=== PATIENT | male | born 1955 | race Caucasian/White ===

== ENCOUNTER 2017-06-11 09:54 | Emergency (ER) | payer MEDICAID, OTHER ==
[~2017-06-11] VITALS: Ht 172.7 cm; Wt 136.0 kg
[~2017-06-11 09:54] MED LIST: ASCO500 PO; ASPI81 PO; CARV6.25 PO; FLUT50I NASAL; LISI-360 PO; PRAS10 PO; ROSU10 PO; TAB-TAB PO; VITA400D PO
[2017-06-11 09:55] VITALS: BP 97/59; PULSE 66; RESP 18; TEMP 98.2; O2SAT 97
[2017-06-11] MEDS ORDERED: ROSU1TAB6 PO (10:10)
[2017-06-11] MEDS ORDERED: ASPI-516 CHEW ×2 (10:10)
[2017-06-11] MEDS ORDERED: LISI40TA PO ×2 (10:10)
[2017-06-11] MEDS ORDERED: CARV25TA PO ×2 (10:10)
--- NOTE | 2017-06-11 10:10 | PD ---
HPI Chief Complaint: General Weakness Time Seen by Provider: 09:56 Travel History International Travel<30 days: No Contact w/Intl Traveler<30days: No Traveled to known affect area: No History of Present Illness HPI This 61-year-old male is complaining of generalized weakness. Last [place] he fell and hurt his right patella. 3 nights later he injured his left great toe which was apparently broken. He has not been on any breaks. He apparently had x-rays done in [facility]. He was told that the patella was broken. He says that around 5 AM this morning she slid out of bed and upon. He says he been feeling weak for the last week he's been nauseated PFS Past Medical History Asthma: No Blood Disorders: No Anxiety: Yes Depression: No Heart Rhythm Problems: Yes (SKIPS BEATs) Cancer: No Cardiac Catheterization: Yes Cardiovascular Problems: Yes (BYPASS;STENTS) High Cholesterol: Yes Chemotherapy: No Chest Pain: Yes Congestive Heart Failure: No COPD: No Coronary Artery Disease: Yes Diabetes: No Diminished Hearing: No Endocrine: No Gastrointestinal Disorders: No Genitourinary: No Hypertension: Yes Immune Disorder: No Implanted Vascular Access Dvce: No Musculoskeletal: No Neurologic: No Psychiatric: No Reproductive: No Respiratory: Yes (SOB) Immunizations Current: Yes Radiation Therapy: No Sleep Apnea: Yes (no cpap) Thyroid Disease: No Past Surgical History Cardiac Surgery: Yes Cholecystectomy: Yes Coronary Artery Bypass Graft: Yes (QUAD BYPASS) Coronary Stent: Yes Tonsillectomy: Yes Other Surgery: Yes (CABG) Family History Family Hypercholesterolemia: Yes Social History Alcohol Use: Yes (1-2 TIMES WEEKLY ) Tobacco Use: No Substance Use: No Allergies-Medications (Allergen,Severity, Reaction): Coded Allergies: atorvastatin (Unverified Allergy, Mild, calf cramping, 01/27/17) Hospitalized as thought having heart attack. Reported Meds & Prescriptions Reported Meds & Active Scripts Active Reported Rosuvastatin (Rosuvastatin Calcium) 10 Mg Tab 10 Mg PO HS Aspirin 81 Mg Chew 81 Mg CHEW DAILY Lisinopril 40 Mg Tab 40 Mg PO DAILY Carvedilol 25 Mg Tab 25 Mg PO BID Review of Systems General / Constitutional: No: Fever, Chills Eyes: No: Diploplia, Blurred Vision HENT: Positive: Lightheadedness, No: Headaches, Vertigo Cardiovascular: No: Chest Pain or Discomfort, Palpitations Respiratory: No: Cough, Shortness of Breath Gastrointestinal: Positive: Nausea Genitourinary: No: Urgency, Frequency Musculoskeletal: No: Myalgias, Arthralgias Skin: No Rash, No Itching Neurologic: Positive: Weakness, No: Dizziness Endocrine: No: Heat Intolerance Hematologic/Lymphatic: No: Easy Bruising Physical Exam Narrative GENERAL: Well-developed male SKIN: Focused skin assessment warm/dry. HEAD: Atraumatic. Normocephalic. EYES: Pupils equal and round. No scleral icterus. No injection or drainage. ENT: No nasal bleeding or discharge. Mucous membranes pink and moist. NECK: Trachea midline. No JVD. CARDIOVASCULAR: Regular rate and rhythm. No murmur appreciated. RESPIRATORY: No accessory muscle use. Clear to auscultation. Breath sounds equal bilaterally. GASTROINTESTINAL: Abdomen soft, non-tender, nondistended. Hepatic and splenic margins not palpable. MUSCULOSKELETAL: No obvious deformities. No clubbing. No cyanosis. There is an effusion of the right knee. It is diffusely tender. NEUROLOGICAL: Awake and alert. No obvious cranial nerve deficits. Motor grossly within normal limits. Normal speech. PSYCHIATRIC: Appropriate mood and affect; insight and judgment normal. Data Data Last Documented VS Vital Signs Date Time Temp Pulse Resp B/P (MAP) Pulse Ox O2 Delivery O2 Flow Rate FiO2 06/11/17 11:33 71 16 103/62 (76) 97 Room Air 06/11/17 09:55 98.2 Orders Orders Complete Blood Count With Diff (06/11/17 10:05) Comprehensive Metabolic Panel (06/11/17 10:05) Urinalysis - C+S If Indicated (06/11/17 10:05) Ct Brain W/O Iv Contrast(Rout) (06/11/17 10:05) Sodium Chlor 0.9% 1000 Ml Inj (Ns 1000 M (06/11/17 10:15) Knee, Complete (4vws) (06/11/17 10:05) Ns (Bolus) Inj (06/11/17 11:45) Acetamin-Hydrocod 325-5 Mg ([place] 5-325 (06/11/17 11:45) Labs Laboratory Tests Test 06/11/17 10:25 White Blood Count 14.8 TH/MM3 Red Blood Count 4.21 MIL/MM3 Hemoglobin 13.5 GM/DL Hematocrit 40.3 % Mean Corpuscular Volume 95.8 FL Mean Corpuscular Hemoglobin 32.0 PG Mean Corpuscular Hemoglobin Concent 33.4 % Red Cell Distribution Width 13.3 % Platelet Count 101 TH/MM3 Mean Platelet Volume 7.6 FL Neutrophils (%) (Auto) 87.8 % Lymphocytes (%) (Auto) 6.0 % Monocytes (%) (Auto) 4.7 % Eosinophils (%) (Auto) 0.0 % Basophils (%) (Auto) 1.5 % Neutrophils # (Auto) 13.0 TH/MM3 Lymphocytes # (Auto) 0.9 TH/MM3 Monocytes # (Auto) 0.7 TH/MM3 Eosinophils # (Auto) 0.0 TH/MM3 Basophils # (Auto) 0.2 TH/MM3 CBC Comment AUTO DIFF Differential Total Cells Counted 100 Neutrophils % (Manual) 68 % Band Neutrophils % 12 % Lymphocytes % 9 % Monocytes % 7 % Neutrophils # (Manual) 12.4 TH/MM3 Metamyelocytes 4 % Differential Comment FINAL DIFF MANUAL Platelet Estimate LOW Platelet Morphology Comment NORMAL Red Cell Morphology Comment NORMAL Blood Urea Nitrogen 28 MG/DL Creatinine 1.50 MG/DL Random Glucose 147 MG/DL Total Protein 6.4 GM/DL Albumin 2.3 GM/DL Calcium Level 7.7 MG/DL Alkaline Phosphatase 61 U/L Aspartate Amino Transf (AST/SGOT) 50 U/L Alanine Aminotransferase (ALT/SGPT) 37 U/L Total Bilirubin 2.5 MG/DL Sodium Level 130 MEQ/L Potassium Level 4.1 MEQ/L Chloride Level 97 MEQ/L Carbon Dioxide Level 22.1 MEQ/L Anion Gap 11 MEQ/L Estimat Glomerular Filtration Rate 48 ML/MIN [facility] Medical Decision Making Medical Screen Exam Complete: Yes Emergency Medical Condition: Yes Medical Record Reviewed: Yes Differential Diagnosis Differential includes fractured patella, dehydration, Narrative Course We did x-rays of the right knee and lumbar films there is no apparent fracture. He does have effusion of the knee and has trouble bearing weight. He'll be on crutches with knee immobilizer. Lab work suggested he does have some dehydration. He may have fractured patella which is not apparent on our x-rays Diagnosis Primary Impression: Dehydration Scripts Hydrocodone-Acetaminophen (Hydrocodone-Acetaminophen) 7.5-300 Mg Tab 1 TAB PO Q4H Y for PAIN, #15 TAB 0 Refills Prov: Gilson Stallings MD 06/11/17 Disposition: 01 DISCHARGE HOME Condition: Stable Gilson Stallings MD Jun 11, 2017 10:10
[2017-06-11] MEDS ORDERED: SODIUM CHLOR 0.9% 1000 ML INJ 1,000 ML IV ONE ×2 (10:15→11:45)
[2017-06-11 10:30] LABS: BASOPHIL # 0.2 TH/MM3 (0-0.2); BASOPHIL % 1.5 % (0.0-2.0); HEMATOCRIT 40.3 % (39.0-51.0); HEMOGLOBIN 13.5 GM/DL (13.0-17.0); LYMPHOCYTE # 0.9 TH/MM3 (1.0-4.8); MEAN CELL VOLUME 95.8 FL (80.0-100.0); MEAN CORPUSCULAR HGB CONC 33.4 % (32.0-36.0); MEAN PLATELET VOLUME 7.6 FL (7.0-11.0); MONO % 4.7 % (0.0-8.0); MONOCYTE # 0.7 TH/MM3 (0-0.9); NEUT % 87.8 % (16.0-70.0); PLATELET COUNT 101 TH/MM3 (150-450); RED BLOOD COUNT 4.21 MIL/MM3 (4.50-5.90); RED CELL DISTRIBUTION WIDTH 13.3 % (11.6-17.2); WHITE BLOOD COUNT 14.8 TH/MM3 (4.0-11.0)
[2017-06-11 10:42] LABS: CHLORIDE 97 MEQ/L (98-107); SODIUM (NA) 130 MEQ/L (136-145)
[2017-06-11 10:46] LABS: CALCIUM 7.7 MG/DL (8.5-10.1)
[2017-06-11 10:47] LABS: ALBUMIN 2.3 GM/DL (3.4-5.0); BICARBONATE 22.1 MEQ/L (21.0-32.0); BLOOD UREA NITROGEN 28 MG/DL (7-18); GLUCOSE,RANDOM 147 MG/DL (74-106)
--- NOTE | 2017-06-11 10:48 | RADRPT ---
EXAM DATE/TIME: 06/11/2017 10:28 [facility] COMPARISON: No previous studies available for comparison. INDICATIONS : Right anterior knee pain post fall last week & knee was imaged 2 days ago at [facility]. Evette champion states he fell again this morning. MEDICAL HISTORY : Hypercholesterolemia. Hypertension Myocardial infarction. Irregular hear beat. Sleep apnea.CAD. SURGICAL HISTORY : Tonsillectomy. Cholecystectomy. CABG. Cardiac stent. ENCOUNTER: Initial ACUITY: 4 - 6 days PAIN SCORE: 10/10 LOCATION: Right anterior knee FINDINGS: Four view examination of the right knee demonstrates no evidence of fracture or dislocation. Bony mi neralization is normal. There is very mild degenerative changes involving the joint. There is a small joint effusion. The articular surfaces are intact. There are vascular calcifications in the soft ti ssues. CONCLUSION: 1. Unremarkable plain films of the knee for patient's age. 2. PVD Mayco Frank MD on June 11, 2017 at 10:46 Board Certified Radiologist. This report was verified electronically.
[2017-06-11 10:50] LABS: ALT (GPT) 37 U/L (12-78); AST (GOT) 50 U/L (15-37); GLOMERULAR FILTRATION RATE 48 ML/MIN (>89)
[2017-06-11 10:51] LABS: TOTAL BILIRUBIN ADULT 2.5 MG/DL (0.2-1.0); TOTAL PROTEIN 6.4 GM/DL (6.4-8.2)
[2017-06-11 10:53] LABS: ALKALINE PHOSPHATASE 61 U/L (45-117)
[2017-06-11 11:18] LABS: BANDS 12 % (0-6); LYMPHOCYTES 9 % (9-44); METAMYELOCYTES 4 % (0-1); MONOCYTES 7 % (0-8); NEUTROPHIL # MANUAL DIFF 12.4 TH/MM3 (1.8-7.7); POLYS (SEG NEUTROPHILS) 68 % (16-70)
--- NOTE | 2017-06-11 11:25 | RADRPT ---
EXAM DATE/TIME: 06/11/2017 10:58 [facility] COMPARISON: CT BRAIN W/O CONTRAST, June 06, 2015, 17:32. INDICATIONS : Headache, generalized weakness, nausea. RADIATION DOSE: 65.40 CTDIvol (mGy) MEDICAL HISTORY : Cardiovascular disease. Myocardial infarction. Hypertension. SURGICAL HISTORY : Tonsillectomy. CABGCoronary artery stent. ENCOUNTER: Initial ACUITY: 1 week PAIN SCALE: 4/10 LOCATION: Right temporal TECHNIQUE: Multiple contiguous axial images were obtained of the head. Using automated exposure control and adj ustment of the mA and/or kV according to patient size, radiation dose was kept as low as reasonably a chievable to obtain optimal diagnostic quality images. DICOM format image data is available electro nically for review and comparison. FINDINGS: CEREBRUM: The ventricles are normal for age. No evidence of midline shift, mass lesion, hemorrhage or acute in farction. No extra-axial fluid collections are seen. POSTERIOR FOSSA: The cerebellum and brainstem are intact. The 4th ventricle is midline. The cerebellopontine angle i s unremarkable. EXTRACRANIAL: The visualized portion of the orbits is intact. SKULL: The calvaria is intact. No evidence of skull fracture. CONCLUSION: 1. Stable and unremarkable CT scan of the brain compared to the prior examination. Mayco Frank MD on June 11, 2017 at 11:21 Board Certified Radiologist. This report was verified electronically.
[2017-06-11 11:33] VITALS: BP 103/62; PULSE 71; RESP 16; O2SAT 97
[2017-06-11] MEDS ORDERED: HYDR-2376 PO (11:44)
[2017-06-11] MEDS ORDERED: ACETAMINOPHEN/HYDROcodone 325 MG/5 MG TAB PO ONE (12:00)
[2017-06-11] MEDS ORDERED: HYDR-3580 PO (13:24)
[2017-06-11 13:26] VITALS: BP 132/77; PULSE 76; RESP 18; O2SAT 98
== END 2017-06-11 14:27 | disposition home or self-care (01) ==
LOC: PHED 09:54
DX: E86.0 Dehydration (principal); R11.0 Nausea; I10 Essential (primary) hypertension
CPT/HCPCS: 70450; 73564; 80053; 85007; 85027; 99285; E0113; J7030; L1830

== ENCOUNTER 2017-06-12 08:49 | Inpatient (IN) | payer OTHER ==
[~2017-06-12] VITALS: Ht 172.7 cm; Wt 132.5 kg
[2017-06-12] VITALS (11 sets, daily range): BP systolic 104–143; BP diastolic 56–82; PULSE 77–124; RESP 28–34; TEMP 98.4–103.2; O2SAT 90–99
[~2017-06-12 08:49] MED LIST changes: +ASPI-516 CHEW; +CARV25TA PO; +HYDR-2376 PO; +HYDR-3580 PO; +LISI40TA PO; +ROSU1TAB6 PO
[2017-06-12] MEDS ORDERED: VANCOMYCIN INJ 2,500 MG in SODIUM CHLORID 0.9% 500 ML INJ 500 ML IV STA (08:59)
[2017-06-12] MEDS ORDERED: CEFEPIME INJ 2,000 MG in SODIUM CHLORIDE 0.9% INJ 100 ML IV STA (08:59)
[2017-06-12] MEDS ORDERED: SODIUM CHLOR 0.9% 1000 ML INJ 1,000 ML IV ONE ×3 (08:59)
[2017-06-12] MEDS ORDERED: ACETAMINOPHEN 325 MG TAB PO ONE (09:00)
[2017-06-12 09:25] LABS: AUTOMATED NEUTROPHIL # 17.2 TH/MM3 (1.8-7.7); BASOPHIL % 0.1 % (0.0-2.0); HEMATOCRIT 39.3 % (39.0-51.0); HEMOGLOBIN 13.8 GM/DL (13.0-17.0); LYMPH % 5.8 % (9.0-44.0); LYMPHOCYTE # 1.1 TH/MM3 (1.0-4.8); MEAN CELL VOLUME 96.4 FL (80.0-100.0); MEAN CORPUSCULAR HEMOGLOBIN 33.7 PG (27.0-34.0); MEAN PLATELET VOLUME 8.3 FL (7.0-11.0); MONO % 6.5 % (0.0-8.0); MONOCYTE # 1.3 TH/MM3 (0-0.9); NEUT % 87.6 % (16.0-70.0); PLATELET COUNT 122 TH/MM3 (150-450); RED BLOOD COUNT 4.08 MIL/MM3 (4.50-5.90); RED CELL DISTRIBUTION WIDTH 14.3 % (11.6-17.2); WHITE BLOOD COUNT 19.6 TH/MM3 (4.0-11.0)
[2017-06-12 09:26] LABS: AMORPHOUS SEDIMENT, URINE RARE; BACTERIA, URINE RARE /hpf; BLOOD, URINE MOD (NEG); GLUCOSE,URINE NEG (NEG); KETONE, URINE NEG (NEG); NITRITE,URINE NEG (NEG); PH, URINE 5.5 (5.0-8.5); SQUAMOUS EPITHELIAL CELL URINE <1 /hpf (0-5); URINE COLOR YELLOW (YELLW/STRAW); URINE LEUKOCYTE ESTERASE NEG (NEG)
[2017-06-12 09:29] LABS: BILIRUBIN, URINE NEG (NEG)
[2017-06-12 09:33] LABS: INTERNATIONAL NORMALIZED RATIO 1.1 RATIO; PROTHROMBIN TIME - PATIENT 11.5 SEC (9.8-11.6)
[2017-06-12 09:36] LABS: ALBUMIN 2.4 GM/DL (3.4-5.0); AST (GOT) 63 U/L (15-37); BICARBONATE 20.9 MEQ/L (21.0-32.0); BLOOD UREA NITROGEN 40 MG/DL (7-18); CHLORIDE 99 MEQ/L (98-107); CREATININE 2.14 MG/DL (0.60-1.30); GLOMERULAR FILTRATION RATE 32 ML/MIN (>89); GLUCOSE,RANDOM 143 MG/DL (74-106); LIPASE 1269 U/L (73-393); MAGNESIUM 2.5 MG/DL (1.5-2.5); SODIUM (NA) 131 MEQ/L (136-145)
--- NOTE | 2017-06-12 09:38 | RADRPT ---
EXAM DATE/TIME: 06/12/2017 09:06 [facility] COMPARISON: CHEST SINGLE AP, June 06, 2015, 17:02. INDICATIONS : Shortness of breath and fever. MEDICAL HISTORY : Cardiovascular disease. Myocardial infarction. Hypertension. SURGICAL HISTORY : CABG. Tonsillectomy. CABG. Coronary artery stent. ENCOUNTER: Initial ACUITY: 1 day PAIN SCORE: 0/10 LOCATION: Bilateral chest FINDINGS: Stable median sternotomy wires and postsurgical features of prior cardiac surgery. Diffuse air social prominence and mild patchy bibasilar airspace disease. Cardiomediastinal contours are stable. Remain reina of the exam is unchanged. CONCLUSION: 1. Interstitial pulmonary edema pattern with patchy bibasilar airspace disease which may reflect atel ectasis although pneumonia cannot be entirely excluded in the appropriate clinical setting. Alfonso Perea MD on June 12, 2017 at 9:34 Board Certified Radiologist. This report was verified electronically.
[2017-06-12 09:40] LABS: ALKALINE PHOSPHATASE 69 U/L (45-117); ALT (GPT) 41 U/L (12-78); PHOSPHORUS 2.9 MG/DL (2.5-4.9); TOTAL BILIRUBIN ADULT 3.4 MG/DL (0.2-1.0); TOTAL PROTEIN 7.1 GM/DL (6.4-8.2); TROPONIN I 0.19 NG/ML (0.02-0.05)
[2017-06-12 09:43] LABS: LACTIC ACID SEPSIS PROTOCOL 2.5 mmol/L (0.4-2.0)
--- NOTE | 2017-06-12 10:07 | RADRPT ---
EXAM DATE/TIME: 06/12/2017 09:39 [facility] COMPARISON: CT BRAIN W/O CONTRAST, June 11, 2017, 10:58. INDICATIONS : Altered mental status. RADIATION DOSE: 56.35 CTDIvol (mGy) MEDICAL HISTORY : Cardiovascular disease. Hypertension. SURGICAL HISTORY : CABG Cholecystectomy. ENCOUNTER: Initial ACUITY: 1 day PAIN SCALE: 0/10 LOCATION: cranial TECHNIQUE: Multiple contiguous axial images were obtained of the head. Using automated exposure control and adj ustment of the mA and/or kV according to patient size, radiation dose was kept as low as reasonably a chievable to obtain optimal diagnostic quality images. DICOM format image data is available electro nically for review and comparison. FINDINGS: CEREBRUM: The ventricles are normal for age. No evidence of midline shift, mass lesion, hemorrhage or acute in farction. No extra-axial fluid collections are seen. POSTERIOR FOSSA: The brainstem remains intact. There is a well-defined low-attenuation area now noted involving the ri ght cerebellar hemisphere consistent with an acute to subacute infarction. This measures up to approx imately 2 cm in diameter. The 4th ventricle is midline. The cerebellopontine angle is unremarkable. EXTRACRANIAL: The visualized portion of the orbits is intact. SKULL: The calvaria is intact. No evidence of skull fracture. CONCLUSION: 2 cm low-attenuation area now noted involving the right cerebellar hemisphere most co nsistent with an acute to subacute infarction. This could be further evaluated with MRI imaging. Josiah Alegre MD on June 12, 2017 at 10:01 Board Certified Radiologist. This report was verified electronically.
--- NOTE | 2017-06-12 11:27 | HHI.HP ---
HPI Service [facility] Hospitalists Primary Care Physician Griffin Shaw, DO Admission Diagnosis CVA, sepsis Chief Complaint: Generalized weakness, SOB Travel History International Travel<30 Days: No Contact w/Intl Traveler <30 Da: No Traveled to Known Affected Are: No History of Present Illness Mr. Vargas is a pleasant 61 y/o WM with HTN, CAD s/p CABG x in 2000 and stent placement in 2014. Pt presented to the ED at [facility] on 06/12/17 with complaints of progressive generalized weakness and some confusion. The pt also notes some upper abdominal discomfort that started today. He was seen in the ED [place] [facility] [place] with complaints of weakness and some knee pain. He had fallen at home due to weakness about a week ago and injured his right knee and reportedly had outpt Xrays which noted a patellar fracture and has a brace on the RLE currently. Xrays in the ED on 06/11 did not indicate a patellar fracture but pt with noted effusion and he was prescribed some pain medications PRN. IN the ED on 06/11 he was felt to be dehydrated and was given 2L of IVF. He was sent home with his son and then brought back into the ED on 06/12 for apparent confusion. Pt states that he has had problems with generalized weakness for the last few weeks. He denies any abd pain, nausea/vomiting, diarrhea, chest pain, SOB or palpitations. 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 Pt was noted to have a fever of 103 in the ED. Blood cultures were drawn. He has been given 3L of IVF and given Vancomycin and Cefepime in the ED. Head CT in the ED on 06/12 noted 2 cm low- attenuation area now noted involving the right cerebellar hemisphere most consistent with an acute to subacute infarction. He had had a Head CT on 06/11 which did not indicate finding of an acute stroke per radiologist interpretation. Labs work in the ED noted an elevated WBC count of 19,000. His renal function is worse today than the day prior. He also had noted an elevated Lipase of 1296 with TBili 3.4, AST 63, ALT 41. His UA was abnormal and culture is pending. At the time of my evaluation in the ED the pt appeared SOB in the ED but denies feeling like he's SOB. He has audible wheezing and appears to be using accessory muscles. He has not specific complaints at the time of examination other than generalized weakness. Review of Systems Constitutional: COMPLAINS OF: Fever, DENIES: Chills Respiratory: COMPLAINS OF: Shortness of breath, DENIES: Cough Cardiovascular: DENIES: Chest pain, Palpitations, Lower Extremity Edema Gastrointestinal: COMPLAINS OF: Abdominal pain, DENIES: Constipation, Diarrhea , Nausea, Vomiting Genitourinary: DENIES: Urgency, Dysuria Musculoskeletal: COMPLAINS OF: Joint pain, DENIES: Back pain, Neck pain Integumentary: DENIES: Rash Neurologic: DENIES: Headache Psychiatric: COMPLAINS OF: Confusion Past Family Social History Past Medical History CAD with hx of [place] HTN Hyperlipidemia GERD Hepatic steatosis ASIF Obesity Past Surgical History CABG x 4 in 2000 Lap Gina Tonsillectomy Reported Medications Hydrocodone-Acetaminophen 7.5 Mg-325 Mg Tab 1 Tab PO Q4H PRN Rosuvastatin (Rosuvastatin Calcium) 10 Mg Tab 10 Mg PO HS Aspirin 81 Mg Chew 81 Mg CHEW DAILY Lisinopril 40 Mg Tab 40 Mg PO DAILY Carvedilol 25 Mg Tab 25 Mg PO BID Allergies: Coded Allergies: atorvastatin (Unverified Allergy, Mild, calf cramping, 01/27/17) Hospitalized as thought having heart attack. 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 HEENT: Atraumatic. Normocephalic. No temporal or scalp tenderness. No scleral icterus. Airway patent. NECK: Trachea midline, supple, nontender. CARDIO: Regular. RESP: Audible wheezing and wheezing throughout. Accessory muscle use ABD: +BS, soft, mildly distended, tenderness with palpation in the epigastric, no rebound. EXT: RLE with brace in place NEURO: Awake and alert, difficult historian. Motor and sensory grossly within normal limits. Normal speech. Laboratory Laboratory Tests Test 06/12/17 09:05 White Blood Count 19.6 Red Blood Count 4.08 Hemoglobin 13.8 Hematocrit 39.3 Mean Corpuscular Volume 96.4 Mean Corpuscular Hemoglobin 33.7 Mean Corpuscular Hemoglobin Concent 35.0 Red Cell Distribution Width 14.3 Platelet Count 122 Mean Platelet Volume 8.3 Neutrophils (%) (Auto) 87.6 Lymphocytes (%) (Auto) 5.8 Monocytes (%) (Auto) 6.5 Eosinophils (%) (Auto) 0.0 Basophils (%) (Auto) 0.1 Neutrophils # (Auto) 17.2 Lymphocytes # (Auto) 1.1 Monocytes # (Auto) 1.3 Eosinophils # (Auto) 0.0 Basophils # (Auto) 0.0 CBC Comment DIFF FINAL Differential Comment Prothrombin Time 11.5 Prothromb Time International Ratio 1.1 Activated Partial Thromboplast Time 34.1 Urine Color YELLOW Urine Turbidity HAZY Urine pH 5.5 Urine Specific [place] 1.014 Urine Protein 30 Urine Glucose (UA) NEG Urine Ketones NEG Urine Occult Blood MOD Urine Nitrite NEG Urine Bilirubin NEG Urine Urobilinogen 8.0 Urine Leukocyte Esterase NEG Urine RBC 6 Urine WBC 4 Urine Squamous Epithelial Cells <1 Urine Amorphous Sediment RARE Urine Bacteria RARE Microscopic Urinalysis Comment CATH-CULTURE IND Blood Urea Nitrogen 40 Creatinine 2.14 Random Glucose 143 Total Protein 7.1 Albumin 2.4 Calcium Level 8.0 Phosphorus Level 2.9 Magnesium Level 2.5 Alkaline Phosphatase 69 Aspartate Amino Transf (AST/SGOT) 63 Alanine Aminotransferase (ALT/SGPT) 41 Total Bilirubin 3.4 Sodium Level 131 Potassium Level 4.3 Chloride Level 99 Carbon Dioxide Level 20.9 Anion Gap 11 Estimat Glomerular Filtration Rate 32 Lactic Acid Level 2.5 Total Creatine Kinase 328 Creatine Kinase MB 2.1 Creatine Kinase MB % 0.6 Troponin I 0.19 Lipase 1269 Date/Time Source Procedure Growth Status 06/12/17 09:10 Blood Peripheral Aerobic Blood Culture Pending Received 06/12/17 09:10 Blood Peripheral Anaerobic Blood Culture Pending Received 06/12/17 10:48 Nasal Aspirate Influenza Types A,B Antigen (CHELSI) Pending Received 06/12/17 09:05 Urine Catheterized Urine Urine Culture Pending Received Result Diagram: 06/12/1790406/12/[id number] Imaging Last Impressions Head CT 06/12/17858 Signed Impressions: Service Date/Time: Monday, June 12, 2017 09:39 - CONCLUSION: 2 cm low-attenuation area now noted involving the right cerebellar hemisphere most consistent with an acute to subacute infarction. This could be further evaluated with MRI imaging. Josiah Alegre MD Chest X-Ray 06/12/17858 Signed Impressions: Service Date/Time: Monday, June 12, 2017 09:06 - CONCLUSION: 1. Interstitial pulmonary edema pattern with patchy bibasilar airspace disease which may reflect atelectasis although pneumonia cannot be entirely excluded in the appropriate clinical setting. MD Mireya Andino VTE Risk Assessment Caprini VTE Risk Assessment: Mod/High Risk (score >= 2) Caprini Risk Assessment Model Point Value = 1 Point Value = 2 Point Value = 3 Point Value = 5 Age 41-60 Minor surgery BMI > 25 kg/m2 Swollen legs Varicose veins or History of unexplained or recurrent spontaneous Oral contraceptives or hormone replacement Sepsis (< 1 month) Serious lung disease, including pneumonia (< 1 month) Abnormal pulmonary function Acute myocardial infarction Congestive heart failure (< 1 month) History of inflammatory bowel disease Medical patient at bed rest Age 61-74 Arthroscopic surgery Major open surgery (> 45 min) Laparoscopic surgery (> 45 min) Malignancy Confined to bed (> 72 hours) Immobilizing plaster cast Central venous access Age >= 75 History of VTE Family history of VTE Factor V Leiden Prothrombin [id number] Lupus anticoagulant Anticardiolipin antibodies Elevated serum homocysteine Heparin-induced thrombocytopenia Other congenital or acquired thrombophilia Stroke (< 1 month) Elective arthroplasty Hip, pelvis, or leg fracture Acute spinal cord injury (< 1 month) Prophylaxis Regimen Total Risk Factor Score Risk Level Prophylaxis Regimen 0-1 Low Early ambulation 2 Moderate Order ONE of the following: *Sequential Compression Device (SCD) *Heparin 5000 units SQ BID 3-4 Higher Order ONE of the following medications: *Heparin 5000 units SQ TID *Enoxaparin/Lovenox 40 mg SQ daily (WT < 150 kg, CrCl > 30 mL/min) *Enoxaparin/Lovenox 30 mg SQ daily (WT < 150 kg, CrCl > 10-29 mL/min) *Enoxaparin/Lovenox 30 mg SQ BID (WT < 150 kg, CrCl > 30 mL/min) AND/OR *Sequential Compression Device (SCD) 5 or more Highest Order ONE of the following medications: *Heparin 5000 units SQ TID (Preferred with Epidurals) *Enoxaparin/Lovenox 40 mg SQ daily (WT < 150 kg, CrCl > 30 mL/min) *Enoxaparin/Lovenox 30 mg SQ daily (WT < 150 kg, CrCl > 10-29 mL/min) *Enoxaparin/Lovenox 30 mg SQ BID (WT < 150 kg, CrCl > 30 mL/min) AND *Sequential Compression Device (SCD) Assessment and Plan Problem List: (1) CVA (cerebral vascular accident) ICD Codes: I63.9 - Cerebral infarction, unspecified Status: Acute Plan: Pt is a 61 y/o WM with HTN, CAD s/p CABG x in 2000 and stent placement in 2014. Pt presented to the ED at [facility] on 06/12/17 with complaints of progressive generalized weakness and some confusion. The pt also notes some upper abdominal discomfort that started today. He was seen in the ED [place] [facility] [place] with complaints of weakness and some knee pain. He had fallen at home due to weakness about a week ago and injured his right knee and reportedly had outpt Xrays which noted a patellar fracture and has a brace on the RLE currently. Xrays in the ED on 06/11 did not indicate a patellar fracture but pt with noted effusion and he was prescribed some pain medications PRN. IN the ED on 06/11 he was felt to be dehydrated and was given 2L of IVF. He was sent home with his son and then brought back into the ED on 06/12 for apparent confusion. Generalized Weakness Sepsis Volume overload - Pt states that he has had problems with generalized weakness for the last few weeks. Pt was noted to have a fever of 103 in the ED. - Blood cultures were drawn in the ED and are pending. - He has been given 3L of IVF and given Vancomycin and Cefepime in the ED. - Pt tested negative fort Influenza - Labs work in the ED noted an elevated WBC count of 19,000. - His renal function is worse today than the day prior. - His UA was abnormal and culture is pending. - At the time of my evaluation in the ED the pt appeared SOB in the ED but denies feeling like he's SOB. He has audible wheezing and appears to be using accessory muscles. - CXR at admission noted interstitial pulmonary edema pattern with patchy bibasilar airspace disease which may reflect atelectasis although pneumonia cannot be entirely excluded in the appropriate clinical setting. - Pt received 3L of bolus IVF in the ED and we are concerned about volume overload - STAT repeat CXR - Lasix 20mg IV now and Duoneb treatment now, continue Duonebs Q4H scheduled - Hold off on continuing any IVF - Cont. Zosyn Q8H - Await blood and urine cultures - Pt to be admitted to [facility] for close monitoring - Repeat CXR in AM Acute CVA, right cerebellar Elevated troponin - Head CT in the ED on 06/12 noted 2 cm low-attenuation area now noted involving the right cerebellar hemisphere most consistent with an acute to subacute infarction. He had had a Head CT on 06/11 which did not indicate finding of an acute stroke per radiologist interpretation. - Consult Neurology - HOB flat - NPO - Permissive HTN, Vasotec PRN for systolic over 220 - ASA - When he is more stable, evaluate with MRI brain, Carotid US and 2D echo - PT evaluation when more stable - Trend troponin and CPK, troponin elevation may be related to CVA - EKG in the ED with noted sinus rhythm and occasional PACs Elevated Lipase Elevated LFTs - He also had noted an elevated Lipase of 1296 with TBili 3.4, AST 63, ALT 41 - Pt with hx of previous Lap gina according to outpt records - Unclear how much alcohol this pt normally drinks - Monitor labs HTN CAD with hx of [place] - Hold home BP meds for permissive HTN - Vasotec PRN GERD - PPI (2) Sepsis ICD Codes: A41.9 - Sepsis, unspecified organism Status: Acute (3) Volume overload ICD Codes: E87.70 - Fluid overload, unspecified Status: Acute (4) Elevated lipase ICD Codes: R74.8 - Abnormal levels of other serum enzymes Status: Acute (5) Elevated LFTs ICD Codes: R79.89 - Other specified abnormal findings of blood chemistry Status: Acute (6) CAD (coronary artery disease) ICD Codes: I25.10 - Coronary artery disease Status: Chronic (7) HTN (hypertension) ICD Codes: I10 - Hypertension Status: Chronic (8) Acid reflux ICD Codes: K21.9 - Gastroesophageal reflux disease Status: Chronic (9) ASIF (obstructive sleep apnea) ICD Codes: G47.33 - Obstructive sleep apnea syndrome Status: Chronic Permanent Comment: Not sleeping with the machine. After heart attack 4 years ago. Last Edited By: Lang Mueller on Dec 29, 2014 12:12 (10) Dyslipidemia ICD Codes: E78.5 - Dyslipidemia Status: Chronic Physician Certification 2 Midnight Certification Type: Continued Stay Order for Inpatient Services The services are ordered in accordance with Medicare regulations or non- Medicare payer requirements, as applicable. In the case of services not specified as inpatient-only, they are appropriately provided as inpatient services in accordance with the 2-midnight benchmark. Estimated LOS (days): 3 3 days is the estimated time the patient will need to remain in the hospital, assuming treatment plan goals are met and no additional complications. Post-Hospital Plan: Not yet determined Heather Navarro Jun 12, 2017 11:27
[2017-06-12] MEDS ORDERED: FUROSEMIDE 20 MG/2 ML VIAL IV PUSH ONE ×2 (11:30→17:00)
[2017-06-12] MEDS ORDERED: RESP: ALBUTEROL 2.5 MG/IPRATROPIUM 0.5 MG NEB (SCH) NEB ONE (11:30)
[2017-06-12] MEDS: ASPIRIN 325 MG TAB PO SCH (12:00)
[2017-06-12] MEDS: RESP: ALBUTEROL 2.5 MG/IPRATROPIUM 0.5 MG NEB (SCH) NEB ×3 (12:00→20:13)
[2017-06-12] MEDS ORDERED: SODIUM CHLORIDE 0.9% FLUSH 10 ML FLUSH IV FLUSH PRN (12:00)
--- NOTE | 2017-06-12 12:34 | RADRPT ---
EXAM DATE/TIME: 06/12/2017 11:46 [place] COMPARISON: CHEST SINGLE AP, June 12, 2017, 9:06. INDICATIONS : Shortness of breath. MEDICAL HISTORY : Cardiovascular disease. Myocardial infarction. Hypertension. SURGICAL HISTORY : CABG. Tonsillectomy. CABG. Coronary artery stent. ENCOUNTER: Subsequent ACUITY: 1 day PAIN SCORE: 0/10 LOCATION: Bilateral chest FINDINGS: Frontal view of the chest demonstrates engorgement and indistinctness of the central bronchopulmonary markings with associated peribronchial thickening. The appearance and severity is similar to prior c hest x-ray earlier today. Stable cardiomegaly. Both hemidiaphragms remain delineated. CONCLUSION: Stable severity to the engorged pulmonary vessels and peribronchial thickening. No focal alveolar are as of consolidation. David Reyna MD on June 12, 2017 at 12:31 Board Certified Radiologist. This report was verified electronically.
[2017-06-12] MEDS ORDERED: ONDANSETRON HCL 4 MG/2 ML VIAL IV PRN (12:45)
[2017-06-12] MEDS ORDERED: ACETAMINOPHEN 325 MG TAB PO PRN (12:45)
--- NOTE | 2017-06-12 13:01 | PD ---
HPI Chief Complaint: Altered Mental Status Time Seen by Provider: 08:59 Travel History International Travel<30 days: No Contact w/Intl Traveler<30days: No Traveled to known affect area: No History of Present Illness HPI The patient 61 years old and arrives to the ER by EMS. His son called due to altered mental status at home. The patient was seen yesterday at [place] [facility] and discharged with a diagnosis of dehydration. His son reports the patient was abnormal at that point. Upon arrival to the ER the patient is aox1 times one. He is reported to have been febrile to 100.3 by EMS. The patient complains of feeling terrible with history otherwise limited. PFSH Past Medical History Asthma: No Blood Disorders: No Anxiety: Yes Depression: No Heart Rhythm Problems: Yes (SKIPS BEATs) Cancer: No Cardiac Catheterization: Yes Cardiovascular Problems: Yes (BYPASS;STENTS) High Cholesterol: Yes Chemotherapy: No Chest Pain: Yes Congestive Heart Failure: No COPD: No Coronary Artery Disease: Yes Diabetes: No Diminished Hearing: No Endocrine: No Gastrointestinal Disorders: No Genitourinary: No Hypertension: Yes Immune Disorder: No Implanted Vascular Access Dvce: No Musculoskeletal: No Neurologic: No Psychiatric: No Reproductive: No Respiratory: Yes (SOB) Immunizations Current: Yes Radiation Therapy: No Sleep Apnea: Yes (no cpap) Thyroid Disease: No ?: Not Past Surgical History Cardiac Surgery: Yes Cholecystectomy: Yes Coronary Artery Bypass Graft: Yes (QUAD BYPASS) Coronary Stent: Yes Tonsillectomy: Yes Other Surgery: Yes (CABG) Family History Family Hypercholesterolemia: Yes Social History Alcohol Use: Yes (1-2 TIMES WEEKLY ) Tobacco Use: No Substance Use: No Allergies-Medications (Allergen,Severity, Reaction): Coded Allergies: atorvastatin (Unverified Allergy, Mild, calf cramping, 01/27/17) Hospitalized as thought having heart attack. Reported Meds & Prescriptions Reported Meds & Active Scripts Active Hydrocodone-Acetaminophen 7.5 Mg-325 Mg Tab 1 Tab PO Q4H PRN Reported Rosuvastatin (Rosuvastatin Calcium) 10 Mg Tab 10 Mg PO HS Aspirin 81 Mg Chew 81 Mg CHEW DAILY Lisinopril 40 Mg Tab 40 Mg PO DAILY Carvedilol 25 Mg Tab 25 Mg PO BID Review of Systems Except as stated in HPI: all other systems reviewed are Neg General / Constitutional: Positive: Fever HENT: No: Headaches Respiratory: No: Shortness of Breath Physical Exam Narrative GENERAL: The patient 61-year-old male, BMI 45, mild to moderate distress secondary to pain and/or infection SKIN: Focused skin assessment warm/dry. HEAD: Atraumatic. Normocephalic. EYES: Pupils equal and round. No scleral icterus. No injection or drainage. ENT: No nasal bleeding or discharge. Mucous membranes pink and moist. NECK: Trachea midline. No JVD. CARDIOVASCULAR: Rate 90. Rhythm regular. RESPIRATORY: Tachypnea. Coarse breath sounds bilaterally. GASTROINTESTINAL: Abdomen soft, non-tender, nondistended. Hepatic and splenic margins not palpable. MUSCULOSKELETAL: No obvious deformities. No clubbing. No cyanosis. No edema. NEUROLOGICAL: A and O 1. No focal cranial nerve deficit. Patient moving all extremities normally. PSYCHIATRIC: Appropriate mood and affect; insight and judgment normal. Data Data Last Documented VS Vital Signs Date Time Temp Pulse Resp B/P (MAP) Pulse Ox O2 Delivery O2 Flow Rate FiO2 06/12/17 10:47 98.6 06/12/17 10:06 91 30 94 Nasal Cannula 2.00 Vital signs reviewed Vital Signs Date Time Temp Pulse Resp B/P (MAP) Pulse Ox O2 Delivery O2 Flow Rate FiO2 06/12/17 10:47 98.6 06/12/17 10:06 102.2 91 30 122/56 (78) 94 Nasal Cannula 2.00 06/12/17 09:09 98 Nasal Cannula 2.00 06/12/17 08:59 34 Nasal Cannula 2.00 06/12/17 08:52 103.2 92 34 143/82 (102) Orders Orders Sepsis Workup Initiated (06/12/17 ) Electrocardiogram (06/12/17 08:59) Complete Blood Count With Diff (06/12/17 08:59) Comprehensive Metabolic Panel (06/12/17 08:59) Prothrombin Time / Inr (Pt) (06/12/17 08:59) Act Partial Throm Time (Ptt) (06/12/17 08:59) Lactic Acid Sepsis Protocol (06/12/17 08:59) Magnesium (Mg) (06/12/17 08:59) Phosphorus (Po4) (06/12/17 08:59) Lipase (06/12/17 08:59) Ckmb (Isoenzyme) Profile (06/12/17 08:59) Troponin I (06/12/17 08:59) Urinalysis - C+S If Indicated (06/12/17 08:59) Influenzae A/B Antigen (06/12/17 08:59) Blood Culture (06/12/17 08:59) Chest, Single Ap (06/12/17 08:59) Blood Glucose (06/12/17 08:59) Ecg Monitoring (06/12/17 08:59) Iv Access Insert/Monitor (06/12/17 08:59) Oximetry (06/12/17 08:59) Oxygen Administration (06/12/17 08:59) Acetaminophen (Tylenol) (06/12/17 09:00) Ct Brain W/O Iv Contrast(Rout) (06/12/17 08:59) Vancomycin Inj (Vancomycin Inj) (06/12/17 08:59) Cefepime Inj (Maxipime Inj) (06/12/17 08:59) Sodium Chlor 0.9% 1000 Ml Inj (Ns 1000 M (06/12/17 08:59) Sodium Chlor 0.9% 1000 Ml Inj (Ns 1000 M (06/12/17 08:59) Sodium Chlor 0.9% 1000 Ml Inj (Ns 1000 M (06/12/17 08:59) Insert Temp Sensing Hernandez Cath (06/12/17 09:12) Urine Culture (06/12/17 09:05) CKMB (06/12/17 09:05) CKMB% (06/12/17 09:05) Urinary Catheter Management JORDON.Q8H (06/12/17 09:41) Admit Order (Ed Use Only) (06/12/17 ) Scrap Sawyer / Telemetry JORDON.Q8H (06/12/17 11:19) Vital Signs (Adult) Q4H (06/12/17 11:19) Diet Npo (06/12/17 Lunch) Activity Bed Rest (06/12/17 11:19) Labs Laboratory Tests Test 06/12/17 09:05 White Blood Count 19.6 TH/MM3 Red Blood Count 4.08 MIL/MM3 Hemoglobin 13.8 GM/DL Hematocrit 39.3 % Mean Corpuscular Volume 96.4 FL Mean Corpuscular Hemoglobin 33.7 PG Mean Corpuscular Hemoglobin Concent 35.0 % Red Cell Distribution Width 14.3 % Platelet Count 122 TH/MM3 Mean Platelet Volume 8.3 FL Neutrophils (%) (Auto) 87.6 % Lymphocytes (%) (Auto) 5.8 % Monocytes (%) (Auto) 6.5 % Eosinophils (%) (Auto) 0.0 % Basophils (%) (Auto) 0.1 % Neutrophils # (Auto) 17.2 TH/MM3 Lymphocytes # (Auto) 1.1 TH/MM3 Monocytes # (Auto) 1.3 TH/MM3 Eosinophils # (Auto) 0.0 TH/MM3 Basophils # (Auto) 0.0 TH/MM3 CBC Comment DIFF FINAL Differential Comment Prothrombin Time 11.5 SEC Prothromb Time International Ratio 1.1 RATIO Activated Partial Thromboplast Time 34.1 SEC Urine Color YELLOW Urine Turbidity HAZY Urine pH 5.5 Urine Specific [place] 1.014 Urine Protein 30 mg/dL Urine Glucose (UA) NEG mg/dL Urine Ketones NEG mg/dL Urine Occult Blood MOD Urine Nitrite NEG Urine Bilirubin NEG Urine Urobilinogen 8.0 MG/DL Urine Leukocyte Esterase NEG Urine RBC 6 /hpf Urine WBC 4 /hpf Urine Squamous Epithelial Cells <1 /hpf Urine Amorphous Sediment RARE Urine Bacteria RARE /hpf Microscopic Urinalysis Comment CATH-CULTURE IND Blood Urea Nitrogen 40 MG/DL Creatinine 2.14 MG/DL Random Glucose 143 MG/DL Total Protein 7.1 GM/DL Albumin 2.4 GM/DL Calcium Level 8.0 MG/DL Phosphorus Level 2.9 MG/DL Magnesium Level 2.5 MG/DL Alkaline Phosphatase 69 U/L Aspartate Amino Transf (AST/SGOT) 63 U/L Alanine Aminotransferase (ALT/SGPT) 41 U/L Total Bilirubin 3.4 MG/DL Sodium Level 131 MEQ/L Potassium Level 4.3 MEQ/L Chloride Level 99 MEQ/L Carbon Dioxide Level 20.9 MEQ/L Anion Gap 11 MEQ/L Estimat Glomerular Filtration Rate 32 ML/MIN Lactic Acid Level 2.5 mmol/L Total Creatine Kinase 328 U/L Creatine Kinase MB 2.1 NG/ML Creatine Kinase MB % 0.6 % Troponin I 0.19 NG/ML Lipase 1269 U/L MDM Medical Decision Making Medical Screen Exam Complete: Yes Emergency Medical Condition: Yes Medical Record Reviewed: Yes Differential Diagnosis Sepsis, meningitis, pneumonia Narrative Course CBC & BMP Diagram 06/12/17 09:05 Total Protein 7.1 #, Albumin 2.4 L, Calcium Level 8.0 L, Phosphorus Level 2.9, Magnesium Level 2.5, Alkaline Phosphatase 69, Aspartate Amino Transf (AST/SGOT) 63 H, Alanine Aminotransferase (ALT/SGPT) 41, Total Bilirubin 3.4 H Last Impressions Head CT 06/12/1759 Signed Impressions: Service Date/Time: Monday, June 12, 2017 09:39 - CONCLUSION: 2 cm low-attenuation area now noted involving the right cerebellar hemisphere most consistent with an acute to subacute infarction. This could be further evaluated with MRI imaging. Josiah Alegre MD Chest X-Ray 06/12/1759 Signed Impressions: Service Date/Time: Monday, June 12, 2017 09:06 - CONCLUSION: 1. Interstitial pulmonary edema pattern with patchy bibasilar airspace disease which may reflect atelectasis although pneumonia cannot be entirely excluded in the appropriate clinical setting. Alfonso Perea MD Chest X-Ray 06/12/17 0000 Signed Impressions: Service Date/Time: Monday, June 12, 2017 11:46 - CONCLUSION: Stable severity to the engorged pulmonary vessels and peribronchial thickening. No focal alveolar areas of consolidation. David Reyna MD Chest x-ray is noted. The patient will receive IV antibiotics. Case discussed with Dr Mcgovern CT abd/pelvis added 2/2 lipase and LFT abnormalities PT with increased work of breathing after IVF administration lasix ordered by admitting service Diagnosis Primary Impression: Sepsis Additional Impressions: Elevated LFTs Elevated lipase CVA (cerebral vascular accident) Morbid obesity Admitting Information Admitting Physician Requests: Admit Kyle Abbott MD Jun 12, 2017 13:01
--- NOTE | 2017-06-12 13:38 | RADRPT ---
EXAM DATE/TIME: 06/12/2017 13:14 [facility] COMPARISON: No previous studies available for comparison. INDICATIONS : Patient complains of abdominal pain, evaluate for pancreatitis, sepsis. ORAL CONTRAST: No oral contrast ingested. RADIATION DOSE: 20.28 CTDIvol (mGy) MEDICAL HISTORY : Cardiovascular disease. Hypertension. SURGICAL HISTORY : CABG Cholecystectomy. ENCOUNTER: Initial ACUITY: 1 day PAIN SCALE: 4/10 LOCATION: abdomen TECHNIQUE: Volumetric scanning of the abdomen and pelvis was performed. Using automated exposure control and ad justment of the mA and/or kV according to patient size, radiation dose was kept as low as reasonably achievable to obtain optimal diagnostic quality images. DICOM format image data is available electro nically for review and comparison. FINDINGS: LOWER LUNGS: Groundglass opacities at the lung bases. LIVER: Homogeneous density without lesion. There is no dilation of the biliary tree. No calcified gallston es. SPLEEN: Mild splenomegaly with spleen measuring up to extend centimeters. PANCREAS: Pancreas is grossly unremarkable without evidence for significant peripancreatic inflammatory change or fluid collection. KIDNEYS: Kidneys are symmetrical in size. There is slight increased perinephric stranding on the left. No radi opaque renal calculi or hydronephrosis. No significant contour deforming renal abnormalities. ADRENAL GLANDS: Within normal limits. VASCULAR: There is no aortic aneurysm. BOWEL/MESENTERY: The stomach, small bowel, and colon demonstrate no acute abnormality. Appendix is visualized and unr emarkable. There is very subtle trace free fluid in the left lower quadrant. No drainable fluid colle ction. ABDOMINAL WALL: Within normal limits. RETROPERITONEUM: There is no lymphadenopathy. BLADDER: Decompressed secondary to Hernandez catheter. REPRODUCTIVE: Within normal limits. INGUINAL: There is no lymphadenopathy or hernia. MUSCULOSKELETAL: Within normal limits for patient age. CONCLUSION: 1. Minimally increased left-sided perinephric stranding. No significant peripancreatic inflammatory s tranding or fluid collection. There is trace subtle free fluid in the left lower quadrant. Overall, t he findings are nonspecific but suggests a possible inflammatory process in the left abdomen. Please note that CT examination is not very sensitive particularly without benefit of IV contrast for detect ion of acute pancreatitis. Differential considerations include left-sided pyelonephritis. 2. Mild splenomegaly of uncertain etiology. 3. Normal appendix. Alfonso Perea MD on June 12, 2017 at 13:28 Board Certified Radiologist. This report was verified electronically.
--- NOTE | 2017-06-12 14:37 | EKG ---
Date Performed: 06/12/2017 Time Performed: 09:22:11 PTAGE: 61 years EKG: Sinus rhythm WITH OCCASIONAL SUPRAVENTRICULAR PREMATURE COMPLEXES NONSPECIFIC ST & T-WAVE ABNORMALITY BORDERLINE ECG PREVIOUS TRACING : 06/06/2015 23.14 Since prior tracing, PACs are now seen. Nonspecific changes are slightly more prominent. DOCTOR: Chase Meredith Interpretating Date/Time 06/12/2017 14:35:43
[2017-06-12] MEDS: PANTOPRAZOLE SODIUM 40 MG VIAL IV PUSH SCH (14:43)
[2017-06-12] MEDS: PIPERACIL-TAZO 3.375 GM PREMIX 50 ML IV SCH ×2 (14:44→21:34)
[2017-06-12 15:25] LABS: TROPONIN I 0.2 NG/ML (0.02-0.05)
[2017-06-12] MEDS ORDERED: SODIUM CHLOR 0.9% 1000 ML INJ 1,000 ML IV SCH (15:45)
--- NOTE | 2017-06-12 17:27 | MB ---
cc: ROD OLIVEIRA M.D. DATE OF CONSULTATION: 06/12/2017. REASON FOR CONSULTATION: Stroke. HISTORY OF PRESENT ILLNESS: The patient is a 61-year-old man with a history of hypertension, heart disease, bypass surgery in 2000, stent in 2014 who came in yesterday with progressive generalized weakness, confusion, generalized pain. He had a fall. Some abdominal discomfort. CT was done of the brain and it showed a right hypodensity in the cerebellum, acute/subacute stroke; hence, neurology consulted. PAST MEDICAL HISTORY: The patient's past medical history is as stated. MEDICATIONS: Home medicines are: 1. [place]. 2. Crestor. 3. A baby aspirin. 4. . 5. Carvedilol. ALLERGIES: ATORVASTATIN. FAMILY HISTORY: History of liver cancer in the mother. SOCIAL HISTORY: Alcohol use once or two times a week. 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 . PHYSICAL EXAMINATION: VITAL SIGNS: Temperature 98.4, pulse 77, respiratory rate 32, blood pressure 113/72. He is awake and alert. He is fluent. His pupils are reactive. Face symmetrical. Tongue midline. Motor-parish he can move everything but complains of generalized pain. Difficult for him do to cerebellar testing but on the right [id number] there is no dysmetria. I do not see any significant drift but he has pain all over so strength testing is impossible at this time. LABS: White count 19.6 with 87.6% neutrophils. Coag panel: PTT 34.1. Chemistries: Sodium 131, BUN 40, creatinine 2.14, GFR 32, lactic acid 2.5 and then 1.5 after. Troponin 19.20. Lipase 1269. Albumin 2.4. AST 63, ALT 41. CK 328 and 234. Urine is hazy, moderate blood, 6 RBCs, culture is pending. Negative for flu A and B. Cultures as stated are all pending. IMAGING STUDIES: Abdomen and pelvis CT reviewed. CT head shows attenuation right cerebellar hemisphere consistent with acute / subacute infarct. IMPRESSION: Right cerebellar infarct. RECOMMENDATIONS: 1. Recommend stroke workup. 2. Will get an MRI and MRA carotids. 3. 2-D echocardiogram. 4. Continue him on aspirin. 5. Check his lipids. 6. Physical therapy and occupational therapy evaluation. 7. SCDs. 8. Lovenox for DVT prophylaxis. 9. Some permissible hypertension depending on the findings. Further recommendations neurologically will be made however continue current care per other consultants for his other medical concerns at this time. MD ANGUS Candelario/ABHI /4:36 PM /4:47 PM
--- NOTE | 2017-06-12 19:00 | RADRPT ---
EXAM DATE/TIME: 06/12/2017 18:01 [facility] COMPARISON: CT BRAIN W/O CONTRAST, June 12, 2017, 9:39. INDICATIONS : Confusion. 2 cm low-attenuation lesion in the right cerebral hemisphere. MEDICAL HISTORY : Hypertension. SURGICAL HISTORY : CABG Cholecystectomy. Tonsillectomy. ENCOUNTER: Initial ACUITY: 1 day PAIN SCORE: 0/10 LOCATION: cranial Please note a normal MRA of the brain does not entirely exclude the possibility of a small aneurysm, nor the possibility of distal intracranial vessel disease. TECHNIQUE: 3D time of flight MRA was performed. Source images, multiplanar STS MIP, and 3D volume MIP reconstru ctions were reviewed. FINDINGS: There is excellent visualization of the major intracranial arteries out to the second-order branch ve ssels. There is no evidence for aneurysm, vessel truncation or stenosis, and no evidence for vascula r malformation. CONCLUSION: Unremarkable exam. Josiah Alegre MD on June 12, 2017 at 18:55 Board Certified Radiologist. This report was verified electronically.
--- NOTE | 2017-06-12 20:38 | RADRPT ---
EXAM DATE/TIME: 06/12/2017 19:32 [facility] COMPARISON: No previous studies available for comparison. INDICATIONS : Cerebrovascular accident. MEDICAL HISTORY : Hypercholesterolemia. Hypertension. Chest pain. Sleep apnea. Dyspnea. Abdominal pain. Anxiety. SURGICAL HISTORY : Tonsillectomy. CABG. Cholecystectomy. ENCOUNTER: Initial ACUITY: 1 day PAIN SCORE: 0/10 LOCATION: Bilateral neck PEAK SYSTOLIC VELOCITIES (cm/sec): ICA/CCA RATIO: Right: 0.8 Left: 1.4 ICA: Right: 83 Left: 134 CCA: Right: 110 Left: 95 ECA: Right: 103 Left: 75 VERTEBRAL: Right: 37 antegrade Left: 53 antegrade Elevated flow velocities and ICA/CCA ratios have been found to correlate with increased degrees of vessel stenosis, calculated as percentage of diameter relative to a normal segment of distal ICA/CCA FINDINGS: Exam was suboptimal secondary to respiratory distress and labored patient breathing. RIGHT CAROTID: No significant stenosis is visualized. Mild calcific plaque is present. The waveforms are within nor mal limits. LEFT CAROTID: No significant stenosis is visualized. Mild calcific plaque. The waveforms are within normal limits. VERTEBRAL ARTERIES: Antegrade flow is seen in both vertebral arteries. MISCELLANEOUS: None. CONCLUSION: Mild calcific plaquing bilaterally with no evidence of a hemodynamically significant lesion. Josiah Alegre MD on June 12, 2017 at 20:33 Board Certified Radiologist. This report was verified electronically.
[2017-06-12 20:44] LABS: TROPONIN I 0.2 NG/ML (0.02-0.05)
[2017-06-12] MEDS ORDERED: ROSUVASTATIN 10 MG PO (21:00)
[2017-06-12] MEDS: SODIUM CHLORIDE 0.9% FLUSH 10 ML FLUSH IV FLUSH SCH (21:34)
[2017-06-13] VITALS (15 sets, daily range): BP systolic 99–121; BP diastolic 53–71; PULSE 80–133; RESP 26–42; TEMP 98.2–98.8; O2SAT 95–100
[2017-06-13] MEDS ORDERED: AMIODARONE INJ 150 MG in DEXTROSE 5% IN WATER 100ML INJ 97 ML IV ONE ×2 (00:57)
[2017-06-13] MEDS ORDERED: AMIODARONE INJ 450 MG in DEXTROSE 5% IN WATE(EXCEL) INJ 241 ML IV PRN ×2 (01:07)
[2017-06-13 02:54] LABS: AUTOMATED NEUTROPHIL # 18.9 TH/MM3 (1.8-7.7); BASOPHIL % 0.2 % (0.0-2.0); HEMATOCRIT 34.3 % (39.0-51.0); LYMPH % 6.9 % (9.0-44.0); LYMPHOCYTE # 1.5 TH/MM3 (1.0-4.8); MEAN CELL VOLUME 96.1 FL (80.0-100.0); MEAN CORPUSCULAR HEMOGLOBIN 33.5 PG (27.0-34.0); MEAN CORPUSCULAR HGB CONC 34.9 % (32.0-36.0); MEAN PLATELET VOLUME 8.2 FL (7.0-11.0); MONOCYTE # 1.5 TH/MM3 (0-0.9); NEUT % 85.9 % (16.0-70.0); PLATELET COUNT 147 TH/MM3 (150-450); RED BLOOD COUNT 3.57 MIL/MM3 (4.50-5.90); RED CELL DISTRIBUTION WIDTH 14.5 % (11.6-17.2)
[2017-06-13 03:20] LABS: ALBUMIN 1.9 GM/DL (3.4-5.0); ALKALINE PHOSPHATASE 67 U/L (45-117); ALT (GPT) 43 U/L (12-78); AST (GOT) 71 U/L (15-37); BICARBONATE 19.5 MEQ/L (21.0-32.0); BLOOD UREA NITROGEN 46 MG/DL (7-18); CALCIUM 7.3 MG/DL (8.5-10.1); CALCIUM-PROTEIN CORRECTED 7.8 MG/DL (8.5-10.1); CHLORIDE 106 MEQ/L (98-107); CHOLESTEROL 64 MG/DL (120-200); CHOLESTEROL/ HDL RATIO 6.73 RATIO; CREATININE 1.91 MG/DL (0.60-1.30); GLOMERULAR FILTRATION RATE 36 ML/MIN (>89); GLUCOSE,RANDOM 120 MG/DL (74-106); HDL CHOLESTEROL 9.5 MG/DL (40.0-60.0); LDL CHOLESTEROL 30 MG/DL (0-99); LIPASE 1802 U/L (73-393); MAGNESIUM 2.4 MG/DL (1.5-2.5); SODIUM (NA) 137 MEQ/L (136-145); TOTAL BILIRUBIN ADULT 2.7 MG/DL (0.2-1.0); TOTAL PROTEIN 6.2 GM/DL (6.4-8.2); TRIGLYCERIDES 124 MG/DL (42-150); TROPONIN I 0.34 NG/ML (0.02-0.05)
[2017-06-13] MEDS: AMIODARONE INJ 450 MG in SODIUM CHLOR 0.9% (EXCEL) INJ 241 ML IV PRN ×2 (04:10→14:45)
[2017-06-13] MEDS: PIPERACIL-TAZO 3.375 GM PREMIX 50 ML IV SCH ×3 (04:20→20:59)
--- NOTE | 2017-06-13 04:52 | PD.CONS ---
HPI Service Critical Care Medicine Consult Requested By Primary Care Physician Griffin Shaw DO History of Present Illness 61-year-old man very pleasant gentleman with a history of hypertension, heart disease, bypass surgery in 2000, stent in 2015 who presented to emergency department with progressive generalized weakness, confusion, generalized pain, mostly in the abdomen. He also had a fall. CT of the brain showed a right hypodensity in the cerebellum, acute/subacute stroke. Patient was seen by neurologist and was admitted to ICU , where he developed rapid A. fib with RVR. The critical care medicine was consulted for rate control management. Review of Systems Constitutional: DENIES: Diaphoretic episodes, Fatigue, Fever, Weight gain, Weight loss, Chills, Dizziness, Change in appetite, Night Sweats Endocrine: DENIES: Heat/cold intolerance, Polydipsia, Polyuria, Polyphagia Eyes: DENIES: Blurred vision, Diplopia, Eye inflammation, Eye pain, Vision loss , Photosensitivity, Double Vision Ears, nose, mouth, throat: DENIES: Tinnitus, Hearing loss, Vertigo, Nasal discharge, Oral lesions, Throat pain, Hoarseness, Ear Pain, Running Nose, Epistaxis, Sinus Pain, Toothache, Odynophagia Respiratory: DENIES: Apneas, Cough, Snoring, Wheezing, Hemoptysis, Sputum production, Shortness of breath Cardiovascular: DENIES: Chest pain, Palpitations, Syncope, Dyspnea on Exertion , PND, Lower Extremity Edema, Orthopnea, Claudication Gastrointestinal: COMPLAINS OF: Abdominal pain, DENIES: Black stools, Bloody stools, Constipation, Diarrhea, Nausea, Vomiting, Difficulty Swallowing, Anorexia Genitourinary: DENIES: Sexual dysfunction, Urinary frequency, Urinary incontinence, Urgency, Hematuria, Dysuria, Nocturia, Penile Discharge, Testicular Pain, Testicular Swelling Musculoskeletal: DENIES: Joint pain, Muscle aches, Stiffness, Joint Swelling, Back pain, Neck pain Integumentary: DENIES: Abnormal pigmentation, Nail changes, Pruritus, Rash Hematologic/lymphatic: DENIES: Bruising, Lymphadenopathy Immunologic/allergic: DENIES: Eczema, Urticaria Neurologic: COMPLAINS OF: Abnormal gait, Localized weakness, Poor Balance, DENIES: Headache, Paresthesias, Seizures, Speech Problems, Tremor Psychiatric: DENIES: Anxiety, Confusion, Mood changes, Depression, Hallucinations, Agitation, Suicidal Ideation, Homicidal Ideation, Delusions Past Family Social History Allergies: Coded Allergies: atorvastatin (Unverified Allergy, Mild, calf cramping, 01/27/17) Hospitalized as thought having heart attack. Past Medical History CAD with hx of [place] HTN Hyperlipidemia GERD Hepatic steatosis ASIF Obesity Past Surgical History CABG x 4 in 2000 Lap Gina Tonsillectomy Reported Medications Reported Meds & Active Scripts Active Hydrocodone-Acetaminophen 7.5 Mg-325 Mg Tab 1 Tab PO Q4H PRN Reported Rosuvastatin (Rosuvastatin Calcium) 10 Mg Tab 10 Mg PO HS Aspirin 81 Mg Chew 81 Mg CHEW DAILY Lisinopril 40 Mg Tab 40 Mg PO DAILY Carvedilol 25 Mg Tab 25 Mg PO BID Active Ordered Medications Current Medications Medications (Trade) Dose Ordered Sig/Dione Route PRN Reason Start Time Stop Time Status Last Admin Dose Admin Albuterol/ Ipratropium (Duoneb Neb) 1 ampule Q4HR WHILE AWAKE NEB NEB 06/12/17 12:00 06/12/17 20:13 Sodium Chloride (NS Flush) 2 ml BID IV FLUSH 06/12/17 21:00 06/12/17 21:34 Sodium Chloride (NS Flush) 2 ml UNSCH PRN IV FLUSH FLUSH AFTER USING IV ACCESS 06/12/17 12:00 Enalaprilat (Vasotec Inj) 1.25 mg Q4H PRN IV PUSH For SBP > 220 or DBP > 120 06/12/17 12:00 Aspirin (Aspirin) 325 mg DAILY PO 06/12/17 12:00 Piperacillin Sod/ Tazobactam Sod 50 ml @ 100 mls/hr Q8H IV 06/12/17 13:00 06/13/17 04:20 Acetaminophen (Tylenol) 650 mg Q4H PRN PO fever or headache 06/12/17 12:45 06/12/17 13:07 Ondansetron HCl (Zofran Inj) 4 mg Q6H PRN IV nausea 06/12/17 12:45 Acetaminophen/ Hydrocodone Bitart (Goldonna 7.5-325 Mg) 1 tab Q4H PRN PO PAIN 06/12/17 12:45 Patient Own Medication PT OWN MED: SYED... HS PO 06/12/17 21:00 Future Hold Pantoprazole Sodium (Protonix Inj) 40 mg Q24H IV PUSH 06/12/17 14:00 06/12/17 14:43 Amiodarone HCl 450 mg/Sodium Chloride 250 ml @ 33.33 mls/ hr Q7H31M PRN IV Per Protocol 06/13/17 02:30 06/13/17 04:10 Family History Mother with hx of liver cancer Social History Denies any tobacco use (+)Alcohol use, reportedly 1-2 times per week Physical Exam Vital Signs Vital Signs Date Time Temp Pulse Resp B/P (MAP) Pulse Ox O2 Delivery O2 Flow Rate FiO2 06/13/17 04:10 110 106/63 06/13/17 04:08 101 106/63 06/13/17 04:00 98.4 126 28 106/63 (77) 95 06/13/17 03:22 131 128/59 06/13/17 02:00 129 06/13/17 00:03 96 Simple Mask 6.00 06/13/17 00:00 133 06/13/17 00:00 98.2 133 28 110/71 (84) 98 06/12/17 22:53 124 06/12/17 22:00 81 06/12/17 21:00 100.1 83 28 122/65 (84) 99 06/12/17 20:15 90 Nasal Cannula 2.00 06/12/17 20:00 82 06/12/17 18:00 79 06/12/17 16:00 98.4 77 32 113/72 (86) 96 06/12/17 16:00 77 06/12/17 14:00 100.2 82 31 104/61 (75) 96 06/12/17 13:19 06/12/17 10:47 98.6 06/12/17 10:06 102.2 91 30 122/56 (78) 94 Nasal Cannula 2.00 06/12/17 09:09 98 Nasal Cannula 2.00 06/12/17 08:59 34 Nasal Cannula 2.00 06/12/17 08:52 103.2 92 34 143/82 (102) Physical Exam GENERAL: This is a well-nourished, well-developed patient, in no apparent distress. HEENT: Atraumatic. Normocephalic. No temporal or scalp tenderness. No scleral icterus. Airway patent. NECK: Trachea midline, supple, nontender. CARDIO: Regular. RESP: Audible wheezing and wheezing throughout. Accessory muscle use ABD: +BS, soft, mildly distended, tenderness with palpation in the epigastric, no rebound. EXT: RLE with brace in place NEURO: Awake and alert, difficult historian. Motor and sensory grossly within normal limits. Normal speech. Laboratory Laboratory Tests Test 06/12/17 09:05 06/12/17 14:00 06/12/17 14:35 06/12/17 20:13 White Blood Count 19.6 Red Blood Count 4.08 Hemoglobin 13.8 Hematocrit 39.3 Mean Corpuscular Volume 96.4 Mean Corpuscular Hemoglobin 33.7 Mean Corpuscular Hemoglobin Concent 35.0 Red Cell Distribution Width 14.3 Platelet Count 122 Mean Platelet Volume 8.3 Neutrophils (%) (Auto) 87.6 Lymphocytes (%) (Auto) 5.8 Monocytes (%) (Auto) 6.5 Eosinophils (%) (Auto) 0.0 Basophils (%) (Auto) 0.1 Neutrophils # (Auto) 17.2 Lymphocytes # (Auto) 1.1 Monocytes # (Auto) 1.3 Eosinophils # (Auto) 0.0 Basophils # (Auto) 0.0 CBC Comment DIFF FINAL Differential Comment Prothrombin Time 11.5 Prothromb Time International Ratio 1.1 Activated Partial Thromboplast Time 34.1 Urine Color YELLOW Urine Turbidity HAZY Urine pH 5.5 Urine Specific [place] 1.014 Urine Protein 30 Urine Glucose (UA) NEG Urine Ketones NEG Urine Occult Blood MOD Urine Nitrite NEG Urine Bilirubin NEG Urine Urobilinogen 8.0 Urine Leukocyte Esterase NEG Urine RBC 6 Urine WBC 4 Urine Squamous Epithelial Cells <1 Urine Amorphous Sediment RARE Urine Bacteria RARE Microscopic Urinalysis Comment CATH-CULTURE IND Blood Urea Nitrogen 40 Creatinine 2.14 Random Glucose 143 Total Protein 7.1 Albumin 2.4 Calcium Level 8.0 Phosphorus Level 2.9 Magnesium Level 2.5 Alkaline Phosphatase 69 Aspartate Amino Transf (AST/SGOT) 63 Alanine Aminotransferase (ALT/SGPT) 41 Total Bilirubin 3.4 Sodium Level 131 Potassium Level 4.3 Chloride Level 99 Carbon Dioxide Level 20.9 Anion Gap 11 Estimat Glomerular Filtration Rate 32 Lactic Acid Level 2.5 1.5 Total Creatine Kinase 328 234 214 Creatine Kinase MB 2.1 Creatine Kinase MB % 0.6 Troponin I 0.19 0.20 0.20 Lipase 1269 Nasal Screen MRSA (PCR) MRSA NOT DETECTED Test 06/13/17 02:42 White Blood Count 22.0 Red Blood Count 3.57 Hemoglobin 12.0 Hematocrit 34.3 Mean Corpuscular Volume 96.1 Mean Corpuscular Hemoglobin 33.5 Mean Corpuscular Hemoglobin Concent 34.9 Red Cell Distribution Width 14.5 Platelet Count 147 Mean Platelet Volume 8.2 Neutrophils (%) (Auto) 85.9 Lymphocytes (%) (Auto) 6.9 Monocytes (%) (Auto) 7.0 Eosinophils (%) (Auto) 0.0 Basophils (%) (Auto) 0.2 Neutrophils # (Auto) 18.9 Lymphocytes # (Auto) 1.5 Monocytes # (Auto) 1.5 Eosinophils # (Auto) 0.0 Basophils # (Auto) 0.0 CBC Comment DIFF FINAL Differential Comment Blood Urea Nitrogen 46 Creatinine 1.91 Random Glucose 120 Total Protein 6.2 Albumin 1.9 Calcium Level 7.3 Magnesium Level 2.4 Alkaline Phosphatase 67 Aspartate Amino Transf (AST/SGOT) 71 Alanine Aminotransferase (ALT/SGPT) 43 Total Bilirubin 2.7 Sodium Level 137 Potassium Level 3.7 Chloride Level 106 Carbon Dioxide Level 19.5 Anion Gap 12 Estimat Glomerular Filtration Rate 36 Protein Corrected Calcium 7.8 Total Creatine Kinase 173 Troponin I 0.34 Triglycerides Level 124 Cholesterol Level 64 LDL Cholesterol 30 HDL Cholesterol 9.5 Cholesterol/HDL Ratio 6.73 Lipase 1802 Date/Time Source Procedure Growth Status 06/12/17 09:10 Blood Peripheral Aerobic Blood Culture Pending Received 06/12/17 09:10 Blood Peripheral Anaerobic Blood Culture Pending Received 06/12/17 10:48 Nasal Aspirate Influenza Types A,B Antigen (CHELSI) - Final NEGATIVE FOR FLU A AND B ANTIGEN.... Complete 06/12/17 09:05 Urine Catheterized Urine Urine Culture Pending Received Result Diagram: 06/13/17 0242 06/13/17 0242 Imaging Last 24 hours Impressions Abdomen/Pelvis CT 06/12/17 1221 Signed Impressions: Service Date/Time: Monday, June 12, 2017 13:14 - CONCLUSION: 1. Minimally increased left-sided perinephric stranding. No significant peripancreatic inflammatory stranding or fluid collection. There is trace subtle free fluid in the left lower quadrant. Overall, the findings are nonspecific but suggests a possible inflammatory process in the left abdomen. Please note that CT examination is not very sensitive particularly without benefit of IV contrast for detection of acute pancreatitis. Differential considerations include left-sided pyelonephritis. 2. Mild splenomegaly of uncertain etiology. 3. Normal appendix. Alfonso Perea MD Head CT 06/12/17858 Signed Impressions: Service Date/Time: Monday, June 12, 2017 09:39 - CONCLUSION: 2 cm low-attenuation area now noted involving the right cerebellar hemisphere most consistent with an acute to subacute infarction. This could be further evaluated with MRI imaging. Josiah Alegre MD Chest X-Ray 06/12/17858 Signed Impressions: Service Date/Time: Monday, June 12, 2017 09:06 - CONCLUSION: 1. Interstitial pulmonary edema pattern with patchy bibasilar airspace disease which may reflect atelectasis although pneumonia cannot be entirely excluded in the appropriate clinical setting. Alfonso Perea MD Septic Shock Reassessment Septic shock perfusion: reassessment completed Assessment and Plan Assessment and Plan Acute cerebellar CVA - Likely embolic origin - Questionable paroxysmal A. fib - Aspirin statins - Stroke workup per neurology Rapid A. fib with RVR - Borderline blood pressure - Amiodarone bolus with following infusion - 2-D echo - Cardiology consult to further assess for need of anticoagulation. Abdominal pain - 2 diverticulosis - No CT evidence of diverticulitis - Elevated lipase - monitor trend - IV fluids and pain control ASIF - Nocturnal BiPAP Hypertension - Lisinopril DVT GI prophylaxis - Teds SCDs - Lovenox - Pepcid Critical Care: The total critical care time was 35 minutes. Time to perform other separately billable procedures was not included in the critical care time. Rafael Tijerina MD Jun 13, 2017 04:52
--- NOTE | 2017-06-13 05:16 | RADRPT ---
EXAM DATE/TIME: 06/13/2017 03:23 [facility] COMPARISON: CHEST SINGLE AP, June 12, 2017, 11:46. INDICATIONS : Shortness of breath, possible pulmonary disease. MEDICAL HISTORY : Cardiovascular disease. Myocardial infarction. Hypertension. SURGICAL HISTORY : CABG. Tonsillectomy. Coronary artery stent. ENCOUNTER: Subsequent ACUITY: 2 days PAIN SCORE: 0/10 LOCATION: Bilateral chest FINDINGS: Patchy parenchymal opacities again seen of both lungs without significant change. No large effusion d emonstrated. No pneumothorax. Heart size stable, upper limits of normal. Patient has had previous med rika sternotomy. CONCLUSION: Mild patchy bilateral infiltrate not significantly changed. Tello Ramírez MD on June 13, 2017 at 5:14 Board Certified Radiologist. This report was verified electronically.
[2017-06-13] MEDS ORDERED: SODIUM CHLOR 0.9% 1000 ML INJ 1,000 ML IV SCH (06:00)
[2017-06-13] MEDS: RESP: ALBUTEROL 2.5 MG/IPRATROPIUM 0.5 MG NEB (SCH) NEB ×4 (08:09→19:57)
[2017-06-13] MEDS: SODIUM CHLORIDE 0.9% FLUSH 10 ML FLUSH IV FLUSH SCH ×2 (08:37→21:00)
[2017-06-13] MEDS: ASPIRIN 325 MG TAB PO SCH (08:37)
--- NOTE | 2017-06-13 09:17 | HHI.PR ---
Subjective Remarks feels better. still looks sob asking for food. denies specific infectious focus prior to arrival..just fever/chills and weakness. unable to stand. Objective Vitals awake/oriented mild labored breathing heart irreg lung course bs abd s/nt ext no pitting. knight Vital Signs Date Time Temp Pulse Resp B/P (MAP) Pulse Ox O2 Delivery O2 Flow Rate FiO2 06/13/17 08:10 96 21 06/13/17 04:10 110 106/63 06/13/17 04:08 101 106/63 06/13/17 04:00 126 06/13/17 04:00 98.4 126 28 106/63 (77) 95 06/13/17 03:22 131 128/59 06/13/17 02:00 129 06/13/17 00:03 96 Simple Mask 6.00 06/13/17 00:00 133 06/13/17 00:00 98.2 133 28 110/71 (84) 98 06/12/17 22:53 124 06/12/17 22:00 81 06/12/17 21:00 100.1 83 28 122/65 (84) 99 06/12/17 20:15 90 Nasal Cannula 2.00 06/12/17 20:00 82 06/12/17 18:00 79 06/12/17 16:00 98.4 77 32 113/72 (86) 96 06/12/17 16:00 77 06/12/17 14:00 100.2 82 31 104/61 (75) 96 06/12/17 13:19 06/12/17 10:47 98.6 06/12/17 10:06 102.2 91 30 122/56 (78) 94 Nasal Cannula 2.00 Result Diagram: 06/13/172 06/13/17 0242 Imaging Last Impressions Head CT 06/12/1759 Signed Impressions: Service Date/Time: Monday, June 12, 2017 09:39 - CONCLUSION: 2 cm low-attenuation area now noted involving the right cerebellar hemisphere most consistent with an acute to subacute infarction. This could be further evaluated with MRI imaging. Josiah Alegre MD Chest X-Ray 06/12/1759 Signed Impressions: Service Date/Time: Monday, June 12, 2017 09:06 - CONCLUSION: 1. Interstitial pulmonary edema pattern with patchy bibasilar airspace disease which may reflect atelectasis although pneumonia cannot be entirely excluded in the appropriate clinical setting. Alfonso Perea MD A/P Problem List: (1) CVA (cerebral vascular accident) ICD Codes: I63.9 - Cerebral infarction, unspecified Status: Acute Plan: Pt is a 61 y/o WM with HTN, CAD s/p CABG x in 2000 and stent placement in 2014. Pt presented to the ED at [facility] on 06/12/17 with complaints of progressive generalized weakness and some confusion. The pt also notes some upper abdominal discomfort that started . He was seen in the ED at [facility]- on with complaints of weakness and some knee pain. He had fallen at home due to weakness about a week ago and injured his right knee and reportedly had outpt Xrays which noted a patellar fracture and has a brace on the RLE currently. Xrays in the ED on 06/11 did not indicate a patellar fracture but pt with noted effusion and he was prescribed some pain medications PRN. IN the ED on 06/11 he was felt to be dehydrated and was given 2L of IVF. He was sent home with his son and then brought back into the ED on 06/12 for apparent confusion. 1. right cerebellar cva. probably embolic for new afib 2. afib/rvr 3. untreated asif 4. sepsis. gpc. unclear origin. ?left pylo..?pna 5. pulmonary edema....seemed to develop with massive ivf resuscitation in ED. ....?not clearly pna component. 6. yessi. related to sepsis. 7. falls and right knee injury/effusion 8. cad/cabg x 4 9. elevated trops and lipase probably sepsis related. plan pt placed on amiodarone by [employer] Specialist and cardiology consulted. echo pending. neurology following for acute cva. on asa. f/u pending studies. cont broad abx and f/u pending cx's. hard to give vanc with worsening renal function will check with ID for restricted alternative. cont oxygen . nebs. cxr dvt prophylaxis keep in ICU today. (2) YESSI (acute kidney injury) ICD Codes: N17.9 - Acute kidney failure, unspecified Status: Acute (3) Sepsis ICD Codes: A41.9 - Sepsis, unspecified organism Status: Acute (4) Volume overload ICD Codes: E87.70 - Fluid overload, unspecified Status: Acute (5) Elevated lipase ICD Codes: R74.8 - Abnormal levels of other serum enzymes Status: Acute (6) Elevated LFTs ICD Codes: R79.89 - Other specified abnormal findings of blood chemistry Status: Acute (7) CAD (coronary artery disease) ICD Codes: I25.10 - Coronary artery disease Status: Chronic (8) HTN (hypertension) ICD Codes: I10 - Hypertension Status: Chronic (9) Acid reflux ICD Codes: K21.9 - Gastroesophageal reflux disease Status: Chronic (10) ASIF (obstructive sleep apnea) ICD Codes: G47.33 - Obstructive sleep apnea syndrome Status: Chronic Permanent Comment: Not sleeping with the machine. After heart attack 4 years ago. Last Edited By: Lang Mueller on Dec 29, 2014 12:12 (11) Dyslipidemia ICD Codes: E78.5 - Dyslipidemia Status: Chronic Efra Veloz MD Jun 13, 2017 09:17
--- NOTE | 2017-06-13 11:31 | PD.CONS ---
History of Present Illness Service Infectious disease Consult Requested By Dr Priest Reason for Consult Evaluate patient with sepsis Primary Care Physician Griffin Shaw DO Diagnoses: History of Present Illness Patient seen and examined. Records reviewed. Patient is a 61 y/o WM presented to the ED at [facility] on 06/12/17 with complaints of progressive generalized weakness and some confusion. The son has noted tyhat he was getting confused. he has been experiencing generalized malaise for a week or so. He had actually gone to the emergency room on June 11, and that was after a fall. He was complaining of pain in his left hand and left foot and left knee. He was dehydrated in the emergency room, and the patient was discharged on some pain medication. On the day of admission patient also started complaining of some abdominal discomfort. Denies any back pain, nausea or vomiting. He has not had any complaint of cough or congestion. No diarrhea or any urinary complaints. Patient states he's been drinking, but by mouth intake is not really that good, and has no appetite. On evaluation in the ED, patient has been febrile. His WBC was elevated at 19,000. Creatinine was elevated as well as his lipase. His LFTs were also elevated. CT of the head showed findings of possible acute or subacute infarction in the right cerebellar hemisphere. Today he was transferred to the ICU when he went into A. fib with RVR. 2 blood cultures done in the emergency room are now reported as growing gram-positive cocci. Patient currently denies any abdominal pain. He is complaining of pain in the left hand, left knee, and left foot. Infectious disease consultation has been requested to evaluate the patient. Review of Systems Constitutional: COMPLAINS OF: Fatigue, Fever, Chills Eyes: DENIES: Eye pain Ears, nose, mouth, throat: DENIES: Nasal discharge, Oral lesions, Throat pain, Running Nose, Sinus Pain Respiratory: DENIES: Cough, Sputum production, Shortness of breath Cardiovascular: DENIES: Chest pain, Palpitations, Syncope Gastrointestinal: COMPLAINS OF: Abdominal pain, Anorexia, DENIES: Diarrhea, Nausea, Vomiting, Difficulty Swallowing Genitourinary: DENIES: Hematuria, Dysuria Musculoskeletal: COMPLAINS OF: Joint pain, Muscle aches, Joint Swelling, DENIES : Back pain, Neck pain Integumentary: DENIES: Pruritus, Rash Neurologic: DENIES: Headache, Localized weakness Psychiatric: DENIES: Hallucinations Past Family Social History Allergies: Coded Allergies: atorvastatin (Unverified Allergy, Mild, calf cramping, 01/27/17) Hospitalized as thought having heart attack. Past Medical History CAD with hx of [place] HTN Hyperlipidemia GERD Hepatic steatosis ASIF Obesity Past Surgical History CABG x 4 in 2000 Lap Gina Tonsillectomy Reported Medications I attest that I obtained, updated or reviewed the home and current medications. Reported Meds & Active Scripts Active Hydrocodone-Acetaminophen 7.5 Mg-325 Mg Tab 1 Tab PO Q4H PRN Reported Rosuvastatin (Rosuvastatin Calcium) 10 Mg Tab 10 Mg PO HS Aspirin 81 Mg Chew 81 Mg CHEW DAILY Lisinopril 40 Mg Tab 40 Mg PO DAILY Carvedilol 25 Mg Tab 25 Mg PO BID Active Ordered Medications Current Medications Medications (Trade) Dose Ordered Sig/Dione Route Start Time Stop Time Status Last Admin (Dusrinivas Hayden) 1 ampule Q4HR WHILE AWAKE NEB NEB 06/12/17 12:00 06/13/17 08:09 (NS Flush) 2 ml BID IV FLUSH 06/12/17 21:00 06/13/17 08:37 (NS Flush) 2 ml UNSCH PRN IV FLUSH 06/12/17 12:00 (Vasotec Inj) 1.25 mg Q4H PRN IV PUSH 06/12/17 12:00 (Aspirin) 325 mg DAILY PO 06/12/17 12:00 06/13/17 08:37 Piperacillin Sod/ Tazobactam Sod 50 ml @ 100 mls/hr Q8H IV 06/12/17 13:00 06/13/17 04:20 (Tylenol) 650 mg Q4H PRN PO 06/12/17 12:45 06/12/17 13:07 (Zofran Inj) 4 mg Q6H PRN IV 06/12/17 12:45 ([place] 7.5-325 Mg) 1 tab Q4H PRN PO 06/12/17 12:45 Patient Own Medication PT OWN MED: SYED... 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 Pt is Physical Exam Vital Signs Vital Signs Date Time Temp Pulse Resp B/P (MAP) Pulse Ox O2 Delivery O2 Flow Rate FiO2 06/13/17 10:00 109 06/13/17 08:10 96 21 06/13/17 08:00 98.3 121 27 99/53 (68) 97 06/13/17 08:00 109 06/13/17 04:10 110 106/63 06/13/17 04:08 101 106/63 06/13/17 04:00 126 06/13/17 04:00 98.4 126 28 106/63 (77) 95 06/13/17 03:22 131 128/59 06/13/17 02:00 129 06/13/17 00:03 96 Simple Mask 6.00 06/13/17 00:00 133 06/13/17 00:00 98.2 133 28 110/71 (84) 98 06/12/17 22:53 124 06/12/17 22:00 81 06/12/17 21:00 100.1 83 28 122/65 (84) 99 06/12/17 20:15 90 Nasal Cannula 2.00 06/12/17 20:00 82 06/12/17 18:00 79 06/12/17 16:00 98.4 77 32 113/72 (86) 96 06/12/17 16:00 77 06/12/17 14:00 100.2 82 31 104/61 (75) 96 06/12/17 13:19 Physical Exam GENERAL: Patient is an obese, well-developed male, awake and alert, not in respiratory distress. SKIN: Warm and dry. No generalized rash, no ecchymoses and no evidence of embolic lesions. HEAD: Atraumatic. Normocephalic. No temporal wasting, or tenderness. EYES: [place] conjunctiva. Has petechia in both lids, no hemorrhage. Pupils equal, round and reactive to light. Extraocular movements full and intact. No scleral icterus. No injection or drainage. EARS, NOSE AND THROAT: Nose without bleeding or purulent nasal discharge. No sinus tenderness. Mucous membranes pink and moist. No oral lesions noted. No exudate. No oral thrush. NECK: Trachea midline. Supple and not tender, no meningeal signs CARDIOVASCULAR: Tachycardic. Regular rate and rhythm. No murmurs, rubs or gallops heard RESPIRATORY: Clear to auscultation. Breath sounds equal bilaterally. No rales , wheezing or rhonchi ABDOMEN: Soft, obses, non-tender, nondistended. Bowel sounds present and normoactive. No guarding. No rebound. No organomegaly. EXTREMITIES: No clubbing, cyanosis. L foot has redness and swelling on his first MTP. L hand there is swelling and pink color on ulnar aspect of his hand , with warmth, tenderness, and pain on moving his L wrist. Swelling L knee, but no heat or redness, pain with passive ROM. No calf tenderness. Well perfused and warm. NEUROLOGICAL: Awake and alert. Cranial nerves grossly intact. Motor grossly within normal limits. PSYCHIATRIC: Normal affect, calm and cooperative. LINE: No evidence of infection Laboratory Laboratory Tests Test 06/12/17 14:00 06/12/17 14:35 06/12/17 20:13 06/13/17 02:42 Nasal Screen MRSA (PCR) MRSA NOT DETECTED Lactic Acid Level 1.5 Total Creatine Kinase 234 214 173 Troponin I 0.20 0.20 0.34 White Blood Count 22.0 Red Blood Count 3.57 Hemoglobin 12.0 Hematocrit 34.3 Mean Corpuscular Volume 96.1 Mean Corpuscular Hemoglobin 33.5 Mean Corpuscular Hemoglobin Concent 34.9 Red Cell Distribution Width 14.5 Platelet Count 147 Mean Platelet Volume 8.2 Neutrophils (%) (Auto) 85.9 Lymphocytes (%) (Auto) 6.9 Monocytes (%) (Auto) 7.0 Eosinophils (%) (Auto) 0.0 Basophils (%) (Auto) 0.2 Neutrophils # (Auto) 18.9 Lymphocytes # (Auto) 1.5 Monocytes # (Auto) 1.5 Eosinophils # (Auto) 0.0 Basophils # (Auto) 0.0 CBC Comment DIFF FINAL Differential Comment Blood Urea Nitrogen 46 Creatinine 1.91 Random Glucose 120 Total Protein 6.2 Albumin 1.9 Calcium Level 7.3 Magnesium Level 2.4 Alkaline Phosphatase 67 Aspartate Amino Transf (AST/SGOT) 71 Alanine Aminotransferase (ALT/SGPT) 43 Total Bilirubin 2.7 Sodium Level 137 Potassium Level 3.7 Chloride Level 106 Carbon Dioxide Level 19.5 Anion Gap 12 Estimat Glomerular Filtration Rate 36 Protein Corrected Calcium 7.8 Triglycerides Level 124 Cholesterol Level 64 LDL Cholesterol 30 HDL Cholesterol 9.5 Cholesterol/HDL Ratio 6.73 Lipase 1802 Date/Time Source Procedure Growth Status 06/12/17 09:10 Blood Peripheral Aerobic Blood Culture - Preliminary Gram Positive Cocci Resulted 06/12/17 09:10 Anaerobic Blood Culture - Preliminary Gram Positive Cocci Resulted 06/12/17 10:48 Nasal Aspirate Influenza Types A,B Antigen (CHELSI) - Final NEGATIVE FOR FLU A AND B ANTIGEN.... Complete 06/12/17 09:05 Urine Catheterized Urine Urine Culture Pending Received Result Diagram: 06/13/17 0242 06/13/17 0242 Imaging RADIOLOGY STUDIES/FILMS REVIEWED Chest X-Ray 06/13/17 0600 Signed Impressions: Service Date/Time: Tuesday, June 13, 2017 03:23 - CONCLUSION: Mild patchy bilateral infiltrate not significantly changed. Tello Ramírez MD Abdomen/Pelvis CT 06/12/17 1221 Signed Impressions: Service Date/Time: Monday, June 12, 2017 13:14 - CONCLUSION: 1. Minimally increased left-sided perinephric stranding. No significant peripancreatic inflammatory stranding or fluid collection. There is trace subtle free fluid in the left lower quadrant. Overall, the findings are nonspecific but suggests a possible inflammatory process in the left abdomen. Please note that CT examination is not very sensitive particularly without benefit of IV contrast for detection of acute pancreatitis. Differential considerations include left-sided pyelonephritis. 2. Mild splenomegaly of uncertain etiology. 3. Normal appendix. Alfonso Perea MD Head CT 06/12/17 0859 Signed Impressions: Service Date/Time: Monday, June 12, 2017 09:39 - CONCLUSION: 2 cm low-attenuation area now noted involving the right cerebellar hemisphere most consistent with an acute to subacute infarction. This could be further evaluated with MRI imaging. Josiah Alegre MD Head Magnetic Resonance Angiography 06/12/17 0000 Signed Impressions: Service Date/Time: Monday, June 12, 2017 18:01 - CONCLUSION: Unremarkable exam. Josiah Alegre MD Carotid Artery Ultrasound 06/12/17 0000 Signed Impressions: Service Date/Time: Monday, June 12, 2017 19:32 - CONCLUSION: Mild calcific plaquing bilaterally with no evidence of a hemodynamically significant lesion. Josiah Alegre MD Assessment and Plan Assessment and Plan IMPRESSION (+) BC with Strep, source, ?GI - has elevated lipase, and LFT, biliary source - concern with endocarditis; has petechia, has infarct on CT (though he has atrial fib) - has swelling on L foot, L hand/wrist, ?seeding Renal insufficiency Hx CAD, S/P CABG x 4 RECOMMENDATION Echo Repeat BC to document clearing Continue vanco and Zosyn Xrays L foot and L hand - monitor, may need more imaging studies Follow C/S Follow temps Monitor progress I will follow along with you and make further recommendations Thank you for this consultation Karla Johnson MD Jun 13, 2017 11:31
--- NOTE | 2017-06-13 11:44 | MB ---
cc: DAVID BOND MD DATE OF CONSULTATION: 06/13/17 HISTORY OF PRESENT ILLNESS This is a 61-year-old gentleman who presents to the hospital with progressive weakness and confusion. He also noted some upper abdominal discomfort starting yesterday. He notes that he became increasingly confused over the past several days. He apparently had a fall about a week ago with a questionable patellar fracture. This was addressed and sent home but a week later came back to the emergency room with complaints of generalized weakness. It was initially felt that he was dehydrated, but on followup he has noted to have a significant fever of 103. Blood cultures have been drawn and IV antibiotics have been given. A head CT was done which has revealed a new finding of a right cerebellar infarct, and overnight the patient has developed atrial fibrillation with a rapid ventricular response. No prior history of atrial fibrillation has been present. He does have a history of coronary disease with bypass grafting in 2000 and a follow-up stent in 2014. He has had no problems with chest pain in the interim and he denies any shortness of breath. Currently he has a significantly elevated white count and as well as lipase. A CT of the abdomen without contrast was done revealing possible inflammation of the pancreas but was inconclusive due to the lack of contrast. Laboratory examination is otherwise significant for mild renal dysfunction with a creatinine of 1.91 and a BUN of 46. His total bilirubin is also elevated at 2.7. His initial transaminases are essentially normal as is his alkaline phosphatase. Troponin is 0.19 with follow up values of 0.2, 0.2 and 0.34. PHYSICAL EXAMINATION GENERAL: He is awake and alert. He does have some pain in his left hand but denies any abdominal or chest pain. VITAL SIGNS: Blood pressure is 110/70, pulse is approximately 110-120 and irregular. NECK: There is no neck vein distension. LUNGS: His lungs are clear. CARDIOVASCULAR: Reveals irregular rate and rhythm. No significant murmurs present. ABDOMEN: Abdomen is soft and obese. There is no tenderness. Bowel sounds are normal. ASSESSMENT The patient has atrial fib with a rapid response and we will initiate metoprolol to help slow his rate. He has been begun on amiodarone and probably should hold this at this point in time given that he looks like he has had a stroke which is likely embolic in nature and which would only put him at increased risk for further stroke. He should be anticoagulated and we will leave the timing of this to Neurology but would recommend Eliquis or Pradaxa. MD MICAH Stewart/BJLatha /9:27 AM /11:06 AM
[2017-06-13] MEDS: METOPROLOL TARTRATE 100 MG TAB PO SCH ×2 (12:25→20:55)
--- NOTE | 2017-06-13 13:44 | RADRPT ---
EXAM DATE/TIME: 06/13/2017 13:07 [facility] COMPARISON: No previous studies available for comparison. INDICATIONS : Left wrist and hand pain with swelling no trauma MEDICAL HISTORY : Cardiovascular disease. Myocardial infarction. Hypertension. SURGICAL HISTORY : CABG. Tonsillectomy. Coronary artery stent. ENCOUNTER: Initial ACUITY: 2 days PAIN SCORE: 10/10 LOCATION: Left upper extremity FINDINGS: No fracture is seen. There is mild hypertrophic change at the base of the first metacarpal at the fir st carpometacarpal joint region. The first MCP joint and interphalangeal joints are normally aligned. CONCLUSION: Mild hypertrophic change of the base of the first metacarpal. Tello Page MD on June 13, 2017 at 13:41 Board Certified Radiologist. This report was verified electronically.
--- NOTE | 2017-06-13 13:45 | RADRPT ---
EXAM DATE/TIME: 06/13/2017 13:07 [facility] COMPARISON: No previous studies available for comparison. INDICATIONS : Left wrist and hand swelling. no trauma per patient MEDICAL HISTORY : Cardiovascular disease. Myocardial infarction. Hypertension. SURGICAL HISTORY : CABG. Tonsillectomy. Coronary artery stent. ENCOUNTER: Initial ACUITY: 2 days PAIN SCORE: 10/10 LOCATION: Left upper extremity FINDINGS: There is hypertrophic change at the base of the first metacarpal. There some mild hypertrophic change at the trapezium at the first carpometacarpal joint. The remaining carpal bones are normal. The radi ocarpal joint is normally aligned. CONCLUSION: Mild degenerative change at the first carpometacarpal joint. Tello Page MD on June 13, 2017 at 13:42 Board Certified Radiologist. This report was verified electronically.
--- NOTE | 2017-06-13 13:47 | RADRPT ---
EXAM DATE/TIME: 06/13/2017 13:10 [facility] COMPARISON: No previous studies available for comparison. INDICATIONS : Pain and swelling first Metatarsal. MEDICAL HISTORY : Cardiovascular disease. Myocardial infarction. Hypertension SURGICAL HISTORY : CABG. Tonsillectomy. Coronary artery stent ENCOUNTER: Initial ACUITY: 2 days PAIN SCORE: 9/10 LOCATION: Left Foot FINDINGS: Two view examination of the left foot demonstrates no dislocation, or fracture. The calcaneus is int act. Bony mineralization is normal. On the lateral view, there appears to be possible dorsal soft ti ssue swelling of the forefoot. CONCLUSION: No acute bony abnormality is seen. There is possible soft tissue swelling at the dorsal forefoot. Tello Page MD on June 13, 2017 at 13:44 Board Certified Radiologist. This report was verified electronically.
[2017-06-13 14:12] LABS: HEMOGLOBIN A1C 5.5 % (4.3-6.0)
[2017-06-13] MEDS: PANTOPRAZOLE SODIUM 40 MG VIAL IV PUSH SCH (14:44)
--- NOTE | 2017-06-13 15:44 | HHI.PR ---
Subjective Remarks awake alert a bit better no mri only mra Objective Vital Signs Date Time Temp Pulse Resp B/P (MAP) Pulse Ox O2 Delivery O2 Flow Rate FiO2 06/13/17 14:45 104 101/68 06/13/17 14:00 106 06/13/17 12:00 105 06/13/17 12:00 98.6 105 26 114/69 (84) 96 06/13/17 10:00 109 06/13/17 08:10 96 21 06/13/17 08:00 98.3 121 27 99/53 (68) 97 06/13/17 08:00 109 06/13/17 04:10 110 106/63 06/13/17 04:08 101 106/63 06/13/17 04:00 126 06/13/17 04:00 98.4 126 28 106/63 (77) 95 06/13/17 03:22 131 128/59 06/13/17 02:00 129 06/13/17 00:03 96 Simple Mask 6.00 06/13/17 00:00 133 06/13/17 00:00 98.2 133 28 110/71 (84) 98 06/12/17 22:53 124 06/12/17 22:00 81 06/12/17 21:00 100.1 83 28 122/65 (84) 99 06/12/17 20:15 90 Nasal Cannula 2.00 06/12/17 20:00 82 06/12/17 18:00 79 06/12/17 16:00 98.4 77 32 113/72 (86) 96 06/12/17 16:00 77 I/O 06/12/17 06/12/17 06/12/17 06/13/17 06/13/17 06/13/17 07:00 15:00 23:00 07:00 15:00 23:00 Intake Total 3625 ml 290 ml 450 ml Output Total 850 ml 1000 ml 1900 ml Balance 2775 ml -710 ml -1450 ml Intake Oral 240 ml 300 ml IV Total 3625 ml 50 ml 150 ml Output Urine Total 850 ml 1000 ml 1900 ml # Bowel Movements 0 0 Result Diagram: 06/13/17 0242 06/13/17 0242 Imaging mra cow neg. mri pending. Objective Remarks awake alert fluent perrla motor intact cerebellar intact. Assessment and Plan Assessment and Plan right cerebellar stroke a fib after mri brain if size of stroke is not to large ok to start anticoagulation. hopefully mri brain can get completed today. Brenda Newell MD Jun 13, 2017 15:43
[2017-06-13] MEDS: ACETAMINOPHEN/HYDROcodone 325 MG/7.5 MG TAB PO PRN (20:56)
[2017-06-14] VITALS (32 sets, daily range): BP systolic 107–186; BP diastolic 55–103; PULSE 72–126; RESP 24–45; TEMP 98.3–98.5; O2SAT 93–100
[2017-06-14] MEDS: ACETAMINOPHEN/HYDROcodone 325 MG/7.5 MG TAB PO PRN ×6 (00:54→20:36)
[2017-06-14 05:25] LABS: AUTOMATED NEUTROPHIL # 16.3 TH/MM3 (1.8-7.7); BASOPHIL % 0.1 % (0.0-2.0); EOSINOPHIL # 0.1 TH/MM3 (0-0.4); EOSINOPHIL % 0.4 % (0.0-4.0); HEMATOCRIT 33.4 % (39.0-51.0); HEMOGLOBIN 11.7 GM/DL (13.0-17.0); LYMPH % 9.7 % (9.0-44.0); LYMPHOCYTE # 1.9 TH/MM3 (1.0-4.8); MEAN CELL VOLUME 96.4 FL (80.0-100.0); MEAN CORPUSCULAR HEMOGLOBIN 33.7 PG (27.0-34.0); MEAN PLATELET VOLUME 8.8 FL (7.0-11.0); MONO % 7.3 % (0.0-8.0); MONOCYTE # 1.4 TH/MM3 (0-0.9); NEUT % 82.5 % (16.0-70.0); PLATELET COUNT 181 TH/MM3 (150-450); RED BLOOD COUNT 3.47 MIL/MM3 (4.50-5.90); RED CELL DISTRIBUTION WIDTH 14.7 % (11.6-17.2); WHITE BLOOD COUNT 19.7 TH/MM3 (4.0-11.0)
[2017-06-14 05:28] LABS: BICARBONATE 21.1 MEQ/L (21.0-32.0); CALCIUM 7.8 MG/DL (8.5-10.1); CREATININE 1.62 MG/DL (0.60-1.30)
[2017-06-14] MEDS: PIPERACIL-TAZO 3.375 GM PREMIX 50 ML IV SCH ×3 (05:48→20:35)
[2017-06-14] MEDS: AMIODARONE INJ 450 MG in SODIUM CHLOR 0.9% (EXCEL) INJ 241 ML IV PRN (05:50)
[2017-06-14] MEDS: RESP: ALBUTEROL 2.5 MG/IPRATROPIUM 0.5 MG NEB (SCH) NEB ×4 (08:14→20:09)
--- NOTE | 2017-06-14 08:21 | RADRPT ---
EXAM DATE/TIME: 06/14/2017 07:30 [place] COMPARISON: CT BRAIN W/O CONTRAST, June 11, 2017, 10:58. CT BRAIN W/O CONTRAST, June 06, 2015, 17:32. C T BRAIN W/O CONTRAST, June 12, 2017, 9:39. INDICATIONS : Confusion. MEDICAL HISTORY : Hypertension. SURGICAL HISTORY : CABG Tonsillectomy. Cholecystectomy. ENCOUNTER: Initial ACUITY: 1 day PAIN SCORE: 0/10 LOCATION: cranial TECHNIQUE: Multiplanar, multisequence MRI of the brain was performed without contrast. FINDINGS: CEREBRUM: The ventricles are normal for age. There are multiple small focal areas of increased signal scattered throughout the cerebral hemispheres including a small area in the left frontal lobe, small areas in the parietal lobes bilaterally, small areas in the occipital lobes, and left temporal lobe. The large st cerebral lesion is seen at the posterior inferior left parietal lobe measuring 1.1 cm. These areas all demonstrate increased signal on the flair and diffusion weighted images. Some of these do have l ow signal on the SWI sequence which may suggest petechial areas of hemorrhage. Silas areas of hemorrh age are not clearly seen. No extraaxial fluid collections are seen. The pituitary gland and suprase llar cistern are normal in configuration. WHITE MATTER: Again noted are the multiple small areas of signal abnormality seen. Some of these are seen at the co rtex, others are seen in the cerebral white matter. POSTERIOR FOSSA: There is a prominent area of increased signal seen at the posterior right cerebellar hemisphere measu ring 2.5 x 2.4 cm. This is bright on the flair and T2, and diffusion weighted images. DIFFUSION IMAGING: Again noted are the multiple areas of signal abnormality on the diffusion-weighted images the most pr ominent in the right cerebellar hemisphere. EXTRACRANIAL: The visualized portions of the orbits and paranasal sinuses are unremarkable. CONCLUSION: Multiple areas of signal abnormality scattered throughout the cerebral hemispheres and in the right c erebellar hemisphere. These are thought to represent multiple areas of infarction. Given the multipl e vascular distributions, an embolic source should be sought. Tello Page MD on June 14, 2017 at 8:07 Board Certified Radiologist. This report was verified electronically.
[2017-06-14] MEDS: SODIUM CHLORIDE 0.9% FLUSH 10 ML FLUSH IV FLUSH SCH ×2 (09:00→20:54)
[2017-06-14] MEDS: ASPIRIN 325 MG TAB PO SCH (09:34)
[2017-06-14] MEDS: METOPROLOL TARTRATE 100 MG TAB PO SCH ×2 (09:35→20:35)
--- NOTE | 2017-06-14 10:25 | ECHRPT ---
Indication: CVA/TIA CONCLUSIONS Mildly dilated left ventricle. Mild concentric left ventricular hypertrophy. The left ventricular systolic function is normal with an estimated ejection fraction in the range of 55-60%. The left atrial size is wcgg-ti-dubiieqsvb dilated. Dgdhd-lf-gpvp mitral valve regurgitation. Aortic valve sclerosis is present. There is mild tricuspid valve regurgitation. The estimated pulmonary arterial pressure is 44.3 mmHg. BP: 106 / 63 HR: 110 Rhythm: Atrial fibrillation MEASUREMENTS (Male / Female) Normal Values Technical Quality:Fair 2D ECHO LV Diastolic Diameter PLAX 5.6 cm 4.2 - 5.9 / 3.9 - 5.3 cm LV Systolic Diameter PLAX 4.3 cm IVS Diastolic Thickness 1.1 cm 0.6 - 1.0 / 0.6 - 0.9 cm LVPW Diastolic Thickness 1.1 cm 0.6 - 1.0 / 0.6 - 0.9 cm LV Relative Wall Thickness 0.4 RV Internal Dim ED PLAX 3.8 cm LVOT Diameter 2.2 cm Aortic Root Diameter 3.3 cm LA Systolic Diameter LX 4.6 cm 3.0 - 4.0 / 2.7 - 3.8 cm M-MODE AV Cusp Separation MM 1.9 cm DOPPLER AV Peak Velocity 131.0 cm/s AV Peak Gradient 6.9 mmHg AV Mean Gradient 4.5 mmHg AV Velocity Time Integral 22.8 cm LVOT Peak Velocity 91.3 cm/s LVOT Peak Gradient 3.3 mmHg LVOT Velocity Time Integral 13.1 cm LVOT Cardiac Index 2089.2 cm/minm AV Area Cont Eq vti 2.2 cm AV Area Cont Eq pk 2.6 cm Mitral E Point Velocity 105.3 cm/s LV E' Lateral Velocity 12.6 cm/s Mitral E to LV E' Lateral Ratio 8.3 LV E' Septal Velocity 10.6 cm/s Mitral E to LV E' Septal Ratio 9.9 TR Peak Velocity 293.0 cm/s TR Peak Gradient 34.3 mmHg Right Atrial Pressure 10.0 mmHg Pulmonary Artery Systolic Pressu 44.3 mmHg Right Ventricular Systolic Press 44.3 mmHg PV Peak Velocity 45.9 cm/s PV Peak Gradient 0.8 mmHg FINDINGS LEFT VENTRICLE Mildly dilated left ventricle. Mild concentric left ventricular hypertrophy. The left ventricular systolic function is normal with an estimated ejection fraction in the range of 55-60%. RIGHT VENTRICLE Normal right ventricular size and systolic function. LEFT ATRIUM The left atrial size is fltm-mk-umduxymnvd dilated. RIGHT ATRIUM The right atrial size is normal. ATRIAL SEPTUM Normal atrial septal thickness without atrial level shunting by limited color doppler interrogation. AORTA The aortic root and proximal ascending aorta are normal in size on limited imaging. MITRAL VALVE Mvilu-sm-pypb mitral valve regurgitation. AORTIC VALVE Aortic valve sclerosis is present. TRICUSPID VALVE There is mild tricuspid valve regurgitation. The estimated pulmonary arterial pressure is 44.3 mmHg. PULMONARY VALVE No pulmonary valve regurgitation or stenosis. VESSELS The inferior vena cava is normal in size. PERICARDIUM No pericardial effusion. Chase Meredith MD (Electronically Signed) Final Date:14 June 2017 10:23
[2017-06-14] MEDS: PANTOPRAZOLE SODIUM 40 MG VIAL IV PUSH SCH (12:27)
[2017-06-14] MEDS ORDERED: methylPREDNISolone SOD SUCC 125 MG/2 ML VIAL IV PUSH ONE (13:00)
--- NOTE | 2017-06-14 13:18 | HHI.IDPN ---
Subjective Subjective Remarks Patient is a 61 y/o WM presented to the ED at [facility] on 06/12/17 with complaints of progressive generalized weakness and some confusion. The son has noted tyhat he was getting confused. he has been experiencing generalized malaise for a week or so. He had actually gone to the emergency room on June 11, and that was after a fall. He was complaining of pain in his left hand and left foot and left knee. He was dehydrated in the emergency room, and the patient was discharged on some pain medication. On the day of admission patient also started complaining of some abdominal discomfort. Denies any back pain, nausea or vomiting. He has not had any complaint of cough or congestion. No diarrhea or any urinary complaints. Patient states he's been drinking, but by mouth intake is not really that good, and has no appetite. On evaluation in the ED, patient has been febrile. His WBC was elevated at 19,000. Creatinine was elevated as well as his lipase. His LFTs were also elevated. CT of the head showed findings of possible acute or subacute infarction in the right cerebellar hemisphere. Today he was transferred to the ICU when he went into A. fib with RVR. 2 blood cultures done in the emergency room are now reported as growing gram-positive cocci. Patient currently denies any abdominal pain. He is complaining of pain in the left hand, left knee, and left foot. Infectious disease consultation has been requested to evaluate the patient. Notes reviewed Temps ok BP ok BC with B hemolytic Strep Still with pain L hand and L foot Xrays of bone ok Antibiotics Current Medications Zosyn Medications (Trade) Dose Ordered Sig/Dione Route Start Time Stop Time Status Last Admin (Duoneb Neb) 1 ampule Q4HR WHILE AWAKE NEB NEB 06/12/17 12:00 06/14/17 08:14 (NS Flush) 2 ml BID IV FLUSH 06/12/17 21:00 06/14/17 09:00 (NS Flush) 2 ml UNSCH PRN IV FLUSH 06/12/17 12:00 (Vasotec Inj) 1.25 mg Q4H PRN IV PUSH 06/12/17 12:00 (Aspirin) 325 mg DAILY PO 06/12/17 12:00 06/14/17 09:34 Piperacillin Sod/ Tazobactam Sod 50 ml @ 100 mls/hr Q8H IV 06/12/17 13:00 06/14/17 12:27 (Tylenol) 650 mg Q4H PRN PO 06/12/17 12:45 06/12/17 13:07 (Zofran Inj) 4 mg Q6H PRN IV 06/12/17 12:45 (Latty 7.5-325 Mg) 1 tab Q4H PRN PO 06/12/17 12:45 06/14/17 09:34 Patient Own Medication PT OWN MED: SYED... HS PO 06/12/17 21:00 Future Hold (Protonix Inj) 40 mg Q24H IV PUSH 06/12/17 14:00 06/14/17 12:27 (Lopressor) 100 mg Q12HR PO 06/13/17 10:00 06/14/17 09:35 Past Medical History CAD with hx of MA HTN Hyperlipidemia GERD Hepatic steatosis ASIF Obesity Past Surgical History CABG x 4 in 2001 Lap Gina Tonsillectomy Allergies: Coded Allergies: atorvastatin (Unverified Allergy, Mild, calf cramping, 01/27/17) Hospitalized as thought having heart attack. Objective . Vital Signs Date Time Temp Pulse Resp B/P (MAP) Pulse Ox O2 Delivery O2 Flow Rate FiO2 06/14/17 12:52 91 151/65 06/14/17 12:30 89 151/82 (105) 06/14/17 12:15 82 06/14/17 12:00 126 06/14/17 12:00 84 137/92 (107) 06/14/17 12:00 98.4 89 28 150/80 (103) 96 06/14/17 11:45 88 06/14/17 11:30 86 151/83 (105) 06/14/17 11:15 83 06/14/17 11:00 83 143/68 (93) 06/14/17 10:45 82 06/14/17 10:30 93 142/84 (103) 06/14/17 10:15 94 06/14/17 10:00 126 06/14/17 10:00 97 144/84 (104) 94 06/14/17 09:45 98 93 06/14/17 09:30 104 183/98 (126) 93 06/14/17 09:15 103 97 06/14/17 09:00 107 163/85 (111) 99 06/14/17 08:59 96 06/14/17 08:45 103 98 06/14/17 08:30 103 148/77 (100) 100 06/14/17 08:16 101 149/70 (96) 99 06/14/17 08:15 101 99 06/14/17 08:00 126 06/14/17 08:00 98.4 107 28 180/98 (125) 96 06/14/17 07:00 Room Air 06/14/17 06:00 126 06/14/17 05:50 98 114/74 06/14/17 04:38 96 06/14/17 04:00 98.4 107 28 107/55 (72) 96 06/14/17 04:00 107 06/14/17 02:00 97 06/14/17 00:00 93 06/14/17 00:00 98.3 93 45 111/68 (82) 97 06/13/17 23:34 97 06/13/17 22:00 80 06/13/17 20:00 80 06/13/17 20:00 98.8 80 42 121/63 (82) 100 06/13/17 20:00 98 06/13/17 19:00 Room Air 06/13/17 18:00 90 06/13/17 16:00 Room Air 06/13/17 16:00 105 06/13/17 16:00 98.3 105 26 115/60 (78) 95 06/13/17 14:45 104 101/68 06/13/17 14:00 106 06/14/17 06/14/17 06/15/17 15:00 23:00 07:00 Intake Total 93 ml Balance 93 ml IV Total 93 ml . Laboratory Tests Test 06/13/17 02:42 06/14/17 04:20 White Blood Count 22.0 TH/MM3 19.7 TH/MM3 Red Blood Count 3.57 MIL/MM3 3.47 MIL/MM3 Hemoglobin 12.0 GM/DL 11.7 GM/DL Hematocrit 34.3 % 33.4 % Mean Corpuscular Volume 96.1 FL 96.4 FL Mean Corpuscular Hemoglobin 33.5 PG 33.7 PG Mean Corpuscular Hemoglobin Concent 34.9 % 35.0 % Red Cell Distribution Width 14.5 % 14.7 % Platelet Count 147 TH/MM3 181 TH/MM3 Mean Platelet Volume 8.2 FL 8.8 FL Neutrophils (%) (Auto) 85.9 % 82.5 % Lymphocytes (%) (Auto) 6.9 % 9.7 % Monocytes (%) (Auto) 7.0 % 7.3 % Eosinophils (%) (Auto) 0.0 % 0.4 % Basophils (%) (Auto) 0.2 % 0.1 % Neutrophils # (Auto) 18.9 TH/MM3 16.3 TH/MM3 Lymphocytes # (Auto) 1.5 TH/MM3 1.9 TH/MM3 Monocytes # (Auto) 1.5 TH/MM3 1.4 TH/MM3 Eosinophils # (Auto) 0.0 TH/MM3 0.1 TH/MM3 Basophils # (Auto) 0.0 TH/MM3 0.0 TH/MM3 CBC Comment DIFF FINAL DIFF FINAL Differential Comment Laboratory Tests Test 06/12/17 14:35 06/12/17 20:13 06/13/17 02:42 06/14/17 04:20 Lactic Acid Level 1.5 mmol/L Total Creatine Kinase 234 U/L 214 U/L 173 U/L Troponin I 0.20 NG/ML 0.20 NG/ML 0.34 NG/ML Blood Urea Nitrogen 46 MG/DL 46 MG/DL Creatinine 1.91 MG/DL 1.62 MG/DL Random Glucose 120 MG/DL 118 MG/DL Total Protein 6.2 GM/DL Albumin 1.9 GM/DL Calcium Level 7.3 MG/DL 7.8 MG/DL Magnesium Level 2.4 MG/DL Alkaline Phosphatase 67 U/L Aspartate Amino Transf (AST/SGOT) 71 U/L Alanine Aminotransferase (ALT/SGPT) 43 U/L Total Bilirubin 2.7 MG/DL Sodium Level 137 MEQ/L 140 MEQ/L Potassium Level 3.7 MEQ/L 3.9 MEQ/L Chloride Level 106 MEQ/L 109 MEQ/L Carbon Dioxide Level 19.5 MEQ/L 21.1 MEQ/L Anion Gap 12 MEQ/L 10 MEQ/L Estimat Glomerular Filtration Rate 36 ML/MIN 44 ML/MIN Hemoglobin A1c 5.5 % Protein Corrected Calcium 7.8 MG/DL Triglycerides Level 124 MG/DL Cholesterol Level 64 MG/DL LDL Cholesterol 30 MG/DL HDL Cholesterol 9.5 MG/DL Cholesterol/HDL Ratio 6.73 RATIO Lipase 1802 U/L Microbiology Date/Time Source Procedure Growth Status 06/14/17 04:20 Blood Peripheral Aerobic Blood Culture Pending Received 06/14/17 04:20 Blood Peripheral Anaerobic Blood Culture Pending Received 06/13/17 14:40 Blood Peripheral Aerobic Blood Culture - Preliminary NO GROWTH IN 1 DAY Resulted 06/13/17 14:40 Blood Peripheral Anaerobic Blood Culture - Preliminary NO GROWTH IN 1 DAY Resulted 06/13/17 14:30 Blood Peripheral Aerobic Blood Culture - Preliminary NO GROWTH IN 1 DAY Resulted 06/13/17 14:30 Blood Peripheral Anaerobic Blood Culture - Preliminary NO GROWTH IN 1 DAY Resulted 06/12/17 09:10 Blood Peripheral Aerobic Blood Culture - Preliminary Strep Not A,B D Resulted 06/12/17 09:10 Anaerobic Blood Culture - Preliminary Strep Not A,B D Resulted 06/12/17 09:05 Blood Peripheral Aerobic Blood Culture - Preliminary Strep Not A,B D Resulted 06/12/17 09:05 Anaerobic Blood Culture - Preliminary Strep Not A,B D Resulted 06/12/17 10:48 Nasal Aspirate Influenza Types A,B Antigen (CHELSI) - Final NEGATIVE FOR FLU A AND B ANTIGEN.... Complete 06/14/17 01:00 Urine Catheterized Urine Legionella Antigen - Final PRESUMPTIVE NEGATIVE FOR LEGIONELLA P... Complete 06/14/17 01:00 Urine Catheterized Urine Streptococcus pneumoniae Antigen (M - Final PRESUMPTIVE NEGATIVE FOR STREPTOCOCCU... Complete 06/12/17 09:05 Urine Catheterized Urine Urine Culture - Final Strep Not A,B D Complete Imaging Last Impressions Brain MRI 06/14/17 0000 Signed Impressions: Service Date/Time: Wednesday, June 14, 2017 07:30 - CONCLUSION: Multiple areas of signal abnormality scattered throughout the cerebral hemispheres and in the right cerebellar hemisphere. These are thought to represent multiple areas of infarction. Given the multiple vascular distributions, an embolic source should be sought. Tello Page MD Chest X-Ray 06/13/17 0600 Signed Impressions: Service Date/Time: Tuesday, June 13, 2017 03:23 - CONCLUSION: Mild patchy bilateral infiltrate not significantly changed. Tello Ramírez MD Wrist X-Ray 06/13/17 0000 Signed Impressions: Service Date/Time: Tuesday, June 13, 2017 13:07 - CONCLUSION: Mild degenerative change at the first carpometacarpal joint. Tello Page MD Hand X-Ray 06/13/17 0000 Signed Impressions: Service Date/Time: Tuesday, June 13, 2017 13:07 - CONCLUSION: Mild hypertrophic change of the base of the first metacarpal. Tello Page MD Foot X-Ray 06/13/17 0000 Signed Impressions: Service Date/Time: Tuesday, June 13, 2017 13:10 - CONCLUSION: No acute bony abnormality is seen. There is possible soft tissue swelling at the dorsal forefoot. Tello Page MD Abdomen/Pelvis CT 06/12/17 1221 Signed Impressions: Service Date/Time: Monday, June 12, 2017 13:14 - CONCLUSION: 1. Minimally increased left-sided perinephric stranding. No significant peripancreatic inflammatory stranding or fluid collection. There is trace subtle free fluid in the left lower quadrant. Overall, the findings are nonspecific but suggests a possible inflammatory process in the left abdomen. Please note that CT examination is not very sensitive particularly without benefit of IV contrast for detection of acute pancreatitis. Differential considerations include left-sided pyelonephritis. 2. Mild splenomegaly of uncertain etiology. 3. Normal appendix. Alfonso Perea MD Head CT 06/12/17 0859 Signed Impressions: Service Date/Time: Monday, June 12, 2017 09:39 - CONCLUSION: 2 cm low-attenuation area now noted involving the right cerebellar hemisphere most consistent with an acute to subacute infarction. This could be further evaluated with MRI imaging. Josiah Alegre MD Head Magnetic Resonance Angiography 06/12/17 0000 Signed Impressions: Service Date/Time: Monday, June 12, 2017 18:01 - CONCLUSION: Unremarkable exam. Josiah Alegre MD Carotid Artery Ultrasound 06/12/17 0000 Signed Impressions: Service Date/Time: Monday, June 12, 2017 19:32 - CONCLUSION: Mild calcific plaquing bilaterally with no evidence of a hemodynamically significant lesion. Josiah Alegre MD Physical Exam GENERAL: Patient is an obese, well-developed male, awake and alert, not in respiratory distress. SKIN: Warm and dry. No generalized rash, no ecchymoses and no evidence of embolic lesions. HEAD: Atraumatic. Normocephalic. No temporal wasting, or tenderness. EYES: [place] conjunctiva. Has petechia in both lids, no hemorrhage. Pupils equal, round and reactive to light. Extraocular movements full and intact. No scleral icterus. No injection or drainage. EARS, NOSE AND THROAT: Nose without bleeding or purulent nasal discharge. No sinus tenderness. Mucous membranes pink and moist. No oral lesions noted. No exudate. No oral thrush. NECK: Trachea midline. Supple and not tender, no meningeal signs CARDIOVASCULAR: Tachycardic. Regular rate and rhythm. No murmurs, rubs or gallops heard RESPIRATORY: Clear to auscultation. Breath sounds equal bilaterally. No rales , wheezing or rhonchi ABDOMEN: Soft, obses, non-tender, nondistended. Bowel sounds present and normoactive. No guarding. No rebound. No organomegaly. EXTREMITIES: No clubbing, cyanosis. L foot has redness and swelling on his first MTP. L hand there is swelling and pink color on ulnar aspect of his hand , with warmth, tenderness, and pain on moving his L wrist. Swelling L knee, but no heat or redness, pain with passive ROM. No calf tenderness. Well perfused and warm. NEUROLOGICAL: Awake and alert. Cranial nerves grossly intact. Motor grossly within normal limits. PSYCHIATRIC: Normal affect, calm and cooperative. LINE: No evidence of infection Assessment & Plan Remarks IMPRESSION (+) BC with Strep, source, ?GI - has elevated lipase, and LFT, biliary source - concern with endocarditis; has petechia, has infarct on CT (though he has atrial fib) - has swelling on L foot, L hand/wrist, ?seeding Renal insufficiency Hx CAD, S/P CABG x 4 RECOMMENDATION Follow C/S Trial of colchicine for his hand and foot Continue vanco and Zosyn Follow temps Monitor progress I will follow along with you and make further recommendations Karla Johnson MD Jun 14, 2017 13:18
[2017-06-14] MEDS ORDERED: VANCOMYCIN INJ 1,500 MG in SODIUM CHLORID 0.9% 500 ML INJ 500 ML IV ONE (13:30)
--- NOTE | 2017-06-14 14:09 | HHI.PR ---
Subjective Remarks pt went to MRI this AM.. still having alot of wrist/hand pain worse on right. denies sob Objective Vitals oriented mild labored breathing conjunctival injection neida heart irreg lung course bs ext left hand/wrist very tender ?splinter hem. on nails ext no pittting knight..pinkish urine Vital Signs Date Time Temp Pulse Resp B/P (MAP) Pulse Ox O2 Delivery O2 Flow Rate FiO2 06/14/17 12:52 91 151/65 06/14/17 12:30 89 151/82 (105) 06/14/17 12:15 82 06/14/17 12:00 126 06/14/17 12:00 84 137/92 (107) 06/14/17 12:00 98.4 89 28 150/80 (103) 96 06/14/17 11:45 88 06/14/17 11:30 86 151/83 (105) 06/14/17 11:15 83 06/14/17 11:00 83 143/68 (93) 06/14/17 10:45 82 06/14/17 10:30 93 142/84 (103) 06/14/17 10:15 94 06/14/17 10:00 126 06/14/17 10:00 97 144/84 (104) 94 06/14/17 09:45 98 93 06/14/17 09:30 104 183/98 (126) 93 06/14/17 09:15 103 97 06/14/17 09:00 107 163/85 (111) 99 06/14/17 08:59 96 06/14/17 08:45 103 98 06/14/17 08:30 103 148/77 (100) 100 06/14/17 08:16 101 149/70 (96) 99 06/14/17 08:15 101 99 06/14/17 08:00 126 06/14/17 08:00 98.4 107 28 180/98 (125) 96 06/14/17 07:00 Room Air 06/14/17 06:00 126 06/14/17 05:50 98 114/74 06/14/17 04:38 96 06/14/17 04:00 98.4 107 28 107/55 (72) 96 06/14/17 04:00 107 06/14/17 02:00 97 06/14/17 00:00 93 06/14/17 00:00 98.3 93 45 111/68 (82) 97 06/13/17 23:34 97 06/13/17 22:00 80 06/13/17 20:00 80 06/13/17 20:00 98.8 80 42 121/63 (82) 100 06/13/17 20:00 98 06/13/17 19:00 Room Air 06/13/17 18:00 90 06/13/17 16:00 Room Air 06/13/17 16:00 105 06/13/17 16:00 98.3 105 26 115/60 (78) 95 06/13/17 14:45 104 101/68 06/14/17 06/14/17 06/15/17 15:00 23:00 07:00 Intake Total 93 ml Balance 93 ml IV Total 93 ml Result Diagram: 06/14/1741906/14/17419 Imaging Last Impressions Head CT 06/12/17 0859 Signed Impressions: Service Date/Time: Monday, June 12, 2017 09:39 - CONCLUSION: 2 cm low-attenuation area now noted involving the right cerebellar hemisphere most consistent with an acute to subacute infarction. This could be further evaluated with MRI imaging. Josiah Alegre MD Chest X-Ray 06/12/17 0859 Signed Impressions: Service Date/Time: Monday, June 12, 2017 09:06 - CONCLUSION: 1. Interstitial pulmonary edema pattern with patchy bibasilar airspace disease which may reflect atelectasis although pneumonia cannot be entirely excluded in the appropriate clinical setting. Alfonso Perea MD A/P Problem List: (1) CVA (cerebral vascular accident) ICD Codes: I63.9 - Cerebral infarction, unspecified Status: Acute Plan: Pt is a 61 y/o WM with HTN, CAD s/p CABG x in 2000 and stent placement in 2014. Pt presented to the ED at [facility] on 06/12/17 with complaints of progressive generalized weakness and some confusion. The pt also notes some upper abdominal discomfort that started . He was seen in the ED at [facility] [place] with complaints of weakness and some knee pain. He had fallen at home due to weakness about a week ago and injured his right knee and reportedly had outpt Xrays which noted a patellar fracture and has a brace on the RLE currently. Xrays in the ED on 06/11 did not indicate a patellar fracture but pt with noted effusion and he was prescribed some pain medications PRN. IN the ED on 06/11 he was felt to be dehydrated and was given 2L of IVF. He was sent home with his son and then brought back into the ED on 06/12 for apparent confusion. 1. right cerebellar and diffuse bilateral cerebral cva's..embolic appearing probably embolic for new afib 2. afib/rvr..more controlled 3. untreated asif 4. sepsis. / bottle strep species. unclear origin. question endocarditis and septic emboli 5. pulmonary edema....seemed to develop with massive ivf resuscitation in ED. ....?not clearly pna component. 6. yessi. related to sepsis. 7. falls and right knee injury/effusion 8. cad/cabg x 4 9. elevated trops and lipase probably sepsis related. plan pt placed on amiodarone by Business Performance Analyst and cardiology consulted. echo pending. will stop amiodarone. pt on metoprolol 100mg po bid. spoke to dr Martinez. He will discuss possible MARA with Dr Cohen for ? endocarditis Then I spoke with neurology who is ok with anticoagulation neurology following for acute cva. on asa. f/u pending studies. cont broad abx and f/u pending cx's. vanc/zosyn currently cont oxygen . nebs. cxr dvt prophylaxis keep in ICU today. (2) YESSI (acute kidney injury) ICD Codes: N17.9 - Acute kidney failure, unspecified Status: Acute (3) Sepsis ICD Codes: A41.9 - Sepsis, unspecified organism Status: Acute (4) Volume overload ICD Codes: E87.70 - Fluid overload, unspecified Status: Acute (5) Elevated lipase ICD Codes: R74.8 - Abnormal levels of other serum enzymes Status: Acute (6) Elevated LFTs ICD Codes: R79.89 - Other specified abnormal findings of blood chemistry Status: Acute (7) CAD (coronary artery disease) ICD Codes: I25.10 - Coronary artery disease Status: Chronic (8) HTN (hypertension) ICD Codes: I10 - Hypertension Status: Chronic (9) Acid reflux ICD Codes: K21.9 - Gastroesophageal reflux disease Status: Chronic (10) ASIF (obstructive sleep apnea) ICD Codes: G47.33 - Obstructive sleep apnea syndrome Status: Chronic Permanent Comment: Not sleeping with the machine. After heart attack 4 years ago. Last Edited By: Lang Mueller on Dec 29, 2014 12:12 (11) Dyslipidemia ICD Codes: E78.5 - Dyslipidemia Status: Chronic Efra Veloz MD Jun 14, 2017 14:09
[2017-06-14] MEDS: COLCHICINE 0.6 MG TAB PO SCH ×2 (14:45→20:36)
[2017-06-14] MEDS: ENALAPRILAT 1.25 MG/ML VIAL IV PUSH PRN (17:46)
[2017-06-15] VITALS (19 sets, daily range): BP systolic 114–207; BP diastolic 62–122; PULSE 71–97; RESP 17–38; TEMP 97.6–98.2; O2SAT 93–100
[2017-06-15] MEDS: PIPERACIL-TAZO 3.375 GM PREMIX 50 ML IV SCH ×3 (05:39→19:40)
[2017-06-15] MEDS: ACETAMINOPHEN/HYDROcodone 325 MG/7.5 MG TAB PO PRN (05:39)
[2017-06-15] MEDS: SODIUM CHLORIDE 0.9% FLUSH 10 ML FLUSH IV FLUSH SCH ×2 (07:45→19:40)
[2017-06-15] MEDS: ENALAPRILAT 1.25 MG/ML VIAL IV PUSH PRN (07:45)
[2017-06-15] MEDS: ASPIRIN 325 MG TAB PO SCH (07:45)
[2017-06-15] MEDS: COLCHICINE 0.6 MG TAB PO SCH ×2 (07:45→19:40)
[2017-06-15] MEDS: METOPROLOL TARTRATE 100 MG TAB PO SCH ×2 (07:45→19:40)
[2017-06-15] MEDS: RESP: ALBUTEROL 2.5 MG/IPRATROPIUM 0.5 MG NEB (SCH) NEB ×4 (07:51→20:45)
[2017-06-15 08:21] LABS: AUTOMATED NEUTROPHIL # 10.7 TH/MM3 (1.8-7.7); BASOPHIL % 0.2 % (0.0-2.0); EOSINOPHIL % 0.3 % (0.0-4.0); HEMATOCRIT 35.5 % (39.0-51.0); HEMOGLOBIN 11.9 GM/DL (13.0-17.0); LYMPH % 11.5 % (9.0-44.0); LYMPHOCYTE # 1.6 TH/MM3 (1.0-4.8); MEAN CELL VOLUME 98.7 FL (80.0-100.0); MEAN CORPUSCULAR HEMOGLOBIN 33.1 PG (27.0-34.0); MEAN CORPUSCULAR HGB CONC 33.5 % (32.0-36.0); MEAN PLATELET VOLUME 8.1 FL (7.0-11.0); MONO % 9.2 % (0.0-8.0); MONOCYTE # 1.3 TH/MM3 (0-0.9); NEUT % 78.8 % (16.0-70.0); PLATELET COUNT 233 TH/MM3 (150-450); RED BLOOD COUNT 3.59 MIL/MM3 (4.50-5.90); RED CELL DISTRIBUTION WIDTH 14.5 % (11.6-17.2); WHITE BLOOD COUNT 13.7 TH/MM3 (4.0-11.0)
[2017-06-15 08:52] LABS: BICARBONATE 22.6 MEQ/L (21.0-32.0); CALCIUM 7.6 MG/DL (8.5-10.1); CREATININE 1.37 MG/DL (0.60-1.30)
[2017-06-15 08:55] LABS: RANDOM VANCOMYCIN 8.7 COMMENT
--- NOTE | 2017-06-15 09:17 | HHI.PR ---
Subjective Remarks Pt reports that his hand is less painful today He denies any chest pain or SOB His BP is much higher today than it had been Objective Vitals Vital Signs Date Time Temp Pulse Resp B/P (MAP) Pulse Ox O2 Delivery O2 Flow Rate FiO2 06/15/17 08:00 90 06/15/17 08:00 97.8 90 23 207/122 (150) 100 06/15/17 07:51 99 06/15/17 07:00 Room Air 06/15/17 06:00 83 06/15/17 04:00 97.6 84 21 143/96 (112) 98 06/15/17 04:00 97 06/15/17 02:00 80 06/15/17 00:00 98.2 79 17 116/71 (86) 97 06/15/17 00:00 79 06/14/17 22:00 79 06/14/17 20:09 98 21 06/14/17 20:00 98.3 79 186/103 (130) 06/14/17 20:00 79 06/14/17 19:00 Room Air 06/14/17 18:00 126 06/14/17 16:00 126 06/14/17 16:00 98.5 72 24 169/86 (113) 98 06/14/17 14:00 126 06/14/17 12:52 91 151/65 06/14/17 12:30 89 151/82 (105) 06/14/17 12:15 82 06/14/17 12:00 126 06/14/17 12:00 84 137/92 (107) 06/14/17 12:00 98.4 89 28 150/80 (103) 96 06/14/17 11:45 88 06/14/17 11:30 86 151/83 (105) 06/14/17 11:15 83 06/14/17 11:00 83 143/68 (93) 06/14/17 10:45 82 06/14/17 10:30 93 142/84 (103) 06/14/17 10:15 94 06/14/17 10:00 126 06/14/17 10:00 97 144/84 (104) 94 06/14/17 09:45 98 93 06/14/17 09:30 104 183/98 (126) 93 06/14/17 09:15 103 97 06/14/17 09:00 107 163/85 (111) 99 06/14/17 08:59 96 Result Diagram: 06/15/17 0751 06/15/17 0751 Other Results Laboratory Tests Test 06/14/17 04:20 06/15/17 07:51 White Blood Count 19.7 TH/MM3 13.7 TH/MM3 Red Blood Count 3.47 MIL/MM3 3.59 MIL/MM3 Hemoglobin 11.7 GM/DL 11.9 GM/DL Hematocrit 33.4 % 35.5 % Mean Corpuscular Volume 96.4 FL 98.7 FL Mean Corpuscular Hemoglobin 33.7 PG 33.1 PG Mean Corpuscular Hemoglobin Concent 35.0 % 33.5 % Red Cell Distribution Width 14.7 % 14.5 % Platelet Count 181 TH/MM3 233 TH/MM3 Mean Platelet Volume 8.8 FL 8.1 FL Neutrophils (%) (Auto) 82.5 % 78.8 % Lymphocytes (%) (Auto) 9.7 % 11.5 % Monocytes (%) (Auto) 7.3 % 9.2 % Eosinophils (%) (Auto) 0.4 % 0.3 % Basophils (%) (Auto) 0.1 % 0.2 % Neutrophils # (Auto) 16.3 TH/MM3 10.7 TH/MM3 Lymphocytes # (Auto) 1.9 TH/MM3 1.6 TH/MM3 Monocytes # (Auto) 1.4 TH/MM3 1.3 TH/MM3 Eosinophils # (Auto) 0.1 TH/MM3 0.0 TH/MM3 Basophils # (Auto) 0.0 TH/MM3 0.0 TH/MM3 CBC Comment DIFF FINAL DIFF FINAL Differential Comment Blood Urea Nitrogen 46 MG/DL 41 MG/DL Creatinine 1.62 MG/DL 1.37 MG/DL Random Glucose 118 MG/DL 109 MG/DL Calcium Level 7.8 MG/DL 7.6 MG/DL Sodium Level 140 MEQ/L 138 MEQ/L Potassium Level 3.9 MEQ/L 4.1 MEQ/L Chloride Level 109 MEQ/L 109 MEQ/L Carbon Dioxide Level 21.1 MEQ/L 22.6 MEQ/L Anion Gap 10 MEQ/L 6 MEQ/L Estimat Glomerular Filtration Rate 44 ML/MIN 53 ML/MIN Random Vancomycin Level 8.7 COMMENT Imaging Last Impressions Brain MRI 06/14/17 0000 Signed Impressions: Service Date/Time: Wednesday, June 14, 2017 07:30 - CONCLUSION: Multiple areas of signal abnormality scattered throughout the cerebral hemispheres and in the right cerebellar hemisphere. These are thought to represent multiple areas of infarction. Given the multiple vascular distributions, an embolic source should be sought. Tello Page MD Chest X-Ray 06/13/17 0600 Signed Impressions: Service Date/Time: Tuesday, June 13, 2017 03:23 - CONCLUSION: Mild patchy bilateral infiltrate not significantly changed. Tello Ramírez MD Wrist X-Ray 06/13/17 0000 Signed Impressions: Service Date/Time: Tuesday, June 13, 2017 13:07 - CONCLUSION: Mild degenerative change at the first carpometacarpal joint. Tello Page MD Hand X-Ray 06/13/17 0000 Signed Impressions: Service Date/Time: Tuesday, June 13, 2017 13:07 - CONCLUSION: Mild hypertrophic change of the base of the first metacarpal. Tello Page MD Foot X-Ray 06/13/17 0000 Signed Impressions: Service Date/Time: Tuesday, June 13, 2017 13:10 - CONCLUSION: No acute bony abnormality is seen. There is possible soft tissue swelling at the dorsal forefoot. Tello Page MD Abdomen/Pelvis CT 06/12/17 1221 Signed Impressions: Service Date/Time: Monday, June 12, 2017 13:14 - CONCLUSION: 1. Minimally increased left-sided perinephric stranding. No significant peripancreatic inflammatory stranding or fluid collection. There is trace subtle free fluid in the left lower quadrant. Overall, the findings are nonspecific but suggests a possible inflammatory process in the left abdomen. Please note that CT examination is not very sensitive particularly without benefit of IV contrast for detection of acute pancreatitis. Differential considerations include left-sided pyelonephritis. 2. Mild splenomegaly of uncertain etiology. 3. Normal appendix. Alfonso Perea MD Head CT 06/12/17 0859 Signed Impressions: Service Date/Time: Monday, June 12, 2017 09:39 - CONCLUSION: 2 cm low-attenuation area now noted involving the right cerebellar hemisphere most consistent with an acute to subacute infarction. This could be further evaluated with MRI imaging. Josiah Alegre MD Head Magnetic Resonance Angiography 06/12/17 0000 Signed Impressions: Service Date/Time: Monday, June 12, 2017 18:01 - CONCLUSION: Unremarkable exam. Josiah Alegre MD Carotid Artery Ultrasound 06/12/17 0000 Signed Impressions: Service Date/Time: Monday, June 12, 2017 19:32 - CONCLUSION: Mild calcific plaquing bilaterally with no evidence of a hemodynamically significant lesion. Josiah Alegre MD Objective Remarks General: NAD, AAOx3 Chest: CTA Cardiac: Irregular Abd: +BS, soft ND/NT Ext: Left foot with slight swelling and erythema of the first MTP. Left hand swelling is improving and better movement of hands and wrist. Swelling of the left knee, but no warmth or erythema. A/P Problem List: (1) CVA (cerebral vascular accident) ICD Codes: I63.9 - Cerebral infarction, unspecified Status: Acute Plan: - Pt is a 61 y/o WM with HTN, CAD s/p CABG x in 2000 and stent placement in 2014. Pt presented to the ED at [facility] [place] on 06/12/17 with complaints of progressive generalized weakness and some confusion. The pt also notes some upper abdominal discomfort that started . [place] [facility] [place] with complaints of weakness and some knee pain. He had fallen at home due to weakness about a week ago and injured his right knee and reportedly had outpt Xrays which noted a patellar fracture and has a brace on the RLE currently. Xrays in the ED on 06/11 did not indicate a patellar fracture but pt with noted effusion and he was prescribed some pain medications PRN. In the ED on 06/11 he was felt to be dehydrated and was given 2L of IVF. He was sent home with his son and then brought back into the ED on 06/12 for apparent confusion. - Head CT in the ED on 06/12 noted 2 cm low-attenuation area now noted involving the right cerebellar hemisphere most consistent with an acute to subacute infarction. - Neurology is following. - Carotid US (06/12/17) --> Mild calcific plaquing bilaterally with no evidence of a hemodynamically significant lesion. - Brain MRA (06/12) --> Unremarkable - Brain MRI (06/14) --> Multiple areas of signal abnormality scattered throughout the cerebral hemispheres and in the right cerebellar hemisphere. These are thought to represent multiple areas of infarction. Given the multiple vascular distributions, an embolic source should be sought. - Pt was found to have paroxysmal A. fib. These embolic strokes were thought to possibly be related to his new A. fib - Pt is on Metoprolol 100mg po BID - 2D echo is pending. - PT evaluation when pt is more stable - Neurology is recommending anticoagulation for acute CVA. Pt currently on asa. - We will given Heparin for now and will discuss anticoagulation with Cardiology and Neurology after workup for endocarditis/MARA. - Pts BP is elevated this morning, we will start Procardia XL today and monitor closely (2) Atrial fibrillation ICD Codes: I48.91 - Unspecified atrial fibrillation Plan: - Pt was found to have A. fib following admission. - He was initially placed on Amiodarone by [facility] [employer] and cardiology consulted. - Amiodarone was stopped and pt was started on Metoprolol 100mg po BID - Currently rate controlled - 2D echo (06/14/17) - Mildly dilated left ventricle, mild concentric LVH, estimated EF 55-60%. - The left atrial size is [id number] dilated. - [id number] mitral valve regurgitation. - Aortic valve sclerosis is present. - There is mild tricuspid valve regurgitation. - The estimated pulmonary arterial pressure is 44.3 mmHg. (3) Sepsis ICD Codes: A41.9 - Sepsis, unspecified organism Status: Acute Plan: - Pt states that he has had problems with generalized weakness for the last few weeks. Pt was noted to have a fever of 103 in the ED. - Blood cultures were drawn in the ED grew out 4/4 bottles with strep species, unclear origin. ??question endocarditis and septic emboli - UA in the ED was abnormal and final culture also growing strep species - Pt was given Vancomycin and Cefepime in the ED. - CT Abd/pelvis (06/13) --> Minimally increased left-sided perinephric stranding. No significant peripancreatic inflammatory stranding or fluid collection. There is trace subtle free fluid in the left lower quadrant. Overall, the findings are nonspecific but suggests a possible inflammatory process in the left abdomen. Please note that CT examination is not very sensitive particularly without benefit of IV contrast for detection of acute pancreatitis. Differential considerations include left- sided pyelonephritis. Mild splenomegaly of uncertain etiology. Normal appendix. - Pt was continued on Zosyn and Vanc. - Pt tested negative fort Influenza - The elevated trops and lipase probably sepsis related. - Labs work in the ED noted an elevated WBC count of 19,000 which has been improving. - ID following. - Cannot r/o endocarditis so will discuss possible MARA with Dr Cohen (4) YESSI (acute kidney injury) ICD Codes: N17.9 - Acute kidney failure, unspecified Status: Acute Plan: - Likely related to sepsis. - Labs are improving - Cont. to monitor (5) Volume overload ICD Codes: E87.70 - Fluid overload, unspecified Status: Acute Plan: - Pt noted to have pulmonary edema on CXR at admission - [place] to likely be related to volume overload with massive ivf resuscitation in ED, not clearly any PNA component. (6) Elevated lipase ICD Codes: R74.8 - Abnormal levels of other serum enzymes Status: Acute Plan: - Pt also had noted an elevated Lipase of 1296 with TBili 3.4, AST 63, ALT 41 at admission - [place] to likely be related to sepsis - Pt with hx of previous Lap jyoti according to outpt records - Unclear how much alcohol this pt normally drink - Monitor labs (7) Elevated LFTs ICD Codes: R79.89 - Other specified abnormal findings of blood chemistry Status: Acute (8) CAD (coronary artery disease) ICD Codes: I25.10 - Coronary artery disease Status: Chronic Plan: - Hold home BP meds were held at admission for permissive HTN - Pt started on Metoprolol 100mg po BID for the A. fib - Vasotec PRN (9) HTN (hypertension) ICD Codes: I10 - Hypertension Status: Chronic (10) Acid reflux ICD Codes: K21.9 - Gastroesophageal reflux disease Status: Chronic Plan: - PPI (11) ASIF (obstructive sleep apnea) ICD Codes: G47.33 - Obstructive sleep apnea syndrome Status: Chronic Plan: - Pt has been non-compliant with his CPAP Permanent Comment: Not sleeping with the machine. After heart attack 4 years ago. Last Edited By: Lang Mueller on Dec 29, 2014 12:12 (12) Dyslipidemia ICD Codes: E78.5 - Dyslipidemia Status: Chronic Assessment and Plan Patient examined. Assessment and plan formulated with Heather Navarro PA-C. I agree with the above. Blood cultures and urine growing, Strep Species, NOT A, B, or D Pt will need MARA to exclude endocarditis. Continue Vancomycin & Zosyn Afib is rate controlled continue metoprolol 100mg BID BP is elevated trial of procardia XL 60mg daily observe bp readings Problem Qualifiers (1) Atrial fibrillation: Qualified Codes: I48.0 - Paroxysmal atrial fibrillation Heather Navarro Jun 15, 2017 09:17 Lucho Carroll DO Jun 15, 2017 11:00
[2017-06-15] MEDS: NIFEdipine 60 MG SUSTAINED RELEASE TAB PO SCH (11:15)
--- NOTE | 2017-06-15 11:32 | HHI.IDPN ---
Subjective Subjective Remarks Patient is a 61 y/o WM [place] [facility] [place] with complaints of progressive generalized weakness and some confusion. The son has noted tyhat he was getting confused. he has been experiencing generalized malaise for a week or so. He had actually gone to the emergency room on June 11, and that was after a fall. He was complaining of pain in his left hand and left foot and left knee. He was dehydrated in the emergency room, and the patient was discharged on some pain medication. On the day of admission patient also started complaining of some abdominal discomfort. Denies any back pain, nausea or vomiting. He has not had any complaint of cough or congestion. No diarrhea or any urinary complaints. Patient states he's been drinking, but by mouth intake is not really that good, and has no appetite. On evaluation in the ED, patient has been febrile. His WBC was elevated at 19,000. Creatinine was elevated as well as his lipase. His LFTs were also elevated. CT of the head showed findings of possible acute or subacute infarction in the right cerebellar hemisphere. Today he was transferred to the ICU when he went into A. fib with RVR. 2 blood cultures done in the emergency room are now reported as growing gram-positive cocci. Patient currently denies any abdominal pain. He is complaining of pain in the left hand, left knee, and left foot. Infectious disease consultation has been requested to evaluate the patient. Notes reviewed Temps ok BP ok L hand slightly better BC with B hemolytic Strep No new (+) BC Got a big dose of solumedrol yesterday Antibiotics Current Medications Zosyn Vanco Medications (Trade) Dose Ordered Sig/Dione Route Start Time Stop Time Status Last Admin (Duoneb Neb) 1 ampule Q4HR WHILE AWAKE NEB NEB 06/12/17 12:00 06/15/17 10:50 (NS Flush) 2 ml BID IV FLUSH 06/12/17 21:00 06/15/17 07:45 (NS Flush) 2 ml UNSCH PRN IV FLUSH 06/12/17 12:00 (Vasotec Inj) 1.25 mg Q4H PRN IV PUSH 06/12/17 12:00 06/15/17 07:45 (Aspirin) 325 mg DAILY PO 06/12/17 12:00 06/15/17 07:45 Piperacillin Sod/ Tazobactam Sod 50 ml @ 100 mls/hr Q8H IV 06/12/17 13:00 06/15/17 05:39 (Tylenol) 650 mg Q4H PRN PO 06/12/17 12:45 06/12/17 13:07 (Zofran Inj) 4 mg Q6H PRN IV 06/12/17 12:45 ([place] 7.5-325 Mg) 1 tab Q4H PRN PO 06/12/17 12:45 06/15/17 05:39 Patient Own Medication PT OWN MED: SYED... HS PO 06/12/17 21:00 Future Hold (Protonix Inj) 40 mg Q24H IV PUSH 06/12/17 14:00 06/14/17 12:27 (Lopressor) 100 mg Q12HR PO 06/13/17 10:00 06/15/17 07:45 (Colchicine) 0.6 mg BID PO 06/14/17 13:30 06/16/17 21:01 06/15/17 07:45 Heparin Sodium/ Dextrose 250 ml @ 18 mls/hr TITRATE PRN IV 06/15/17 11:00 (Procardia Xl) 60 mg DAILY PO 06/15/17 11:00 06/15/17 11:15 Past Medical History CAD with hx of IA HTN Hyperlipidemia GERD Hepatic steatosis ASIF Obesity Past Surgical History CABG x 4 in 2001 Lap Gina Tonsillectomy Allergies: Coded Allergies: atorvastatin (Unverified Allergy, Mild, calf cramping, 01/27/17) Hospitalized as thought having heart attack. Objective . Vital Signs Date Time Temp Pulse Resp B/P (MAP) Pulse Ox O2 Delivery O2 Flow Rate FiO2 06/15/17 10:00 88 21 186/111 (136) 99 06/15/17 10:00 88 06/15/17 09:00 89 19 141/63 (89) 96 06/15/17 08:00 90 06/15/17 08:00 97.8 90 23 207/122 (150) 100 06/15/17 07:51 99 06/15/17 07:00 Room Air 06/15/17 06:00 83 06/15/17 04:00 97.6 84 21 143/96 (112) 98 06/15/17 04:00 97 06/15/17 02:00 80 06/15/17 00:00 98.2 79 17 116/71 (86) 97 06/15/17 00:00 79 06/14/17 22:00 79 06/14/17 20:09 98 21 06/14/17 20:00 98.3 79 186/103 (130) 06/14/17 20:00 79 06/14/17 19:00 Room Air 06/14/17 18:00 126 06/14/17 16:00 126 06/14/17 16:00 98.5 72 24 169/86 (113) 98 06/14/17 14:00 126 06/14/17 12:52 91 151/65 06/14/17 12:30 89 151/82 (105) 06/14/17 12:15 82 06/14/17 12:00 126 06/14/17 12:00 84 137/92 (107) 06/14/17 12:00 98.4 89 28 150/80 (103) 96 06/14/17 11:45 88 06/14/17 11:30 86 151/83 (105) . Laboratory Tests Test 06/14/17 04:20 06/15/17 07:51 White Blood Count 19.7 TH/MM3 13.7 TH/MM3 Red Blood Count 3.47 MIL/MM3 3.59 MIL/MM3 Hemoglobin 11.7 GM/DL 11.9 GM/DL Hematocrit 33.4 % 35.5 % Mean Corpuscular Volume 96.4 FL 98.7 FL Mean Corpuscular Hemoglobin 33.7 PG 33.1 PG Mean Corpuscular Hemoglobin Concent 35.0 % 33.5 % Red Cell Distribution Width 14.7 % 14.5 % Platelet Count 181 TH/MM3 233 TH/MM3 Mean Platelet Volume 8.8 FL 8.1 FL Neutrophils (%) (Auto) 82.5 % 78.8 % Lymphocytes (%) (Auto) 9.7 % 11.5 % Monocytes (%) (Auto) 7.3 % 9.2 % Eosinophils (%) (Auto) 0.4 % 0.3 % Basophils (%) (Auto) 0.1 % 0.2 % Neutrophils # (Auto) 16.3 TH/MM3 10.7 TH/MM3 Lymphocytes # (Auto) 1.9 TH/MM3 1.6 TH/MM3 Monocytes # (Auto) 1.4 TH/MM3 1.3 TH/MM3 Eosinophils # (Auto) 0.1 TH/MM3 0.0 TH/MM3 Basophils # (Auto) 0.0 TH/MM3 0.0 TH/MM3 CBC Comment DIFF FINAL DIFF FINAL Differential Comment Laboratory Tests Test 06/14/17 04:20 06/15/17 07:51 Blood Urea Nitrogen 46 MG/DL 41 MG/DL Creatinine 1.62 MG/DL 1.37 MG/DL Random Glucose 118 MG/DL 109 MG/DL Calcium Level 7.8 MG/DL 7.6 MG/DL Sodium Level 140 MEQ/L 138 MEQ/L Potassium Level 3.9 MEQ/L 4.1 MEQ/L Chloride Level 109 MEQ/L 109 MEQ/L Carbon Dioxide Level 21.1 MEQ/L 22.6 MEQ/L Anion Gap 10 MEQ/L 6 MEQ/L Estimat Glomerular Filtration Rate 44 ML/MIN 53 ML/MIN Microbiology Date/Time Source Procedure Growth Status 06/14/17 04:20 Blood Peripheral Aerobic Blood Culture - Preliminary NO GROWTH IN 1 DAY Resulted 06/14/17 04:20 Blood Peripheral Anaerobic Blood Culture - Preliminary NO GROWTH IN 1 DAY Resulted 06/13/17 14:40 Blood Peripheral Aerobic Blood Culture - Preliminary NO GROWTH IN 2 DAYS Resulted 06/13/17 14:40 Blood Peripheral Anaerobic Blood Culture - Preliminary NO GROWTH IN 2 DAYS Resulted 06/13/17 14:30 Blood Peripheral Aerobic Blood Culture - Preliminary NO GROWTH IN 2 DAYS Resulted 06/13/17 14:30 Blood Peripheral Anaerobic Blood Culture - Preliminary NO GROWTH IN 2 DAYS Resulted 06/14/17 01:00 Urine Catheterized Urine Legionella Antigen - Final PRESUMPTIVE NEGATIVE FOR LEGIONELLA P... Complete 06/14/17 01:00 Urine Catheterized Urine Streptococcus pneumoniae Antigen (M - Final PRESUMPTIVE NEGATIVE FOR STREPTOCOCCU... Complete Imaging Last Impressions Brain MRI 06/14/17 0000 Signed Impressions: Service Date/Time: Wednesday, June 14, 2017 07:30 - CONCLUSION: Multiple areas of signal abnormality scattered throughout the cerebral hemispheres and in the right cerebellar hemisphere. These are thought to represent multiple areas of infarction. Given the multiple vascular distributions, an embolic source should be sought. Tello Page MD Chest X-Ray 06/13/17 0600 Signed Impressions: Service Date/Time: Tuesday, June 13, 2017 03:23 - CONCLUSION: Mild patchy bilateral infiltrate not significantly changed. Tello Ramírez MD Wrist X-Ray 06/13/17 0000 Signed Impressions: Service Date/Time: Tuesday, June 13, 2017 13:07 - CONCLUSION: Mild degenerative change at the first carpometacarpal joint. Tello Page MD Hand X-Ray 06/13/17 0000 Signed Impressions: Service Date/Time: Tuesday, June 13, 2017 13:07 - CONCLUSION: Mild hypertrophic change of the base of the first metacarpal. Tello Page MD Foot X-Ray 06/13/17 0000 Signed Impressions: Service Date/Time: Tuesday, June 13, 2017 13:10 - CONCLUSION: No acute bony abnormality is seen. There is possible soft tissue swelling at the dorsal forefoot. Tello Page MD Abdomen/Pelvis CT 06/12/17 1221 Signed Impressions: Service Date/Time: Monday, June 12, 2017 13:14 - CONCLUSION: 1. Minimally increased left-sided perinephric stranding. No significant peripancreatic inflammatory stranding or fluid collection. There is trace subtle free fluid in the left lower quadrant. Overall, the findings are nonspecific but suggests a possible inflammatory process in the left abdomen. Please note that CT examination is not very sensitive particularly without benefit of IV contrast for detection of acute pancreatitis. Differential considerations include left-sided pyelonephritis. 2. Mild splenomegaly of uncertain etiology. 3. Normal appendix. Alfonso Perea MD Head CT 06/12/17 0859 Signed Impressions: Service Date/Time: Monday, June 12, 2017 09:39 - CONCLUSION: 2 cm low-attenuation area now noted involving the right cerebellar hemisphere most consistent with an acute to subacute infarction. This could be further evaluated with MRI imaging. Josiah Alegre MD Head Magnetic Resonance Angiography 06/12/17 0000 Signed Impressions: Service Date/Time: Monday, June 12, 2017 18:01 - CONCLUSION: Unremarkable exam. Josiah Alegre MD Carotid Artery Ultrasound 06/12/17 0000 Signed Impressions: Service Date/Time: Monday, June 12, 2017 19:32 - CONCLUSION: Mild calcific plaquing bilaterally with no evidence of a hemodynamically significant lesion. Josiah Alegre MD Physical Exam GENERAL: Patient is an obese, well-developed male, awake and alert, not in respiratory distress. SKIN: Warm and dry. No generalized rash, no ecchymoses and no evidence of embolic lesions. HEAD: Atraumatic. Normocephalic. No temporal wasting, or tenderness. EYES: [place] conjunctiva. Has petechia in both lids, no hemorrhage. Pupils equal, round and reactive to light. Extraocular movements full and intact. No scleral icterus. No injection or drainage. EARS, NOSE AND THROAT: Nose without bleeding or purulent nasal discharge. No sinus tenderness. Mucous membranes pink and moist. No oral lesions noted. No exudate. No oral thrush. NECK: Trachea midline. Supple and not tender, no meningeal signs CARDIOVASCULAR: Tachycardic. Regular rate and rhythm. No murmurs, rubs or gallops heard RESPIRATORY: Clear to auscultation. Breath sounds equal bilaterally. No rales , wheezing or rhonchi ABDOMEN: Soft, obses, non-tender, nondistended. Bowel sounds present and normoactive. No guarding. No rebound. No organomegaly. EXTREMITIES: No clubbing, cyanosis. L foot has redness and swelling on his first MTP, no change. L hand there is improving swelling and pink color on ulnar aspect of his hand, with warmth, tenderness, and better movement of hands and a little on wrist. Swelling L knee, but no heat or redness, pain with passive ROM. No calf tenderness. Well perfused and warm. NEUROLOGICAL: Awake and alert. Cranial nerves grossly intact. Motor grossly within normal limits. PSYCHIATRIC: Normal affect, calm and cooperative. LINE: No evidence of infection Assessment & Plan Remarks IMPRESSION (+) BC with Strep, source, ?GI - has elevated lipase, and LFT, biliary source - concern with endocarditis; has petechia, has infarct on CT (though he has atrial fib) - has swelling on L foot, L hand/wrist, ?seeding Renal insufficiency Hx CAD, S/P CABG x 4 Elevated lipase, not improving, ?pancreatitis RECOMMENDATION Follow C/S Trial of colchicine for his hand and foot May be better if steroids use for his joints Continue Vanco and Zosyn for now Agree that he will need MARA to evaluate valves better Follow temps Monitor progress Karla Johnson MD Jun 15, 2017 11:32
[2017-06-15 12:35] LABS: HEMATOCRIT 33.6 % (39.0-51.0); HEMOGLOBIN 11.9 GM/DL (13.0-17.0); MEAN CELL VOLUME 98.2 FL (80.0-100.0); MEAN CORPUSCULAR HEMOGLOBIN 34.6 PG (27.0-34.0); MEAN CORPUSCULAR HGB CONC 35.3 % (32.0-36.0); MEAN PLATELET VOLUME 9.1 FL (7.0-11.0); PLATELET COUNT 222 TH/MM3 (150-450); RED BLOOD COUNT 3.42 MIL/MM3 (4.50-5.90); RED CELL DISTRIBUTION WIDTH 14.5 % (11.6-17.2)
[2017-06-15 12:50] LABS: INTERNATIONAL NORMALIZED RATIO 1.1 RATIO; PROTHROMBIN TIME - PATIENT 10.8 SEC (9.8-11.6)
[2017-06-15] MEDS ORDERED: VANCOMYCIN INJ 1,500 MG in SODIUM CHLORID 0.9% 500 ML INJ 500 ML IV ONE (13:00)
[2017-06-15] MEDS: PANTOPRAZOLE SODIUM 40 MG VIAL IV PUSH SCH (13:27)
[2017-06-15] MEDS: HEPARIN-D5W 25,000 U/250 ML 250 ML IV PRN (13:29)
[2017-06-16] VITALS (19 sets, daily range): BP systolic 99–151; BP diastolic 52–110; PULSE 79–96; RESP 15–35; TEMP 97.7–99.9; O2SAT 87–100
[2017-06-16] MEDS: HEPARIN-D5W 25,000 U/250 ML 250 ML IV PRN ×2 (02:34→15:03)
[2017-06-16 03:48] LABS: AUTOMATED NEUTROPHIL # 9.8 TH/MM3 (1.8-7.7); BASOPHIL # 0.1 TH/MM3 (0-0.2); BASOPHIL % 0.6 % (0.0-2.0); EOSINOPHIL # 0.1 TH/MM3 (0-0.4); EOSINOPHIL % 0.5 % (0.0-4.0); HEMATOCRIT 34.5 % (39.0-51.0); HEMOGLOBIN 11.9 GM/DL (13.0-17.0); LYMPHOCYTE # 1.7 TH/MM3 (1.0-4.8); MEAN CELL VOLUME 98.1 FL (80.0-100.0); MEAN CORPUSCULAR HEMOGLOBIN 33.7 PG (27.0-34.0); MEAN CORPUSCULAR HGB CONC 34.4 % (32.0-36.0); MONOCYTE # 1.4 TH/MM3 (0-0.9); NEUT % 74.9 % (16.0-70.0); PLATELET COUNT 287 TH/MM3 (150-450); RED BLOOD COUNT 3.52 MIL/MM3 (4.50-5.90); RED CELL DISTRIBUTION WIDTH 14.4 % (11.6-17.2); WHITE BLOOD COUNT 13.1 TH/MM3 (4.0-11.0)
[2017-06-16] MEDS: PIPERACIL-TAZO 3.375 GM PREMIX 50 ML IV SCH ×3 (03:54→20:48)
[2017-06-16 04:08] LABS: ALBUMIN 1.9 GM/DL (3.4-5.0); ALT (GPT) 68 U/L (12-78); AST (GOT) 42 U/L (15-37); BICARBONATE 23.2 MEQ/L (21.0-32.0); BLOOD UREA NITROGEN 38 MG/DL (7-18); CHLORIDE 110 MEQ/L (98-107); GLOMERULAR FILTRATION RATE 52 ML/MIN (>89); GLUCOSE,RANDOM 118 MG/DL (74-106); LIPASE 925 U/L (73-393); SODIUM (NA) 141 MEQ/L (136-145)
[2017-06-16 04:10] LABS: ALKALINE PHOSPHATASE 95 U/L (45-117); RANDOM VANCOMYCIN 12.8 COMMENT; TOTAL BILIRUBIN ADULT 1.6 MG/DL (0.2-1.0); TOTAL PROTEIN 7.6 GM/DL (6.4-8.2)
[2017-06-16 06:41] LABS: BANDS 11 % (0-6); LYMPHOCYTES 8 % (9-44); MONOCYTES 13 % (0-8); NEUTROPHIL # MANUAL DIFF 10.2 TH/MM3 (1.8-7.7); POLYS (SEG NEUTROPHILS) 67 % (16-70)
[2017-06-16 06:43] LABS: DOHLE BODIES PRESENT (NONE SEEN); TOXIC GRANULATION 1+ (NORMAL)
[2017-06-16] MEDS: ACETAMINOPHEN/HYDROcodone 325 MG/7.5 MG TAB PO PRN (07:47)
[2017-06-16] MEDS: METOPROLOL TARTRATE 100 MG TAB PO SCH ×2 (07:48→20:48)
[2017-06-16] MEDS: COLCHICINE 0.6 MG TAB PO SCH ×2 (07:48→20:48)
[2017-06-16] MEDS: NIFEdipine 60 MG SUSTAINED RELEASE TAB PO SCH (07:49)
[2017-06-16] MEDS: ASPIRIN 325 MG TAB PO SCH (07:50)
[2017-06-16] MEDS: SODIUM CHLORIDE 0.9% FLUSH 10 ML FLUSH IV FLUSH SCH ×2 (07:50→20:48)
[2017-06-16] MEDS: RESP: ALBUTEROL 2.5 MG/IPRATROPIUM 0.5 MG NEB (SCH) NEB ×2 (08:00→11:10)
--- NOTE | 2017-06-16 09:58 | HHI.PR ---
Subjective Remarks BP is more stable today. Pt has been afebrile Pt to have MARA today Objective Vitals Vital Signs Date Time Temp Pulse Resp B/P (MAP) Pulse Ox O2 Delivery O2 Flow Rate FiO2 06/16/17 08:55 97 06/16/17 08:00 98.5 96 15 151/110 (124) 98 06/16/17 08:00 96 06/16/17 06:00 93 06/16/17 04:00 95 06/16/17 04:00 99.9 95 35 131/65 (87) 95 06/16/17 02:00 90 06/16/17 00:00 98.5 82 27 125/68 (87) 96 06/16/17 00:00 82 06/15/17 22:00 71 06/15/17 20:45 96 21 06/15/17 20:00 89 06/15/17 20:00 98.0 89 25 114/62 (79) 95 06/15/17 18:00 88 06/15/17 17:30 85 32 130/77 (94) 97 06/15/17 17:30 85 06/15/17 17:00 82 33 138/76 (96) 97 06/15/17 17:00 82 06/15/17 16:30 80 38 152/84 (106) 96 06/15/17 16:30 80 06/15/17 16:00 85 28 148/65 (92) 93 06/15/17 16:00 85 06/15/17 16:00 85 06/15/17 14:00 87 06/15/17 12:00 98.0 84 20 139/89 (106) 99 06/15/17 12:00 84 06/15/17 11:00 83 17 191/108 (135) 100 06/15/17 10:00 88 21 186/111 (136) 99 06/15/17 10:00 88 Result Diagram: 06/16/17 0315 06/16/17 0315 Other Results Laboratory Tests Test 06/15/17 07:51 06/15/17 11:34 06/15/17 19:30 06/16/17 03:15 White Blood Count 13.7 TH/MM3 13.0 TH/MM3 13.1 TH/MM3 Red Blood Count 3.59 MIL/MM3 3.42 MIL/MM3 3.52 MIL/MM3 Hemoglobin 11.9 GM/DL 11.9 GM/DL 11.9 GM/DL Hematocrit 35.5 % 33.6 % 34.5 % Mean Corpuscular Volume 98.7 FL 98.2 FL 98.1 FL Mean Corpuscular Hemoglobin 33.1 PG 34.6 PG 33.7 PG Mean Corpuscular Hemoglobin Concent 33.5 % 35.3 % 34.4 % Red Cell Distribution Width 14.5 % 14.5 % 14.4 % Platelet Count 233 TH/MM3 222 TH/MM3 287 TH/MM3 Mean Platelet Volume 8.1 FL 9.1 FL 8.0 FL Neutrophils (%) (Auto) 78.8 % 74.9 % Lymphocytes (%) (Auto) 11.5 % 13.0 % Monocytes (%) (Auto) 9.2 % 11.0 % Eosinophils (%) (Auto) 0.3 % 0.5 % Basophils (%) (Auto) 0.2 % 0.6 % Neutrophils # (Auto) 10.7 TH/MM3 9.8 TH/MM3 Lymphocytes # (Auto) 1.6 TH/MM3 1.7 TH/MM3 Monocytes # (Auto) 1.3 TH/MM3 1.4 TH/MM3 Eosinophils # (Auto) 0.0 TH/MM3 0.1 TH/MM3 Basophils # (Auto) 0.0 TH/MM3 0.1 TH/MM3 CBC Comment DIFF FINAL AUTO DIFF Differential Comment FINAL DIFF MANUAL Blood Urea Nitrogen 41 MG/DL 38 MG/DL Creatinine 1.37 MG/DL 1.40 MG/DL Random Glucose 109 MG/DL 118 MG/DL Calcium Level 7.6 MG/DL 8.0 MG/DL Sodium Level 138 MEQ/L 141 MEQ/L Potassium Level 4.1 MEQ/L 4.3 MEQ/L Chloride Level 109 MEQ/L 110 MEQ/L Carbon Dioxide Level 22.6 MEQ/L 23.2 MEQ/L Anion Gap 6 MEQ/L 8 MEQ/L Estimat Glomerular Filtration Rate 53 ML/MIN 52 ML/MIN Random Vancomycin Level 8.7 COMMENT 12.8 COMMENT Prothrombin Time 10.8 SEC Prothromb Time International Ratio 1.1 RATIO Activated Partial Thromboplast Time 26.4 SEC 30.8 SEC 33.3 SEC Differential Total Cells Counted 100 Neutrophils % (Manual) 67 % Band Neutrophils % 11 % Lymphocytes % 8 % Monocytes % 13 % Eosinophils % 1 % Neutrophils # (Manual) 10.2 TH/MM3 Toxic Granulation 1+ Dohle Bodies PRESENT Platelet Estimate NORMAL Platelet Morphology Comment NORMAL Red Cell Morphology Comment NORMAL Total Protein 7.6 GM/DL Albumin 1.9 GM/DL Alkaline Phosphatase 95 U/L Aspartate Amino Transf (AST/SGOT) 42 U/L Alanine Aminotransferase (ALT/SGPT) 68 U/L Total Bilirubin 1.6 MG/DL Lipase 925 U/L Test 06/16/17 08:20 Activated Partial Thromboplast Time 34.2 SEC Imaging Last Impressions Brain MRI 06/14/17 0000 Signed Impressions: Service Date/Time: Wednesday, June 14, 2017 07:30 - CONCLUSION: Multiple areas of signal abnormality scattered throughout the cerebral hemispheres and in the right cerebellar hemisphere. These are thought to represent multiple areas of infarction. Given the multiple vascular distributions, an embolic source should be sought. Tello Page MD Chest X-Ray 06/13/17 0600 Signed Impressions: Service Date/Time: Tuesday, June 13, 2017 03:23 - CONCLUSION: Mild patchy bilateral infiltrate not significantly changed. Tello Ramírez MD Wrist X-Ray 06/13/17 0000 Signed Impressions: Service Date/Time: Tuesday, June 13, 2017 13:07 - CONCLUSION: Mild degenerative change at the first carpometacarpal joint. Tello Page MD Hand X-Ray 06/13/17 0000 Signed Impressions: Service Date/Time: Tuesday, June 13, 2017 13:07 - CONCLUSION: Mild hypertrophic change of the base of the first metacarpal. Tello Page MD Foot X-Ray 06/13/17 0000 Signed Impressions: Service Date/Time: Tuesday, June 13, 2017 13:10 - CONCLUSION: No acute bony abnormality is seen. There is possible soft tissue swelling at the dorsal forefoot. Tello Page MD Abdomen/Pelvis CT 06/12/17 1221 Signed Impressions: Service Date/Time: Monday, June 12, 2017 13:14 - CONCLUSION: 1. Minimally increased left-sided perinephric stranding. No significant peripancreatic inflammatory stranding or fluid collection. There is trace subtle free fluid in the left lower quadrant. Overall, the findings are nonspecific but suggests a possible inflammatory process in the left abdomen. Please note that CT examination is not very sensitive particularly without benefit of IV contrast for detection of acute pancreatitis. Differential considerations include left-sided pyelonephritis. 2. Mild splenomegaly of uncertain etiology. 3. Normal appendix. Alfonso Perea MD Head CT 06/12/17 0859 Signed Impressions: Service Date/Time: Monday, June 12, 2017 09:39 - CONCLUSION: 2 cm low-attenuation area now noted involving the right cerebellar hemisphere most consistent with an acute to subacute infarction. This could be further evaluated with MRI imaging. Josiah Alegre MD Head Magnetic Resonance Angiography 06/12/17 0000 Signed Impressions: Service Date/Time: Monday, June 12, 2017 18:01 - CONCLUSION: Unremarkable exam. Josiah Alegre MD Carotid Artery Ultrasound 06/12/17 0000 Signed Impressions: Service Date/Time: Monday, June 12, 2017 19:32 - CONCLUSION: Mild calcific plaquing bilaterally with no evidence of a hemodynamically significant lesion. Josiah Alegre MD Objective Remarks General: NAD, AAOx3 Chest: CTA Cardiac: Irregular Abd: +BS, soft ND/NT Ext: Left foot with slight swelling and erythema of the first MTP. Left hand swelling is improving and better movement of hands and wrist. Swelling of the left knee, but no warmth or erythema. A/P Problem List: (1) CVA (cerebral vascular accident) ICD Codes: I63.9 - Cerebral infarction, unspecified Status: Acute Plan: - Pt is a 61 y/o WM with HTN, CAD s/p CABG x in 2000 and stent placement in 2014. Pt presented to the ED at [facility] on 06/12/17 with complaints of progressive generalized weakness and some confusion. The pt also notes some upper abdominal discomfort that started . He was seen in the ED at [facility] on 06/11 with complaints of weakness and some knee pain. He had fallen at home due to weakness about a week ago and injured his right knee and reportedly had outpt Xrays which noted a patellar fracture and has a brace on the RLE currently. Xrays in the ED on 06/11 did not indicate a patellar fracture but pt with noted effusion and he was prescribed some pain medications PRN. In the ED on 06/11 he was felt to be dehydrated and was given 2L of IVF. He was sent home with his son and then brought back into the ED on 06/12 for apparent confusion. - Head CT in the ED on 06/12 noted 2 cm low-attenuation area now noted involving the right cerebellar hemisphere most consistent with an acute to subacute infarction. - Neurology is following. - Carotid US (06/12/17) --> Mild calcific plaquing bilaterally with no evidence of a hemodynamically significant lesion. - Brain MRA (06/12) --> Unremarkable - Brain MRI (06/14) --> Multiple areas of signal abnormality scattered throughout the cerebral hemispheres and in the right cerebellar hemisphere. These are thought to represent multiple areas of infarction. Given the multiple vascular distributions, an embolic source should be sought. - Pt was found to have paroxysmal A. fib. These embolic strokes were thought to possibly be related to his new A. fib - Pt is on Metoprolol 100mg po BID - PT evaluation when pt is more stable - Neurology is recommending anticoagulation for acute CVA. Pt currently on asa. - We will given Heparin for now and will discuss anticoagulation with Cardiology and Neurology after workup for endocarditis/MARA. - BP was elevating on 06/15/16 so Procardia XL was started with improvement in the BP today and continue to monitor closely (2) Atrial fibrillation ICD Codes: I48.91 - Unspecified atrial fibrillation Plan: - Pt was found to have A. fib following admission. - He was initially placed on Amiodarone by [employer] and cardiology consulted. - Amiodarone was stopped and pt was started on Metoprolol 100mg po BID - Currently rate controlled - 2D echo (06/14/17) - Mildly dilated left ventricle, mild concentric LVH, estimated EF 55-60%. - The left atrial size is [id number] dilated. - Oarll-pu-plty mitral valve regurgitation. - Aortic valve sclerosis is present. - There is mild tricuspid valve regurgitation. - The estimated pulmonary arterial pressure is 44.3 mmHg. (3) Sepsis ICD Codes: A41.9 - Sepsis, unspecified organism Status: Acute Plan: - Pt states that he has had problems with generalized weakness for the last few weeks. Pt was noted to have a fever of 103 in the ED. - Blood cultures were drawn in the ED grew out 4/4 bottles with strep species, unclear origin. ??question endocarditis and septic emboli - UA in the ED was abnormal and final culture also growing strep species - Pt was given Vancomycin and Cefepime in the ED. - CT Abd/pelvis (06/13) --> Minimally increased left-sided perinephric stranding. No significant peripancreatic inflammatory stranding or fluid collection. There is trace subtle free fluid in the left lower quadrant. Overall, the findings are nonspecific but suggests a possible inflammatory process in the left abdomen. Please note that CT examination is not very sensitive particularly without benefit of IV contrast for detection of acute pancreatitis. Differential considerations include left- sided pyelonephritis. Mild splenomegaly of uncertain etiology. Normal appendix. - Pt was continued on Zosyn and Vanc. - Pt tested negative fort Influenza - The elevated trops and lipase probably sepsis related. - Labs work in the ED noted an elevated WBC count of 19,000 which has been improving. - ID following. - Repeat Blood cultures on 06/13 and 06/14 both with NGTD - Cannot r/o endocarditis, Cardiology is consulted for MARA with Dr Cohen ADDENDUM: Pt had MARA (06/16/17) --> Normal EF. Mild MR. Mild AI. +0.7 cm x 0.6 cm mobile echodensity on the anterior leaflet of mitral valve on inflow side consistent with vegetation (4) YESSI (acute kidney injury) ICD Codes: N17.9 - Acute kidney failure, unspecified Status: Acute Plan: - Likely related to sepsis. - Labs are improving - Cont. to monitor (5) Volume overload ICD Codes: E87.70 - Fluid overload, unspecified Status: Acute Plan: - Pt noted to have pulmonary edema on CXR at admission - [place] to likely be related to volume overload with massive ivf resuscitation in ED, not clearly any PNA component. (6) Elevated lipase ICD Codes: R74.8 - Abnormal levels of other serum enzymes Status: Acute Plan: - Pt also had noted an elevated Lipase of 1296 with TBili 3.4, AST 63, ALT 41 at admission - [place] to likely be related to sepsis - Lipase elevated to 1802 on 06/13/17 - Pt with hx of previous Lap jyoti according to outpt records - Unclear how much alcohol this pt normally drink - Repeat lipase on 06/16/17 down to 925. (7) Elevated LFTs ICD Codes: R79.89 - Other specified abnormal findings of blood chemistry Status: Acute (8) CAD (coronary artery disease) ICD Codes: I25.10 - Coronary artery disease Status: Chronic Plan: - Hold home BP meds were held at admission for permissive HTN - Pt started on Metoprolol 100mg po BID for the A. fib - Procardia XL 60mg daily added on 06/15/17 with improvement in the BP - Vasotec PRN (9) HTN (hypertension) ICD Codes: I10 - Hypertension Status: Chronic (10) Acid reflux ICD Codes: K21.9 - Gastroesophageal reflux disease Status: Chronic Plan: - PPI (11) ASIF (obstructive sleep apnea) ICD Codes: G47.33 - Obstructive sleep apnea syndrome Status: Chronic Plan: - Pt has been non-compliant with his CPAP Permanent Comment: Not sleeping with the machine. After heart attack 4 years ago. Last Edited By: Lang Mueller on Dec 29, 2014 12:12 (12) Dyslipidemia ICD Codes: E78.5 - Dyslipidemia Status: Chronic Assessment and Plan Patient examined. Assessment and plan formulated with Heather Navarro PA-C. I agree with the above. Dr. Subramanian wishes to speak with pt's [facility] Specialist, Dr. Bojorquez, . Dr. Subramanian called Dr. Bojorquez's office but was unable to reach Dr. Bojorquez. Dr. Subramanian left a message requesting a return call from Dr. Bojorquez. Dr. Subramanian cancelled EPS study for today & pt is now scheduled for EPS study . I discussed this case with [facility] Case Management and asked that they assist in facilitating the conversation between Dr. Subramanian and Dr. Bojorquez so that pt can have his EPS study. Problem Qualifiers (1) Atrial fibrillation: Qualified Codes: I48.0 - Paroxysmal atrial fibrillation Heather Navarro Jun 16, 2017 09:58 Lucho Carroll DO Jun 16, 2017 12:38
[2017-06-16] MEDS ORDERED: MISCELLANEOUS NURSING INFORMATION XX PRN (10:45)
--- NOTE | 2017-06-16 11:00 | PD.CARD.PN ---
Subjective Subjective Remarks consulted for MARA Dr. Martinez following Objective Medications Current Medications Medications (Trade) Dose Ordered Sig/Dione Route Start Time Stop Time Status Last Admin (Duoneb Neb) 1 ampule Q4HR WHILE AWAKE NEB NEB 06/12/17 12:00 06/15/17 20:45 (NS Flush) 2 ml BID IV FLUSH 06/12/17 21:00 06/16/17 07:50 (NS Flush) 2 ml UNSCH PRN IV FLUSH 06/12/17 12:00 (Vasotec Inj) 1.25 mg Q4H PRN IV PUSH 06/12/17 12:00 06/15/17 07:45 (Aspirin) 325 mg DAILY PO 06/12/17 12:00 06/16/17 07:50 Piperacillin Sod/ Tazobactam Sod 50 ml @ 100 mls/hr Q8H IV 06/12/17 13:00 06/16/17 03:54 (Tylenol) 650 mg Q4H PRN PO 06/12/17 12:45 06/12/17 13:07 (Zofran Inj) 4 mg Q6H PRN IV 06/12/17 12:45 ([place] 7.5-325 Mg) 1 tab Q4H PRN PO 06/12/17 12:45 06/16/17 07:47 Patient Own Medication PT OWN MED: SYED... HS PO 06/12/17 21:00 Future Hold (Protonix Inj) 40 mg Q24H IV PUSH 06/12/17 14:00 06/15/17 13:27 (Lopressor) 100 mg Q12HR PO 06/13/17 10:00 06/16/17 07:48 (Colchicine) 0.6 mg BID PO 06/14/17 13:30 06/16/17 21:01 06/16/17 07:48 Heparin Sodium/ Dextrose 250 ml @ 18 mls/hr TITRATE PRN IV 06/15/17 11:00 06/16/17 02:34 (Procardia Xl) 60 mg DAILY PO 06/15/17 11:00 06/16/17 07:49 Miscellaneous Information 1 UNSCH PRN XX 06/16/17 10:45 06/19/17 10:44 UNV Vital Signs / I&O Vital Signs Date Time Temp Pulse Resp B/P (MAP) Pulse Ox O2 Delivery O2 Flow Rate FiO2 06/16/17 10:00 81 06/16/17 08:55 97 06/16/17 08:00 98.5 96 15 151/110 (124) 98 06/16/17 08:00 96 06/16/17 06:00 93 06/16/17 04:00 95 06/16/17 04:00 99.9 95 35 131/65 (87) 95 06/16/17 02:00 90 06/16/17 00:00 98.5 82 27 125/68 (87) 96 06/16/17 00:00 82 06/15/17 22:00 71 06/15/17 20:45 96 21 06/15/17 20:00 89 06/15/17 20:00 98.0 89 25 114/62 (79) 95 06/15/17 18:00 88 06/15/17 17:30 85 32 130/77 (94) 97 06/15/17 17:30 85 06/15/17 17:00 82 33 138/76 (96) 97 06/15/17 17:00 82 06/15/17 16:30 80 38 152/84 (106) 96 06/15/17 16:30 80 06/15/17 16:00 85 28 148/65 (92) 93 06/15/17 16:00 85 06/15/17 16:00 85 06/15/17 14:00 87 06/15/17 12:00 98.0 84 20 139/89 (106) 99 06/15/17 12:00 84 06/15/17 11:00 83 17 191/108 (135) 100 I/O 06/15/17 06/15/17 06/15/17 06/16/17 06/16/17 06/16/17 07:00 15:00 23:00 07:00 15:00 23:00 Intake Total 290 ml 50 ml 1020 ml 1800 ml Output Total 1900 ml 2500 ml 4000 ml Balance -1610 ml 50 ml -1480 ml -2200 ml Intake Oral 240 ml 720 ml 1500 ml IV Total 50 ml 50 ml 300 ml 300 ml Output Urine Total 1900 ml 2500 ml 4000 ml # Bowel Movements 0 1 0 Physical Exam EYES: No scleral icterus. No injection or drainage. NECK: Supple, trachea midline. No JVD or lymphadenopathy. CARDIOVASCULAR: IR IR RESPIRATORY: Breath sounds equal bilaterally. No accessory muscle use. GASTROINTESTINAL: Abdomen soft, non-tender, nondistended. Laboratory Laboratory Tests Test 06/15/17 11:34 06/15/17 19:30 06/16/17 03:15 06/16/17 08:20 White Blood Count 13.0 TH/MM3 13.1 TH/MM3 Red Blood Count 3.42 MIL/MM3 3.52 MIL/MM3 Hemoglobin 11.9 GM/DL 11.9 GM/DL Hematocrit 33.6 % 34.5 % Mean Corpuscular Volume 98.2 FL 98.1 FL Mean Corpuscular Hemoglobin 34.6 PG 33.7 PG Mean Corpuscular Hemoglobin Concent 35.3 % 34.4 % Red Cell Distribution Width 14.5 % 14.4 % Platelet Count 222 TH/MM3 287 TH/MM3 Mean Platelet Volume 9.1 FL 8.0 FL Prothrombin Time 10.8 SEC Prothromb Time International Ratio 1.1 RATIO Activated Partial Thromboplast Time 26.4 SEC 30.8 SEC 33.3 SEC 34.2 SEC Neutrophils (%) (Auto) 74.9 % Lymphocytes (%) (Auto) 13.0 % Monocytes (%) (Auto) 11.0 % Eosinophils (%) (Auto) 0.5 % Basophils (%) (Auto) 0.6 % Neutrophils # (Auto) 9.8 TH/MM3 Lymphocytes # (Auto) 1.7 TH/MM3 Monocytes # (Auto) 1.4 TH/MM3 Eosinophils # (Auto) 0.1 TH/MM3 Basophils # (Auto) 0.1 TH/MM3 CBC Comment AUTO DIFF Differential Total Cells Counted 100 Neutrophils % (Manual) 67 % Band Neutrophils % 11 % Lymphocytes % 8 % Monocytes % 13 % Eosinophils % 1 % Neutrophils # (Manual) 10.2 TH/MM3 Differential Comment FINAL DIFF MANUAL Toxic Granulation 1+ Dohle Bodies PRESENT Platelet Estimate NORMAL Platelet Morphology Comment NORMAL Red Cell Morphology Comment NORMAL Blood Urea Nitrogen 38 MG/DL Creatinine 1.40 MG/DL Random Glucose 118 MG/DL Total Protein 7.6 GM/DL Albumin 1.9 GM/DL Calcium Level 8.0 MG/DL Alkaline Phosphatase 95 U/L Aspartate Amino Transf (AST/SGOT) 42 U/L Alanine Aminotransferase (ALT/SGPT) 68 U/L Total Bilirubin 1.6 MG/DL Sodium Level 141 MEQ/L Potassium Level 4.3 MEQ/L Chloride Level 110 MEQ/L Carbon Dioxide Level 23.2 MEQ/L Anion Gap 8 MEQ/L Estimat Glomerular Filtration Rate 52 ML/MIN Lipase 925 U/L Random Vancomycin Level 12.8 COMMENT Imaging Last Impressions Brain MRI 06/14/17 0000 Signed Impressions: Service Date/Time: Wednesday, June 14, 2017 07:30 - CONCLUSION: Multiple areas of signal abnormality scattered throughout the cerebral hemispheres and in the right cerebellar hemisphere. These are thought to represent multiple areas of infarction. Given the multiple vascular distributions, an embolic source should be sought. Tello Page MD Chest X-Ray 06/13/17 0600 Signed Impressions: Service Date/Time: Tuesday, June 13, 2017 03:23 - CONCLUSION: Mild patchy bilateral infiltrate not significantly changed. Tello Ramírez MD Wrist X-Ray 06/13/17 0000 Signed Impressions: Service Date/Time: Tuesday, June 13, 2017 13:07 - CONCLUSION: Mild degenerative change at the first carpometacarpal joint. Tello Page MD Hand X-Ray 06/13/17 0000 Signed Impressions: Service Date/Time: Tuesday, June 13, 2017 13:07 - CONCLUSION: Mild hypertrophic change of the base of the first metacarpal. Tello Page MD Foot X-Ray 06/13/17 0000 Signed Impressions: Service Date/Time: Tuesday, June 13, 2017 13:10 - CONCLUSION: No acute bony abnormality is seen. There is possible soft tissue swelling at the dorsal forefoot. Tello Page MD Abdomen/Pelvis CT 06/12/17 1221 Signed Impressions: Service Date/Time: Monday, June 12, 2017 13:14 - CONCLUSION: 1. Minimally increased left-sided perinephric stranding. No significant peripancreatic inflammatory stranding or fluid collection. There is trace subtle free fluid in the left lower quadrant. Overall, the findings are nonspecific but suggests a possible inflammatory process in the left abdomen. Please note that CT examination is not very sensitive particularly without benefit of IV contrast for detection of acute pancreatitis. Differential considerations include left-sided pyelonephritis. 2. Mild splenomegaly of uncertain etiology. 3. Normal appendix. Alfonso Perea MD Head CT 06/12/17 0859 Signed Impressions: Service Date/Time: Monday, June 12, 2017 09:39 - CONCLUSION: 2 cm low-attenuation area now noted involving the right cerebellar hemisphere most consistent with an acute to subacute infarction. This could be further evaluated with MRI imaging. Josiah Alegre MD Head Magnetic Resonance Angiography 06/12/17 0000 Signed Impressions: Service Date/Time: Monday, June 12, 2017 18:01 - CONCLUSION: Unremarkable exam. Josiah Alegre MD Carotid Artery Ultrasound 06/12/17 0000 Signed Impressions: Service Date/Time: Monday, June 12, 2017 19:32 - CONCLUSION: Mild calcific plaquing bilaterally with no evidence of a hemodynamically significant lesion. Josiah Alegre MD Assessment and Plan Assessment and Plan CVA afib bacteremia MARA- Normal EF. mild MR. mild AI. + 0.7 cm x 0.6 cm mobile echodensity on the anterior leaflet of mitral valve on inflow side consistent with vegetation + endocarditis ID following. Gabriel Cohen MD Jun 16, 2017 11:00
[2017-06-16] MEDS ORDERED: PROPOFOL 200 MG/20 ML AMP IV ONE (12:00)
[2017-06-16] MEDS: PANTOPRAZOLE SODIUM 40 MG VIAL IV PUSH SCH (13:32)
--- NOTE | 2017-06-16 13:51 | HHI.IDPN ---
Subjective Subjective Remarks Patient is a 61 y/o WM presented to the ED at [facility] on 06/12/17 with complaints of progressive generalized weakness and some confusion. The son has noted tyhat he was getting confused. he has been experiencing generalized malaise for a week or so. He had actually gone to the emergency room on June 11, and that was after a fall. He was complaining of pain in his left hand and left foot and left knee. He was dehydrated in the emergency room, and the patient was discharged on some pain medication. On the day of admission patient also started complaining of some abdominal discomfort. Denies any back pain, nausea or vomiting. He has not had any complaint of cough or congestion. No diarrhea or any urinary complaints. Patient states he's been drinking, but by mouth intake is not really that good, and has no appetite. On evaluation in the ED, patient has been febrile. His WBC was elevated at 19,000. Creatinine was elevated as well as his lipase. His LFTs were also elevated. CT of the head showed findings of possible acute or subacute infarction in the right cerebellar hemisphere. Today he was transferred to the ICU when he went into A. fib with RVR. 2 blood cultures done in the emergency room are now reported as growing gram-positive cocci. Patient currently denies any abdominal pain. He is complaining of pain in the left hand, left knee, and left foot. Infectious disease consultation has been requested to evaluate the patient. Notes reviewed Temps ok BP ok L hand and L foot slightly better MARA with small MV vegetation BC with B hemolytic Strep No new (+) BC Antibiotics Current Medications Zosyn Vanco Medications (Trade) Dose Ordered Sig/Dione Route Start Time Stop Time Status Last Admin (Duoneb Neb) 1 ampule Q4HR WHILE AWAKE NEB NEB 06/12/17 12:00 06/15/17 10:50 (NS Flush) 2 ml BID IV FLUSH 06/12/17 21:00 06/15/17 07:45 (NS Flush) 2 ml UNSCH PRN IV FLUSH 06/12/17 12:00 (Vasotec Inj) 1.25 mg Q4H PRN IV PUSH 06/12/17 12:00 06/15/17 07:45 (Aspirin) 325 mg DAILY PO 06/12/17 12:00 06/15/17 07:45 Piperacillin Sod/ Tazobactam Sod 50 ml @ 100 mls/hr Q8H IV 06/12/17 13:00 06/15/17 05:39 (Tylenol) 650 mg Q4H PRN PO 06/12/17 12:45 06/12/17 13:07 (Zofran Inj) 4 mg Q6H PRN IV 06/12/17 12:45 ([place] 7.5-325 Mg) 1 tab Q4H PRN PO 06/12/17 12:45 06/15/17 05:39 Patient Own Medication PT OWN MED: SYED... HS PO 06/12/17 21:00 Future Hold (Protonix Inj) 40 mg Q24H IV PUSH 06/12/17 14:00 06/14/17 12:27 (Lopressor) 100 mg Q12HR PO 06/13/17 10:00 06/15/17 07:45 (Colchicine) 0.6 mg BID PO 06/14/17 13:30 06/16/17 21:01 06/15/17 07:45 Heparin Sodium/ Dextrose 250 ml @ 18 mls/hr TITRATE PRN IV 06/15/17 11:00 (Procardia Xl) 60 mg DAILY PO 06/15/17 11:00 06/15/17 11:15 Past Medical History CAD with hx of [place] HTN Hyperlipidemia GERD Hepatic steatosis ASIF Obesity Past Surgical History CABG x 4 in 2000 Lap Gina Tonsillectomy Allergies: Coded Allergies: atorvastatin (Unverified Allergy, Mild, calf cramping, 01/27/17) Hospitalized as thought having heart attack. Objective . Vital Signs Date Time Temp Pulse Resp B/P (MAP) Pulse Ox O2 Delivery O2 Flow Rate FiO2 06/16/17 13:00 88 22 124/64 (84) 06/16/17 12:00 81 06/16/17 12:00 98.5 81 20 133/61 (85) 96 06/16/17 11:00 79 22 99/52 (68) 96 06/16/17 10:00 81 06/16/17 10:00 81 25 127/79 (95) 92 06/16/17 09:00 80 21 135/74 (94) 87 06/16/17 08:55 97 06/16/17 08:00 98.5 96 15 151/110 (124) 98 06/16/17 08:00 96 06/16/17 06:00 93 06/16/17 04:00 95 06/16/17 04:00 99.9 95 35 131/65 (87) 95 06/16/17 02:00 90 06/16/17 00:00 98.5 82 27 125/68 (87) 96 06/16/17 00:00 82 06/15/17 22:00 71 06/15/17 20:45 96 21 06/15/17 20:00 89 06/15/17 20:00 98.0 89 25 114/62 (79) 95 06/15/17 18:00 88 06/15/17 17:30 85 32 130/77 (94) 97 06/15/17 17:30 85 06/15/17 17:00 82 33 138/76 (96) 97 06/15/17 17:00 82 06/15/17 16:30 80 38 152/84 (106) 96 06/15/17 16:30 80 06/15/17 16:00 85 28 148/65 (92) 93 06/15/17 16:00 85 06/15/17 16:00 85 06/15/17 14:00 87 . Laboratory Tests Test 06/15/17 07:51 06/15/17 11:34 06/16/17 03:15 White Blood Count 13.7 TH/MM3 13.0 TH/MM3 13.1 TH/MM3 Red Blood Count 3.59 MIL/MM3 3.42 MIL/MM3 3.52 MIL/MM3 Hemoglobin 11.9 GM/DL 11.9 GM/DL 11.9 GM/DL Hematocrit 35.5 % 33.6 % 34.5 % Mean Corpuscular Volume 98.7 FL 98.2 FL 98.1 FL Mean Corpuscular Hemoglobin 33.1 PG 34.6 PG 33.7 PG Mean Corpuscular Hemoglobin Concent 33.5 % 35.3 % 34.4 % Red Cell Distribution Width 14.5 % 14.5 % 14.4 % Platelet Count 233 TH/MM3 222 TH/MM3 287 TH/MM3 Mean Platelet Volume 8.1 FL 9.1 FL 8.0 FL Neutrophils (%) (Auto) 78.8 % 74.9 % Lymphocytes (%) (Auto) 11.5 % 13.0 % Monocytes (%) (Auto) 9.2 % 11.0 % Eosinophils (%) (Auto) 0.3 % 0.5 % Basophils (%) (Auto) 0.2 % 0.6 % Neutrophils # (Auto) 10.7 TH/MM3 9.8 TH/MM3 Lymphocytes # (Auto) 1.6 TH/MM3 1.7 TH/MM3 Monocytes # (Auto) 1.3 TH/MM3 1.4 TH/MM3 Eosinophils # (Auto) 0.0 TH/MM3 0.1 TH/MM3 Basophils # (Auto) 0.0 TH/MM3 0.1 TH/MM3 CBC Comment DIFF FINAL AUTO DIFF Differential Comment FINAL DIFF MANUAL Differential Total Cells Counted 100 Neutrophils % (Manual) 67 % Band Neutrophils % 11 % Lymphocytes % 8 % Monocytes % 13 % Eosinophils % 1 % Neutrophils # (Manual) 10.2 TH/MM3 Toxic Granulation 1+ Dohle Bodies PRESENT Platelet Estimate NORMAL Platelet Morphology Comment NORMAL Red Cell Morphology Comment NORMAL Laboratory Tests Test 06/15/17 07:51 06/16/17 03:15 Blood Urea Nitrogen 41 MG/DL 38 MG/DL Creatinine 1.37 MG/DL 1.40 MG/DL Random Glucose 109 MG/DL 118 MG/DL Calcium Level 7.6 MG/DL 8.0 MG/DL Sodium Level 138 MEQ/L 141 MEQ/L Potassium Level 4.1 MEQ/L 4.3 MEQ/L Chloride Level 109 MEQ/L 110 MEQ/L Carbon Dioxide Level 22.6 MEQ/L 23.2 MEQ/L Anion Gap 6 MEQ/L 8 MEQ/L Estimat Glomerular Filtration Rate 53 ML/MIN 52 ML/MIN Total Protein 7.6 GM/DL Albumin 1.9 GM/DL Alkaline Phosphatase 95 U/L Aspartate Amino Transf (AST/SGOT) 42 U/L Alanine Aminotransferase (ALT/SGPT) 68 U/L Total Bilirubin 1.6 MG/DL Lipase 925 U/L Microbiology Date/Time Source Procedure Growth Status 06/14/17 04:20 Blood Peripheral Aerobic Blood Culture - Preliminary NO GROWTH IN 2 DAYS Resulted 06/14/17 04:20 Blood Peripheral Anaerobic Blood Culture - Preliminary NO GROWTH IN 2 DAYS Resulted 06/13/17 14:40 Blood Peripheral Aerobic Blood Culture - Preliminary NO GROWTH IN 3 DAYS Resulted 06/13/17 14:40 Blood Peripheral Anaerobic Blood Culture - Preliminary NO GROWTH IN 3 DAYS Resulted 06/13/17 14:30 Blood Peripheral Aerobic Blood Culture - Preliminary NO GROWTH IN 3 DAYS Resulted 06/13/17 14:30 Blood Peripheral Anaerobic Blood Culture - Preliminary NO GROWTH IN 3 DAYS Resulted 06/14/17 01:00 Urine Catheterized Urine Legionella Antigen - Final PRESUMPTIVE NEGATIVE FOR LEGIONELLA P... Complete 06/14/17 01:00 Urine Catheterized Urine Streptococcus pneumoniae Antigen (M - Final PRESUMPTIVE NEGATIVE FOR STREPTOCOCCU... Complete Imaging Last Impressions Brain MRI 06/14/17 0000 Signed Impressions: Service Date/Time: Wednesday, June 14, 2017 07:30 - CONCLUSION: Multiple areas of signal abnormality scattered throughout the cerebral hemispheres and in the right cerebellar hemisphere. These are thought to represent multiple areas of infarction. Given the multiple vascular distributions, an embolic source should be sought. Tello Page MD Chest X-Ray 06/13/17 0600 Signed Impressions: Service Date/Time: Tuesday, June 13, 2017 03:23 - CONCLUSION: Mild patchy bilateral infiltrate not significantly changed. Tello Ramírez MD Wrist X-Ray 06/13/17 0000 Signed Impressions: Service Date/Time: Tuesday, June 13, 2017 13:07 - CONCLUSION: Mild degenerative change at the first carpometacarpal joint. Tello Page MD Hand X-Ray 06/13/17 0000 Signed Impressions: Service Date/Time: Tuesday, June 13, 2017 13:07 - CONCLUSION: Mild hypertrophic change of the base of the first metacarpal. Tello Page MD Foot X-Ray 06/13/17 0000 Signed Impressions: Service Date/Time: Tuesday, June 13, 2017 13:10 - CONCLUSION: No acute bony abnormality is seen. There is possible soft tissue swelling at the dorsal forefoot. Tello Page MD Abdomen/Pelvis CT 06/12/17 1221 Signed Impressions: Service Date/Time: Monday, June 12, 2017 13:14 - CONCLUSION: 1. Minimally increased left-sided perinephric stranding. No significant peripancreatic inflammatory stranding or fluid collection. There is trace subtle free fluid in the left lower quadrant. Overall, the findings are nonspecific but suggests a possible inflammatory process in the left abdomen. Please note that CT examination is not very sensitive particularly without benefit of IV contrast for detection of acute pancreatitis. Differential considerations include left-sided pyelonephritis. 2. Mild splenomegaly of uncertain etiology. 3. Normal appendix. Alfonso Perea MD Head CT 06/12/17 0859 Signed Impressions: Service Date/Time: Monday, June 12, 2017 09:39 - CONCLUSION: 2 cm low-attenuation area now noted involving the right cerebellar hemisphere most consistent with an acute to subacute infarction. This could be further evaluated with MRI imaging. Josiah Alegre MD Head Magnetic Resonance Angiography 06/12/17 0000 Signed Impressions: Service Date/Time: Monday, June 12, 2017 18:01 - CONCLUSION: Unremarkable exam. Josiah Alegre MD Carotid Artery Ultrasound 06/12/17 0000 Signed Impressions: Service Date/Time: Monday, June 12, 2017 19:32 - CONCLUSION: Mild calcific plaquing bilaterally with no evidence of a hemodynamically significant lesion. Josiah Alegre MD Physical Exam GENERAL: awake and alert, not in respiratory distress. SKIN: Warm and dry. No generalized rash, no ecchymoses and no evidence of embolic lesions. HEAD: Atraumatic. Normocephalic. No temporal wasting, or tenderness. EYES: [place] conjunctiva. Has petechia in both lids, no hemorrhage. Pupils equal, round and reactive to light. Extraocular movements full and intact. No scleral icterus. EARS, NOSE AND THROAT: Nose without bleeding or purulent nasal discharge. No sinus tenderness. Mucous membranes pink and moist. No oral lesions noted. No exudate. No oral thrush. NECK: Trachea midline. Supple and not tender, no meningeal signs CARDIOVASCULAR: Tachycardic. Regular rate and rhythm. No murmurs, rubs or gallops heard RESPIRATORY: Clear to auscultation. Breath sounds equal bilaterally. No rales , wheezing or rhonchi ABDOMEN: Soft, obses, non-tender, nondistended. Bowel sounds present and normoactive. No guarding. No rebound. No organomegaly. EXTREMITIES: No clubbing, cyanosis. L foot has redness and swelling on his first MTP, better. L hand there is improving swelling and pink color on ulnar aspect of his hand, with warmth, tenderness, and better movement of hands and a little on wrist. Swelling L knee, but no heat or redness, pain with passive ROM, better ROM. No calf tenderness. Well perfused and warm. NEUROLOGICAL: Awake and alert. Cranial nerves grossly intact. Motor grossly within normal limits. PSYCHIATRIC: Normal affect, calm and cooperative. LINE: No evidence of infection Assessment & Plan Remarks IMPRESSION (+) BC with Strep, source, ?GI - has MV vegetation - elevated LFT, improving - concern with endocarditis; has petechia, has infarct on CT (though he has atrial fib) - has swelling on L foot, L hand/wrist, ?seeding Renal insufficiency Hx CAD, S/P CABG x 4 Elevated lipase, not improving, ?pancreatitis Polyarthritis, likely inflammatory RECOMMENDATION Follow C/S Give short course of steroids IV Rocephin Stop other Abx If hand and foot continues to improve, will consider PICC Follow temps Monitor progress Karla Johnson MD Jun 16, 2017 13:51
[2017-06-16] MEDS: methylPREDNISolone SOD SUCC 40 MG/1 ML VIAL IV PUSH SCH ×2 (15:02→20:48)
--- NOTE | 2017-06-16 16:35 | ECHRPT ---
Indication: ENDOCARDITIS CONCLUSIONS Normal left ventricular size and wall thickness. The left ventricular systolic function is normal wi th an estimated ejection fraction in the range of 60-65%. Left ventricular diastolic function parameters a re normal. Normal left atrial appendage size with no evidence of thrombus formation. Normal atrial septal thickness without atrial level shunting by limited color doppler interrogation. No atrial level shunt is demonstrated by color flow Doppler or agitated saline imaging. Structurally normal mitral valve. Mild mitral valve regurgitation. Mobile echodensity on the inflow side of the aortic valve (.7 cm x 0.6 cm) consistent with vegetatio n. Trileaflet aortic valve. Mild aortic valve regurgitation. BP: / HR: Rhythm: Technical Quality: Medications Complications Proc. Components FINDINGS LEFT VENTRICLE Normal left ventricular size and wall thickness. The left ventricular systolic function is normal wi th an estimated ejection fraction in the range of 60-65%. Left ventricular diastolic function parameters a re normal. RIGHT VENTRICLE Normal right ventricular size and systolic function. LEFT ATRIUM The left atrial size is normal. RIGHT ATRIUM The right atrial size is normal. ATRIAL APPENDAGES Normal left atrial appendage size with no evidence of thrombus formation. ATRIAL SEPTUM Normal atrial septal thickness without atrial level shunting by limited color doppler interrogation. No atrial level shunt is demonstrated by color flow Doppler or agitated saline imaging. AORTA The aortic root and proximal ascending aorta are normal in size on limited imaging. MITRAL VALVE Structurally normal mitral valve. Mild mitral valve regurgitation. Mobile echodensity on the inflow side of the aortic valve (.7 cm x 0.6 cm) consistent with vegetatio n. AORTIC VALVE Trileaflet aortic valve. Mild aortic valve regurgitation. TRICUSPID VALVE Structurally normal tricuspid valve. There is mild tricuspid valve regurgitation. The estimated pulm onary arterial pressure is 29 mmHg. VESSELS The inferior vena cava is normal in size. PULMONARY VALVE The pulmonary valve is not well visualized. PERICADIUM No pericardial effusion. Gabriel Cohen MD, FACC (Electronically Signed) Final Date:16 June 2017 16:34
[2017-06-17] VITALS (9 sets, daily range): BP systolic 105–151; BP diastolic 55–85; PULSE 58–75; RESP 16–22; TEMP 97.5–98.1; O2SAT 92–99
[2017-06-17] MEDS: HEPARIN-D5W 25,000 U/250 ML 250 ML IV PRN (03:59)
[2017-06-17] MEDS: PIPERACIL-TAZO 3.375 GM PREMIX 50 ML IV SCH (06:35)
[2017-06-17] MEDS: ASPIRIN 325 MG TAB PO SCH (08:24)
[2017-06-17] MEDS: SODIUM CHLORIDE 0.9% FLUSH 10 ML FLUSH IV FLUSH SCH ×2 (08:24→21:24)
[2017-06-17] MEDS: methylPREDNISolone SOD SUCC 40 MG/1 ML VIAL IV PUSH SCH ×2 (08:24→21:20)
[2017-06-17] MEDS: NIFEdipine 60 MG SUSTAINED RELEASE TAB PO SCH (08:24)
[2017-06-17] MEDS: METOPROLOL TARTRATE 100 MG TAB PO SCH ×2 (08:24→21:20)
--- NOTE | 2017-06-17 09:11 | HHI.IDPN ---
Subjective Subjective Remarks Patient is a 61 y/o WM presented to the ED at [facility] on 06/12/17 with complaints of progressive generalized weakness and some confusion. The son has noted tyhat he was getting confused. he has been experiencing generalized malaise for a week or so. He had actually gone to the emergency room on June 11, and that was after a fall. He was complaining of pain in his left hand and left foot and left knee. He was dehydrated in the emergency room, and the patient was discharged on some pain medication. On the day of admission patient also started complaining of some abdominal discomfort. Denies any back pain, nausea or vomiting. He has not had any complaint of cough or congestion. No diarrhea or any urinary complaints. Patient states he's been drinking, but by mouth intake is not really that good, and has no appetite. On evaluation in the ED, patient has been febrile. His WBC was elevated at 19,000. Creatinine was elevated as well as his lipase. His LFTs were also elevated. CT of the head showed findings of possible acute or subacute infarction in the right cerebellar hemisphere. Today he was transferred to the ICU when he went into A. fib with RVR. 2 blood cultures done in the emergency room are now reported as growing gram-positive cocci. Patient currently denies any abdominal pain. He is complaining of pain in the left hand, left knee, and left foot. Infectious disease consultation has been requested to evaluate the patient. Notes reviewed Temps ok BP ok L hand and L foot improving MARA with small MV vegetation BC with B hemolytic Strep No new (+) BC Antibiotics Current Medications Zosyn Medications (Trade) Dose Ordered Sig/Dione Route Start Time Stop Time Status Last Admin (NS Flush) 2 ml BID IV FLUSH 06/12/17 21:00 06/17/17 08:24 (NS Flush) 2 ml UNSCH PRN IV FLUSH 06/12/17 12:00 (Vasotec Inj) 1.25 mg Q4H PRN IV PUSH 06/12/17 12:00 06/15/17 07:45 (Aspirin) 325 mg DAILY PO 06/12/17 12:00 06/17/17 08:24 Piperacillin Sod/ Tazobactam Sod 50 ml @ 100 mls/hr Q8H IV 06/12/17 13:00 06/17/17 06:35 (Tylenol) 650 mg Q4H PRN PO 06/12/17 12:45 06/12/17 13:07 (Zofran Inj) 4 mg Q6H PRN IV 06/12/17 12:45 ([place] 7.5-325 Mg) 1 tab Q4H PRN PO 06/12/17 12:45 06/16/17 07:47 Patient Own Medication PT OWN MED: SYED... HS PO 06/12/17 21:00 Future Hold (Protonix Inj) 40 mg Q24H IV PUSH 06/12/17 14:00 06/16/17 13:32 (Lopressor) 100 mg Q12HR PO 06/13/17 10:00 06/17/17 08:24 Heparin Sodium/ Dextrose 250 ml @ 18 mls/hr TITRATE PRN IV 06/15/17 11:00 06/17/17 03:59 (Procardia Xl) 60 mg DAILY PO 06/15/17 11:00 06/17/17 08:24 Miscellaneous Information 1 UNSCH PRN XX 06/16/17 10:45 06/19/17 10:44 (SoluMEDROL INJ) 40 mg Q12HR IV PUSH 06/16/17 14:00 06/17/17 21:01 06/17/17 08:24 Past Medical History CAD with hx of [place] HTN Hyperlipidemia GERD Hepatic steatosis ASIF Obesity Past Surgical History CABG x 4 in 2001 Lap Gina Tonsillectomy Allergies: Coded Allergies: atorvastatin (Unverified Allergy, Mild, calf cramping, 01/27/17) Hospitalized as thought having heart attack. Objective . Vital Signs Date Time Temp Pulse Resp B/P (MAP) Pulse Ox O2 Delivery O2 Flow Rate FiO2 06/17/17 08:24 96 21 06/17/17 06:00 66 06/17/17 04:00 62 06/17/17 04:00 98.1 63 21 118/59 (78) 96 06/17/17 02:00 58 06/17/17 00:00 58 06/17/17 00:00 97.9 75 22 130/83 (99) 93 06/16/17 22:00 91 06/16/17 20:20 98 21 06/16/17 20:00 98.8 85 18 104/83 (90) 94 06/16/17 20:00 91 06/16/17 18:00 91 06/16/17 17:00 84 23 112/58 (76) 98 06/16/17 16:00 97.7 86 21 146/74 (98) 99 06/16/17 16:00 86 06/16/17 15:00 91 25 103/64 (77) 100 06/16/17 14:00 79 06/16/17 14:00 83 22 102/61 (75) 94 06/16/17 13:00 88 22 124/64 (84) 06/16/17 12:00 81 06/16/17 12:00 98.5 81 20 133/61 (85) 96 06/16/17 11:00 79 22 99/52 (68) 96 06/16/17 10:00 81 06/16/17 10:00 81 25 127/79 (95) 92 06/17/17 06/17/17 06/18/17 15:00 23:00 07:00 Intake Total 50 ml Balance 50 ml IV Total 50 ml . Laboratory Tests Test 06/15/17 11:34 06/16/17 03:15 White Blood Count 13.0 TH/MM3 13.1 TH/MM3 Red Blood Count 3.42 MIL/MM3 3.52 MIL/MM3 Hemoglobin 11.9 GM/DL 11.9 GM/DL Hematocrit 33.6 % 34.5 % Mean Corpuscular Volume 98.2 FL 98.1 FL Mean Corpuscular Hemoglobin 34.6 PG 33.7 PG Mean Corpuscular Hemoglobin Concent 35.3 % 34.4 % Red Cell Distribution Width 14.5 % 14.4 % Platelet Count 222 TH/MM3 287 TH/MM3 Mean Platelet Volume 9.1 FL 8.0 FL Neutrophils (%) (Auto) 74.9 % Lymphocytes (%) (Auto) 13.0 % Monocytes (%) (Auto) 11.0 % Eosinophils (%) (Auto) 0.5 % Basophils (%) (Auto) 0.6 % Neutrophils # (Auto) 9.8 TH/MM3 Lymphocytes # (Auto) 1.7 TH/MM3 Monocytes # (Auto) 1.4 TH/MM3 Eosinophils # (Auto) 0.1 TH/MM3 Basophils # (Auto) 0.1 TH/MM3 CBC Comment AUTO DIFF Differential Total Cells Counted 100 Neutrophils % (Manual) 67 % Band Neutrophils % 11 % Lymphocytes % 8 % Monocytes % 13 % Eosinophils % 1 % Neutrophils # (Manual) 10.2 TH/MM3 Differential Comment FINAL DIFF MANUAL Toxic Granulation 1+ Dohle Bodies PRESENT Platelet Estimate NORMAL Platelet Morphology Comment NORMAL Red Cell Morphology Comment NORMAL Laboratory Tests Test 06/16/17 03:15 Blood Urea Nitrogen 38 MG/DL Creatinine 1.40 MG/DL Random Glucose 118 MG/DL Total Protein 7.6 GM/DL Albumin 1.9 GM/DL Calcium Level 8.0 MG/DL Alkaline Phosphatase 95 U/L Aspartate Amino Transf (AST/SGOT) 42 U/L Alanine Aminotransferase (ALT/SGPT) 68 U/L Total Bilirubin 1.6 MG/DL Sodium Level 141 MEQ/L Potassium Level 4.3 MEQ/L Chloride Level 110 MEQ/L Carbon Dioxide Level 23.2 MEQ/L Anion Gap 8 MEQ/L Estimat Glomerular Filtration Rate 52 ML/MIN Lipase 925 U/L Imaging Last Impressions Brain MRI 06/14/17 0000 Signed Impressions: Service Date/Time: Wednesday, June 14, 2017 07:30 - CONCLUSION: Multiple areas of signal abnormality scattered throughout the cerebral hemispheres and in the right cerebellar hemisphere. These are thought to represent multiple areas of infarction. Given the multiple vascular distributions, an embolic source should be sought. Tello Page MD Chest X-Ray 06/13/17 0600 Signed Impressions: Service Date/Time: Tuesday, June 13, 2017 03:23 - CONCLUSION: Mild patchy bilateral infiltrate not significantly changed. Tello Ramírez MD Wrist X-Ray 06/13/17 0000 Signed Impressions: Service Date/Time: Tuesday, June 13, 2017 13:07 - CONCLUSION: Mild degenerative change at the first carpometacarpal joint. Tello Page MD Hand X-Ray 06/13/17 0000 Signed Impressions: Service Date/Time: Tuesday, June 13, 2017 13:07 - CONCLUSION: Mild hypertrophic change of the base of the first metacarpal. Tello Page MD Foot X-Ray 06/13/17 0000 Signed Impressions: Service Date/Time: Tuesday, June 13, 2017 13:10 - CONCLUSION: No acute bony abnormality is seen. There is possible soft tissue swelling at the dorsal forefoot. Tello Page MD Abdomen/Pelvis CT 06/12/17 1221 Signed Impressions: Service Date/Time: Monday, June 12, 2017 13:14 - CONCLUSION: 1. Minimally increased left-sided perinephric stranding. No significant peripancreatic inflammatory stranding or fluid collection. There is trace subtle free fluid in the left lower quadrant. Overall, the findings are nonspecific but suggests a possible inflammatory process in the left abdomen. Please note that CT examination is not very sensitive particularly without benefit of IV contrast for detection of acute pancreatitis. Differential considerations include left-sided pyelonephritis. 2. Mild splenomegaly of uncertain etiology. 3. Normal appendix. Alfonso Perea MD Head CT 06/12/17 0859 Signed Impressions: Service Date/Time: Monday, June 12, 2017 09:39 - CONCLUSION: 2 cm low-attenuation area now noted involving the right cerebellar hemisphere most consistent with an acute to subacute infarction. This could be further evaluated with MRI imaging. Josiah Alegre MD Head Magnetic Resonance Angiography 06/12/17 0000 Signed Impressions: Service Date/Time: Monday, June 12, 2017 18:01 - CONCLUSION: Unremarkable exam. Josiah Alegre MD Carotid Artery Ultrasound 06/12/17 0000 Signed Impressions: Service Date/Time: Monday, June 12, 2017 19:32 - CONCLUSION: Mild calcific plaquing bilaterally with no evidence of a hemodynamically significant lesion. Josiah Alegre MD Physical Exam GENERAL: awake and alert, NAD SKIN: Warm and dry. No generalized rash, no ecchymoses and no evidence of embolic lesions. HEAD: Atraumatic. Normocephalic. No temporal wasting, or tenderness. EYES: [place] conjunctiva. Pupils equal, round and reactive to light. Extraocular movements full and intact. No scleral icterus. EARS, NOSE AND THROAT: Nose without bleeding or purulent nasal discharge. No sinus tenderness. Mucous membranes pink and moist. No oral lesions noted. NECK: Trachea midline. Supple and not tender, no meningeal signs CARDIOVASCULAR: Tachycardic. Regular rate and rhythm. No murmurs, rubs or gallops heard RESPIRATORY: Clear to auscultation. Breath sounds equal bilaterally. No rales , wheezing or rhonchi ABDOMEN: Soft, obses, non-tender, nondistended. Bowel sounds present and normoactive. No guarding. No rebound. No organomegaly. EXTREMITIES: No clubbing, cyanosis. L foot has redness and swelling on his first MTP, better. L hand there is improving swelling and pink color, better ROM at wrist. Swelling L knee better. No calf tenderness. Well perfused and warm. NEUROLOGICAL: Grossly noon-focal PSYCHIATRIC: Normal affect, calm and cooperative. LINE: No evidence of infection Assessment & Plan Remarks IMPRESSION (+) BC with Strep - has MV vegetation - elevated LFT, improving Renal insufficiency Hx CAD, S/P CABG x 4 Elevated lipase, not improving, ?pancreatitis Polyarthritis, likely inflammatory RECOMMENDATION Give short course of steroids IV Rocephin PICC To finish steroids today Continue colchicine Follow temps Monitor progress Karla Johnson MD Jun 17, 2017 09:11
[2017-06-17] MEDS: cefTRIAXone INJ 2,000 MG in SODIUM CHLORIDE 0.9% INJ 100 ML IV SCH (09:40)
[2017-06-17 10:18] LABS: AUTOMATED NEUTROPHIL # 9.7 TH/MM3 (1.8-7.7); BASOPHIL % 0.1 % (0.0-2.0); HEMATOCRIT 33.1 % (39.0-51.0); HEMOGLOBIN 11.7 GM/DL (13.0-17.0); LYMPH % 9.9 % (9.0-44.0); LYMPHOCYTE # 1.2 TH/MM3 (1.0-4.8); MEAN CELL VOLUME 97.1 FL (80.0-100.0); MEAN CORPUSCULAR HEMOGLOBIN 34.3 PG (27.0-34.0); MEAN CORPUSCULAR HGB CONC 35.3 % (32.0-36.0); MEAN PLATELET VOLUME 7.7 FL (7.0-11.0); MONOCYTE # 0.8 TH/MM3 (0-0.9); PLATELET COUNT 317 TH/MM3 (150-450); RED BLOOD COUNT 3.41 MIL/MM3 (4.50-5.90); RED CELL DISTRIBUTION WIDTH 14.3 % (11.6-17.2); WHITE BLOOD COUNT 11.7 TH/MM3 (4.0-11.0)
--- NOTE | 2017-06-17 11:09 | HHI.PR ---
Subjective Remarks No new complaints. Objective Vitals Vital Signs Date Time Temp Pulse Resp B/P (MAP) Pulse Ox O2 Delivery O2 Flow Rate FiO2 06/17/17 10:00 59 06/17/17 08:24 96 21 06/17/17 08:00 62 06/17/17 08:00 98.0 62 21 146/77 (100) 99 06/17/17 06:00 66 06/17/17 04:00 62 06/17/17 04:00 98.1 63 21 118/59 (78) 96 06/17/17 02:00 58 06/17/17 00:00 58 06/17/17 00:00 97.9 75 22 130/83 (99) 93 06/16/17 22:00 91 06/16/17 20:20 98 21 06/16/17 20:00 98.8 85 18 104/83 (90) 94 06/16/17 20:00 91 06/16/17 18:00 91 06/16/17 17:00 84 23 112/58 (76) 98 06/16/17 16:00 97.7 86 21 146/74 (98) 99 06/16/17 16:00 86 06/16/17 15:00 91 25 103/64 (77) 100 06/16/17 14:00 79 06/16/17 14:00 83 22 102/61 (75) 94 06/16/17 13:00 88 22 124/64 (84) 06/16/17 12:00 81 06/16/17 12:00 98.5 81 20 133/61 (85) 96 06/17/17 06/17/17 06/18/17 15:00 23:00 07:00 Intake Total 50 ml Balance 50 ml IV Total 50 ml Result Diagram: 06/17/17 0955 06/16/17 0315 Imaging Last Impressions Brain MRI 06/14/17 0000 Signed Impressions: Service Date/Time: Wednesday, June 14, 2017 07:30 - CONCLUSION: Multiple areas of signal abnormality scattered throughout the cerebral hemispheres and in the right cerebellar hemisphere. These are thought to represent multiple areas of infarction. Given the multiple vascular distributions, an embolic source should be sought. Tello Page MD Chest X-Ray 06/13/17 0600 Signed Impressions: Service Date/Time: Tuesday, June 13, 2017 03:23 - CONCLUSION: Mild patchy bilateral infiltrate not significantly changed. Tello Ramírez MD Wrist X-Ray 06/13/17 0000 Signed Impressions: Service Date/Time: Tuesday, June 13, 2017 13:07 - CONCLUSION: Mild degenerative change at the first carpometacarpal joint. Tello Page MD Hand X-Ray 06/13/17 0000 Signed Impressions: Service Date/Time: Tuesday, June 13, 2017 13:07 - CONCLUSION: Mild hypertrophic change of the base of the first metacarpal. Tello Page MD Foot X-Ray 06/13/17 0000 Signed Impressions: Service Date/Time: Tuesday, June 13, 2017 13:10 - CONCLUSION: No acute bony abnormality is seen. There is possible soft tissue swelling at the dorsal forefoot. Tello Page MD Abdomen/Pelvis CT 06/12/17 1221 Signed Impressions: Service Date/Time: Monday, June 12, 2017 13:14 - CONCLUSION: 1. Minimally increased left-sided perinephric stranding. No significant peripancreatic inflammatory stranding or fluid collection. There is trace subtle free fluid in the left lower quadrant. Overall, the findings are nonspecific but suggests a possible inflammatory process in the left abdomen. Please note that CT examination is not very sensitive particularly without benefit of IV contrast for detection of acute pancreatitis. Differential considerations include left-sided pyelonephritis. 2. Mild splenomegaly of uncertain etiology. 3. Normal appendix. Alfonso Perea MD Head CT 06/12/17 0859 Signed Impressions: Service Date/Time: Monday, June 12, 2017 09:39 - CONCLUSION: 2 cm low-attenuation area now noted involving the right cerebellar hemisphere most consistent with an acute to subacute infarction. This could be further evaluated with MRI imaging. Josiah Alegre MD Head Magnetic Resonance Angiography 06/12/17 0000 Signed Impressions: Service Date/Time: Monday, June 12, 2017 18:01 - CONCLUSION: Unremarkable exam. Josiah Alegre MD Carotid Artery Ultrasound 06/12/17 0000 Signed Impressions: Service Date/Time: Monday, June 12, 2017 19:32 - CONCLUSION: Mild calcific plaquing bilaterally with no evidence of a hemodynamically significant lesion. Josiah Alegre MD Objective Remarks General: NAD, AAOx3 Chest: CTA Cardiac: Irregular Abd: +BS, soft ND/NT Ext: Left foot with slight swelling and erythema of the first MTP. Left hand swelling is improving and better movement of hands and wrist. Swelling of the left knee, but no warmth or erythema. A/P Problem List: (1) CVA (cerebral vascular accident) ICD Codes: I63.9 - Cerebral infarction, unspecified Status: Acute Plan: - comgmt with Neurology - Pt is a 61 y/o WM with HTN, CAD s/p CABG x in 2000 and stent placement in 2014. [place] [facility] [place] with complaints of progressive generalized weakness and some confusion. The pt also notes some upper abdominal discomfort that started . He was seen in the ED [place] [facility] [place]11 with complaints of weakness and some knee pain. He had fallen at home due to weakness about a week ago and injured his right knee and reportedly had outpt Xrays which noted a patellar fracture and has a brace on the RLE currently. Xrays in the ED on 06/11 did not indicate a patellar fracture but pt with noted effusion and he was prescribed some pain medications PRN. In the ED on 06/11 he was felt to be dehydrated and was given 2L of IVF. He was sent home with his son and then brought back into the ED on 06/12 for apparent confusion. - Head CT in the ED on 06/12 noted 2 cm low-attenuation area now noted involving the right cerebellar hemisphere most consistent with an acute to subacute infarction. - Carotid US (06/12/17) --> Mild calcific plaquing bilaterally with no evidence of a hemodynamically significant lesion. - Brain MRA (06/12) --> Unremarkable - Brain MRI (06/14) --> Multiple areas of signal abnormality scattered throughout the cerebral hemispheres and in the right cerebellar hemisphere. These are thought to represent multiple areas of infarction. Given the multiple vascular distributions, an embolic source should be sought. - Pt was found to have paroxysmal A. fib. These embolic strokes likely d/t new A. fib - Metoprolol 100mg po BID - Physical Therapy to assess - change IV heparin - start pradaxa 150mg BID - BP was elevating on 06/15/16 so Procardia XL was started with improvement in the BP today and continue to monitor closely (2) Atrial fibrillation ICD Codes: I48.91 - Unspecified atrial fibrillation Plan: - Pt was found to have A. fib following admission. - He was initially placed on Amiodarone by [employer] and cardiology consulted. - Amiodarone was stopped and pt was started on Metoprolol 100mg po BID - Currently rate controlled - 2D echo (06/14/17) - Mildly dilated left ventricle, mild concentric LVH, estimated EF 55-60%. - The left atrial size is lxec-nd-msfkcezvah dilated. - Etcxc-fk-ectw mitral valve regurgitation. - Aortic valve sclerosis is present. - There is mild tricuspid valve regurgitation. - The estimated pulmonary arterial pressure is 44.3 mmHg. (3) Sepsis ICD Codes: A41.9 - Sepsis, unspecified organism Status: Acute Plan: - comgmt with ID - Pt states that he has had problems with generalized weakness for the last few weeks. Pt was noted to have a fever of 103 in the ED. - Blood cultures were drawn in the ED grew out 4/4 bottles with strep species, unclear origin. 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 - CT Abd/pelvis (06/13) --> Minimally increased left-sided perinephric stranding. No significant peripancreatic inflammatory stranding or fluid collection. There is trace subtle free fluid in the left lower quadrant. Overall, the findings are nonspecific but suggests a possible inflammatory process in the left abdomen. Please note that CT examination is not very sensitive particularly without benefit of IV contrast for detection of acute pancreatitis. Differential considerations include left- sided pyelonephritis. Mild splenomegaly of uncertain etiology. Normal appendix. - Pt tested negative fort Influenza - The elevated trops and lipase probably sepsis related. - WBC 22k (06/13), 11.7 (06/17) - Repeat Blood cultures on 06/13 and 06/14 both with NGTD - MARA (06/16/17) --> Normal EF. Mild MR. Mild AI. +0.7 cm x 0.6 cm mobile echodensity on the anterior leaflet of mitral valve on inflow side consistent with vegetation - zosyn (06/12 - 06/17/) - Vancomycin (06/12 - 06/15) - Rocephin (06/17 - present) - Case d/w Dr. Johnson (06/17/17) (4) YESSI (acute kidney injury) ICD Codes: N17.9 - Acute kidney failure, unspecified Status: Acute Plan: - Likely related to sepsis. - Labs are improving - Cont. to monitor (5) Volume overload ICD Codes: E87.70 - Fluid overload, unspecified Status: Acute Plan: - Pt noted to have pulmonary edema on CXR at admission - [facility] to likely be related to volume overload with massive ivf resuscitation in ED, not clearly any PNA component. - repeat portable CXR (6) Elevated lipase ICD Codes: R74.8 - Abnormal levels of other serum enzymes Status: Acute Plan: - Pt also had noted an elevated Lipase of 1296 with TBili 3.4, AST 63, ALT 41 at admission - [facility] to likely be related to sepsis - Lipase elevated to 1802 on 06/13/17 - Pt with hx of previous Lap jyoti according to outpt records - Unclear how much alcohol this pt normally drink - Repeat lipase 925 (06/16), 788 (06/17) (7) Elevated LFTs ICD Codes: R79.89 - Other specified abnormal findings of blood chemistry Status: Acute Plan: - improving - see above (8) CAD (coronary artery disease) ICD Codes: I25.10 - Coronary artery disease Status: Chronic Plan: - Hold home BP meds were held at admission for permissive HTN - Pt started on Metoprolol 100mg po BID for the A. fib - Procardia XL 60mg daily added on 06/15/17 with improvement in the BP - Vasotec PRN (9) HTN (hypertension) ICD Codes: I10 - Hypertension Status: Chronic Plan: - stable - metoprolol, procardia (10) Acid reflux ICD Codes: K21.9 - Gastroesophageal reflux disease Status: Chronic Plan: - PPI (11) ASIF (obstructive sleep apnea) ICD Codes: G47.33 - Obstructive sleep apnea syndrome Status: Chronic Plan: - Pt has been non-compliant with his CPAP Permanent Comment: Not sleeping with the machine. After heart attack 4 years ago. Last Edited By: Lang Mueller on Dec 29, 2014 12:12 (12) Dyslipidemia ICD Codes: E78.5 - Dyslipidemia Status: Chronic Problem Qualifiers (1) Atrial fibrillation: Qualified Codes: I48.0 - Paroxysmal atrial fibrillation (2) HTN (hypertension): Qualified Codes: I10 - Essential (primary) hypertension (3) Acid reflux: Qualified Codes: K21.9 - Gastro-esophageal reflux disease without esophagitis Lucho Carroll DO Jun 17, 2017 11:09
[2017-06-17 11:19] LABS: BANDS 7 % (0-6); LYMPHOCYTES 12 % (9-44); METAMYELOCYTES 2 % (0-1); MONOCYTES 5 % (0-8); NEUTROPHIL # MANUAL DIFF 9.7 TH/MM3 (1.8-7.7); POLYS (SEG NEUTROPHILS) 74 % (16-70); TOXIC GRANULATION 1+ (NORMAL)
--- NOTE | 2017-06-17 13:10 | RADRPT ---
EXAM DATE/TIME: 06/17/2017 12:04 [facility] COMPARISON: CHEST SINGLE AP, June 13, 2017, 3:23. INDICATIONS : Short of breath. MEDICAL HISTORY : Hypertension. SURGICAL HISTORY : CABG Tonsillectomy. Cholecystectomy. ENCOUNTER: Subsequent ACUITY: 1 week PAIN SCORE: 0/10 LOCATION: Bilateral chest FINDINGS: Median sternotomy wires are noted status post cardiac surgery. The heart is enlarged. The pulmonary v ascular pattern is normal. The lungs are clear. CONCLUSION: 1. Cardiomegaly. 2. No acute focal pulmonary infiltrate or pulmonary vascular congestion. Spike Goncalves MD on June 17, 2017 at 12:55 Board Certified Radiologist. This report was verified electronically.
[2017-06-17] MEDS ORDERED: ENOXAPARIN SODIUM 150 MG/ML SYRINGE SQ SCH (13:30)
[2017-06-17] MEDS: PANTOPRAZOLE SODIUM 40 MG VIAL IV PUSH SCH (14:00)
[2017-06-17] MEDS ORDERED: WARFARIN SOD 7.5 MG TAB PO SCH (16:00)
--- NOTE | 2017-06-17 17:19 | RADRPT ---
EXAM DATE/TIME: 06/17/2017 16:55 [facility] COMPARISON: CHEST SINGLE AP, June 17, 2017, 12:04. INDICATIONS : PICC line placement. No chest complaints. MEDICAL HISTORY : Hypertension. SURGICAL HISTORY : CABG. Cholecystectomy. Tonsillectomy. ENCOUNTER: Subsequent ACUITY: 1 day PAIN SCORE: 0/10 LOCATION: Bilateral chest FINDINGS: The cardiac silhouette is enlarged in transverse diameter. The lungs are free of acute parenchymal op acity. No effusions are identified. Median sternotomy wires are present. A PICC line is in place via right-sided approach with its tip in the region of the superior vena cava. CONCLUSION: 1. Uncomplicated PICC line placement. Sandeep Gipson MD on June 17, 2017 at 17:15 Board Certified Radiologist. This report was verified electronically.
[2017-06-17] MEDS: DABIGATRAN ETEXILATE 150 MG CAP PO SCH (18:45)
[2017-06-17] MEDS: ACETAMINOPHEN/HYDROcodone 325 MG/7.5 MG TAB PO PRN (21:20)
[2017-06-17] MEDS: COLCHICINE 0.6 MG TAB PO SCH (21:20)
[2017-06-18 00:11] VITALS: BP 149/78; PULSE 53; RESP 16; TEMP 97.8; O2SAT 97
[2017-06-18] MEDS: ACETAMINOPHEN/HYDROcodone 325 MG/7.5 MG TAB PO PRN ×5 (01:57→21:32)
[2017-06-18 04:00] VITALS: BP 140/72; PULSE 55; RESP 20; TEMP 97.5; O2SAT 98
[2017-06-18] MEDS: DABIGATRAN ETEXILATE 150 MG CAP PO SCH ×2 (05:47→17:30)
[2017-06-18 06:30] LABS: AUTOMATED NEUTROPHIL # 9.7 TH/MM3 (1.8-7.7); BASOPHIL % 0.1 % (0.0-2.0); HEMATOCRIT 32.7 % (39.0-51.0); HEMOGLOBIN 11.6 GM/DL (13.0-17.0); LYMPH % 9.1 % (9.0-44.0); LYMPHOCYTE # 1.1 TH/MM3 (1.0-4.8); MEAN CELL VOLUME 97.5 FL (80.0-100.0); MEAN CORPUSCULAR HEMOGLOBIN 34.5 PG (27.0-34.0); MEAN CORPUSCULAR HGB CONC 35.4 % (32.0-36.0); MEAN PLATELET VOLUME 7.8 FL (7.0-11.0); MONO % 7.9 % (0.0-8.0); MONOCYTE # 0.9 TH/MM3 (0-0.9); NEUT % 82.9 % (16.0-70.0); PLATELET COUNT 341 TH/MM3 (150-450); RED BLOOD COUNT 3.36 MIL/MM3 (4.50-5.90); RED CELL DISTRIBUTION WIDTH 13.9 % (11.6-17.2); WHITE BLOOD COUNT 11.7 TH/MM3 (4.0-11.0)
[2017-06-18 06:55] LABS: BICARBONATE 22.7 MEQ/L (21.0-32.0); CALCIUM 8.2 MG/DL (8.5-10.1); CREATININE 1.05 MG/DL (0.60-1.30); MAGNESIUM 2.1 MG/DL (1.5-2.5)
[2017-06-18 07:33] VITALS: BP 137/79; PULSE 57; RESP 20; TEMP 97.7; O2SAT 96
[2017-06-18 09:34] LABS: BANDS 18 % (0-6); LYMPHOCYTES 15 % (9-44); METAMYELOCYTES 1 % (0-1); MONOCYTES 10 % (0-8); MYELOCYTES 1 % (0-0); NEUTROPHIL # MANUAL DIFF 8.8 TH/MM3 (1.8-7.7); POLYS (SEG NEUTROPHILS) 55 % (16-70)
[2017-06-18 09:35] LABS: TOXIC GRANULATION 1+ (NORMAL)
[2017-06-18] MEDS: cefTRIAXone INJ 2,000 MG in SODIUM CHLORIDE 0.9% INJ 100 ML IV SCH (10:00)
[2017-06-18] MEDS: ASPIRIN 325 MG TAB PO SCH (10:36)
[2017-06-18] MEDS: COLCHICINE 0.6 MG TAB PO SCH ×2 (10:37→21:32)
[2017-06-18] MEDS: NIFEdipine 60 MG SUSTAINED RELEASE TAB PO SCH (10:37)
[2017-06-18] MEDS: METOPROLOL TARTRATE 100 MG TAB PO SCH ×2 (10:38→21:32)
[2017-06-18 11:48] VITALS: BP 137/65; PULSE 50; RESP 20; TEMP 97.4; O2SAT 96
--- NOTE | 2017-06-18 15:37 | HHI.PR ---
Subjective Remarks Patient resting in bed reports feeling weak Offers no other complaints at this time Objective Vitals Vital Signs Date Time Temp Pulse Resp B/P (MAP) Pulse Ox O2 Delivery O2 Flow Rate FiO2 06/18/17 11:48 97.4 50 20 137/65 (89) 96 06/18/17 07:33 97.7 57 20 137/79 (98) 96 06/18/17 04:00 97.5 55 20 140/72 (94) 98 06/18/17 00:11 97.8 53 16 149/78 (101) 97 06/17/17 20:00 97.5 67 20 147/70 (95) 96 06/18/17 06/18/17 06/19/17 15:00 23:00 07:00 Output Total 925 ml Balance -925 ml Output Urine Total 925 ml Result Diagram: 06/18/17 0550 06/18/17 0550 Other Results Laboratory Tests Test 06/15/17 19:30 06/16/17 03:15 06/16/17 08:20 06/16/17 16:53 Activated Partial Thromboplast Time 30.8 SEC 33.3 SEC 34.2 SEC 36.8 SEC White Blood Count 13.1 TH/MM3 Red Blood Count 3.52 MIL/MM3 Hemoglobin 11.9 GM/DL Hematocrit 34.5 % Mean Corpuscular Volume 98.1 FL Mean Corpuscular Hemoglobin 33.7 PG Mean Corpuscular Hemoglobin Concent 34.4 % Red Cell Distribution Width 14.4 % Platelet Count 287 TH/MM3 Mean Platelet Volume 8.0 FL Neutrophils (%) (Auto) 74.9 % Lymphocytes (%) (Auto) 13.0 % Monocytes (%) (Auto) 11.0 % Eosinophils (%) (Auto) 0.5 % Basophils (%) (Auto) 0.6 % Neutrophils # (Auto) 9.8 TH/MM3 Lymphocytes # (Auto) 1.7 TH/MM3 Monocytes # (Auto) 1.4 TH/MM3 Eosinophils # (Auto) 0.1 TH/MM3 Basophils # (Auto) 0.1 TH/MM3 CBC Comment AUTO DIFF Differential Total Cells Counted 100 Neutrophils % (Manual) 67 % Band Neutrophils % 11 % Lymphocytes % 8 % Monocytes % 13 % Eosinophils % 1 % Neutrophils # (Manual) 10.2 TH/MM3 Differential Comment FINAL DIFF MANUAL Toxic Granulation 1+ Dohle Bodies PRESENT Platelet Estimate NORMAL Platelet Morphology Comment NORMAL Red Cell Morphology Comment NORMAL Blood Urea Nitrogen 38 MG/DL Creatinine 1.40 MG/DL Random Glucose 118 MG/DL Total Protein 7.6 GM/DL Albumin 1.9 GM/DL Calcium Level 8.0 MG/DL Alkaline Phosphatase 95 U/L Aspartate Amino Transf (AST/SGOT) 42 U/L Alanine Aminotransferase (ALT/SGPT) 68 U/L Total Bilirubin 1.6 MG/DL Sodium Level 141 MEQ/L Potassium Level 4.3 MEQ/L Chloride Level 110 MEQ/L Carbon Dioxide Level 23.2 MEQ/L Anion Gap 8 MEQ/L Estimat Glomerular Filtration Rate 52 ML/MIN Lipase 925 U/L Random Vancomycin Level 12.8 COMMENT Test 06/16/17 22:49 06/17/17 09:55 06/17/17 13:51 06/18/17 05:50 Activated Partial Thromboplast Time 37.7 SEC 40.1 SEC 30.0 SEC White Blood Count 11.7 TH/MM3 11.7 TH/MM3 Red Blood Count 3.41 MIL/MM3 3.36 MIL/MM3 Hemoglobin 11.7 GM/DL 11.6 GM/DL Hematocrit 33.1 % 32.7 % Mean Corpuscular Volume 97.1 FL 97.5 FL Mean Corpuscular Hemoglobin 34.3 PG 34.5 PG Mean Corpuscular Hemoglobin Concent 35.3 % 35.4 % Red Cell Distribution Width 14.3 % 13.9 % Platelet Count 317 TH/MM3 341 TH/MM3 Mean Platelet Volume 7.7 FL 7.8 FL Neutrophils (%) (Auto) 83.0 % 82.9 % Lymphocytes (%) (Auto) 9.9 % 9.1 % Monocytes (%) (Auto) 7.0 % 7.9 % Eosinophils (%) (Auto) 0.0 % 0.0 % Basophils (%) (Auto) 0.1 % 0.1 % Neutrophils # (Auto) 9.7 TH/MM3 9.7 TH/MM3 Lymphocytes # (Auto) 1.2 TH/MM3 1.1 TH/MM3 Monocytes # (Auto) 0.8 TH/MM3 0.9 TH/MM3 Eosinophils # (Auto) 0.0 TH/MM3 0.0 TH/MM3 Basophils # (Auto) 0.0 TH/MM3 0.0 TH/MM3 CBC Comment AUTO DIFF AUTO DIFF Differential Total Cells Counted 100 100 Neutrophils % (Manual) 74 % 55 % Band Neutrophils % 7 % 18 % Lymphocytes % 12 % 15 % Monocytes % 5 % 10 % Neutrophils # (Manual) 9.7 TH/MM3 8.8 TH/MM3 Metamyelocytes 2 % 1 % Differential Comment FINAL DIFF MANUAL FINAL DIFF MANUAL Toxic Granulation 1+ 1+ Platelet Estimate NORMAL NORMAL Platelet Morphology Comment NORMAL NORMAL Red Cell Morphology Comment NORMAL Lipase 788 U/L Myelocytes 1 % Blood Urea Nitrogen 33 MG/DL Creatinine 1.05 MG/DL Random Glucose 173 MG/DL Calcium Level 8.2 MG/DL Magnesium Level 2.1 MG/DL Sodium Level 139 MEQ/L Potassium Level 4.5 MEQ/L Chloride Level 106 MEQ/L Carbon Dioxide Level 22.7 MEQ/L Anion Gap 10 MEQ/L Estimat Glomerular Filtration Rate 72 ML/MIN Test 06/18/17 10:48 Lipase 508 U/L Imaging Last Impressions Brain MRI 06/14/17 0000 Signed Impressions: Service Date/Time: Wednesday, June 14, 2017 07:30 - CONCLUSION: Multiple areas of signal abnormality scattered throughout the cerebral hemispheres and in the right cerebellar hemisphere. These are thought to represent multiple areas of infarction. Given the multiple vascular distributions, an embolic source should be sought. Tello Page MD Chest X-Ray 06/13/17 0600 Signed Impressions: Service Date/Time: Tuesday, June 13, 2017 03:23 - CONCLUSION: Mild patchy bilateral infiltrate not significantly changed. Tello Ramírez MD Wrist X-Ray 06/13/17 0000 Signed Impressions: Service Date/Time: Tuesday, June 13, 2017 13:07 - CONCLUSION: Mild degenerative change at the first carpometacarpal joint. Tello Page MD Hand X-Ray 06/13/17 0000 Signed Impressions: Service Date/Time: Tuesday, June 13, 2017 13:07 - CONCLUSION: Mild hypertrophic change of the base of the first metacarpal. Tello Page MD Foot X-Ray 06/13/17 0000 Signed Impressions: Service Date/Time: Tuesday, June 13, 2017 13:10 - CONCLUSION: No acute bony abnormality is seen. There is possible soft tissue swelling at the dorsal forefoot. Tello Page MD Abdomen/Pelvis CT 06/12/17 1221 Signed Impressions: Service Date/Time: Monday, June 12, 2017 13:14 - CONCLUSION: 1. Minimally increased left-sided perinephric stranding. No significant peripancreatic inflammatory stranding or fluid collection. There is trace subtle free fluid in the left lower quadrant. Overall, the findings are nonspecific but suggests a possible inflammatory process in the left abdomen. Please note that CT examination is not very sensitive particularly without benefit of IV contrast for detection of acute pancreatitis. Differential considerations include left-sided pyelonephritis. 2. Mild splenomegaly of uncertain etiology. 3. Normal appendix. Alfonso Perea MD Head CT 06/12/17 0859 Signed Impressions: Service Date/Time: Monday, June 12, 2017 09:39 - CONCLUSION: 2 cm low-attenuation area now noted involving the right cerebellar hemisphere most consistent with an acute to subacute infarction. This could be further evaluated with MRI imaging. Josiah Alegre MD Head Magnetic Resonance Angiography 06/12/17 0000 Signed Impressions: Service Date/Time: Monday, June 12, 2017 18:01 - CONCLUSION: Unremarkable exam. Josiah Alegre MD Carotid Artery Ultrasound 06/12/17 0000 Signed Impressions: Service Date/Time: Monday, June 12, 2017 19:32 - CONCLUSION: Mild calcific plaquing bilaterally with no evidence of a hemodynamically significant lesion. Josiah Alegre MD Objective Remarks General: NAD, AAOx3 Chest: CTA Cardiac: Irregular Abd: +BS, soft ND/NT Ext: Left foot with slight swelling and erythema of the first MTP. Left hand swelling is improving and better movement of hands and wrist. Swelling of the left knee, but no warmth or erythema. A/P Problem List: (1) CVA (cerebral vascular accident) ICD Codes: I63.9 - Cerebral infarction, unspecified Status: Acute Plan: - comgmt with Neurology - Pt is a 61 y/o WM with HTN, CAD s/p CABG x in 2000 and stent placement in 2014. Pt presented to the ED at [facility] on 06/12/17 with complaints of progressive generalized weakness and some confusion. The pt also notes some upper abdominal discomfort that started . He was seen in the ED at [facility] on 06/11 with complaints of weakness and some knee pain. He had fallen at home due to weakness about a week ago and injured his right knee and reportedly had outpt Xrays which noted a patellar fracture and has a brace on the RLE currently. Xrays in the ED on 06/11 did not indicate a patellar fracture but pt with noted effusion and he was prescribed some pain medications PRN. In the ED on 06/11 he was felt to be dehydrated and was given 2L of IVF. He was sent home with his son and then brought back into the ED on 06/12 for apparent confusion. - Head CT in the ED on 06/12 noted 2 cm low-attenuation area now noted involving the right cerebellar hemisphere most consistent with an acute to subacute infarction. - Carotid US (06/12/17) --> Mild calcific plaquing bilaterally with no evidence of a hemodynamically significant lesion. - Brain MRA (06/12) --> Unremarkable - Brain MRI (06/14) --> Multiple areas of signal abnormality scattered throughout the cerebral hemispheres and in the right cerebellar hemisphere. These are thought to represent multiple areas of infarction. Given the multiple vascular distributions, an embolic source should be sought. - Pt was found to have paroxysmal A. fib. These embolic strokes likely d/t new A. fib - Metoprolol 100mg po BID - Physical Therapy recommending rehabilitation at time of discharge -DC IV heparin - start pradaxa 150mg BID (06/17) - BP was elevating on 06/15/16 so Procardia XL was started with improvement in the BP continue to monitor closely - PT recommending rehab at time of DC (2) Atrial fibrillation ICD Codes: I48.91 - Unspecified atrial fibrillation Plan: - Pt was found to have A. fib following admission. - He was initially placed on Amiodarone by [employer] and cardiology consulted. - Amiodarone was stopped and pt was started on Metoprolol 100mg po BID - Currently rate controlled - 2D echo (06/14/17) - Mildly dilated left ventricle, mild concentric LVH, estimated EF 55-60%. - The left atrial size is joqg-bp-rdnymncccu dilated. - Elsjn-rv-axgp mitral valve regurgitation. - Aortic valve sclerosis is present. - There is mild tricuspid valve regurgitation. - The estimated pulmonary arterial pressure is 44.3 mmHg. (3) Sepsis ICD Codes: A41.9 - Sepsis, unspecified organism Status: Acute Plan: - comgmt with ID - Pt states that he has had problems with generalized weakness for the last few weeks. Pt was noted to have a fever of 103 in the ED. - Blood cultures were drawn in the ED grew out 4/4 bottles with strep species, unclear origin. 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 - CT Abd/pelvis (06/13) --> Minimally increased left-sided perinephric stranding. No significant peripancreatic inflammatory stranding or fluid collection. There is trace subtle free fluid in the left lower quadrant. Overall, the findings are nonspecific but suggests a possible inflammatory process in the left abdomen. Please note that CT examination is not very sensitive particularly without benefit of IV contrast for detection of acute pancreatitis. Differential considerations include left- sided pyelonephritis. Mild splenomegaly of uncertain etiology. Normal appendix. - Pt tested negative fort Influenza - The elevated trops and lipase probably sepsis related. - WBC 22k (06/13), 11.7 (06/17) - Repeat Blood cultures on 06/13 and 06/14 both with NGTD - MARA (06/16/17) --> Normal EF. Mild MR. Mild AI. +0.7 cm x 0.6 cm mobile echodensity on the anterior leaflet of mitral valve on inflow side consistent with vegetation - zosyn (06/12 - 06/17) - Vancomycin (06/12 - 06/15) - Rocephin (06/17 - present) - Case d/w Dr. Johnson 06/18/17 -> patient reports patient will need Rocephin for 6 weeks with CBC, creatine and LFTs every Thursday - plan to DC to SNF tomorrow (4) YESSI (acute kidney injury) ICD Codes: N17.9 - Acute kidney failure, unspecified Status: Acute Plan: - Likely related to sepsis. - Labs are improving - Cont. to monitor (5) Volume overload ICD Codes: E87.70 - Fluid overload, unspecified Status: Acute Plan: - Pt noted to have pulmonary edema on CXR at admission - [place] to likely be related to volume overload with massive ivf resuscitation in ED, not clearly any PNA component. - repeat portable CXR (06/17) cardiomegaly. No acute focal pulmonary infiltrate or pulmonary vascular congestion (6) Elevated lipase ICD Codes: R74.8 - Abnormal levels of other serum enzymes Status: Acute Plan: - Pt also had noted an elevated Lipase of 1296 with TBili 3.4, AST 63, ALT 41 at admission - [place] to likely be related to sepsis - Lipase elevated to 1802 on 06/13/17 - Pt with hx of previous Lap jyoti according to outpt records - Unclear how much alcohol this pt normally drink - Repeat lipase 925 (1/2), 788 (1/3), 508 (1) (7) Elevated LFTs ICD Codes: R79.89 - Other specified abnormal findings of blood chemistry Status: Acute Plan: - improving - see above (8) CAD (coronary artery disease) ICD Codes: I25.10 - Coronary artery disease Status: Chronic Plan: - Hold home BP meds were held at admission for permissive HTN - Pt started on Metoprolol 100mg po BID for the A. fib - Procardia XL 60mg daily added on 06/15/17 with improvement in the BP - Vasotec PRN (9) HTN (hypertension) ICD Codes: I10 - Hypertension Status: Chronic Plan: - stable - metoprolol, procardia (10) Acid reflux ICD Codes: K21.9 - Gastroesophageal reflux disease Status: Chronic Plan: - PPI (11) ASIF (obstructive sleep apnea) ICD Codes: G47.33 - Obstructive sleep apnea syndrome Status: Chronic Plan: - Pt has been non-compliant with his CPAP Permanent Comment: Not sleeping with the machine. After heart attack 4 years ago. Last Edited By: Lang Mueller on Dec 29, 2014 12:12 (12) Dyslipidemia ICD Codes: E78.5 - Dyslipidemia Status: Chronic Assessment and Plan Patient examined. Assessment and plan formulated with Renee Worrell PA-C. I agree with the above. Problem Qualifiers (1) Atrial fibrillation: Qualified Codes: I48.0 - Paroxysmal atrial fibrillation (2) HTN (hypertension): Qualified Codes: I10 - Essential (primary) hypertension (3) Acid reflux: Qualified Codes: K21.9 - Gastro-esophageal reflux disease without esophagitis Renee Worrell Jun 18, 2017 15:36 Lucho Carroll DO Jun 24, 2017 23:34
[2017-06-18 16:29] VITALS: BP 143/73; PULSE 56; RESP 20; TEMP 97.5; O2SAT 96
[2017-06-18] MEDS: PANTOPRAZOLE SODIUM 40 MG VIAL IV PUSH SCH (17:30)
[2017-06-18 20:00] VITALS: BP 151/82; PULSE 65; RESP 21; TEMP 97.4; O2SAT 97
[2017-06-18] MEDS: SODIUM CHLORIDE 0.9% FLUSH 10 ML FLUSH IV FLUSH SCH (21:00)
[2017-06-19] VITALS: BP 143/78; PULSE 53; RESP 22; TEMP 97.6; O2SAT 95
[2017-06-19] MEDS: ACETAMINOPHEN/HYDROcodone 325 MG/7.5 MG TAB PO PRN ×5 (01:18→21:09)
[2017-06-19 04:00] VITALS: BP 187/86; PULSE 64; RESP 22; TEMP 97.9; O2SAT 97
[2017-06-19] MEDS: DABIGATRAN ETEXILATE 150 MG CAP PO SCH ×2 (06:01→18:31)
[2017-06-19 08:03] VITALS: BP 164/83; PULSE 64; RESP 18; TEMP 98.2; O2SAT 96
[2017-06-19] MEDS ORDERED: METO-338 PO (08:43)
[2017-06-19] MEDS ORDERED: NIFE60TA8 PO (08:43)
[2017-06-19] MEDS: NIFEdipine 60 MG SUSTAINED RELEASE TAB PO SCH (08:45)
[2017-06-19] MEDS: SODIUM CHLORIDE 0.9% FLUSH 10 ML FLUSH IV FLUSH SCH ×2 (08:45→21:09)
[2017-06-19] MEDS: COLCHICINE 0.6 MG TAB PO SCH ×2 (08:45→21:09)
[2017-06-19] MEDS: METOPROLOL TARTRATE 100 MG TAB PO SCH ×2 (08:45→21:09)
[2017-06-19] MEDS: ASPIRIN 325 MG TAB PO SCH (08:45)
--- NOTE | 2017-06-19 08:57 | HHI.FF ---
Infusion Therapy Location of Infusion Therapy: [facility] IV Infusion Order Patient Information Patient Weight 136.2 kg Diagnosis: Diagnosis Strep endocarditis Coded Allergies: atorvastatin (Unverified Allergy, Mild, calf cramping, 01/27/17) Hospitalized as thought having heart attack. Administer Medication Ceftriaxone 2 grams IV q 24 hours Stop Treatment: Jul 23, 2017 Additional Information Venous access: PICC Line Additional Instructions [x] Peripheral flush and dressing changes per protocol [x] Implanted port and central liner installer: * Implanted port: 10 ml Normal Saline followed by 5 ml Heparin 100 units/ml Heparin flush after each use and monthly to maintain. [] May leave port accessed during therapy. [] May leave peripheral site accessed for duration of therapy. [x] If patient has SOB or respiratory distress, check oxygen saturation. If less than 90% or clinical signs of respiratory distress, administer oxygen at 2 L/min. via nasal cannula and notify physician. [x] Anaphylaxis/Reaction orders: * Stop infusion. * Keep IV line open with saline flush. * Notify physician. * Monitor vital signs every 15 minutes until symptoms resolve. * Check Oxygen saturation; Oxygen at 2 L/min. via nasal cannula if less than 90% or clinical signs of respiratory distress. * Administer diphenhydramine (Benadryl) 25 mg IV STAT, (unless patient has received as pre-med). May repeat once, if necessary. * Solu-Cortef 250 mg IVP over 30-60 seconds, use 100 mg vials for each dissolution. * Epinephrine (1mg/1 ml) 0.3 mg subcutaneously or IVP now with any signs of respiratory distress. * Check with physician for new additional pre-med orders if patient is re- challenged or re-treated. [x] May remove PICC line when treatment complete, after confirming with Physician. [x] If the patient is admitted to the hospital, the ED, or transferred via [facility] , complete transfer form including medication reconciliation order sheet. Laboratory Tests Weekly Labs: CBC w/diff, Creatinine, LFT's (Hepatic function test) (Labs every Thursday) Karla Johnson MD Jun 19, 2017 08:57
[2017-06-19] MEDS: cefTRIAXone INJ 2,000 MG in SODIUM CHLORIDE 0.9% INJ 100 ML IV SCH (10:45)
[2017-06-19 12:26] VITALS: BP 165/77; PULSE 56; RESP 18; TEMP 98.3; O2SAT 95
--- NOTE | 2017-06-19 13:56 | HHI.IDPN ---
Subjective Subjective Remarks Patient is a 61 y/o WM presented to the ED at [facility] on 06/12/17 with complaints of progressive generalized weakness and some confusion. The son has noted tyhat he was getting confused. he has been experiencing generalized malaise for a week or so. He had actually gone to the emergency room on June 11, and that was after a fall. He was complaining of pain in his left hand and left foot and left knee. He was dehydrated in the emergency room, and the patient was discharged on some pain medication. On the day of admission patient also started complaining of some abdominal discomfort. Denies any back pain, nausea or vomiting. He has not had any complaint of cough or congestion. No diarrhea or any urinary complaints. Patient states he's been drinking, but by mouth intake is not really that good, and has no appetite. On evaluation in the ED, patient has been febrile. His WBC was elevated at 19,000. Creatinine was elevated as well as his lipase. His LFTs were also elevated. CT of the head showed findings of possible acute or subacute infarction in the right cerebellar hemisphere. Today he was transferred to the ICU when he went into [facility] with RVR. 2 blood cultures done in the emergency room are now reported as growing gram-positive cocci. Patient currently denies any abdominal pain. He is complaining of pain in the left hand, left knee, and left foot. Infectious disease consultation has been requested to evaluate the patient. Notes reviewed Temps ok BP ok L hand and L foot improving Getting ready for D/C Has PICC in place Patient wants to go to SNF working on his D/C - pwer patient his insurance now is [facility], and not [facility] with small MV vegetation BC with B hemolytic Strep No new (+) BC Antibiotics Current Medications Zosyn Medications (Trade) Dose Ordered Sig/Dione Route Start Time Stop Time Status Last Admin (NS Flush) 2 ml BID IV FLUSH 06/12/17 21:00 06/17/17 08:24 (NS Flush) 2 ml UNSCH PRN IV FLUSH 06/12/17 12:00 (Vasotec Inj) 1.25 mg Q4H PRN IV PUSH 06/12/17 12:00 06/15/17 07:45 (Aspirin) 325 mg DAILY PO 06/12/17 12:00 06/17/17 08:24 Piperacillin Sod/ Tazobactam Sod 50 ml @ 100 mls/hr Q8H IV 06/12/17 13:00 06/17/17 06:35 (Tylenol) 650 mg Q4H PRN PO 06/12/17 12:45 06/12/17 13:07 (Zofran Inj) 4 mg Q6H PRN IV 06/12/17 12:45 ([place] 7.5-325 Mg) 1 tab Q4H PRN PO 06/12/17 12:45 06/16/17 07:47 Patient Own Medication PT OWN MED: SYED... HS PO 06/12/17 21:00 Future Hold (Protonix Inj) 40 mg Q24H IV PUSH 06/12/17 14:00 06/16/17 13:32 (Lopressor) 100 mg Q12HR PO 06/13/17 10:00 06/17/17 08:24 Heparin Sodium/ Dextrose 250 ml @ 18 mls/hr TITRATE PRN IV 06/15/17 11:00 06/17/17 03:59 (Procardia Xl) 60 mg DAILY PO 06/15/17 11:00 06/17/17 08:24 Miscellaneous Information 1 UNSCH PRN XX 06/16/17 10:45 06/19/17 10:44 (SoluMEDROL INJ) 40 mg Q12HR IV PUSH 06/16/17 14:00 06/17/17 21:01 06/17/17 08:24 Past Medical History CAD with hx of [place] HTN Hyperlipidemia GERD Hepatic steatosis ASIF Obesity Past Surgical History CABG x 4 in 2000 Lap Gina Tonsillectomy Allergies: Coded Allergies: atorvastatin (Unverified Allergy, Mild, calf cramping, 01/27/17) Hospitalized as thought having heart attack. Objective . Vital Signs Date Time Temp Pulse Resp B/P (MAP) Pulse Ox O2 Delivery O2 Flow Rate FiO2 06/19/17 12:26 98.3 56 18 165/77 (106) 95 06/19/17 08:03 98.2 64 18 164/83 (110) 96 06/19/17 04:00 97.9 64 22 187/86 (119) 97 06/19/17 00:00 97.6 53 22 143/78 (99) 95 06/18/17 20:00 97.4 65 21 151/82 (105) 97 06/18/17 16:29 97.5 56 20 143/73 (96) 96 . Laboratory Tests Test 06/18/17 05:50 White Blood Count 11.7 TH/MM3 Red Blood Count 3.36 MIL/MM3 Hemoglobin 11.6 GM/DL Hematocrit 32.7 % Mean Corpuscular Volume 97.5 FL Mean Corpuscular Hemoglobin 34.5 PG Mean Corpuscular Hemoglobin Concent 35.4 % Red Cell Distribution Width 13.9 % Platelet Count 341 TH/MM3 Mean Platelet Volume 7.8 FL Neutrophils (%) (Auto) 82.9 % Lymphocytes (%) (Auto) 9.1 % Monocytes (%) (Auto) 7.9 % Eosinophils (%) (Auto) 0.0 % Basophils (%) (Auto) 0.1 % Neutrophils # (Auto) 9.7 TH/MM3 Lymphocytes # (Auto) 1.1 TH/MM3 Monocytes # (Auto) 0.9 TH/MM3 Eosinophils # (Auto) 0.0 TH/MM3 Basophils # (Auto) 0.0 TH/MM3 CBC Comment AUTO DIFF Differential Total Cells Counted 100 Neutrophils % (Manual) 55 % Band Neutrophils % 18 % Lymphocytes % 15 % Monocytes % 10 % Neutrophils # (Manual) 8.8 TH/MM3 Metamyelocytes 1 % Myelocytes 1 % Differential Comment FINAL DIFF MANUAL Toxic Granulation 1+ Platelet Estimate NORMAL Platelet Morphology Comment NORMAL Laboratory Tests Test 06/18/17 05:50 06/18/17 10:48 Blood Urea Nitrogen 33 MG/DL Creatinine 1.05 MG/DL Random Glucose 173 MG/DL Calcium Level 8.2 MG/DL Magnesium Level 2.1 MG/DL Sodium Level 139 MEQ/L Potassium Level 4.5 MEQ/L Chloride Level 106 MEQ/L Carbon Dioxide Level 22.7 MEQ/L Anion Gap 10 MEQ/L Estimat Glomerular Filtration Rate 72 ML/MIN Lipase 508 U/L Imaging Last Impressions Brain MRI 06/14/17 0000 Signed Impressions: Service Date/Time: Wednesday, June 14, 2017 07:30 - CONCLUSION: Multiple areas of signal abnormality scattered throughout the cerebral hemispheres and in the right cerebellar hemisphere. These are thought to represent multiple areas of infarction. Given the multiple vascular distributions, an embolic source should be sought. Tello Page MD Chest X-Ray 06/13/17 0600 Signed Impressions: Service Date/Time: Tuesday, June 13, 2017 03:23 - CONCLUSION: Mild patchy bilateral infiltrate not significantly changed. Tello Ramírez MD Wrist X-Ray 06/13/17 0000 Signed Impressions: Service Date/Time: Tuesday, June 13, 2017 13:07 - CONCLUSION: Mild degenerative change at the first carpometacarpal joint. Tello Page MD Hand X-Ray 06/13/17 0000 Signed Impressions: Service Date/Time: Tuesday, June 13, 2017 13:07 - CONCLUSION: Mild hypertrophic change of the base of the first metacarpal. Tello Page MD Foot X-Ray 06/13/17 0000 Signed Impressions: Service Date/Time: Tuesday, June 13, 2017 13:10 - CONCLUSION: No acute bony abnormality is seen. There is possible soft tissue swelling at the dorsal forefoot. Tello Page MD Abdomen/Pelvis CT 06/12/17 1221 Signed Impressions: Service Date/Time: Monday, June 12, 2017 13:14 - CONCLUSION: 1. Minimally increased left-sided perinephric stranding. No significant peripancreatic inflammatory stranding or fluid collection. There is trace subtle free fluid in the left lower quadrant. Overall, the findings are nonspecific but suggests a possible inflammatory process in the left abdomen. Please note that CT examination is not very sensitive particularly without benefit of IV contrast for detection of acute pancreatitis. Differential considerations include left-sided pyelonephritis. 2. Mild splenomegaly of uncertain etiology. 3. Normal appendix. Alfonso Perea MD Head CT 06/12/17 0859 Signed Impressions: Service Date/Time: Monday, June 12, 2017 09:39 - CONCLUSION: 2 cm low-attenuation area now noted involving the right cerebellar hemisphere most consistent with an acute to subacute infarction. This could be further evaluated with MRI imaging. Josiah Alegre MD Head Magnetic Resonance Angiography 06/12/17 0000 Signed Impressions: Service Date/Time: Monday, June 12, 2017 18:01 - CONCLUSION: Unremarkable exam. Josiah Alegre MD Carotid Artery Ultrasound 06/12/17 0000 Signed Impressions: Service Date/Time: Monday, June 12, 2017 19:32 - CONCLUSION: Mild calcific plaquing bilaterally with no evidence of a hemodynamically significant lesion. Josiah Alegre MD Physical Exam GENERAL: awake and alert, NAD SKIN: Warm and dry. No generalized rash, no ecchymoses and no evidence of embolic lesions. HEAD: Atraumatic. Normocephalic. No temporal wasting, or tenderness. EYES: [place] conjunctiva. Pupils equal, round and reactive to light. Extraocular movements full and intact. No scleral icterus. EARS, NOSE AND THROAT: Nose without bleeding or purulent nasal discharge. No sinus tenderness. Mucous membranes pink and moist. No oral lesions noted. NECK: Trachea midline. Supple and not tender, no meningeal signs CARDIOVASCULAR: Tachycardic. Regular rate and rhythm. No murmurs, rubs or gallops heard RESPIRATORY: Clear to auscultation. Breath sounds equal bilaterally. No rales , wheezing or rhonchi ABDOMEN: Soft, obses, non-tender, nondistended. Bowel sounds present and normoactive. No guarding. No rebound. No organomegaly. EXTREMITIES: No clubbing, cyanosis. L foot has redness and swelling on his first MTP, better. L hand there is improving swelling and pink color, better ROM at wrist. Swelling L knee better. No calf tenderness. Well perfused and warm. NEUROLOGICAL: Grossly noon-focal PSYCHIATRIC: Normal affect, calm and cooperative. LINE: No evidence of infection Assessment & Plan Remarks IMPRESSION (+) BC with Strep - has MV vegetation - elevated LFT, improving Renal insufficiency Hx CAD, S/P CABG x 4 Elevated lipase, not improving, ?pancreatitis Polyarthritis, likely inflammatory RECOMMENDATION IV Rocephin to complete Rx Rx I have filled out Abx infusion form Stable for D/C once arrangement made Explained plan to patient D/W Karla Jordan MD Jun 19, 2017 13:56
[2017-06-19] MEDS: PANTOPRAZOLE SODIUM 40 MG VIAL IV PUSH SCH (14:42)
[2017-06-19 16:35] LABS: INTERNATIONAL NORMALIZED RATIO 1.3 RATIO; PROTHROMBIN TIME - PATIENT 13.2 SEC (9.8-11.6)
[2017-06-19 16:53] VITALS: BP 161/77; PULSE 65; RESP 18; TEMP 97.9; O2SAT 97
--- NOTE | 2017-06-19 17:09 | HHI.DS ---
Discharge Summary Admission Date Jun 12, 2017 at 11:22 Discharge Date: Jun 19, 2017 Admitting Diagnosis CVA, sepsis (1) CVA (cerebral vascular accident) Diagnosis: Principal ICD Codes: I63.9 - Cerebral infarction, unspecified Status: Acute (2) Atrial fibrillation Diagnosis: Principal ICD Codes: I48.91 - Unspecified atrial fibrillation (3) Sepsis Diagnosis: Principal ICD Codes: A41.9 - Sepsis, unspecified organism Status: Acute (4) YESSI (acute kidney injury) Diagnosis: Principal ICD Codes: N17.9 - Acute kidney failure, unspecified Status: Acute (5) Volume overload Diagnosis: Principal ICD Codes: E87.70 - Fluid overload, unspecified Status: Acute (6) Elevated lipase Diagnosis: Principal ICD Codes: R74.8 - Abnormal levels of other serum enzymes Status: Acute (7) Elevated LFTs Diagnosis: Principal ICD Codes: R79.89 - Other specified abnormal findings of blood chemistry Status: Acute (8) CAD (coronary artery disease) Diagnosis: Secondary ICD Codes: I25.10 - Coronary artery disease Status: Chronic (9) HTN (hypertension) Diagnosis: Secondary ICD Codes: I10 - Hypertension Status: Chronic (10) Acid reflux Diagnosis: Secondary ICD Codes: K21.9 - Gastroesophageal reflux disease Status: Chronic (11) ASIF (obstructive sleep apnea) Diagnosis: Secondary ICD Codes: G47.33 - Obstructive sleep apnea syndrome Status: Chronic (12) Dyslipidemia Diagnosis: Secondary ICD Codes: E78.5 - Dyslipidemia Status: Chronic Consultants Dr. Newell, neurology Dr. Martinez, cardiology Dr. Johnson, ID Dr. Tijerina, teacher hearing impaired Brief History Mr. Vargas is a pleasant 61 y/o WM with HTN, CAD s/p CABG x in 2000 and stent placement in 2014. Pt presented to the ED at [facility] [place] on 06/12/17 with complaints of progressive generalized weakness and some confusion. The pt also notes some upper abdominal discomfort that started today. He was seen in the ED at [facility] [place] on [place]11 with complaints of weakness and some knee pain. He had fallen at home due to weakness about a week ago and injured his right knee and reportedly had outpt Xrays which noted a patellar fracture and has a brace on the RLE currently. Xrays in the ED on 06/11 did not indicate a patellar fracture but pt with noted effusion and he was prescribed some pain medications PRN. IN the ED on 06/11 he was felt to be dehydrated and was given 2L of IVF. He was sent home with his son and then brought back into the ED on 06/12 for apparent confusion. Pt states that he has had problems with generalized weakness for the last few weeks. He denies any abd pain, nausea/vomiting, diarrhea, chest pain, SOB or palpitations. 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 Pt was noted to have a fever of 103 in the ED. Blood cultures were drawn. He has been given 3L of IVF and given Vancomycin and Cefepime in the ED. Head CT in the ED on 06/12 noted 2 cm low- attenuation area now noted involving the right cerebellar hemisphere most consistent with an acute to subacute infarction. He had had a Head CT on 06/11 which did not indicate finding of an acute stroke per radiologist interpretation. Labs work in the ED noted an elevated WBC count of 19,000. His renal function is worse today than the day prior. He also had noted an elevated Lipase of 1296 with TBili 3.4, AST 63, ALT 41. His UA was abnormal and culture is pending. At the time of my evaluation in the ED the pt appeared SOB in the ED but denies feeling like he's SOB. He has audible wheezing and appears to be using accessory muscles. He has not specific complaints at the time of examination other than generalized weakness. CBC/BMP: 06/18/17 0550 06/18/17 0550 Significant Findings Laboratory Tests Test 06/16/17 22:49 06/17/17 09:55 06/17/17 13:51 06/18/17 05:50 Activated Partial Thromboplast Time 37.7 SEC (24.3-30.1) 40.1 SEC (24.3-30.1) White Blood Count 11.7 TH/MM3 (4.0-11.0) 11.7 TH/MM3 (4.0-11.0) Red Blood Count 3.41 MIL/MM3 (4.50-5.90) 3.36 MIL/MM3 (4.50-5.90) Hemoglobin 11.7 GM/DL (13.0-17.0) 11.6 GM/DL (13.0-17.0) Hematocrit 33.1 % (39.0-51.0) 32.7 % (39.0-51.0) Mean Corpuscular Hemoglobin 34.3 PG (27.0-34.0) 34.5 PG (27.0-34.0) Neutrophils (%) (Auto) 83.0 % (16.0-70.0) 82.9 % (16.0-70.0) Neutrophils # (Auto) 9.7 TH/MM3 (1.8-7.7) 9.7 TH/MM3 (1.8-7.7) Neutrophils % (Manual) 74 % (16-70) Band Neutrophils % 7 % (0-6) 18 % (0-6) Neutrophils # (Manual) 9.7 TH/MM3 (1.8-7.7) 8.8 TH/MM3 (1.8-7.7) Metamyelocytes 2 % (0-1) Toxic Granulation 1+ (NORMAL) 1+ (NORMAL) Lipase 788 U/L (73-393) Monocytes % 10 % (0-8) Myelocytes 1 % (0-0) Blood Urea Nitrogen 33 MG/DL (7-18) Random Glucose 173 MG/DL (74-106) Calcium Level 8.2 MG/DL (8.5-10.1) Estimat Glomerular Filtration Rate 72 ML/MIN (>89) Test 06/18/17 10:48 06/18/17 23:55 06/19/17 16:00 Lipase 508 U/L (73-393) Activated Partial Thromboplast Time 31.7 SEC (24.3-30.1) Prothrombin Time 13.2 SEC (9.8-11.6) Imaging Last Impressions Chest X-Ray 06/17/17 0000 Signed Impressions: Service Date/Time: Saturday, June 17, 2017 16:55 - CONCLUSION: 1. Uncomplicated PICC line placement. Sandeep Gipson MD Brain MRI 06/14/17 0000 Signed Impressions: Service Date/Time: Wednesday, June 14, 2017 07:30 - CONCLUSION: Multiple areas of signal abnormality scattered throughout the cerebral hemispheres and in the right cerebellar hemisphere. These are thought to represent multiple areas of infarction. Given the multiple vascular distributions, an embolic source should be sought. Tello Page MD Wrist X-Ray 06/13/17 0000 Signed Impressions: Service Date/Time: Tuesday, June 13, 2017 13:07 - CONCLUSION: Mild degenerative change at the first carpometacarpal joint. Tello Page MD Hand X-Ray 06/13/17 0000 Signed Impressions: Service Date/Time: Tuesday, June 13, 2017 13:07 - CONCLUSION: Mild hypertrophic change of the base of the first metacarpal. Tello Page MD Foot X-Ray 06/13/17 0000 Signed Impressions: Service Date/Time: Tuesday, June 13, 2017 13:10 - CONCLUSION: No acute bony abnormality is seen. There is possible soft tissue swelling at the dorsal forefoot. Tello Page MD Abdomen/Pelvis CT 06/12/17 1221 Signed Impressions: Service Date/Time: Monday, June 12, 2017 13:14 - CONCLUSION: 1. Minimally increased left-sided perinephric stranding. No significant peripancreatic inflammatory stranding or fluid collection. There is trace subtle free fluid in the left lower quadrant. Overall, the findings are nonspecific but suggests a possible inflammatory process in the left abdomen. Please note that CT examination is not very sensitive particularly without benefit of IV contrast for detection of acute pancreatitis. Differential considerations include left-sided pyelonephritis. 2. Mild splenomegaly of uncertain etiology. 3. Normal appendix. Alfonso Perea MD Head CT 06/12/17 0859 Signed Impressions: Service Date/Time: Monday, June 12, 2017 09:39 - CONCLUSION: 2 cm low-attenuation area now noted involving the right cerebellar hemisphere most consistent with an acute to subacute infarction. This could be further evaluated with MRI imaging. Josiah Alegre MD Head Magnetic Resonance Angiography 06/12/17 0000 Signed Impressions: Service Date/Time: Monday, June 12, 2017 18:01 - CONCLUSION: Unremarkable exam. Josiah Alegre MD Carotid Artery Ultrasound 06/12/17 0000 Signed Impressions: Service Date/Time: Monday, June 12, 2017 19:32 - CONCLUSION: Mild calcific plaquing bilaterally with no evidence of a hemodynamically significant lesion. Josiah Alegre MD PE at Discharge General: NAD, AAOx3 Chest: CTA Cardiac: Irregular Abd: +BS, soft ND/NT Ext: Left foot with slight swelling and erythema of the first MTP. Left hand swelling is improving and better movement of hands and wrist. Swelling of the left knee, but no warmth or erythema. Hospital Course CVA (cerebral vascular accident) - comgmt with Neurology - Pt is a 61 y/o WM with HTN, CAD s/p CABG x in 2000 and stent placement in 2014. Pt presented to the ED at [facility] [place] on 06/12/17 with complaints of progressive generalized weakness and some confusion. The pt also notes some upper abdominal discomfort that started . He was seen in the ED at [facility] [place] on 06/11 with complaints of weakness and some knee pain. He had fallen at home due to weakness about a week ago and injured his right knee and reportedly had outpt Xrays which noted a patellar fracture and has a brace on the RLE currently. Xrays in the ED on 06/11 did not indicate a patellar fracture but pt with noted effusion and he was prescribed some pain medications PRN. In the ED on 06/11 he was felt to be dehydrated and was given 2L of IVF. He was sent home with his son and then brought back into the ED on 06/12 for apparent confusion. - Head CT in the ED on 06/12 noted 2 cm low-attenuation area now noted involving the right cerebellar hemisphere most consistent with an acute to subacute infarction. - Carotid US (06/12/17) --> Mild calcific plaquing bilaterally with no evidence of a hemodynamically significant lesion. - Brain MRA (06/12) --> Unremarkable - Brain MRI (06/14) --> Multiple areas of signal abnormality scattered throughout the cerebral hemispheres and in the right cerebellar hemisphere. These are thought to represent multiple areas of infarction. Given the multiple vascular distributions, an embolic source should be sought. - Pt was found to have paroxysmal A. fib. These embolic strokes likely d/t new A. fib - Metoprolol 100mg po BID - Physical Therapy recommending rehabilitation at time of discharge -DC IV heparin - start pradaxa 150mg BID (06/17) - BP was elevating on 06/15/16 so Procardia XL was started with improvement in the BP continue to monitor closely - PT recommending rehab at time of DC - discharge held for several days d/t placement issues Atrial fibrillation - Pt was found to have A. fib following admission. - He was initially placed on Amiodarone by Child Development Professor and cardiology consulted. - Amiodarone was stopped and pt was started on Metoprolol 100mg po BID - Currently rate controlled - 2D echo (06/14/17) - Mildly dilated left ventricle, mild concentric LVH, estimated EF 55-60%. - The left atrial size is vecl-ci-tudvfctwxx dilated. - Gxrxj-qs-vgzk mitral valve regurgitation. - Aortic valve sclerosis is present. - There is mild tricuspid valve regurgitation. - The estimated pulmonary arterial pressure is 44.3 mmHg. Sepsis - comgmt with ID - Pt states that he has had problems with generalized weakness for the last few weeks. Pt was noted to have a fever of 103 in the ED. - Blood cultures were drawn in the ED grew out 4/4 bottles with strep species, unclear origin. 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 - CT Abd/pelvis (06/13) --> Minimally increased left-sided perinephric stranding. No significant peripancreatic inflammatory stranding or fluid collection. There is trace subtle free fluid in the left lower quadrant. Overall, the findings are nonspecific but suggests a possible inflammatory process in the left abdomen. Please note that CT examination is not very sensitive particularly without benefit of IV contrast for detection of acute pancreatitis. Differential considerations include left- sided pyelonephritis. Mild splenomegaly of uncertain etiology. Normal appendix. - Pt tested negative fort Influenza - The elevated trops and lipase probably sepsis related. - WBC 22k (06/13), 11.7 (06/17) - Repeat Blood cultures on 06/13 and 06/14 both with NGTD - MARA (06/16/17) --> Normal EF. Mild MR. Mild AI. +0.7 cm x 0.6 cm mobile echodensity on the anterior leaflet of mitral valve on inflow side consistent with vegetation - zosyn (06/12 - 06/17) - Vancomycin (06/12 - 06/15) - Rocephin (06/17 - present) - Case d/w Dr. oJhnson 06/18/17 -> patient reports patient will need Rocephin for 6 weeks with CBC, creatine and LFTs every Thursday - plan to DC to SNF YESSI (acute kidney injury) - Likely related to sepsis. - Labs are improving - Cont. to monitor Volume overload - Pt noted to have pulmonary edema on CXR at admission - [place] to likely be related to volume overload with massive ivf resuscitation in ED, not clearly any PNA component. - repeat portable CXR (06/17) cardiomegaly. No acute focal pulmonary infiltrate or pulmonary vascular congestion Elevated lipase - Pt also had noted an elevated Lipase of 1296 with TBili 3.4, AST 63, ALT 41 at admission - Mineral to likely be related to sepsis - Lipase elevated to 1802 on 06/13/17 - Pt with hx of previous Lap jyoti according to outpt records - Unclear how much alcohol this pt normally drink - Repeat lipase 925 (06/16), 788 (06/17), 508 (06/18) Elevated LFTs - improving - see above CAD (coronary artery disease) - Hold home BP meds were held at admission for permissive HTN - Pt started on Metoprolol 100mg po BID for the A. fib - Procardia XL 60mg daily added on 06/15/17 with improvement in the BP - Vasotec PRN HTN (hypertension) - stable - metoprolol, procardia Acid reflux - PPI ASIF (obstructive sleep apnea) - Pt has been non-compliant with his CPAP Permanent Comment: Not sleeping with the machine. After heart attack 4 years ago. Dyslipidemia Chronic Pt Condition on Discharge: Stable Discharge Disposition: Discharge to SNF Discharge Instructions DIET: Follow Instructions for: Heart Healthy Diet Activities you can perform: Weight Bearing as Amelie, See Additionl Instruction Activities to Avoid: Strenuous Activity Other Activity Instructions: OOB with assiatance Follow up Referrals: Cardiology - [address] Sandeep Martinez Neurology - 2 Weeks with Brenda Newell MD PCP Follow-up - [address] Shaw New Medications: Colchicine (Colcrys) 0.6 Mg Tab 0.6 MG PO BID for septic emobli, #20 TAB 0 Refills Dabigatran (Pradaxa) 150 Mg Cap 150 MG PO Q12H for Blood Clot Prevention, #60 CAP 0 Refills Metoprolol Tartrate (Lopressor) 100 Mg Tab 100 MG PO Q12HR for heart rate/blood pressure, #60 TAB 0 Refills Nifedipine ER 24 HR (Nifedipine ER 24 HR) 60 Mg Tab 60 MG PO DAILY for blood pressure, #30 TAB 0 Refills Continued Medications: Aspirin (Aspirin) 81 Mg Chew 81 MG CHEW DAILY, TAB 0 Refills Hydrocodone-Acetaminophen (Hydrocodone-Acetaminophen) 7.5 Mg-325 Mg Tab 1 TAB PO Q4H PRN for PAIN, #20 TAB 0 Refills (This prescription has been renewed ) Rosuvastatin (Rosuvastatin) 10 Mg Tab 10 MG PO HS for Cholesterol Management, #30 TAB 0 Refills (This prescription has been renewed) Discontinued Medications: Carvedilol (Carvedilol) 25 Mg Tab 25 MG PO BID, #60 TAB 0 Refills Lisinopril (Lisinopril) 40 Mg Tab 40 MG PO DAILY for Blood Pressure Management, #30 TAB 0 Refills Additional Information Patient examined. Assessment and plan formulated with Renee Worrell PA-C. I agree with the above. Renee Worrell Jun 19, 2017 17:09 Lucho Carroll DO Jun 24, 2017 23:37
[2017-06-19] MEDS ORDERED: HYDR-3580 PO (17:12)
--- NOTE | 2017-06-19 17:12 | HHI.PR ---
Subjective Remarks Patient offers no new complaints Objective Vitals Vital Signs Date Time Temp Pulse Resp B/P (MAP) Pulse Ox O2 Delivery O2 Flow Rate FiO2 06/19/17 16:53 97.9 65 18 161/77 (105) 97 06/19/17 12:26 98.3 56 18 165/77 (106) 95 06/19/17 08:03 98.2 64 18 164/83 (110) 96 06/19/17 04:00 97.9 64 22 187/86 (119) 97 06/19/17 00:00 97.6 53 22 143/78 (99) 95 06/18/17 20:00 97.4 65 21 151/82 (105) 97 06/19/17 06/19/17 06/20/17 15:00 23:00 07:00 Output Total 1100 ml Balance -1100 ml Output Urine Total 1100 ml Result Diagram: 06/18/17 0550 06/18/17 0550 Other Results Laboratory Tests Test 06/16/17 22:49 06/17/17 09:55 06/17/17 13:51 06/18/17 05:50 Activated Partial Thromboplast Time 37.7 SEC 40.1 SEC 30.0 SEC White Blood Count 11.7 TH/MM3 11.7 TH/MM3 Red Blood Count 3.41 MIL/MM3 3.36 MIL/MM3 Hemoglobin 11.7 GM/DL 11.6 GM/DL Hematocrit 33.1 % 32.7 % Mean Corpuscular Volume 97.1 FL 97.5 FL Mean Corpuscular Hemoglobin 34.3 PG 34.5 PG Mean Corpuscular Hemoglobin Concent 35.3 % 35.4 % Red Cell Distribution Width 14.3 % 13.9 % Platelet Count 317 TH/MM3 341 TH/MM3 Mean Platelet Volume 7.7 FL 7.8 FL Neutrophils (%) (Auto) 83.0 % 82.9 % Lymphocytes (%) (Auto) 9.9 % 9.1 % Monocytes (%) (Auto) 7.0 % 7.9 % Eosinophils (%) (Auto) 0.0 % 0.0 % Basophils (%) (Auto) 0.1 % 0.1 % Neutrophils # (Auto) 9.7 TH/MM3 9.7 TH/MM3 Lymphocytes # (Auto) 1.2 TH/MM3 1.1 TH/MM3 Monocytes # (Auto) 0.8 TH/MM3 0.9 TH/MM3 Eosinophils # (Auto) 0.0 TH/MM3 0.0 TH/MM3 Basophils # (Auto) 0.0 TH/MM3 0.0 TH/MM3 CBC Comment AUTO DIFF AUTO DIFF Differential Total Cells Counted 100 100 Neutrophils % (Manual) 74 % 55 % Band Neutrophils % 7 % 18 % Lymphocytes % 12 % 15 % Monocytes % 5 % 10 % Neutrophils # (Manual) 9.7 TH/MM3 8.8 TH/MM3 Metamyelocytes 2 % 1 % Differential Comment FINAL DIFF MANUAL FINAL DIFF MANUAL Toxic Granulation 1+ 1+ Platelet Estimate NORMAL NORMAL Platelet Morphology Comment NORMAL NORMAL Red Cell Morphology Comment NORMAL Lipase 788 U/L Myelocytes 1 % Blood Urea Nitrogen 33 MG/DL Creatinine 1.05 MG/DL Random Glucose 173 MG/DL Calcium Level 8.2 MG/DL Magnesium Level 2.1 MG/DL Sodium Level 139 MEQ/L Potassium Level 4.5 MEQ/L Chloride Level 106 MEQ/L Carbon Dioxide Level 22.7 MEQ/L Anion Gap 10 MEQ/L Estimat Glomerular Filtration Rate 72 ML/MIN Test 06/18/17 10:48 06/18/17 23:55 06/19/17 16:00 Lipase 508 U/L Activated Partial Thromboplast Time 31.7 SEC Prothrombin Time 13.2 SEC Prothromb Time International Ratio 1.3 RATIO Imaging Last Impressions Brain MRI 06/14/17 0000 Signed Impressions: Service Date/Time: Wednesday, June 14, 2017 07:30 - CONCLUSION: Multiple areas of signal abnormality scattered throughout the cerebral hemispheres and in the right cerebellar hemisphere. These are thought to represent multiple areas of infarction. Given the multiple vascular distributions, an embolic source should be sought. Tello Page MD Chest X-Ray 06/13/17 0600 Signed Impressions: Service Date/Time: Tuesday, June 13, 2017 03:23 - CONCLUSION: Mild patchy bilateral infiltrate not significantly changed. Tello Ramírez MD Wrist X-Ray 06/13/17 0000 Signed Impressions: Service Date/Time: Tuesday, June 13, 2017 13:07 - CONCLUSION: Mild degenerative change at the first carpometacarpal joint. Tello Page MD Hand X-Ray 06/13/17 0000 Signed Impressions: Service Date/Time: Tuesday, June 13, 2017 13:07 - CONCLUSION: Mild hypertrophic change of the base of the first metacarpal. Tello Page MD Foot X-Ray 06/13/17 0000 Signed Impressions: Service Date/Time: Tuesday, June 13, 2017 13:10 - CONCLUSION: No acute bony abnormality is seen. There is possible soft tissue swelling at the dorsal forefoot. Tello Page MD Abdomen/Pelvis CT 06/12/17 1221 Signed Impressions: Service Date/Time: Monday, June 12, 2017 13:14 - CONCLUSION: 1. Minimally increased left-sided perinephric stranding. No significant peripancreatic inflammatory stranding or fluid collection. There is trace subtle free fluid in the left lower quadrant. Overall, the findings are nonspecific but suggests a possible inflammatory process in the left abdomen. Please note that CT examination is not very sensitive particularly without benefit of IV contrast for detection of acute pancreatitis. Differential considerations include left-sided pyelonephritis. 2. Mild splenomegaly of uncertain etiology. 3. Normal appendix. Alfonso Perea MD Head CT 06/12/17 0859 Signed Impressions: Service Date/Time: Monday, June 12, 2017 09:39 - CONCLUSION: 2 cm low-attenuation area now noted involving the right cerebellar hemisphere most consistent with an acute to subacute infarction. This could be further evaluated with MRI imaging. Josiah Alegre MD Head Magnetic Resonance Angiography 06/12/17 0000 Signed Impressions: Service Date/Time: Monday, June 12, 2017 18:01 - CONCLUSION: Unremarkable exam. Josiah Alegre MD Carotid Artery Ultrasound 06/12/17 0000 Signed Impressions: Service Date/Time: Monday, June 12, 2017 19:32 - CONCLUSION: Mild calcific plaquing bilaterally with no evidence of a hemodynamically significant lesion. Josiah Aleger MD Objective Remarks General: NAD, AAOx3 Chest: CTA Cardiac: Irregular Abd: +BS, soft ND/NT Ext: Left foot with slight swelling and erythema of the first MTP. Left hand swelling is improving and better movement of hands and wrist. Swelling of the left knee, but no warmth or erythema. A/P Problem List: (1) CVA (cerebral vascular accident) ICD Codes: I63.9 - Cerebral infarction, unspecified Status: Acute Plan: - comgmt with Neurology - Pt is a 61 y/o WM with HTN, CAD s/p CABG x in 2000 and stent placement in 2014. [place] [facility] [place] with complaints of progressive generalized weakness and some confusion. The pt also notes some upper abdominal discomfort that started . He was seen in the ED at [facility]11 with complaints of weakness and some knee pain. He had fallen at home due to weakness about a week ago and injured his right knee and reportedly had outpt Xrays which noted a patellar fracture and has a brace on the RLE currently. Xrays in the ED on 06/11 did not indicate a patellar fracture but pt with noted effusion and he was prescribed some pain medications PRN. In the ED on 06/11 he was felt to be dehydrated and was given 2L of IVF. He was sent home with his son and then brought back into the ED on 06/12 for apparent confusion. - Head CT in the ED on 06/12 noted 2 cm low-attenuation area now noted involving the right cerebellar hemisphere most consistent with an acute to subacute infarction. - Carotid US (06/12/17) --> Mild calcific plaquing bilaterally with no evidence of a hemodynamically significant lesion. - Brain MRA (06/12) --> Unremarkable - Brain MRI (06/14) --> Multiple areas of signal abnormality scattered throughout the cerebral hemispheres and in the right cerebellar hemisphere. These are thought to represent multiple areas of infarction. Given the multiple vascular distributions, an embolic source should be sought. - Pt was found to have paroxysmal A. fib. These embolic strokes likely d/t new A. fib - Metoprolol 100mg po BID - Physical Therapy recommending rehabilitation at time of discharge -DC IV heparin - start pradaxa 150mg BID (06/17) - BP was elevating on 06/15/16 so Procardia XL was started with improvement in the BP continue to monitor closely - PT recommending rehab at time of DC - plan to DC to SNF once arrangements are made (2) Atrial fibrillation ICD Codes: I48.91 - Unspecified atrial fibrillation Plan: - Pt was found to have A. fib following admission. - He was initially placed on Amiodarone by [employer] and cardiology consulted. - Amiodarone was stopped and pt was started on Metoprolol 100mg po BID - Currently rate controlled - 2D echo (06/14/17) - Mildly dilated left ventricle, mild concentric LVH, estimated EF 55-60%. - The left atrial size is eoxo-ea-yrpvbbehef dilated. - Aojel-bt-kevf mitral valve regurgitation. - Aortic valve sclerosis is present. - There is mild tricuspid valve regurgitation. - The estimated pulmonary arterial pressure is 44.3 mmHg. (3) Sepsis ICD Codes: A41.9 - Sepsis, unspecified organism Status: Acute Plan: - comgmt with ID - Pt states that he has had problems with generalized weakness for the last few weeks. Pt was noted to have a fever of 103 in the ED. - Blood cultures were drawn in the ED grew out 4/4 bottles with strep species, unclear origin. 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 - CT Abd/pelvis (06/13) --> Minimally increased left-sided perinephric stranding. No significant peripancreatic inflammatory stranding or fluid collection. There is trace subtle free fluid in the left lower quadrant. Overall, the findings are nonspecific but suggests a possible inflammatory process in the left abdomen. Please note that CT examination is not very sensitive particularly without benefit of IV contrast for detection of acute pancreatitis. Differential considerations include left- sided pyelonephritis. Mild splenomegaly of uncertain etiology. Normal appendix. - Pt tested negative fort Influenza - The elevated trops and lipase probably sepsis related. - WBC 22k (06/13), 11.7 (06/17) - Repeat Blood cultures on 06/13 and 06/14 both with NGTD - MAAR (06/16/17) --> Normal EF. Mild MR. Mild AI. +0.7 cm x 0.6 cm mobile echodensity on the anterior leaflet of mitral valve on inflow side consistent with vegetation - zosyn (06/12 - 06/17) - Vancomycin (06/12 - 06/15) - Rocephin (06/17 - present) - Case d/w Dr. Johnson 06/18/17 -> patient reports patient will need Rocephin for 6 weeks with CBC, creatine and LFTs every Thursday - plan to DC to SNF with continued IV abx (4) YESSI (acute kidney injury) ICD Codes: N17.9 - Acute kidney failure, unspecified Status: Acute Plan: - Likely related to sepsis. - Labs are improving - Cont. to monitor (5) Volume overload ICD Codes: E87.70 - Fluid overload, unspecified Status: Acute Plan: - Pt noted to have pulmonary edema on CXR at admission - [place] to likely be related to volume overload with massive ivf resuscitation in ED, not clearly any PNA component. - repeat portable CXR (06/17) cardiomegaly. No acute focal pulmonary infiltrate or pulmonary vascular congestion (6) Elevated lipase ICD Codes: R74.8 - Abnormal levels of other serum enzymes Status: Acute Plan: - Pt also had noted an elevated Lipase of 1296 with TBili 3.4, AST 63, ALT 41 at admission - [place] to likely be related to sepsis - Lipase elevated to 1802 on 06/13/17 - Pt with hx of previous Lap jyoti according to outpt records - Unclear how much alcohol this pt normally drink - Repeat lipase 925 (06/16), 788 (06/17), 508 (06/18) (7) Elevated LFTs ICD Codes: R79.89 - Other specified abnormal findings of blood chemistry Status: Acute Plan: - improving - see above (8) CAD (coronary artery disease) ICD Codes: I25.10 - Coronary artery disease Status: Chronic Plan: - Hold home BP meds were held at admission for permissive HTN - Pt started on Metoprolol 100mg po BID for the A. fib - Procardia XL 60mg daily added on 06/15/17 with improvement in the BP - Vasotec PRN (9) HTN (hypertension) ICD Codes: I10 - Hypertension Status: Chronic Plan: - stable - metoprolol, procardia (10) Acid reflux ICD Codes: K21.9 - Gastroesophageal reflux disease Status: Chronic Plan: - PPI (11) ASIF (obstructive sleep apnea) ICD Codes: G47.33 - Obstructive sleep apnea syndrome Status: Chronic Plan: - Pt has been non-compliant with his CPAP Permanent Comment: Not sleeping with the machine. After heart attack 4 years ago. Last Edited By: Lang Mueller on Dec 29, 2014 12:12 (12) Dyslipidemia ICD Codes: E78.5 - Dyslipidemia Status: Chronic Assessment and Plan Patient examined. Assessment and plan formulated with Renee Worrell PA-C. I agree with the above. Problem Qualifiers (1) Atrial fibrillation: Qualified Codes: I48.0 - Paroxysmal atrial fibrillation (2) HTN (hypertension): Qualified Codes: I10 - Essential (primary) hypertension (3) Acid reflux: Qualified Codes: K21.9 - Gastro-esophageal reflux disease without esophagitis Renee Worrell Jun 19, 2017 17:12 Lucho Carroll DO Jun 24, 2017 23:34
[2017-06-19] MEDS ORDERED: ROSU1TAB6 PO (17:15)
[2017-06-19 20:00] VITALS: BP 151/75; PULSE 67; RESP 18; TEMP 98.4; O2SAT 94
[2017-06-20] VITALS: BP 148/74; PULSE 66; RESP 18; TEMP 98.2; O2SAT 94
[2017-06-20] MEDS: ACETAMINOPHEN/HYDROcodone 325 MG/7.5 MG TAB PO PRN ×5 (01:12→21:17)
[2017-06-20 04:00] VITALS: BP 147/84; PULSE 87; RESP 18; TEMP 97.8; O2SAT 96
[2017-06-20] MEDS: DABIGATRAN ETEXILATE 150 MG CAP PO SCH ×2 (04:50→16:57)
[2017-06-20 07:47] VITALS: BP 137/83; PULSE 67; RESP 20; TEMP 97.5; O2SAT 97
[2017-06-20] MEDS: SODIUM CHLORIDE 0.9% FLUSH 10 ML FLUSH IV FLUSH SCH ×2 (08:28→21:20)
[2017-06-20] MEDS: ASPIRIN 325 MG TAB PO SCH (08:28)
[2017-06-20] MEDS: NIFEdipine 60 MG SUSTAINED RELEASE TAB PO SCH (08:28)
[2017-06-20] MEDS: COLCHICINE 0.6 MG TAB PO SCH ×2 (08:28→21:17)
[2017-06-20] MEDS: METOPROLOL TARTRATE 100 MG TAB PO SCH ×2 (08:28→21:17)
[2017-06-20] MEDS: cefTRIAXone INJ 2,000 MG in SODIUM CHLORIDE 0.9% INJ 100 ML IV SCH (08:29)
[2017-06-20 13:00] VITALS: BP 135/75; PULSE 75; RESP 18; TEMP 97.1; O2SAT 97
[2017-06-20] MEDS: PANTOPRAZOLE SODIUM 40 MG VIAL IV PUSH SCH (14:18)
[2017-06-20 17:00] VITALS: BP 145/78; PULSE 78; RESP 18; TEMP 98.6; O2SAT 98
--- NOTE | 2017-06-20 17:58 | HHI.PR ---
Subjective Remarks Patient offers no new complaints awaiting SNF placement Objective Vitals Vital Signs Date Time Temp Pulse Resp B/P (MAP) Pulse Ox O2 Delivery O2 Flow Rate FiO2 06/20/17 17:00 98.6 78 18 145/78 (100) 98 06/20/17 13:00 97.1 75 18 135/75 (95) 97 06/20/17 07:47 97.5 67 20 137/83 (101) 97 06/20/17 04:00 97.8 87 18 147/84 (105) 96 06/20/17 00:00 98.2 66 18 148/74 (98) 94 06/19/17 20:00 98.4 67 18 151/75 (100) 94 06/20/17 06/20/17 06/21/17 15:00 23:00 07:00 Intake Total 100 ml Output Total 1475 ml Balance -1375 ml IV Total 100 ml Output Urine Total 1475 ml Result Diagram: 06/18/17 0550 06/18/17 0550 Other Results Laboratory Tests Test 06/18/17 05:50 06/18/17 10:48 06/18/17 23:55 06/19/17 16:00 White Blood Count 11.7 TH/MM3 Red Blood Count 3.36 MIL/MM3 Hemoglobin 11.6 GM/DL Hematocrit 32.7 % Mean Corpuscular Volume 97.5 FL Mean Corpuscular Hemoglobin 34.5 PG Mean Corpuscular Hemoglobin Concent 35.4 % Red Cell Distribution Width 13.9 % Platelet Count 341 TH/MM3 Mean Platelet Volume 7.8 FL Neutrophils (%) (Auto) 82.9 % Lymphocytes (%) (Auto) 9.1 % Monocytes (%) (Auto) 7.9 % Eosinophils (%) (Auto) 0.0 % Basophils (%) (Auto) 0.1 % Neutrophils # (Auto) 9.7 TH/MM3 Lymphocytes # (Auto) 1.1 TH/MM3 Monocytes # (Auto) 0.9 TH/MM3 Eosinophils # (Auto) 0.0 TH/MM3 Basophils # (Auto) 0.0 TH/MM3 CBC Comment AUTO DIFF Differential Total Cells Counted 100 Neutrophils % (Manual) 55 % Band Neutrophils % 18 % Lymphocytes % 15 % Monocytes % 10 % Neutrophils # (Manual) 8.8 TH/MM3 Metamyelocytes 1 % Myelocytes 1 % Differential Comment FINAL DIFF MANUAL Toxic Granulation 1+ Platelet Estimate NORMAL Platelet Morphology Comment NORMAL Blood Urea Nitrogen 33 MG/DL Creatinine 1.05 MG/DL Random Glucose 173 MG/DL Calcium Level 8.2 MG/DL Magnesium Level 2.1 MG/DL Sodium Level 139 MEQ/L Potassium Level 4.5 MEQ/L Chloride Level 106 MEQ/L Carbon Dioxide Level 22.7 MEQ/L Anion Gap 10 MEQ/L Estimat Glomerular Filtration Rate 72 ML/MIN Lipase 508 U/L Activated Partial Thromboplast Time 31.7 SEC Prothrombin Time 13.2 SEC Prothromb Time International Ratio 1.3 RATIO Imaging Last Impressions Brain MRI 06/14/17 0000 Signed Impressions: Service Date/Time: Wednesday, June 14, 2017 07:30 - CONCLUSION: Multiple areas of signal abnormality scattered throughout the cerebral hemispheres and in the right cerebellar hemisphere. These are thought to represent multiple areas of infarction. Given the multiple vascular distributions, an embolic source should be sought. Tello Page MD Chest X-Ray 06/13/17 0600 Signed Impressions: Service Date/Time: Tuesday, June 13, 2017 03:23 - CONCLUSION: Mild patchy bilateral infiltrate not significantly changed. Tello Ramírez MD Wrist X-Ray 06/13/17 0000 Signed Impressions: Service Date/Time: Tuesday, June 13, 2017 13:07 - CONCLUSION: Mild degenerative change at the first carpometacarpal joint. Tello Page MD Hand X-Ray 06/13/17 0000 Signed Impressions: Service Date/Time: Tuesday, June 13, 2017 13:07 - CONCLUSION: Mild hypertrophic change of the base of the first metacarpal. Tello Page MD Foot X-Ray 06/13/17 0000 Signed Impressions: Service Date/Time: Tuesday, June 13, 2017 13:10 - CONCLUSION: No acute bony abnormality is seen. There is possible soft tissue swelling at the dorsal forefoot. Tello Page MD Abdomen/Pelvis CT 06/12/17 1221 Signed Impressions: Service Date/Time: Monday, June 12, 2017 13:14 - CONCLUSION: 1. Minimally increased left-sided perinephric stranding. No significant peripancreatic inflammatory stranding or fluid collection. There is trace subtle free fluid in the left lower quadrant. Overall, the findings are nonspecific but suggests a possible inflammatory process in the left abdomen. Please note that CT examination is not very sensitive particularly without benefit of IV contrast for detection of acute pancreatitis. Differential considerations include left-sided pyelonephritis. 2. Mild splenomegaly of uncertain etiology. 3. Normal appendix. Alfonso Perea MD Head CT 06/12/17 0859 Signed Impressions: Service Date/Time: Monday, June 12, 2017 09:39 - CONCLUSION: 2 cm low-attenuation area now noted involving the right cerebellar hemisphere most consistent with an acute to subacute infarction. This could be further evaluated with MRI imaging. Josiah Alegre MD Head Magnetic Resonance Angiography 06/12/17 0000 Signed Impressions: Service Date/Time: Monday, June 12, 2017 18:01 - CONCLUSION: Unremarkable exam. Josiah Alegre MD Carotid Artery Ultrasound 06/12/17 0000 Signed Impressions: Service Date/Time: Monday, June 12, 2017 19:32 - CONCLUSION: Mild calcific plaquing bilaterally with no evidence of a hemodynamically significant lesion. Josiah Alegre MD Objective Remarks General: NAD, AAOx3 Chest: CTA Cardiac: Irregular Abd: +BS, soft ND/NT Ext: Left foot with slight swelling and erythema of the first MTP. Left hand swelling is improving and better movement of hands and wrist. Swelling of the left knee, but no warmth or erythema. A/P Problem List: (1) CVA (cerebral vascular accident) ICD Codes: I63.9 - Cerebral infarction, unspecified Status: Acute Plan: - comgmt with Neurology - Pt is a 61 y/o WM with HTN, CAD s/p CABG x in 2000 and stent placement in 2014. Pt presented to the ED at [facility] [place] on [place]/12/17 with complaints of progressive generalized weakness and some confusion. The pt also notes some upper abdominal discomfort that started . He was seen in the ED at [facility] [place] on 06/11 with complaints of weakness and some knee pain. He had fallen at home due to weakness about a week ago and injured his right knee and reportedly had outpt Xrays which noted a patellar fracture and has a brace on the RLE currently. Xrays in the ED on 06/11 did not indicate a patellar fracture but pt with noted effusion and he was prescribed some pain medications PRN. In the ED on 06/11 he was felt to be dehydrated and was given 2L of IVF. He was sent home with his son and then brought back into the ED on 06/12 for apparent confusion. - Head CT in the ED on 06/12 noted 2 cm low-attenuation area now noted involving the right cerebellar hemisphere most consistent with an acute to subacute infarction. - Carotid US (06/12/17) --> Mild calcific plaquing bilaterally with no evidence of a hemodynamically significant lesion. - Brain MRA (06/12) --> Unremarkable - Brain MRI (06/14) --> Multiple areas of signal abnormality scattered throughout the cerebral hemispheres and in the right cerebellar hemisphere. These are thought to represent multiple areas of infarction. Given the multiple vascular distributions, an embolic source should be sought. - Pt was found to have paroxysmal A. fib. These embolic strokes likely d/t new A. fib - Metoprolol 100mg po BID - Physical Therapy recommending rehabilitation at time of discharge -DC IV heparin - start pradaxa 150mg BID (06/17) - BP was elevating on 06/15/16 so Procardia XL was started with improvement in the BP continue to monitor closely - PT recommending rehab at time of DC - DC to SNF once arrangements are made (2) Atrial fibrillation ICD Codes: I48.91 - Unspecified atrial fibrillation Plan: - Pt was found to have A. fib following admission. - He was initially placed on Amiodarone by [facility] and cardiology consulted. - Amiodarone was stopped and pt was started on Metoprolol 100mg po BID - Currently rate controlled - 2D echo (06/14/17) - Mildly dilated left ventricle, mild concentric LVH, estimated EF 55-60%. - The left atrial size is [id number] dilated. - Neoqg-hn-kjgf mitral valve regurgitation. - Aortic valve sclerosis is present. - There is mild tricuspid valve regurgitation. - The estimated pulmonary arterial pressure is 44.3 mmHg. (3) Sepsis ICD Codes: A41.9 - Sepsis, unspecified organism Status: Acute Plan: - comgmt with ID - Pt states that he has had problems with generalized weakness for the last few weeks. Pt was noted to have a fever of 103 in the ED. - Blood cultures were drawn in the ED grew out 4/4 bottles with strep species, unclear origin. 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 - CT Abd/pelvis (06/13) --> Minimally increased left-sided perinephric stranding. No significant peripancreatic inflammatory stranding or fluid collection. There is trace subtle free fluid in the left lower quadrant. Overall, the findings are nonspecific but suggests a possible inflammatory process in the left abdomen. Please note that CT examination is not very sensitive particularly without benefit of IV contrast for detection of acute pancreatitis. Differential considerations include left- sided pyelonephritis. Mild splenomegaly of uncertain etiology. Normal appendix. - Pt tested negative fort Influ[place] - The elevated trops and lipase probably sepsis related. - WBC 22k (06/13), 11.7 (06/17) - Repeat Blood cultures on 06/13 and 06/14 both with NGTD - MARA (06/16/17) --> Normal EF. Mild MR. Mild AI. +0.7 cm x 0.6 cm mobile echodensity on the anterior leaflet of mitral valve on inflow side consistent with vegetation - zosyn (06/12 - 06/17) - Vancomycin (06/12 - 06/15) - Rocephin (06/17 - present) - Case d/w Dr. Johnson 06/18/17 -> patient reports patient will need Rocephin for 6 weeks with CBC, creatine and LFTs every Thursday - plan to DC to SNF with continued IV abx (4) YESSI (acute kidney injury) ICD Codes: N17.9 - Acute kidney failure, unspecified Status: Acute Plan: - Likely related to sepsis. - Labs are improving - Cont. to monitor (5) Volume overload ICD Codes: E87.70 - Fluid overload, unspecified Status: Acute Plan: - Pt noted to have pulmonary edema on CXR at admission - [place] to likely be related to volume overload with massive ivf resuscitation in ED, not clearly any PNA component. - repeat portable CXR (06/17) cardiomegaly. No acute focal pulmonary infiltrate or pulmonary vascular congestion (6) Elevated lipase ICD Codes: R74.8 - Abnormal levels of other serum enzymes Status: Acute Plan: - Pt also had noted an elevated Lipase of 1296 with TBili 3.4, AST 63, ALT 41 at admission - [place] to likely be related to sepsis - Lipase elevated to 1802 on 06/13/17 - Pt with hx of previous Lap jyoti according to outpt records - Unclear how much alcohol this pt normally drink - Repeat lipase 925 (1/2), 788 (1/3), 508 (1/) (7) Elevated LFTs ICD Codes: R79.89 - Other specified abnormal findings of blood chemistry Status: Acute Plan: - improving - see above (8) CAD (coronary artery disease) ICD Codes: I25.10 - Coronary artery disease Status: Chronic Plan: - Hold home BP meds were held at admission for permissive HTN - Pt started on Metoprolol 100mg po BID for the A. fib - Procardia XL 60mg daily added on 06/15/17 with improvement in the BP - Vasotec PRN (9) HTN (hypertension) ICD Codes: I10 - Hypertension Status: Chronic Plan: - stable - metoprolol, procardia (10) Acid reflux ICD Codes: K21.9 - Gastroesophageal reflux disease Status: Chronic Plan: - PPI (11) ASIF (obstructive sleep apnea) ICD Codes: G47.33 - Obstructive sleep apnea syndrome Status: Chronic Plan: - Pt has been non-compliant with his CPAP Permanent Comment: Not sleeping with the machine. After heart attack 4 years ago. Last Edited By: Lang Mueller on Dec 29, 2014 12:12 (12) Dyslipidemia ICD Codes: E78.5 - Dyslipidemia Status: Chronic Assessment and Plan Patient examined. Assessment and plan formulated with Renee Worrell PA-C. I agree with the above. Problem Qualifiers (1) Atrial fibrillation: Qualified Codes: I48.0 - Paroxysmal atrial fibrillation (2) HTN (hypertension): Qualified Codes: I10 - Essential (primary) hypertension (3) Acid reflux: Qualified Codes: K21.9 - Gastro-esophageal reflux disease without esophagitis Renee Worrell Jun 20, 2017 17:58 Lucho Carroll DO Jun 24, 2017 23:35
[2017-06-20] MEDS ORDERED: COLC0.6T PO (18:52)
[2017-06-20] MEDS ORDERED: PRAD150C PO (18:52)
[2017-06-20 20:00] VITALS: BP 142/67; PULSE 72; RESP 20; TEMP 97.8; O2SAT 95
[2017-06-21 00:30] VITALS: BP 144/76; PULSE 61; RESP 17; TEMP 97.6; O2SAT 95
[2017-06-21] MEDS: ACETAMINOPHEN/HYDROcodone 325 MG/7.5 MG TAB PO PRN ×5 (01:31→20:58)
[2017-06-21 05:17] VITALS: BP 150/85; PULSE 66; RESP 17; TEMP 98.1; O2SAT 96
[2017-06-21] MEDS: DABIGATRAN ETEXILATE 150 MG CAP PO SCH ×2 (05:33→17:02)
[2017-06-21 06:03] LABS: HEMATOCRIT 37.3 % (39.0-51.0); HEMOGLOBIN 12.9 GM/DL (13.0-17.0); MEAN CELL VOLUME 96.9 FL (80.0-100.0); MEAN CORPUSCULAR HEMOGLOBIN 33.4 PG (27.0-34.0); MEAN CORPUSCULAR HGB CONC 34.5 % (32.0-36.0); MEAN PLATELET VOLUME 7.1 FL (7.0-11.0); PLATELET COUNT 347 TH/MM3 (150-450); RED BLOOD COUNT 3.85 MIL/MM3 (4.50-5.90); RED CELL DISTRIBUTION WIDTH 14.4 % (11.6-17.2); WHITE BLOOD COUNT 16.8 TH/MM3 (4.0-11.0)
[2017-06-21 08:00] VITALS: BP 119/75; PULSE 67; RESP 18; TEMP 97.9; O2SAT 96
[2017-06-21] MEDS: ASPIRIN 325 MG TAB PO SCH (08:18)
[2017-06-21] MEDS: NIFEdipine 60 MG SUSTAINED RELEASE TAB PO SCH (08:18)
[2017-06-21] MEDS: METOPROLOL TARTRATE 100 MG TAB PO SCH ×2 (08:18→20:58)
[2017-06-21] MEDS: COLCHICINE 0.6 MG TAB PO SCH ×2 (08:18→20:58)
[2017-06-21] MEDS: SODIUM CHLORIDE 0.9% FLUSH 10 ML FLUSH IV FLUSH SCH ×2 (08:18→21:00)
[2017-06-21] MEDS: cefTRIAXone INJ 2,000 MG in SODIUM CHLORIDE 0.9% INJ 100 ML IV SCH (08:19)
[2017-06-21 12:28] VITALS: BP 131/73; PULSE 61; RESP 18; TEMP 97.9; O2SAT 96
[2017-06-21] MEDS: PANTOPRAZOLE SODIUM 40 MG VIAL IV PUSH SCH (12:34)
--- NOTE | 2017-06-21 14:44 | HHI.PR ---
Subjective Remarks Follow up CVA, sepsis. Patient reports pain "all over", worse in left wrist. Denies chest pain, dyspnea. Objective Vitals Vital Signs Date Time Temp Pulse Resp B/P (MAP) Pulse Ox O2 Delivery O2 Flow Rate FiO2 06/21/17 12:28 97.9 61 18 131/73 (92) 96 06/21/17 08:00 97.9 67 18 119/75 (90) 96 06/21/17 05:17 98.1 66 17 150/85 (106) 96 06/21/17 00:30 97.6 61 17 144/76 (98) 95 06/20/17 20:00 97.8 72 20 142/67 (92) 95 06/20/17 17:00 98.6 78 18 145/78 (100) 98 I/O 06/20/17 06/20/17 06/20/17 06/21/17 06/21/17 06/21/17 06:59 14:59 22:59 06:59 14:59 22:59 Intake Total 100 ml 240 ml 100 ml Output Total 1475 ml 1650 ml Balance -1375 ml -1410 ml 100 ml Intake Oral 240 ml IV Total 100 ml 100 ml Output Urine Total 1475 ml 1650 ml Result Diagram: 06/21/17 0545 06/18/17 0550 Imaging Last Impressions Chest X-Ray 06/17/17 0000 Signed Impressions: Service Date/Time: Saturday, June 17, 2017 16:55 - CONCLUSION: 1. Uncomplicated PICC line placement. Sandeep Gipson MD Brain MRI 06/14/17 0000 Signed Impressions: Service Date/Time: Wednesday, June 14, 2017 07:30 - CONCLUSION: Multiple areas of signal abnormality scattered throughout the cerebral hemispheres and in the right cerebellar hemisphere. These are thought to represent multiple areas of infarction. Given the multiple vascular distributions, an embolic source should be sought. Tello Page MD Wrist X-Ray 06/13/17 0000 Signed Impressions: Service Date/Time: Tuesday, June 13, 2017 13:07 - CONCLUSION: Mild degenerative change at the first carpometacarpal joint. Tello Page MD Hand X-Ray 06/13/17 0000 Signed Impressions: Service Date/Time: Tuesday, June 13, 2017 13:07 - CONCLUSION: Mild hypertrophic change of the base of the first metacarpal. Tello Page MD Foot X-Ray 06/13/17 0000 Signed Impressions: Service Date/Time: Tuesday, June 13, 2017 13:10 - CONCLUSION: No acute bony abnormality is seen. There is possible soft tissue swelling at the dorsal forefoot. Tello Page MD Abdomen/Pelvis CT 06/12/17 1221 Signed Impressions: Service Date/Time: Monday, June 12, 2017 13:14 - CONCLUSION: 1. Minimally increased left-sided perinephric stranding. No significant peripancreatic inflammatory stranding or fluid collection. There is trace subtle free fluid in the left lower quadrant. Overall, the findings are nonspecific but suggests a possible inflammatory process in the left abdomen. Please note that CT examination is not very sensitive particularly without benefit of IV contrast for detection of acute pancreatitis. Differential considerations include left-sided pyelonephritis. 2. Mild splenomegaly of uncertain etiology. 3. Normal appendix. Alfonso Perea MD Head CT 06/12/17 0859 Signed Impressions: Service Date/Time: Monday, June 12, 2017 09:39 - CONCLUSION: 2 cm low-attenuation area now noted involving the right cerebellar hemisphere most consistent with an acute to subacute infarction. This could be further evaluated with MRI imaging. Josiah Aleger MD Head Magnetic Resonance Angiography 06/12/17 0000 Signed Impressions: Service Date/Time: Monday, June 12, 2017 18:01 - CONCLUSION: Unremarkable exam. Josiah Alegre MD Carotid Artery Ultrasound 06/12/17 0000 Signed Impressions: Service Date/Time: Monday, June 12, 2017 19:32 - CONCLUSION: Mild calcific plaquing bilaterally with no evidence of a hemodynamically significant lesion. Josiah Alegre MD Objective Remarks General: Obese male in no acute distress. Heart: Irregular rhythm. No murmur. Lungs: Clear to auscultation bilaterally. No wheezes, rales, or rhonchi. Breathing is nonlabored. Abdomen: Soft, nontender, nondistended. Extremities: Trace edema of the left lower leg. Left hand/wrist with trace edema. Psych: Alert and oriented. Procedures None Urinary Catheter: No Vascular Central Line Catheter: No A/P Problem List: (1) CVA (cerebral vascular accident) ICD Code: I63.9 - Cerebral infarction, unspecified Status: Acute (2) Atrial fibrillation ICD Code: I48.91 - Unspecified atrial fibrillation (3) Sepsis ICD Code: A41.9 - Sepsis, unspecified organism Status: Acute (4) YESSI (acute kidney injury) ICD Code: N17.9 - Acute kidney failure, unspecified Status: Acute (5) Volume overload ICD Code: E87.70 - Fluid overload, unspecified Status: Acute (6) Elevated lipase ICD Code: R74.8 - Abnormal levels of other serum enzymes Status: Acute (7) Elevated LFTs ICD Code: R79.89 - Other specified abnormal findings of blood chemistry Status: Acute (8) CAD (coronary artery disease) ICD Code: I25.10 - Coronary artery disease Status: Chronic (9) HTN (hypertension) ICD Code: I10 - Hypertension Status: Chronic (10) Acid reflux ICD Code: K21.9 - Gastroesophageal reflux disease Status: Chronic (11) ASIF (obstructive sleep apnea) ICD Code: G47.33 - Obstructive sleep apnea syndrome Status: Chronic Permanent Comment: Not sleeping with the machine. After heart attack 4 years ago. Last Edited By: Lang Mueller on Dec 29, 2014 12:12 (12) Dyslipidemia ICD Code: E78.5 - Dyslipidemia Status: Chronic Assessment and Plan 1. CVA: Patient was found to have paroxysmal a-fib. Continue metoprolol, Pradaxa. Carotid artery ultrasound showed mild calcific plaquing bilaterally with no evidence of hemodynamically significant lesion. MRA of the brain is unremarkable. MRI of the brain on 06/14/17 shows multiple areas of signal abnormality scattered throughout the cerebral hemispheres and in the right cerebellar hemisphere. These are felt to represent multiple areas of infarction. Appreciate neurology recommendations. 2. Atrial fibrillation: Appreciate cardiology recommendations. Continue metoprolol. Continue Pradaxa. Rate is well controlled. 3. Sepsis, endocarditis: Appreciate infectious disease recommendations. Continue Rocephin 6 weeks. Zosyn, vancomycin discontinued. Blood cultures grew strep. Patient noted to have endocarditis on MARA. 4. Leukocytosis: Possibly secondary to infection. WBCs increased today. Recheck labs in the morning. Patient is afebrile. 5. Acute kidney injury: Likely secondary to sepsis. Improved. 6. Fluid overload: Patient noted to have pulmonary edema on admission. [place] to be secondary to massive IV fluid resuscitation in the ER. 7. Elevated LFTs: Trending down. 8. Coronary artery disease: Continue beta fawn, calcium channel fawn, aspirin. 9. Hypertension: Continue metoprolol, Procardia XL. 10. GERD: Continue PPI. 11. Obstructive sleep apnea: Patient has been noncompliant with CPAP. 12. DVT prophylaxis: Pradaxa. Discharge Planning Awaiting SNF arrangements. Problem Qualifiers (1) Atrial fibrillation: Qualified Codes: I48.0 - Paroxysmal atrial fibrillation (2) HTN (hypertension): Qualified Codes: I10 - Essential (primary) hypertension (3) Acid reflux: Qualified Codes: K21.9 - Gastro-esophageal reflux disease without esophagitis Aaron Sanchez MD Jun 21, 2017 14:44
[2017-06-21 16:00] VITALS: BP 141/63; PULSE 73; RESP 18; TEMP 97.8; O2SAT 95
[2017-06-21 20:00] VITALS: BP 121/60; PULSE 69; RESP 20; TEMP 99.2; O2SAT 95
[2017-06-22 01:32] VITALS: BP 152/81; PULSE 69; RESP 18; TEMP 97.8; O2SAT 97
[2017-06-22] MEDS: ACETAMINOPHEN/HYDROcodone 325 MG/7.5 MG TAB PO PRN ×5 (01:59→22:29)
[2017-06-22 05:34] VITALS: BP 146/85; PULSE 65; RESP 18; TEMP 98; O2SAT 96
[2017-06-22] MEDS: DABIGATRAN ETEXILATE 150 MG CAP PO SCH ×2 (06:19→17:02)
[2017-06-22 08:00] VITALS: BP 134/81; PULSE 69; RESP 18; TEMP 98.5; O2SAT 93
[2017-06-22 08:00] LABS: AUTOMATED NEUTROPHIL # 12.4 TH/MM3 (1.8-7.7); BASOPHIL # 0.1 TH/MM3 (0-0.2); BASOPHIL % 0.6 % (0.0-2.0); EOSINOPHIL # 0.1 TH/MM3 (0-0.4); EOSINOPHIL % 0.5 % (0.0-4.0); HEMATOCRIT 36.6 % (39.0-51.0); HEMOGLOBIN 12.9 GM/DL (13.0-17.0); LYMPH % 12.2 % (9.0-44.0); MEAN CELL VOLUME 96.9 FL (80.0-100.0); MEAN CORPUSCULAR HEMOGLOBIN 34.1 PG (27.0-34.0); MEAN CORPUSCULAR HGB CONC 35.2 % (32.0-36.0); MEAN PLATELET VOLUME 7.3 FL (7.0-11.0); MONO % 9.5 % (0.0-8.0); MONOCYTE # 1.5 TH/MM3 (0-0.9); NEUT % 77.2 % (16.0-70.0); PLATELET COUNT 355 TH/MM3 (150-450); RED BLOOD COUNT 3.78 MIL/MM3 (4.50-5.90); RED CELL DISTRIBUTION WIDTH 14.4 % (11.6-17.2); WHITE BLOOD COUNT 16.1 TH/MM3 (4.0-11.0)
[2017-06-22 08:19] LABS: BICARBONATE 25.4 MEQ/L (21.0-32.0); CALCIUM 8.4 MG/DL (8.5-10.1); CREATININE 1.06 MG/DL (0.60-1.30)
[2017-06-22] MEDS: PANTOPRAZOLE SOD 40 MG DELAYED RELEASE TAB PO SCH (08:24)
[2017-06-22] MEDS: METOPROLOL TARTRATE 100 MG TAB PO SCH ×2 (08:24→22:29)
[2017-06-22] MEDS: ASPIRIN 325 MG TAB PO SCH (08:24)
[2017-06-22] MEDS: SODIUM CHLORIDE 0.9% FLUSH 10 ML FLUSH IV FLUSH SCH ×2 (08:24→21:00)
[2017-06-22] MEDS: NIFEdipine 60 MG SUSTAINED RELEASE TAB PO SCH (08:24)
[2017-06-22] MEDS: COLCHICINE 0.6 MG TAB PO SCH ×2 (08:24→22:29)
[2017-06-22] MEDS: cefTRIAXone INJ 2,000 MG in SODIUM CHLORIDE 0.9% INJ 100 ML IV SCH (10:07)
[2017-06-22] MEDS: DOCUSATE SODIUM 50 MG/SENNA 8.6 MG TAB PO SCH ×2 (11:40→21:00)
[2017-06-22] MEDS ORDERED: LACTULOSE SYRUP 20 GM/30 ML CUP PO PRN (11:45)
[2017-06-22] MEDS ORDERED: MAGNESIUM HYDROXIDE SUSP 30 ML CUP PO PRN (11:45)
[2017-06-22] MEDS ORDERED: BISACODYL 10 MG SUPP RECTAL PRN (11:45)
[2017-06-22] MEDS ORDERED: SENNOSIDES 8.6 MG TAB PO PRN (11:45)
[2017-06-22 12:00] VITALS: BP 117/67; PULSE 56; RESP 19; TEMP 97.7; O2SAT 94
[2017-06-22 16:00] VITALS: BP 136/74; PULSE 62; RESP 18; TEMP 98.4; O2SAT 97
--- NOTE | 2017-06-22 16:19 | HHI.PR ---
Subjective Remarks Follow up CVA, sepsis. Patient states that he feels better today. Still having joint pain, but less this afternoon. Objective Vitals Vital Signs Date Time Temp Pulse Resp B/P (MAP) Pulse Ox O2 Delivery O2 Flow Rate FiO2 06/22/17 12:00 97.7 56 19 117/67 (84) 94 06/22/17 08:00 98.5 69 18 134/81 (98) 93 06/22/17 05:34 98.0 65 18 146/85 (105) 96 06/22/17 01:32 97.8 69 18 152/81 (104) 97 06/21/17 20:00 99.2 69 20 121/60 (80) 95 I/O 06/21/17 06/21/17 06/21/17 06/22/17 06/22/17 06/22/17 07:00 15:00 23:00 07:00 15:00 23:00 Intake Total 240 ml 100 ml 240 ml 960 ml Output Total 1650 ml 2325 ml 900 ml 1275 ml Balance -1410 ml 100 ml -2325 ml -660 ml -315 ml Intake Oral 240 ml 240 ml 960 ml IV Total 100 ml Output Urine Total 1650 ml 2325 ml 900 ml 1275 ml # Bowel Movements 0 0 Result Diagram: 06/22/1725 06/22/17 0625 Imaging Last Impressions Chest X-Ray 06/17/17 0000 Signed Impressions: Service Date/Time: Saturday, June 17, 2017 16:55 - CONCLUSION: 1. Uncomplicated PICC line placement. Sandeep Gipson MD Brain MRI 06/14/17 0000 Signed Impressions: Service Date/Time: Wednesday, June 14, 2017 07:30 - CONCLUSION: Multiple areas of signal abnormality scattered throughout the cerebral hemispheres and in the right cerebellar hemisphere. These are thought to represent multiple areas of infarction. Given the multiple vascular distributions, an embolic source should be sought. Tello Page MD Wrist X-Ray 06/13/17 0000 Signed Impressions: Service Date/Time: Tuesday, June 13, 2017 13:07 - CONCLUSION: Mild degenerative change at the first carpometacarpal joint. Tello Page MD Hand X-Ray 06/13/17 0000 Signed Impressions: Service Date/Time: Tuesday, June 13, 2017 13:07 - CONCLUSION: Mild hypertrophic change of the base of the first metacarpal. Tello Page MD Foot X-Ray 06/13/17 0000 Signed Impressions: Service Date/Time: Tuesday, June 13, 2017 13:10 - CONCLUSION: No acute bony abnormality is seen. There is possible soft tissue swelling at the dorsal forefoot. Tello Page MD Abdomen/Pelvis CT 06/12/17 1221 Signed Impressions: Service Date/Time: Monday, June 12, 2017 13:14 - CONCLUSION: 1. Minimally increased left-sided perinephric stranding. No significant peripancreatic inflammatory stranding or fluid collection. There is trace subtle free fluid in the left lower quadrant. Overall, the findings are nonspecific but suggests a possible inflammatory process in the left abdomen. Please note that CT examination is not very sensitive particularly without benefit of IV contrast for detection of acute pancreatitis. Differential considerations include left-sided pyelonephritis. 2. Mild splenomegaly of uncertain etiology. 3. Normal appendix. Alfonso Perea MD Head CT 06/12/17 0859 Signed Impressions: Service Date/Time: Monday, June 12, 2017 09:39 - CONCLUSION: 2 cm low-attenuation area now noted involving the right cerebellar hemisphere most consistent with an acute to subacute infarction. This could be further evaluated with MRI imaging. Josiah Alegre MD Head Magnetic Resonance Angiography 06/12/17 0000 Signed Impressions: Service Date/Time: Monday, June 12, 2017 18:01 - CONCLUSION: Unremarkable exam. Josiah Alegre MD Carotid Artery Ultrasound 06/12/17 0000 Signed Impressions: Service Date/Time: Monday, June 12, 2017 19:32 - CONCLUSION: Mild calcific plaquing bilaterally with no evidence of a hemodynamically significant lesion. Josiah Alegre MD Objective Remarks General: Obese male in no acute distress. Heart: Irregular rhythm. No murmur. Lungs: Clear to auscultation bilaterally. No wheezes, rales, or rhonchi. Breathing is nonlabored. Abdomen: Soft, nontender, nondistended. Extremities: Trace edema of the left lower leg. Left hand/wrist with trace edema. Psych: Alert and oriented. Procedures None A/P Problem List: (1) CVA (cerebral vascular accident) ICD Code: I63.9 - Cerebral infarction, unspecified Status: Acute (2) Atrial fibrillation ICD Code: I48.91 - Unspecified atrial fibrillation (3) Sepsis ICD Code: A41.9 - Sepsis, unspecified organism Status: Acute (4) YESSI (acute kidney injury) ICD Code: N17.9 - Acute kidney failure, unspecified Status: Acute (5) Volume overload ICD Code: E87.70 - Fluid overload, unspecified Status: Acute (6) Elevated lipase ICD Code: R74.8 - Abnormal levels of other serum enzymes Status: Acute (7) Elevated LFTs ICD Code: R79.89 - Other specified abnormal findings of blood chemistry Status: Acute (8) CAD (coronary artery disease) ICD Code: I25.10 - Coronary artery disease Status: Chronic (9) HTN (hypertension) ICD Code: I10 - Hypertension Status: Chronic (10) Acid reflux ICD Code: K21.9 - Gastroesophageal reflux disease Status: Chronic (11) ASIF (obstructive sleep apnea) ICD Code: G47.33 - Obstructive sleep apnea syndrome Status: Chronic Permanent Comment: Not sleeping with the machine. After heart attack 4 years ago. Last Edited By: Lang Mueller on Dec 29, 2014 12:12 (12) Dyslipidemia ICD Code: E78.5 - Dyslipidemia Status: Chronic Assessment and Plan 06/22/17 No change. Awaiting SNF arrangements. 1. CVA: Patient was found to have paroxysmal a-fib. Continue metoprolol, Pradaxa. Carotid artery ultrasound showed mild calcific plaquing bilaterally with no evidence of hemodynamically significant lesion. MRA of the brain is unremarkable. MRI of the brain on 06/14/17 shows multiple areas of signal abnormality scattered throughout the cerebral hemispheres and in the right cerebellar hemisphere. These are felt to represent multiple areas of infarction. Appreciate neurology recommendations. 2. Atrial fibrillation: Appreciate cardiology recommendations. Continue metoprolol. Continue Pradaxa. Rate is well controlled. 3. Sepsis, endocarditis: Appreciate infectious disease recommendations. Continue Rocephin 6 weeks. Zosyn, vancomycin discontinued. Blood cultures grew strep. Patient noted to have endocarditis on MARA. 4. Leukocytosis: Possibly secondary to infection. WBCs increased today. Recheck labs in the morning. Patient is afebrile. 5. Acute kidney injury: Likely secondary to sepsis. Improved. 6. Fluid overload: Patient noted to have pulmonary edema on admission. [place] to be secondary to massive IV fluid resuscitation in the ER. 7. Elevated LFTs: Trending down. 8. Coronary artery disease: Continue beta fawn, calcium channel fawn, aspirin. 9. Hypertension: Continue metoprolol, Procardia XL. 10. GERD: Continue PPI. 11. Obstructive sleep apnea: Patient has been noncompliant with CPAP. 12. DVT prophylaxis: Pradaxa. Discharge Planning Discharge to SNF when arrangements are made. Problem Qualifiers (1) Atrial fibrillation: Qualified Codes: I48.0 - Paroxysmal atrial fibrillation (2) HTN (hypertension): Qualified Codes: I10 - Essential (primary) hypertension (3) Acid reflux: Qualified Codes: K21.9 - Gastro-esophageal reflux disease without esophagitis Aaron Sanchez MD Jun 22, 2017 16:19
[2017-06-22 20:30] VITALS: BP 130/70; PULSE 69; RESP 18; TEMP 98.7; O2SAT 95
[2017-06-23 00:26] VITALS: BP 131/72; PULSE 60; RESP 18; TEMP 98.9; O2SAT 95
[2017-06-23] MEDS: ACETAMINOPHEN/HYDROcodone 325 MG/7.5 MG TAB PO PRN ×4 (02:44→15:05)
[2017-06-23 05:00] VITALS: BP 147/81; PULSE 64; RESP 18; TEMP 98.2; O2SAT 96
[2017-06-23] MEDS: DABIGATRAN ETEXILATE 150 MG CAP PO SCH (05:36)
[2017-06-23 08:00] VITALS: BP 138/78; PULSE 67; RESP 16; TEMP 97.5; O2SAT 95
[2017-06-23] MEDS: DOCUSATE SODIUM 50 MG/SENNA 8.6 MG TAB PO SCH (08:24)
[2017-06-23] MEDS: PANTOPRAZOLE SOD 40 MG DELAYED RELEASE TAB PO SCH (08:24)
[2017-06-23] MEDS: COLCHICINE 0.6 MG TAB PO SCH (08:24)
[2017-06-23] MEDS: SODIUM CHLORIDE 0.9% FLUSH 10 ML FLUSH IV FLUSH SCH (08:24)
[2017-06-23] MEDS: ASPIRIN 325 MG TAB PO SCH (08:24)
[2017-06-23] MEDS: NIFEdipine 60 MG SUSTAINED RELEASE TAB PO SCH (08:24)
[2017-06-23] MEDS: METOPROLOL TARTRATE 100 MG TAB PO SCH (08:24)
[2017-06-23] MEDS: cefTRIAXone INJ 2,000 MG in SODIUM CHLORIDE 0.9% INJ 100 ML IV SCH (11:00)
[2017-06-23 12:00] VITALS: BP 115/64; PULSE 62; RESP 16; TEMP 97.4; O2SAT 98
== END 2017-06-23 15:55 | DRG 871 ==
LOC: NEPC 08:49 → NEDA 11:22 → HIME 14:00 → N05B 06-17 14:30
PROVIDERS: ADMIT Family Medicine; ATTEND Family Medicine
PROC: 0T9B70Z Drainage of Bladder with Drainage Device, Via Natural or Artificial Opening (ICD-10-PCS; principal; 2017-06-12)
PROC: B246ZZ4 Ultrasonography of Right and Left Heart, Transesophageal (ICD-10-PCS; 2017-06-16)
DX: A41.9 Sepsis, unspecified organism (principal); I63.40 Cerebral infarction due to embolism of unspecified cerebral artery; I76 Septic arterial embolism; N17.9 Acute kidney failure, unspecified; J18.9 Pneumonia, unspecified organism; I01.1 Acute rheumatic endocarditis; K76.0 Fatty (change of) liver, not elsewhere classified; E66.01 Morbid (severe) obesity due to excess calories; I48.0 Paroxysmal atrial fibrillation; E87.70 Fluid overload, unspecified; R16.1 Splenomegaly, not elsewhere classified; I08.3 Combined rheumatic disorders of mitral, aortic and tricuspid valves; I10 Essential (primary) hypertension; I25.10 Atherosclerotic heart disease of native coronary artery without angina pectoris; Z95.1 Presence of aortocoronary bypass graft; Z95.5 Presence of coronary angioplasty implant and graft; E78.5 Hyperlipidemia, unspecified; M25.461 Effusion, right knee; I25.2 Old myocardial infarction; K21.9 Gastro-esophageal reflux disease without esophagitis; G47.33 Obstructive sleep apnea (adult) (pediatric); E66.9 Obesity, unspecified; Z80.0 Family history of malignant neoplasm of digestive organs; W19.XXXA Unspecified fall, initial encounter; Y92.009 Unspecified place in unspecified non-institutional (private) residence as the place of occurrence of the external cause; R74.8 Abnormal levels of other serum enzymes; K57.90 Diverticulosis of intestine, part unspecified, without perforation or abscess without bleeding; R65.20 Severe sepsis without septic shock; Z91.19 Patient's noncompliance with other medical treatment and regimen; M06.4 Inflammatory polyarthropathy; Z75.1 Person awaiting admission to adequate facility elsewhere; E86.0 Dehydration; R11.0 Nausea
CPT/HCPCS: 36569; 51702; 70450; 70544; 70551; 71010; 71045; 73110; 73130; 73620; 74176; 76937; 80048; 80053; 80061; 80202; 81001; 82550; 82552; 82948; 83036; 83605; 83690; 83735; 84100; 84484; 85007; 85025; 85027; 85610; 85730; 86403; 87040; 87077; 87086; 87184; 87186; 87205; 87449; 87641; 87804; 93005; 93306; 93312; 93320; 93325; 93880; 94640; 94664; 96361; 96365; C9113; J0282; J0692; J0696; J1644; J1940; J2543; J2920; J2930; J3370; J7030; J7040; J7050

== ENCOUNTER 2017-08-25 13:31 | Inpatient (IN) | payer OTHER ==
[2017-08-25] VITALS (9 sets, daily range): BP systolic 96–176; BP diastolic 57–88; PULSE 49–70; RESP 16–20; TEMP 97.6–98.2; O2SAT 94–98
[~2017-08-25] VITALS: Ht 172.7 cm; Wt 133.4 kg
[~2017-08-25 13:31] MED LIST changes: -ASCO500 PO; -ASPI81 PO; -CARV25TA PO; -CARV6.25 PO; +COLC0.6T PO; -FLUT50I NASAL; -HYDR-2376 PO; -LISI-360 PO; -LISI40TA PO; +METO-338 PO; +NIFE60TA8 PO; +PRAD150C PO; -PRAS10 PO; -ROSU10 PO; -TAB-TAB PO; -VITA400D PO
[2017-08-25 14:33] LABS: AUTOMATED NEUTROPHIL # 7.3 TH/MM3 (1.8-7.7); BASOPHIL # 0.1 TH/MM3 (0-0.2); BASOPHIL % 0.8 % (0.0-2.0); EOSINOPHIL # 0.2 TH/MM3 (0-0.4); EOSINOPHIL % 1.4 % (0.0-4.0); HEMATOCRIT 32.3 % (39.0-51.0); HEMOGLOBIN 10.7 GM/DL (13.0-17.0); LYMPH % 24.7 % (9.0-44.0); LYMPHOCYTE # 2.9 TH/MM3 (1.0-4.8); MEAN CELL VOLUME 95.5 FL (80.0-100.0); MEAN CORPUSCULAR HEMOGLOBIN 31.7 PG (27.0-34.0); MEAN CORPUSCULAR HGB CONC 33.2 % (32.0-36.0); MEAN PLATELET VOLUME 7.1 FL (7.0-11.0); MONO % 9.7 % (0.0-8.0); MONOCYTE # 1.1 TH/MM3 (0-0.9); NEUT % 63.4 % (16.0-70.0); PLATELET COUNT 232 TH/MM3 (150-450); RED BLOOD COUNT 3.38 MIL/MM3 (4.50-5.90); RED CELL DISTRIBUTION WIDTH 18.6 % (11.6-17.2); WHITE BLOOD COUNT 11.6 TH/MM3 (4.0-11.0)
--- NOTE | 2017-08-25 14:39 | PD ---
HPI Chief Complaint: Respiratory Symptoms Time Seen by Provider: 13:39 Travel History International Travel<30 days: No Contact w/Intl Traveler<30days: No History of Present Illness HPI This is a 61-year-old man presented there complaining of shortness of breath for the last week. Patient has history of extensive cardiac history status post cardiac bypass 2010 and multiple cardiac catheterization. Patient was recently discharged from our facility for endocarditis in June. Patient currently has shortness of breath and bilateral leg swelling. Patient is unable to even walk 1 block without shortness of breath, uses 2 pillows to sleep. patient noticed the leg swelling only less than a week ago and states that his leg never swollen before. He also never had any shortness of breath like that before, he denies any fever or chills or night sweats. Denies any cough, denies any chest pain. PFSH Past Medical History Arthritis: Yes Asthma: No Blood Disorders: No Anxiety: Yes Depression: No Heart Rhythm Problems: Yes (SKIPS BEATs) Cancer: No Cardiac Catheterization: Yes Cardiovascular Problems: Yes (BYPASS;STENTS) High Cholesterol: Yes Chemotherapy: No Chest Pain: Yes Congestive Heart Failure: No COPD: No Coronary Artery Disease: Yes Diabetes: No Diminished Hearing: No Endocrine: No Gastrointestinal Disorders: No GERD: No Genitourinary: No Hiatal Hernia: No Hypertension: Yes Immune Disorder: No Implanted Vascular Access Dvce: No Kidney Stones: No Musculoskeletal: No Neurologic: No Psychiatric: No Reproductive: No Respiratory: Yes (SOB) Immunizations Current: Yes Migraines: No Radiation Therapy: No Renal Failure: No Seizures: No Sleep Apnea: Yes (no cpap) Thyroid Disease: No Ulcer: No Past Surgical History Abdominal Surgery: Yes (Gallbladder) Cardiac Surgery: Yes Cholecystectomy: Yes Coronary Artery Bypass Graft: Yes (QUAD BYPASS) Coronary Stent: Yes Ear Surgery: No Endocrine Surgery: No Eye Surgery: No Genitourinary Surgery: No Gynecologic Surgery: No Oral Surgery: Yes Thoracic Surgery: Yes Tonsillectomy: Yes Other Surgery: Yes (CABG) Family History Family Hypercholesterolemia: Yes Social History Alcohol Use: Yes (1-2 TIMES WEEKLY ) Tobacco Use: No Substance Use: No Allergies-Medications (Allergen,Severity, Reaction): Coded Allergies: atorvastatin (Unverified Allergy, Mild, calf cramping, 01/27/17) Hospitalized as thought having heart attack. Reported Meds & Prescriptions Reported Meds & Active Scripts Active Nifedipine ER 24 HR (Nifedipine) 60 Mg Tab 60 Mg PO DAILY Reported Lyrica (Pregabalin) 75 Mg Cap 75 Mg PO BID Metoprolol Tartrate 100 Mg Tab 100 Mg PO BID Pradaxa (Dabigatran) 150 Mg Cap 150 Mg PO DAILY Indomethacin 50 Mg Cap 50 Mg PO BID Take with food, milk, or antacids to decrease stomach adverse effects. Review of Systems Except as stated in HPI: all other systems reviewed are Neg Physical Exam Narrative GENERAL: Alert oriented 3 no acute distress SKIN: Focused skin assessment warm/dry. HEAD: Atraumatic. Normocephalic. EYES: Pupils equal and round. No scleral icterus. No injection or drainage. ENT: No nasal bleeding or discharge. Mucous membranes pink and moist. NECK: Trachea midline. No JVD. CARDIOVASCULAR: Muffled heart sounds, bradycardia, No murmur appreciated. RESPIRATORY: Mild to moderate crackles bilateral lung bases, no accessory muscle use. GASTROINTESTINAL: Abdomen soft, non-tender, nondistended. Hepatic and splenic margins not palpable. MUSCULOSKELETAL +2 pitting edema bilaterally below the knee, pulses intact. NEUROLOGICAL: Awake and alert. No obvious cranial nerve deficits. Motor grossly within normal limits. Normal speech. PSYCHIATRIC: Appropriate mood and affect; insight and judgment normal. Data Data Last Documented VS Vital Signs Date Time Temp Pulse Resp B/P (MAP) Pulse Ox O2 Delivery O2 Flow Rate FiO2 08/25/17 17:22 67 16 137/79 (98) 98 Nasal Cannula 2.00 08/25/17 14:10 97.6 Orders Orders Troponin I (08/25/17 13:47) Urinalysis - C+S If Indicated (08/25/17 13:47) Chest, Pa & Lat (08/25/17 ) Prothrombin Time / Inr (Pt) (08/25/17 13:47) D-Dimer (08/25/17 13:47) Comprehensive Metabolic Panel (08/25/17 13:47) Complete Blood Count With Diff (08/25/17 13:47) B-Type Natriuretic Peptide (08/25/17 13:47) Act Partial Throm Time (Ptt) (08/25/17 13:47) Ckmb (Isoenzyme) Profile (08/25/17 13:47) Magnesium (Mg) (08/25/17 13:47) Electrocardiogram (08/25/17 ) Lactic Acid (08/25/17 13:56) Blood Culture (08/25/17 13:56) Ct Pulmonary Angiogram (08/25/17 ) Iohexol 350 Inj (Omnipaque 350 Inj) (08/25/17 17:01) Piperacil-Tazo 3.375 Gm Premix (Zosyn 3. (08/25/17 18:00) Methylprednisolone So Succ Inj (Solumedr (08/25/17 18:00) Admit Order (Ed Use Only) (08/25/17 18:09) Labs Laboratory Tests Test 08/25/17 14:15 08/25/17 14:20 08/25/17 15:30 Lactic Acid Level 1.4 mmol/L White Blood Count 11.6 TH/MM3 Red Blood Count 3.38 MIL/MM3 Hemoglobin 10.7 GM/DL Hematocrit 32.3 % Mean Corpuscular Volume 95.5 FL Mean Corpuscular Hemoglobin 31.7 PG Mean Corpuscular Hemoglobin Concent 33.2 % Red Cell Distribution Width 18.6 % Platelet Count 232 TH/MM3 Mean Platelet Volume 7.1 FL Neutrophils (%) (Auto) 63.4 % Lymphocytes (%) (Auto) 24.7 % Monocytes (%) (Auto) 9.7 % Eosinophils (%) (Auto) 1.4 % Basophils (%) (Auto) 0.8 % Neutrophils # (Auto) 7.3 TH/MM3 Lymphocytes # (Auto) 2.9 TH/MM3 Monocytes # (Auto) 1.1 TH/MM3 Eosinophils # (Auto) 0.2 TH/MM3 Basophils # (Auto) 0.1 TH/MM3 CBC Comment DIFF FINAL Differential Comment Prothrombin Time 13.4 SEC Prothromb Time International Ratio 1.3 RATIO Activated Partial Thromboplast Time 46.0 SEC D-Dimer Quantitative (PE/DVT) 2.05 MG/L FEU Blood Urea Nitrogen 21 MG/DL Creatinine 0.88 MG/DL Random Glucose 128 MG/DL Total Protein 7.5 GM/DL Albumin 3.5 GM/DL Calcium Level 8.3 MG/DL Magnesium Level 2.1 MG/DL Alkaline Phosphatase 67 U/L Aspartate Amino Transf (AST/SGOT) 19 U/L Alanine Aminotransferase (ALT/SGPT) 18 U/L Total Bilirubin 0.6 MG/DL Sodium Level 135 MEQ/L Potassium Level 4.4 MEQ/L Chloride Level 106 MEQ/L Carbon Dioxide Level 20.3 MEQ/L Anion Gap 9 MEQ/L Estimat Glomerular Filtration Rate 88 ML/MIN Total Creatine Kinase 38 U/L Troponin I LESS THAN 0.02 NG/ML B-Type Natriuretic Peptide 192 PG/ML Urine Collection Type CLEAN CATCH Urine Color YELLOW Urine Turbidity CLEAR Urine pH 5.0 Urine Specific [place] 1.020 Urine Protein NEG mg/dL Urine Glucose (UA) NEG mg/dL Urine Ketones NEG mg/dL Urine Occult Blood NEG Urine Nitrite NEG Urine Bilirubin NEG Urine Urobilinogen 0.2 MG/DL Urine Leukocyte Esterase NEG Urine WBC 0-2 /hpf Urine Squamous Epithelial Cells 0-5 /hpf Urine Bacteria RARE /hpf Urine Hyaline Casts 3-5 /lpf Urine Mucus FEW /lpf Microscopic Urinalysis Comment CULT NOT INDICATED MDM Medical Decision Making Medical Screen Exam Complete: Yes Emergency Medical Condition: Yes Differential Diagnosis CHF, PE, endocarditis. Narrative Course This is a 61-year-old male presented to the ER complaining of leg swelling and shortness of breath. Physical examination shows a full-blown picture of his CHF. BNP is non-impressive only 192. Elevated d-dimer but CTA chest is negative. Patient had AMRA done back in June 16 that showed ejection fraction of 60% during that time patient had sepsis and endocarditis. This could be a return of endocarditis since patient has an elevated white blood count which could explain the rapid progression of clinical picture right now. I will go ahead and cover the patient with antibiotics and will send the patient to the hospital for a possible MARA to rule out endocarditis. During last admission patient was receiving Rocephin for endocarditis, I will use Zosyn for now which could be changed later according to ID recommendation. I discussed the case with Dr. brown radiography technician who agrees with the plan of care and will schedule him for a MARA tomorrow we will keep the patient n.p.o. Diagnosis Primary Impression: SOB (shortness of breath) Additional Impression: Bilateral leg edema Admitting Information Admitting Physician Requests: Admit Disposition: 70 TRANSFER TO OTHER FACILITY ([facility]) Condition: Stable Tung Carlson MD Aug 25, 2017 14:38
[2017-08-25 14:41] LABS: CHLORIDE 106 MEQ/L (98-107); SODIUM (NA) 135 MEQ/L (136-145)
[2017-08-25 14:44] LABS: CALCIUM 8.3 MG/DL (8.5-10.1)
[2017-08-25 14:45] LABS: ALBUMIN 3.5 GM/DL (3.4-5.0); BICARBONATE 20.3 MEQ/L (21.0-32.0); BLOOD UREA NITROGEN 21 MG/DL (7-18); GLUCOSE,RANDOM 128 MG/DL (74-106); MAGNESIUM 2.1 MG/DL (1.5-2.5)
[2017-08-25 14:48] LABS: ALT (GPT) 18 U/L (12-78); AST (GOT) 19 U/L (15-37); CREATININE 0.88 MG/DL (0.60-1.30); GLOMERULAR FILTRATION RATE 88 ML/MIN (>89)
[2017-08-25 14:49] LABS: TOTAL BILIRUBIN ADULT 0.6 MG/DL (0.2-1.0); TOTAL PROTEIN 7.5 GM/DL (6.4-8.2)
--- NOTE | 2017-08-25 14:50 | RADRPT ---
EXAM DATE/TIME: 08/25/2017 13:58 [facility] COMPARISON: CHEST SINGLE AP, June 17, 2017, 16:55. INDICATIONS : Short of breath. MEDICAL HISTORY : Hypertension. SURGICAL HISTORY : CABG. Cholecystectomy. Tonsillectomy. ENCOUNTER: Initial ACUITY: 2 weeks PAIN SCORE: 0/10 LOCATION: Bilateral chest FINDINGS: The heart is enlarged. Patient is post median sternotomy. There are chronic appearing interstitial ch anges suggesting COPD. The visualized bony structures are grossly intact. CONCLUSION: 1. Chronic interstitial changes most consistent with COPD. Exam is relatively stable compared to prev ious dated 06/17/17. 2. Cardiomegaly. Kyle Cristina MD on August 25, 2017 at 14:47 Board Certified Radiologist. This report was verified electronically.
[2017-08-25 14:51] LABS: ALKALINE PHOSPHATASE 67 U/L (45-117)
[2017-08-25 14:53] LABS: TROPONIN I LESS THAN 0.02 NG/ML (0.02-0.05)
[2017-08-25 15:04] LABS: INTERNATIONAL NORMALIZED RATIO 1.3 RATIO; PROTHROMBIN TIME - PATIENT 13.4 SEC (9.8-11.6)
[2017-08-25 15:10] LABS: D-DIMER 2.05 MG/L FEU (0.00-0.50)
[2017-08-25 15:45] LABS: BLOOD, URINE NEG (NEG); GLUCOSE,URINE NEG (NEG); KETONE, URINE NEG (NEG); NITRITE,URINE NEG (NEG); URINE COLOR YELLOW (YELLW/STRAW); URINE LEUKOCYTE ESTERASE NEG (NEG)
[2017-08-25] MEDS ORDERED: LYRI75CA PO (15:52)
[2017-08-25] MEDS ORDERED: INDO50CA PO (15:52)
[2017-08-25] MEDS ORDERED: METO100T PO (15:52)
[2017-08-25] MEDS ORDERED: PRAD150C PO (15:52)
[2017-08-25 15:55] LABS: BILIRUBIN, URINE NEG (NEG)
[2017-08-25 15:58] LABS: MUCUS URINE FEW /lpf (OCC)
[2017-08-25 15:59] LABS: BACTERIA, URINE RARE /hpf; SQUAMOUS EPITHELIAL CELL URINE 0-5 /hpf (0-5); WBC, URINE 0-2 /hpf (0-5)
[2017-08-25] MEDS ORDERED: IOHEXOL 350 MG/ML 10 ML VIAL (for RAD DIAG) IVCONTRAST ONE (17:01)
--- NOTE | 2017-08-25 17:07 | RADRPT ---
EXAM DATE/TIME: 08/25/2017 16:51 [facility] COMPARISON: None. INDICATIONS : <<Short of breath.>> IV CONTRAST: <<65>> cc Omnipaque 350 (iohexol) IV RADIATION DOSE: <<21.75>> CTDIvol (mGy) MEDICAL HISTORY : Cerebrovascular disease. Cardiovascular disease Hypertension. SURGICAL HISTORY : CABG Coronary artery stent.Cholecystectomy. ENCOUNTER: Initial ACUITY: 3 days PAIN SCALE: 0/10 LOCATION: chest TECHNIQUE: Volumetric scanning of the chest was performed using a pulmonary embolism protocol MIP images were re constructed. Using automated exposure control and adjustment of the mA and/or kV according to patien t size, radiation dose was kept as low as reasonably achievable to obtain optimal diagnostic quality images. DICOM format image data is available electronically for review and comparison. Follow-up recommendations for detected pulmonary nodules are based at a minimum on nodule size and pa tient risk factors according to Fleischner Society Guidelines. FINDINGS: No filling defects to suggest pulmonary embolus. Scattered subsegmental air space in the lower lobes. Moderate coronary calcifications. No pleural or pericardial effusion. Previous CABG. No adenopathy. CONCLUSION: 1. Negative for pulmonary embolus. Minimal subsegmental airspace disease in the lower lobes. Previous CABG. Tera Dixon MD on August 25, 2017 at 17:02 Board Certified Radiologist. This report was verified electronically.
[2017-08-25] MEDS ORDERED: PIPERACIL-TAZO 3.375 GM PREMIX 50 ML IV ONE (18:00)
[2017-08-25] MEDS ORDERED: methylPREDNISolone SOD SUCC 40 MG/1 ML VIAL IV PUSH ONE (18:00)
[2017-08-25] MEDS ORDERED: MAGNESIUM HYDROXIDE SUSP 30 ML CUP PO PRN (23:30)
[2017-08-25] MEDS ORDERED: SODIUM CHLORIDE 0.9% FLUSH 10 ML FLUSH IV FLUSH PRN (23:30)
[2017-08-25] MEDS ORDERED: NALOXONE HCL 0.4 MG/ML AMP IV PUSH PRN (23:30)
[2017-08-25] MEDS ORDERED: ONDANSETRON HCL 4 MG/2 ML VIAL IVP PRN (23:30)
[2017-08-26] VITALS (24 sets, daily range): BP systolic 124–141; BP diastolic 75–90; PULSE 64–94; RESP 17–20; TEMP 97.4–98.5; O2SAT 93–100
--- NOTE | 2017-08-26 06:29 | HHI.HP ---
History of Present Illness Primary Care Physician Bipin iSmmons, DO Admission Diagnosis R/O ENDOCARDITIS, SOB, CONGESTIVE HEART FAILURE EXACERBATION Diagnoses: History of Present Illness Patient presented to ER for for increased SOB. he has noticed more with exertion , he has orthopnea requiring 2 pillows to sleep. He also has noticed some increased leg edema. he thought he might have eaten something salty and it would possible go away. He has a extensive cardiac history, requiring Bypass 2010. He has MARA in June 2017 that showed EF of 60%, and endocarditis. His BNP on admission is 192. D-Dimer elevated but CTA of chest is negative. WBC 11.6. He was given Zosyn. ID and craniology consulted. He is kept NPO for MARA this am Review of Systems Respiratory: COMPLAINS OF: Shortness of breath Cardiovascular: COMPLAINS OF: Lower Extremity Edema, Orthopnea Except as stated in HPI: all other systems reviewed are Neg Past Family Social History Allergies: Coded Allergies: atorvastatin (Unverified Allergy, Mild, calf cramping, 01/27/17) Hospitalized as thought having heart attack. Past Medical History CAD HTN HLD Sleep Apnea Past Surgical History CABG Cholecystectomy Stent cardiac Reported Medications Nifedipine ER 24 HR (Nifedipine) 60 Mg Tab 60 Mg PO DAILY Lyrica (Pregabalin) 75 Mg Cap 75 Mg PO BID Metoprolol Tartrate 100 Mg Tab 100 Mg PO BID Pradaxa (Dabigatran) 150 Mg Cap 150 Mg PO DAILY Indomethacin 50 Mg Cap 50 Mg PO BID Active Ordered Medications Current Medications Medications (Trade) Dose Ordered Sig/Dione Route Start Time Stop Time Status Last Admin (Pradaxa) 150 mg DAILY PO 08/26/17 09:00 08/26/17 09:18 (Indocin) 50 mg BID PO 08/26/17 09:00 08/26/17 09:19 (Lopressor) 100 mg BID PO 08/26/17 09:00 08/26/17 09:19 (Procardia Xl) 60 mg DAILY PO 08/26/17 09:00 08/26/17 09:19 (Lyrica) 75 mg BID PO 08/26/17 09:00 08/26/17 09:19 (NS Flush) 2 ml UNSCH PRN IV FLUSH 08/25/17 23:30 (NS Flush) 2 ml BID IV FLUSH 08/26/17 09:00 08/26/17 09:20 (Zofran Inj) 4 mg Q6H PRN IVP 08/25/17 23:30 (Narcan Inj) 0.4 mg UNSCH PRN IV PUSH 08/25/17 23:30 (Joceline-Colace) 1 tab BID PO 08/26/17 09:00 (Milk Of Magnesia Liq) 30 ml Q12H PRN PO 08/25/17 23:30 Family History HLD Social History Denies Tobacco and elicit drugs Social drinker Physical Exam Vital Signs Vital Signs Date Time Temp Pulse Resp B/P (MAP) Pulse Ox O2 Delivery O2 Flow Rate FiO2 08/26/17 06:00 78 08/26/17 05:02 74 08/26/17 04:00 73 08/26/17 03:01 97.4 85 17 141/90 (107) 96 08/26/17 03:01 85 08/26/17 02:00 78 08/25/17 23:02 98.2 68 17 132/85 (101) 97 08/25/17 23:00 67 08/25/17 22:00 66 16 159/88 (111) 98 Nasal Cannula 2.00 08/25/17 22:00 08/25/17 21:00 97.6 64 16 142/81 (101) 97 Nasal Cannula 08/25/17 20:15 70 16 176/82 (113) 98 Nasal Cannula 08/25/17 19:04 68 16 127/63 (84) 98 Nasal Cannula 2.00 08/25/17 19:00 58 98 Nasal Cannula 2.00 08/25/17 17:22 67 16 137/79 (98) 98 Nasal Cannula 2.00 08/25/17 14:56 50 18 106/58 (74) 96 Nasal Cannula 2.00 08/25/17 14:10 97.6 49 20 96/57 (70) 94 Physical Exam GENERAL: This is a well-nourished obese, male patient, in no apparent distress. SKIN: No rashes, ecchymoses or lesions. Cool and dry. HEAD: Atraumatic. Normocephalic. No temporal or scalp tenderness. EYES: Pupils equal round and reactive. Extraocular motions intact. No scleral icterus. No injection or drainage. ENT: Nose without bleeding, purulent drainage or septal hematoma. Throat without erythema, tonsillar hypertrophy or exudate. Uvula midline. Airway patent. NECK: Trachea midline. No JVD or lymphadenopathy. Supple, nontender, no meningeal signs. CARDIOVASCULAR: Regular rate and rhythm without murmurs, gallops, or rubs. RESPIRATORY: Clear to auscultation. Breath sounds equal bilaterally diminished R /T girth GASTROINTESTINAL: Abdomen soft, non-tender, nondistended. No hepato-splenomegaly , or palpable masses. No guarding. MUSCULOSKELETAL: Extremities without clubbing, cyanosis, 2+ BL Le edema NEUROLOGICAL: Awake and alert. Cranial nerves II through XII intact. Normal speech. Laboratory Laboratory Tests Test 08/25/17 14:15 08/25/17 14:20 08/25/17 15:30 Lactic Acid Level 1.4 White Blood Count 11.6 Red Blood Count 3.38 Hemoglobin 10.7 Hematocrit 32.3 Mean Corpuscular Volume 95.5 Mean Corpuscular Hemoglobin 31.7 Mean Corpuscular Hemoglobin Concent 33.2 Red Cell Distribution Width 18.6 Platelet Count 232 Mean Platelet Volume 7.1 Neutrophils (%) (Auto) 63.4 Lymphocytes (%) (Auto) 24.7 Monocytes (%) (Auto) 9.7 Eosinophils (%) (Auto) 1.4 Basophils (%) (Auto) 0.8 Neutrophils # (Auto) 7.3 Lymphocytes # (Auto) 2.9 Monocytes # (Auto) 1.1 Eosinophils # (Auto) 0.2 Basophils # (Auto) 0.1 CBC Comment DIFF FINAL Differential Comment Prothrombin Time 13.4 Prothromb Time International Ratio 1.3 Activated Partial Thromboplast Time 46.0 D-Dimer Quantitative (PE/DVT) 2.05 Blood Urea Nitrogen 21 Creatinine 0.88 Random Glucose 128 Total Protein 7.5 Albumin 3.5 Calcium Level 8.3 Magnesium Level 2.1 Alkaline Phosphatase 67 Aspartate Amino Transf (AST/SGOT) 19 Alanine Aminotransferase (ALT/SGPT) 18 Total Bilirubin 0.6 Sodium Level 135 Potassium Level 4.4 Chloride Level 106 Carbon Dioxide Level 20.3 Anion Gap 9 Estimat Glomerular Filtration Rate 88 Total Creatine Kinase 38 Troponin I LESS THAN 0.02 B-Type Natriuretic Peptide 192 Urine Collection Type CLEAN CATCH Urine Color YELLOW Urine Turbidity CLEAR Urine pH 5.0 Urine Specific [place] 1.020 Urine Protein NEG Urine Glucose (UA) NEG Urine Ketones NEG Urine Occult Blood NEG Urine Nitrite NEG Urine Bilirubin NEG Urine Urobilinogen 0.2 Urine Leukocyte Esterase NEG Urine WBC 0-2 Urine Squamous Epithelial Cells 0-5 Urine Bacteria RARE Urine Hyaline Casts 3-5 Urine Mucus FEW Microscopic Urinalysis Comment CULT NOT INDICATED Date/Time Source Procedure Growth Status 08/25/17 14:20 Blood Peripheral Aerobic Blood Culture Pending Received 08/25/17 14:20 Blood Peripheral Anaerobic Blood Culture Pending Received Result Diagram: 08/25/17 1420 08/25/17 1420 Imaging Last 72 hours Impressions Chest X-Ray 08/25/17 0000 Signed Impressions: Service Date/Time: Friday, August 25, 2017 13:58 - CONCLUSION: 1. Chronic interstitial changes most consistent with COPD. Exam is relatively stable compared to previous dated 06/17/17. 2. Cardiomegaly. Kyle Cristina MD CT Angiography 08/25/17 0000 Signed Impressions: Service Date/Time: Friday, August 25, 2017 16:51 - CONCLUSION: 1. Negative for pulmonary embolus. Minimal subsegmental airspace disease in the lower lobes. Previous CABG. Tera Dixon MD Capmichellei VTE Risk Assessment Caprini VTE Risk Assessment: Mod/High Risk (score >= 2) Caprini Risk Assessment Model Point Value = 1 Point Value = 2 Point Value = 3 Point Value = 5 Age 41-60 Minor surgery BMI > 25 kg/m2 Swollen legs Varicose veins or History of unexplained or recurrent spontaneous Oral contraceptives or hormone replacement Sepsis (< 1 month) Serious lung disease, including pneumonia (< 1 month) Abnormal pulmonary function Acute myocardial infarction Congestive heart failure (< 1 month) History of inflammatory bowel disease Medical patient at bed rest Age 61-74 Arthroscopic surgery Major open surgery (> 45 min) Laparoscopic surgery (> 45 min) Malignancy Confined to bed (> 72 hours) Immobilizing plaster cast Central venous access Age >= 75 History of VTE Family history of VTE Factor V Leiden Prothrombin [id number] Lupus anticoagulant Anticardiolipin antibodies Elevated serum homocysteine Heparin-induced thrombocytopenia Other congenital or acquired thrombophilia Stroke (< 1 month) Elective arthroplasty Hip, pelvis, or leg fracture Acute spinal cord injury (< 1 month) Prophylaxis Regimen Total Risk Factor Score Risk Level Prophylaxis Regimen 0-1 Low Early ambulation 2 Moderate Order ONE of the following: *Sequential Compression Device (SCD) *Heparin 5000 units SQ BID 3-4 Higher Order ONE of the following medications: *Heparin 5000 units SQ TID *Enoxaparin/Lovenox 40 mg SQ daily (WT < 150 kg, CrCl > 30 mL/min) *Enoxaparin/Lovenox 30 mg SQ daily (WT < 150 kg, CrCl > 10-29 mL/min) *Enoxaparin/Lovenox 30 mg SQ BID (WT < 150 kg, CrCl > 30 mL/min) AND/OR *Sequential Compression Device (SCD) 5 or more Highest Order ONE of the following medications: *Heparin 5000 units SQ TID (Preferred with Epidurals) *Enoxaparin/Lovenox 40 mg SQ daily (WT < 150 kg, CrCl > 30 mL/min) *Enoxaparin/Lovenox 30 mg SQ daily (WT < 150 kg, CrCl > 10-29 mL/min) *Enoxaparin/Lovenox 30 mg SQ BID (WT < 150 kg, CrCl > 30 mL/min) AND *Sequential Compression Device (SCD) Assessment and Plan Problem List: (1) CAD (coronary artery disease) ICD Codes: I25.10 - Coronary artery disease Status: Chronic Plan: Cardiology consult, NPO scheduled for MARA today. (2) SOB (shortness of breath) ICD Codes: R06.02 - Shortness of breath Status: Acute Plan: Monitor 02, supplement, given Solu Medrol in ER (3) Bilateral leg edema ICD Codes: R60.0 - Localized edema Status: Acute Plan: Will add diuretic, cont to monitor (4) HTN (hypertension) ICD Codes: I10 - Hypertension Status: Chronic Plan: monitor Cont home medication. Assessment and Plan 08/26- scheduled for MARA today, appears to be breathing w/o difficulty. Most of his SOB is w/ exertion. Discharge Planning Home when cleared by cardiology. Pebbles Alfaro Aug 26, 2017 06:29
[2017-08-26] MEDS: DABIGATRAN ETEXILATE 150 MG CAP PO SCH (09:18)
[2017-08-26] MEDS: PREGABALIN 75 MG CAP PO SCH ×2 (09:19→21:14)
[2017-08-26] MEDS: METOPROLOL TARTRATE 100 MG TAB PO SCH ×2 (09:19→21:14)
[2017-08-26] MEDS: NIFEdipine 60 MG SUSTAINED RELEASE TAB PO SCH (09:19)
[2017-08-26] MEDS: INDOMETHACIN 50 MG CAP PO SCH ×2 (09:19→21:14)
[2017-08-26] MEDS: DOCUSATE SODIUM 50 MG/SENNA 8.6 MG TAB PO SCH ×2 (09:20→21:00)
[2017-08-26] MEDS: SODIUM CHLORIDE 0.9% FLUSH 10 ML FLUSH IV FLUSH SCH ×2 (09:20→21:00)
--- NOTE | 2017-08-26 15:06 | MB ---
cc: Ap Gutierrez MD DATE OF CONSULT: HISTORY OF PRESENT ILLNESS: A 61-year-old white male with history of aortic valve endocarditis resulting in stroke in May. He underwent antibiotic therapy. He presented with increased shortness of breath, PND, orthopnea, lower extremity edema. He has not had any chest pain. His MARA in June showed ejection fraction of 60% and aortic valve vegetation. He has previous history of coronary artery bypass in 2010. CT of the chest showed no evidence of pulmonary embolism. The patient was started on antibiotics and MARA was requested to evaluate for endocarditis. PAST MEDICAL HISTORY: Positive for coronary artery disease, coronary bypass in 2010, aortic valve endocarditis as above, hypertension, dyslipidemia, sleep apnea, obesity, cholecystectomy, coronary stenting. ALLERGIES: ATORVASTATIN. MEDICATIONS: Indomethacin, Pradaxa, metoprolol, Lyrica, nifedipine. SOCIAL HISTORY: The patient smokes. He drinks alcohol occasionally. FAMILY HISTORY: Positive for heart disease. REVIEW OF SYSTEMS: Otherwise negative. PHYSICAL EXAMINATION: VITAL SIGNS: Blood pressure 138/84, pulse 69 and regular. HEENT: Negative. NECK: 2+ carotid upstrokes. No bruits. LUNGS: Clear. HEART: Regular with no murmur, gallop or rub. ABDOMEN: Soft. No bruits. EXTREMITIES: 2+ pitting edema. 1+ distal pulses. NEUROLOGIC: Grossly intact. DATA: EKG was reviewed and showed sinus bradycardia. Normal axis and intervals. No acute changes. LABORATORY DATA: Hemoglobin 10.7, potassium 4.4, creatinine 0.9, CK 67, troponin less than 0.02, BNP 192. DIAGNOSIS: 1. Dyspnea. 2. Recent aortic valve endocarditis. 3. Coronary artery disease, history of coronary artery bypass. 4. Congestive heart failure exacerbation, diastolic dysfunction. 5. Hypertension. 6. Dyslipidemia. DISPOSITION: Mr. Vargas will undergo transesophageal echocardiogram to reevaluate for endocarditis. I recommend IV diuresis, closely monitoring his renal function. I also recommend to continue therapy for hypertension and dyslipidemia. I will follow Mr. Vargas for cardiology during his hospitalization. I will also see him back for follow up in our office after discharge. Ap Gutierrez MD OQ/TL , 02:22 PM , 03:04 PM ISABEL
--- NOTE | 2017-08-26 16:00 | CF ---
cc: Ap Gutierrez MD 08/26/2017 INDICATION: Shortness of breath, history of aortic valve endocarditis, evaluation for valvular vegetations, evaluation of left ventricular function. SEDATION: Provided by Anesthesia. PROCEDURE: After the patient was sedated by Anesthesia, transesophageal probe was placed without difficulty. Tomographic images were obtained. Left ventricular function was preserved with estimated ejection fraction of 55% to 60% with no segmental wall motion abnormalities. The left atrial appendage was visualized and there was no evidence of left atrial thrombus. Aortic valve was thickened. There was no evidence of aortic stenosis. There was no evidence of significant aortic insufficiency. There was no evidence of aortic valve vegetations. Mitral valve was mildly thickened; there was no evidence of mitral stenosis. There was evidence of mild to moderate mitral regurgitation. There was evidence of mild tricuspid regurgitation. Descending thoracic aorta had mild plaque. DIAGNOSIS: 1. No evidence valvular vegetations. 2. Preserved left ventricular systolic function. 3. Mild to moderate mitral regurgitation. 4. Aortic sclerosis without stenosis. 5. Mild tricuspid regurgitation. IMPRESSION: No evidence of endocarditis. Ap Gutierrez MD OQ/RAZA/rocael , 02:36 PM , 03:13 PM MTDCristiana
[2017-08-26] MEDS: LOSARTAN 25 MG TAB PO SCH (17:59)
[2017-08-26] MEDS: FUROSEMIDE 20 MG/2 ML VIAL IV PUSH SCH (17:59)
--- NOTE | 2017-08-26 23:29 | EKG ---
Date Performed: 08/26/2017 Time Performed: 00:04:18 PTAGE: 61 years EKG: Sinus rhythm Lateral T wave changes are nonspecific Borderline ECG PREVIOUS TRACING : 08/25/2017 14.32 Since the previous tracing, no significant change noted DOCTOR: Sher Welsh Interpretating Date/Time 08/26/2017 23:26:34
--- NOTE | 2017-08-26 23:45 | EKG ---
Date Performed: 08/25/2017 Time Performed: 14:32:36 PTAGE: 61 years EKG: SINUS BRADYCARDIA BORDERLINE ECG PREVIOUS TRACING : 06/12/2017 09.22 Compared to previous tracing SINUS BRADYCARDIA IS NEW DOCTOR: Sher Welsh Interpretating Date/Time 08/26/2017 23:42:12
[2017-08-27] VITALS (30 sets, daily range): BP systolic 130–148; BP diastolic 70–90; PULSE 50–78; RESP 18–20; TEMP 97.9–98.1; O2SAT 94–98
--- NOTE | 2017-08-27 07:27 | HHI.PR ---
Subjective Remarks Was up urinating all night Objective Vital Signs Date Time Temp Pulse Resp B/P (MAP) Pulse Ox O2 Delivery O2 Flow Rate FiO2 08/27/17 06:15 50 08/27/17 05:01 70 08/27/17 04:17 97.9 69 148/90 (109) 94 08/27/17 04:00 67 08/27/17 03:39 61 08/27/17 02:00 70 08/27/17 01:00 66 08/27/17 00:00 66 08/26/17 23:40 98.1 71 124/75 (91) 93 08/26/17 23:00 64 08/26/17 22:00 68 08/26/17 21:00 74 08/26/17 20:00 97.7 75 141/89 (106) 100 08/26/17 20:00 76 08/26/17 19:00 75 08/26/17 18:09 98.5 72 18 131/80 (97) 98 08/26/17 18:00 74 08/26/17 17:40 99 21 08/26/17 17:00 68 08/26/17 16:00 70 08/26/17 13:00 72 08/26/17 12:00 72 08/26/17 11:00 98.0 69 18 138/84 (102) 99 08/26/17 10:00 72 08/26/17 09:00 98 21 08/26/17 09:00 74 08/26/17 08:00 94 08/26/17 07:30 98.2 82 20 141/84 (103) 98 I/O 08/26/17 08/26/17 08/26/17 08/27/17 08/27/17 08/27/17 07:00 15:00 23:00 07:00 15:00 23:00 Intake Total 720 ml 480 ml 240 ml Output Total 1000 ml 1450 ml 2000 ml Balance -280 ml -970 ml -1760 ml Intake Oral 720 ml 480 ml 240 ml Output Urine Total 1000 ml 1450 ml 2000 ml # Voids 2 # Bowel Movements 1 Result Diagram: 08/25/17 1420 08/25/17 1420 Imaging Last 72 hours Impressions Chest X-Ray 08/25/17 0000 Signed Impressions: Service Date/Time: Friday, August 25, 2017 13:58 - CONCLUSION: 1. Chronic interstitial changes most consistent with COPD. Exam is relatively stable compared to previous dated 06/17/17. 2. Cardiomegaly. Kyle Cristina MD CT Angiography 08/25/17 0000 Signed Impressions: Service Date/Time: Friday, August 25, 2017 16:51 - CONCLUSION: 1. Negative for pulmonary embolus. Minimal subsegmental airspace disease in the lower lobes. Previous CABG. Tera Dixon MD Objective Remarks GENERAL: This is a well-nourished, well-developed patient, obese male SKIN: No rashes, ecchymoses or lesions. Cool and dry. NECK: Trachea midline. No JVD or lymphadenopathy. Supple CARDIOVASCULAR: Regular rate and rhythm without murmurs, gallops, or rubs. RESPIRATORY: Clear to auscultation. Breath sounds equal bilaterally, diminished GASTROINTESTINAL: Abdomen soft, non-tender, nondistended. MUSCULOSKELETAL: Extremities without clubbing, cyanosis, edema improved to BL LE NEUROLOGICAL: Awake and alert. Normal speech. Medications and IVs Current Medications Medications (Trade) Dose Ordered Sig/Dione Route Start Time Stop Time Status Last Admin (Pradaxa) 150 mg DAILY PO 08/26/17 09:00 08/26/17 09:18 (Indocin) 50 mg BID PO 08/26/17 09:00 08/26/17 21:14 (Lopressor) 100 mg BID PO 08/26/17 09:00 08/26/17 21:14 (Procardia Xl) 60 mg DAILY PO 08/26/17 09:00 08/26/17 09:19 (Lyrica) 75 mg BID PO 08/26/17 09:00 08/26/17 21:14 (NS Flush) 2 ml UNSCH PRN IV FLUSH 08/25/17 23:30 (NS Flush) 2 ml BID IV FLUSH 08/26/17 09:00 08/26/17 21:00 (Zofran Inj) 4 mg Q6H PRN IVP 08/25/17 23:30 (Narcan Inj) 0.4 mg UNSCH PRN IV PUSH 08/25/17 23:30 (Joceline-Colace) 1 tab BID PO 08/26/17 09:00 (Milk Of Magnesia Liq) 30 ml Q12H PRN PO 08/25/17 23:30 (Lasix Inj) 20 mg BID@09,18 IV PUSH 08/26/17 18:00 08/26/17 17:59 (Cozaar) 25 mg DAILY PO 08/26/17 15:00 08/26/17 17:59 Assessment and Plan Problem List: (1) CAD (coronary artery disease) ICD Codes: I25.10 - Coronary artery disease Status: Chronic Plan: MARA completed, endocarditis r/o, On Pradaxa cardiology following (2) SOB (shortness of breath) ICD Codes: R06.02 - Shortness of breath Status: Acute Plan: Monitor 02, supplement, given Solu Medrol, diuretics (3) Bilateral leg edema ICD Codes: R60.0 - Localized edema Status: Acute Plan: improved, being diuresed (4) HTN (hypertension) ICD Codes: I10 - Hypertension Status: Chronic Plan: monitor Cont home medication. Assessment and Plan 08/26- scheduled for MARA today, appears to be breathing w/o difficulty. Most of his SOB is w/ exertion. 08/27/17- Patient had episodes of HR in 30's last night. Patient voices since being on Metoprolol he feels tired and his chiropractor has told him his HR is low. May require adjustment. Will follow cardiology recommendations. DC once cleared by cardiology. Pebbles Alfaro Aug 27, 2017 07:27
[2017-08-27] MEDS: DOCUSATE SODIUM 50 MG/SENNA 8.6 MG TAB PO SCH ×2 (08:33→21:00)
[2017-08-27] MEDS: LOSARTAN 25 MG TAB PO SCH (08:35)
[2017-08-27] MEDS: METOPROLOL TARTRATE 100 MG TAB PO SCH ×2 (08:35→21:00)
[2017-08-27] MEDS: NIFEdipine 60 MG SUSTAINED RELEASE TAB PO SCH (08:35)
[2017-08-27] MEDS: DABIGATRAN ETEXILATE 150 MG CAP PO SCH (08:35)
[2017-08-27] MEDS: PREGABALIN 75 MG CAP PO SCH ×2 (08:35→21:07)
[2017-08-27] MEDS: INDOMETHACIN 50 MG CAP PO SCH ×2 (08:35→21:07)
[2017-08-27] MEDS: FUROSEMIDE 20 MG/2 ML VIAL IV PUSH SCH ×2 (08:36→18:00)
[2017-08-27] MEDS: SODIUM CHLORIDE 0.9% FLUSH 10 ML FLUSH IV FLUSH SCH ×2 (08:36→21:00)
[2017-08-27 09:12] LABS: BICARBONATE 23.4 MEQ/L (21.0-32.0); CALCIUM 9.1 MG/DL (8.5-10.1); CREATININE 0.85 MG/DL (0.60-1.30)
--- NOTE | 2017-08-27 16:49 | HHI.DS ---
Discharge Summary Admission Date Aug 25, 2017 at 18:13 Admitting Diagnosis R/O ENDOCARDITIS, SOB, CONGESTIVE HEART FAILURE EXACERBATION CBC/BMP: 08/25/17 1420 08/27/17 0818 Significant Findings Laboratory Tests Test 08/25/17 14:15 08/25/17 14:20 08/25/17 15:30 08/27/17 08:18 White Blood Count 11.6 TH/MM3 (4.0-11.0) Red Blood Count 3.38 MIL/MM3 (4.50-5.90) Hemoglobin 10.7 GM/DL (13.0-17.0) Hematocrit 32.3 % (39.0-51.0) Red Cell Distribution Width 18.6 % (11.6-17.2) Monocytes (%) (Auto) 9.7 % (0.0-8.0) Monocytes # (Auto) 1.1 TH/MM3 (0-0.9) Prothrombin Time 13.4 SEC (9.8-11.6) Activated Partial Thromboplast Time 46.0 SEC (24.3-30.1) D-Dimer Quantitative (PE/DVT) 2.05 MG/L FEU (0.00-0.50) Blood Urea Nitrogen 21 MG/DL (7-18) 19 MG/DL (7-18) Random Glucose 128 MG/DL (74-106) Calcium Level 8.3 MG/DL (8.5-10.1) Sodium Level 135 MEQ/L (136-145) Carbon Dioxide Level 20.3 MEQ/L (21.0-32.0) Estimat Glomerular Filtration Rate 88 ML/MIN (>89) Total Creatine Kinase 38 U/L (39-308) Troponin I LESS THAN 0.02 NG/ML B-Type Natriuretic Peptide 192 PG/ML (0-100) Urine Bacteria RARE /hpf (NONE) Urine Hyaline Casts 3-5 /lpf (RARE) Urine Mucus FEW /lpf (OCC) Imaging Last Impressions Chest X-Ray 08/25/17 0000 Signed Impressions: Service Date/Time: Friday, August 25, 2017 13:58 - CONCLUSION: 1. Chronic interstitial changes most consistent with COPD. Exam is relatively stable compared to previous dated 06/17/17. 2. Cardiomegaly. Kyle Cristina MD CT Angiography 08/25/17 0000 Signed Impressions: Service Date/Time: Friday, August 25, 2017 16:51 - CONCLUSION: 1. Negative for pulmonary embolus. Minimal subsegmental airspace disease in the lower lobes. Previous CABG. Tera Dixon MD Hospital Course pt admitted with chf gently diuressed now stable for dc home will fu with cardiology and primary Pt Condition on Discharge: Good Discharge Disposition: Discharge Home Discharge Instructions DIET: Follow Instructions for: Heart Healthy Diet Activities you can perform: Regular-No Restrictions Bipin Simmons DO Aug 27, 2017 16:49
[2017-08-27] MEDS: FUROSEMIDE 40 MG TAB PO SCH (18:00)
--- NOTE | 2017-08-27 18:23 | PD.CARD.PN ---
Subjective Subjective Remarks SOB improving, edema improving with diuresis, no CP Objective Medications Current Medications Medications (Trade) Dose Ordered Sig/Dione Route Start Time Stop Time Status Last Admin (Pradaxa) 150 mg DAILY PO 08/26/17 09:00 08/27/17 08:35 (Indocin) 50 mg BID PO 08/26/17 09:00 08/27/17 08:35 (Lopressor) 100 mg BID PO 08/26/17 09:00 08/27/17 08:35 (Procardia Xl) 60 mg DAILY PO 08/26/17 09:00 08/27/17 08:35 (Lyrica) 75 mg BID PO 08/26/17 09:00 08/27/17 08:35 (NS Flush) 2 ml UNSCH PRN IV FLUSH 08/25/17 23:30 (NS Flush) 2 ml BID IV FLUSH 08/26/17 09:00 08/27/17 08:36 (Zofran Inj) 4 mg Q6H PRN IVP 08/25/17 23:30 (Narcan Inj) 0.4 mg UNSCH PRN IV PUSH 08/25/17 23:30 (Joceline-Colace) 1 tab BID PO 08/26/17 09:00 (Milk Of Magnesia Liq) 30 ml Q12H PRN PO 08/25/17 23:30 (Lasix Inj) 20 mg BID@18 IV PUSH 08/26/17 18:00 08/27/17 08:36 (Cozaar) 25 mg DAILY PO 08/26/17 15:00 08/27/17 08:35 (Lasix) 40 mg BID@,18 PO 08/27/17 18:00 (KCl) 10 meq BID PO 08/27/17 21:00 Vital Signs / I&O Vital Signs Date Time Temp Pulse Resp B/P (MAP) Pulse Ox O2 Delivery O2 Flow Rate FiO2 08/27/17 17:36 64 08/27/17 16:11 66 08/27/17 15:19 98.0 68 18 130/70 (90) 98 08/27/17 15:08 Room Air 08/27/17 15:08 68 08/27/17 14:01 68 08/27/17 13:39 68 08/27/17 12:02 78 08/27/17 11:21 98.0 62 20 138/74 (95) 97 08/27/17 11:19 Room Air 08/27/17 11:19 62 08/27/17 10:30 62 08/27/17 09:41 98 21 08/27/17 09:21 68 08/27/17 08:53 98.0 63 18 140/89 (106) 98 08/27/17 08:50 64 08/27/17 08:49 Room Air 08/27/17 07:34 63 08/27/17 06:15 50 08/27/17 05:01 70 08/27/17 04:17 97.9 69 148/90 (109) 94 08/27/17 04:00 67 08/27/17 03:39 61 08/27/17 02:00 70 08/27/17 01:00 66 08/27/17 00:00 66 08/26/17 23:40 98.1 71 124/75 (91) 93 08/26/17 23:00 64 08/26/17 22:00 68 08/26/17 21:00 74 08/26/17 20:00 97.7 75 141/89 (106) 100 08/26/17 20:00 76 08/26/17 19:00 75 I/O 08/26/17 08/26/17 08/26/17 08/27/17 08/27/17 08/27/17 07:00 15:00 23:00 07:00 15:00 23:00 Intake Total 720 ml 480 ml 240 ml 1000 ml Output Total 1000 ml 1450 ml 2000 ml 1900 ml Balance -280 ml -970 ml -1760 ml -900 ml Intake Oral 720 ml 480 ml 240 ml 1000 ml IV Total 0 ml Output Urine Total 1000 ml 1450 ml 2000 ml 1900 ml # Voids 2 # Bowel Movements 1 Physical Exam GENERAL: In NAD. SKIN: Warm and dry. HEAD: Normocephalic. EYES: No scleral icterus. No injection or drainage. NECK: Supple, trachea midline. No JVD or lymphadenopathy. CARDIOVASCULAR: Regular rate and rhythm without murmurs, gallops, or rubs. RESPIRATORY: Breath sounds equal bilaterally. No accessory muscle use. GASTROINTESTINAL: Abdomen soft, non-tender, nondistended. MUSCULOSKELETAL: No cyanosis, mild edema. Laboratory Laboratory Tests Test 08/27/17 08:18 Blood Urea Nitrogen 19 MG/DL Creatinine 0.85 MG/DL Random Glucose 102 MG/DL Calcium Level 9.1 MG/DL Sodium Level 139 MEQ/L Potassium Level 3.7 MEQ/L Chloride Level 105 MEQ/L Carbon Dioxide Level 23.4 MEQ/L Anion Gap 11 MEQ/L Estimat Glomerular Filtration Rate 92 ML/MIN Assessment and Plan Problem List: (1) SOB (shortness of breath) ICD Codes: R06.02 - Shortness of breath Status: Acute (2) H/O endocarditis ICD Codes: Z86.79 - Personal history of other diseases of the circulatory system (3) CAD (coronary artery disease) ICD Codes: I25.10 - Coronary artery disease Status: Chronic (4) Hx of CABG ICD Codes: Z95.1 - Presence of aortocoronary bypass graft Status: Acute (5) Volume overload ICD Codes: E87.70 - Fluid overload, unspecified Status: Acute (6) HTN (hypertension) ICD Codes: I10 - Hypertension Status: Chronic (7) Dyslipidemia ICD Codes: E78.5 - Dyslipidemia Status: Chronic Assessment and Plan Symptoms improving with diuresis. Continue furosemide, switched to PO. May benefit from adding spironolactone if necessary. MARA with no evidence of endocarditis. LV fx preserved. Anticipate discharge home soon. Ap Gutierrez MD Aug 27, 2017 18:23
[2017-08-27] MEDS: POTASSIUM CHLORIDE 10 MEQ CAP PO SCH (21:07)
[2017-08-28] VITALS (22 sets, daily range): BP systolic 120–133; BP diastolic 67–83; PULSE 51–83; RESP 18; TEMP 97.5–98.2; O2SAT 93–99
[2017-08-28 06:18] LABS: BICARBONATE 25.1 MEQ/L (21.0-32.0); CALCIUM 9.3 MG/DL (8.5-10.1); CREATININE 0.82 MG/DL (0.60-1.30)
[2017-08-28] MEDS: DOCUSATE SODIUM 50 MG/SENNA 8.6 MG TAB PO SCH (09:00)
[2017-08-28] MEDS: PREGABALIN 75 MG CAP PO SCH (09:35)
[2017-08-28] MEDS: NIFEdipine 60 MG SUSTAINED RELEASE TAB PO SCH (09:35)
[2017-08-28] MEDS: INDOMETHACIN 50 MG CAP PO SCH (09:35)
[2017-08-28] MEDS: LOSARTAN 25 MG TAB PO SCH (09:35)
[2017-08-28] MEDS: SODIUM CHLORIDE 0.9% FLUSH 10 ML FLUSH IV FLUSH SCH (09:36)
[2017-08-28] MEDS: METOPROLOL TARTRATE 100 MG TAB PO SCH (09:36)
[2017-08-28] MEDS: POTASSIUM CHLORIDE 10 MEQ CAP PO SCH (09:36)
[2017-08-28] MEDS: FUROSEMIDE 40 MG TAB PO SCH (09:36)
[2017-08-28] MEDS: DABIGATRAN ETEXILATE 150 MG CAP PO SCH (09:36)
--- NOTE | 2017-08-28 10:54 | HHI.PR ---
Subjective Remarks Hoping to go home. B/L LE edema resolved Objective Vital Signs Date Time Temp Pulse Resp B/P (MAP) Pulse Ox O2 Delivery O2 Flow Rate FiO2 08/28/17 10:41 99 08/28/17 10:00 69 08/28/17 09:00 64 08/28/17 08:00 72 08/28/17 07:18 98.1 71 18 132/76 (94) 99 08/28/17 07:18 99 Room Air 08/28/17 07:00 73 08/28/17 06:38 62 08/28/17 05:27 83 08/28/17 04:37 60 08/28/17 04:36 Room Air 2.00 21 08/28/17 03:11 51 08/28/17 03:00 97.5 74 133/83 (100) 95 08/28/17 02:00 71 08/28/17 01:00 64 08/28/17 00:00 60 08/28/17 00:00 98.1 65 120/67 (84) 93 08/27/17 23:01 Room Air 2.00 21 08/27/17 23:00 54 08/27/17 22:32 98 08/27/17 22:00 56 08/27/17 21:00 64 08/27/17 20:00 98.1 57 139/89 (106) 96 08/27/17 20:00 60 08/27/17 20:00 Room Air 21 08/27/17 19:00 63 08/27/17 18:21 68 08/27/17 17:36 64 08/27/17 16:11 66 08/27/17 15:19 98.0 68 18 130/70 (90) 98 08/27/17 15:08 Room Air 08/27/17 15:08 68 08/27/17 14:01 68 08/27/17 13:39 68 08/27/17 12:02 78 08/27/17 11:21 98.0 62 20 138/74 (95) 97 08/27/17 11:19 Room Air 08/27/17 11:19 62 I/O 08/27/17 08/27/17 08/27/17 08/28/17 08/28/17 08/28/17 07:00 15:00 23:00 07:00 15:00 23:00 Intake Total 240 ml 1000 ml 240 ml Output Total 2000 ml 1900 ml 2900 ml Balance -1760 ml -900 ml -2660 ml Intake Oral 240 ml 1000 ml 240 ml IV Total 0 ml Output Urine Total 2000 ml 1900 ml 2900 ml Result Diagram: 08/25/17 1420 08/28/17 0544 Other Results Microbiology Date/Time Source Procedure Growth Status 08/25/17 14:20 Blood Peripheral Aerobic Blood Culture - Preliminary NO GROWTH IN 2 DAYS Resulted 08/25/17 14:20 Anaerobic Blood Culture - Preliminary Gram Positive Cocci Resulted 08/25/17 14:15 Blood Peripheral Aerobic Blood Culture - Preliminary NO GROWTH IN 2 DAYS Resulted 08/25/17 14:15 Blood Peripheral Anaerobic Blood Culture - Preliminary NO GROWTH IN 2 DAYS Resulted Objective Remarks GENERAL: This is a well-nourished, well-developed patient, obese male SKIN: No rashes, ecchymoses or lesions. Cool and dry. NECK: Trachea midline. No JVD or lymphadenopathy. Supple CARDIOVASCULAR: Regular rate and rhythm without murmurs, gallops, or rubs. RESPIRATORY: Clear to auscultation. Breath sounds equal bilaterally, diminished GASTROINTESTINAL: Abdomen soft, non-tender, nondistended. MUSCULOSKELETAL: Extremities without clubbing, cyanosis, edema resolved to B/L LE NEUROLOGICAL: Awake and alert. Normal speech. Medications and IVs Current Medications Medications (Trade) Dose Ordered Sig/Dione Route Start Time Stop Time Status Last Admin (Pradaxa) 150 mg DAILY PO 08/26/17 09:00 08/28/17 09:36 (Indocin) 50 mg BID PO 08/26/17 09:00 08/28/17 09:35 (Lopressor) 100 mg BID PO 08/26/17 09:00 08/28/17 09:36 (Procardia Xl) 60 mg DAILY PO 08/26/17 09:00 08/28/17 09:35 (Lyrica) 75 mg BID PO 08/26/17 09:00 08/28/17 09:35 (NS Flush) 2 ml UNSCH PRN IV FLUSH 08/25/17 23:30 (NS Flush) 2 ml BID IV FLUSH 08/26/17 09:00 08/28/17 09:36 (Zofran Inj) 4 mg Q6H PRN IVP 08/25/17 23:30 (Narcan Inj) 0.4 mg UNSCH PRN IV PUSH 08/25/17 23:30 (Joceline-Colace) 1 tab BID PO 08/26/17 09:00 (Milk Of Magncarol Liq) 30 ml Q12H PRN PO 08/25/17 23:30 (Cozaar) 25 mg DAILY PO 08/26/17 15:00 08/28/17 09:35 (Lasix) 40 mg BID@18 PO 08/27/17 18:00 08/28/17 09:36 (KCl) 10 meq BID PO 08/27/17 21:00 08/28/17 09:36 Assessment and Plan Problem List: (1) CAD (coronary artery disease) ICD Codes: I25.10 - Coronary artery disease Status: Chronic Plan: MARA completed, endocarditis r/o, On Pradaxa cardiology following (2) SOB (shortness of breath) ICD Codes: R06.02 - Shortness of breath Status: Acute Plan: Monitor 02, supplement, given Solu Medrol, diuretics Improved, (3) Bilateral leg edema ICD Codes: R60.0 - Localized edema Status: Acute Plan: improved, being diuresed (4) HTN (hypertension) ICD Codes: I10 - Hypertension Status: Chronic Plan: monitor Cont home medication. Assessment and Plan 08/26- scheduled for MARA today, appears to be breathing w/o difficulty. Most of his SOB is w/ exertion. 08/27/17- Patient had episodes of HR in 30's last night. Patient voices since being on Metoprolol he feels tired and his chiropractor has told him his HR is low. May require adjustment. Will follow cardiology recommendations. DC once cleared by cardiology. 08/28/17- Edema to B/l le resolved, with po lasix. Did have resulted positive blood culture, ID consulted for further recommendation. Pebbles Alfaro Aug 28, 2017 10:54
--- NOTE | 2017-08-28 14:18 | PD.CONS ---
History of Present Illness Service Infectious disease Consult Requested By Dr. Simmons Reason for Consult Evaluate patient with positive blood culture Primary Care Physician Bipin Simmons, DO Diagnoses: History of Present Illness Patient seen and examined. Records reviewed. Patient is a 61 year old male presented to ER complaining of increased SOB, and dyspnea on exertion. He is also been having 2 pillow orthopnea. He has not had any significant cough or chest congestion. He has noted increase lower extremity edema. Patient also mentioned that he has had on and off fevers although not always documented. His history is significant for treatment for strep mitral valve endocarditis last June and he supposedly completed treatment July 23. At that time he had a MARA that had mitral valve vegetation. This admission patient underwent MARA and there was no vegetation seen, and he had preserved LV function. A has been diuresed. Cardiology has seen the patient and felt that it's probably fluid overload. Clinically his shortness of breath and respiratory symptoms have all improved. 1 out of the 2 blood cultures done in the ED is now reported as growing gram-positive cocci in clusters. Patient received Zosyn in the ED. He has not been on any antibiotics since. He is afebrile. Infectious disease consultation has been requested to evaluate the patient with one positive blood culture. Review of Systems Constitutional: DENIES: Fever, Chills Eyes: DENIES: Eye pain Ears, nose, mouth, throat: DENIES: Nasal discharge, Oral lesions, Throat pain, Sinus Pain Respiratory: COMPLAINS OF: Shortness of breath, DENIES: Cough, Sputum production Cardiovascular: COMPLAINS OF: Dyspnea on Exertion, Lower Extremity Edema, Orthopnea, DENIES: Chest pain, Palpitations Gastrointestinal: DENIES: Abdominal pain, Diarrhea, Nausea, Vomiting, Difficulty Swallowing Genitourinary: DENIES: Urgency, Hematuria, Dysuria Musculoskeletal: DENIES: Joint pain, Joint Swelling Integumentary: DENIES: Rash Neurologic: DENIES: Localized weakness Psychiatric: DENIES: Hallucinations Past Family Social History Allergies: Coded Allergies: atorvastatin (Unverified Allergy, Mild, calf cramping, 01/27/17) Hospitalized as thought having heart attack. Past Medical History CAD with previous PR Hypertension Hyperlipidemia GERD Fatty liver Sleep apnea Obesity. Strep mitral valve endocarditis treated in June 2017 Past Surgical History CABG 2000 Lap cholecystectomy Tonsillectomy Active Ordered Medications Current Medications Medications (Trade) Dose Ordered Sig/Dione Route Start Time Stop Time Status Last Admin (Pradaxa) 150 mg DAILY PO 08/26/17 09:00 08/28/17 09:36 (Indocin) 50 mg BID PO 08/26/17 09:00 08/28/17 09:35 (Lopressor) 100 mg BID PO 08/26/17 09:00 08/28/17 09:36 (Procardia Xl) 60 mg DAILY PO 08/26/17 09:00 08/28/17 09:35 (Lyrica) 75 mg BID PO 08/26/17 09:00 08/28/17 09:35 (NS Flush) 2 ml UNSCH PRN IV FLUSH 08/25/17 23:30 (NS Flush) 2 ml BID IV FLUSH 08/26/17 09:00 08/28/17 09:36 (Zofran Inj) 4 mg Q6H PRN IVP 08/25/17 23:30 (Narcan Inj) 0.4 mg UNSCH PRN IV PUSH 08/25/17 23:30 (Joceline-Colace) 1 tab BID PO 08/26/17 09:00 (Milk Of Magnesia Liq) 30 ml Q12H PRN PO 08/25/17 23:30 (Cozaar) 25 mg DAILY PO 08/26/17 15:00 08/28/17 09:35 (Lasix) 40 mg BID@09,18 PO 08/27/17 18:00 08/28/17 09:36 (KCl) 10 meq BID PO 08/27/17 21:00 08/28/17 09:36 Family History Mother with history of liver cancer Social History Denies smoking Drinks alcohol 1-2 times a week Denies illicit drugs He is Physical Exam Vital Signs Vital Signs Date Time Temp Pulse Resp B/P (MAP) Pulse Ox O2 Delivery O2 Flow Rate FiO2 08/28/17 13:00 57 08/28/17 12:00 58 08/28/17 11:30 99 Room Air 08/28/17 11:30 98.0 70 18 121/70 (87) 99 08/28/17 11:00 63 08/28/17 10:41 99 08/28/17 10:00 69 08/28/17 09:00 64 08/28/17 08:00 72 08/28/17 07:18 98.1 71 18 132/76 (94) 99 08/28/17 07:18 99 Room Air 08/28/17 07:00 73 08/28/17 06:38 62 08/28/17 05:27 83 08/28/17 04:37 60 08/28/17 04:36 Room Air 2.00 21 08/28/17 03:11 51 08/28/17 03:00 97.5 74 133/83 (100) 95 08/28/17 02:00 71 08/28/17 01:00 64 08/28/17 00:00 60 08/28/17 00:00 98.1 65 120/67 (84) 93 08/27/17 23:01 Room Air 2.00 21 08/27/17 23:00 54 08/27/17 22:32 98 08/27/17 22:00 56 08/27/17 21:00 64 08/27/17 20:00 98.1 57 139/89 (106) 96 08/27/17 20:00 60 08/27/17 20:00 Room Air 21 08/27/17 19:00 63 08/27/17 18:21 68 08/27/17 17:36 64 08/27/17 16:11 66 08/27/17 15:19 98.0 68 18 130/70 (90) 98 08/27/17 15:08 Room Air 08/27/17 15:08 68 Physical Exam GENERAL: Patient is an obese, well-developed patient, awake and alert, not in respiratory distress. SKIN: Warm and dry. No generalized rash, no ecchymoses and no evidence of embolic lesions. HEAD: Atraumatic. Normocephalic. No temporal wasting, or tenderness. EYES: [place] conjunctiva. No petechia or hemorrhage. Pupils equal, round and reactive to light. Extraocular movements full and intact. No scleral icterus. No injection or drainage. EARS, NOSE AND THROAT: Nose without bleeding or purulent nasal discharge. No sinus tenderness. Mucous membranes pink and moist. No oral lesions noted. No exudate. No oral thrush. NECK: Trachea midline. Supple and not tender, no meningeal signs CARDIOVASCULAR: Regular rate and rhythm. No murmurs, rubs or gallops heard RESPIRATORY: Clear to auscultation. Breath sounds equal bilaterally. No rales , wheezing or rhonchi. Decreased breath sounds at the bases ABDOMEN: Soft, non-tender, nondistended. Bowel sounds present and normoactive. No guarding. No rebound. No organomegaly. EXTREMITIES: No clubbing, cyanosis. MIld pedal edema. No joint effusion, has good ROM. No calf tenderness. Well perfused and warm. NEUROLOGICAL: Awake and alert. Cranial nerves grossly intact. Motor grossly within normal limits. PSYCHIATRIC: Normal affect, calm and cooperative. LINE: No evidence of infection Laboratory Laboratory Tests Test 08/28/17 05:44 Blood Urea Nitrogen 20 Creatinine 0.82 Random Glucose 98 Calcium Level 9.3 Sodium Level 139 Potassium Level 3.7 Chloride Level 105 Carbon Dioxide Level 25.1 Anion Gap 9 Estimat Glomerular Filtration Rate 96 Date/Time Source Procedure Growth Status 08/25/17 14:20 Blood Peripheral Aerobic Blood Culture - Preliminary NO GROWTH IN 3 DAYS Resulted 08/25/17 14:20 Anaerobic Blood Culture - Preliminary Gram Positive Cocci Resulted Result Diagram: 08/25/17 1420 08/28/17 0544 Imaging RADIOLOGY STUDIES/FILMS REVIEWED Chest X-Ray 08/25/17 0000 Signed Impressions: Service Date/Time: Friday, August 25, 2017 13:58 - CONCLUSION: 1. Chronic interstitial changes most consistent with COPD. Exam is relatively stable compared to previous dated 06/17/17. 2. Cardiomegaly. Kyle Cristina MD CT Angiography 08/25/17 0000 Signed Impressions: Service Date/Time: Friday, August 25, 2017 16:51 - CONCLUSION: 1. Negative for pulmonary embolus. Minimal subsegmental airspace disease in the lower lobes. Previous CABG. Trea Dixon MD Assessment and Plan Assessment and Plan IMPRESSION One (+) BC with GPC in clusters likely Coag Neg Staph, likely contaminant - clinically no evidence of endocarditis - no fever - MARA negative S/P Strep MV IE last june SOB, orthopnea, due to fluid overload, better with diuresis ASIF Obesity RECOMMENDATION No Rx needed for one (+) BC Should be ok to D/C from ID standpoint Patient reports to on and off fever at home - I instructed patient to document his fevers - could be referred to outpatient ID if he does have any episodes of prolonged fever Thank you for this consultation Discussed Condition With Explained plan to the patient Karla Johnson MD 16, 2018 14:18
--- NOTE | 2017-08-28 16:09 | HHI.DS ---
Discharge Summary Admission Date Aug 25, 2017 at 18:13 Admitting Diagnosis R/O ENDOCARDITIS, SOB, CONGESTIVE HEART FAILURE EXACERBATION (1) SOB (shortness of breath) ICD Codes: R06.02 - Shortness of breath Status: Acute (2) Bilateral leg edema ICD Codes: R60.0 - Localized edema Status: Acute Brief History Patient presented to ER for for increased SOB. he has noticed more with exertion , he has orthopnea requiring 2 pillows to sleep. He also has noticed some increased leg edema. he thought he might have eaten something salty and it would possible go away. He has a extensive cardiac history, requiring Bypass 2010. He has MARA in June 2017 that showed EF of 60%, and endocarditis. His BNP on admission is 192. D-Dimer elevated but CTA of chest is negative. WBC 11.6. He was given Zosyn.Cardiology consulted, MARA done on 08/26/17 No evidence of endocarditis. He was diuresed with iv Lasix with good results. He had positive BC, ID consulted and determined BC + r/t contamination. DC home with PCP and Cardiac FU. CBC/BMP: 08/25/17 1420 08/28/17 0544 Significant Findings Laboratory Tests Test 08/27/17 08:18 08/28/17 05:44 Blood Urea Nitrogen 19 MG/DL (7-18) 20 MG/DL (7-18) PE at Discharge GENERAL: This is a well-nourished, well-developed patient, obese male SKIN: No rashes, ecchymoses or lesions. Cool and dry. NECK: Trachea midline. No JVD or lymphadenopathy. Supple CARDIOVASCULAR: Regular rate and rhythm without murmurs, gallops, or rubs. RESPIRATORY: Clear to auscultation. Breath sounds equal bilaterally, diminished GASTROINTESTINAL: Abdomen soft, non-tender, nondistended. MUSCULOSKELETAL: Extremities without clubbing, cyanosis, edema resolved to B/L LE NEUROLOGICAL: Awake and alert. Normal speech. Pt Condition on Discharge: Good Discharge Disposition: Discharge Home Discharge Instructions DIET: Follow Instructions for: Heart Healthy Diet Activities you can perform: Regular-No Restrictions Pebbles Alfaro Aug 28, 2017 16:09
--- NOTE | 2017-08-28 16:18 | PD.CARD.PN ---
Subjective Subjective Remarks No CP or SOB, edema improving Objective Medications Current Medications Medications (Trade) Dose Ordered Sig/Dione Route Start Time Stop Time Status Last Admin (Pradaxa) 150 mg DAILY PO 08/26/17 09:00 08/28/17 09:36 (Indocin) 50 mg BID PO 08/26/17 09:00 08/28/17 09:35 (Lopressor) 100 mg BID PO 08/26/17 09:00 08/28/17 09:36 (Procardia Xl) 60 mg DAILY PO 08/26/17 09:00 08/28/17 09:35 (Lyrica) 75 mg BID PO 08/26/17 09:00 08/28/17 09:35 (NS Flush) 2 ml UNSCH PRN IV FLUSH 08/25/17 23:30 (NS Flush) 2 ml BID IV FLUSH 08/26/17 09:00 08/28/17 09:36 (Zofran Inj) 4 mg Q6H PRN IVP 08/25/17 23:30 (Narcan Inj) 0.4 mg UNSCH PRN IV PUSH 08/25/17 23:30 (Joceline-Colace) 1 tab BID PO 08/26/17 09:00 (Milk Of Magnesia Liq) 30 ml Q12H PRN PO 08/25/17 23:30 (Cozaar) 25 mg DAILY PO 08/26/17 15:00 08/28/17 09:35 (Lasix) 40 mg BID@09,18 PO 08/27/17 18:00 08/28/17 09:36 (KCl) 10 meq BID PO 08/27/17 21:00 08/28/17 09:36 Vital Signs / I&O Vital Signs Date Time Temp Pulse Resp B/P (MAP) Pulse Ox O2 Delivery O2 Flow Rate FiO2 08/28/17 16:00 55 08/28/17 15:11 98.2 76 18 125/72 (89) 99 08/28/17 15:08 99 Room Air 08/28/17 15:00 59 08/28/17 14:00 61 08/28/17 13:00 57 08/28/17 12:00 58 08/28/17 11:30 99 Room Air 08/28/17 11:30 98.0 70 18 121/70 (87) 99 08/28/17 11:00 63 08/28/17 10:41 99 08/28/17 10:00 69 08/28/17 09:00 64 08/28/17 08:00 72 08/28/17 07:18 98.1 71 18 132/76 (94) 99 08/28/17 07:18 99 Room Air 08/28/17 07:00 73 08/28/17 06:38 62 08/28/17 05:27 83 08/28/17 04:37 60 08/28/17 04:36 Room Air 2.00 21 08/28/17 03:11 51 08/28/17 03:00 97.5 74 133/83 (100) 95 08/28/17 02:00 71 08/28/17 01:00 64 08/28/17 00:00 60 08/28/17 00:00 98.1 65 120/67 (84) 93 08/27/17 23:01 Room Air 2.00 21 08/27/17 23:00 54 08/27/17 22:32 98 08/27/17 22:00 56 08/27/17 21:00 64 08/27/17 20:00 98.1 57 139/89 (106) 96 08/27/17 20:00 60 08/27/17 20:00 Room Air 21 08/27/17 19:00 63 08/27/17 18:21 68 08/27/17 17:36 64 I/O 08/27/17 08/27/17 08/27/17 08/28/17 08/28/17 08/28/17 07:00 15:00 23:00 07:00 15:00 23:00 Intake Total 240 ml 1000 ml 240 ml Output Total 2000 ml 1900 ml 2900 ml Balance -1760 ml -900 ml -2660 ml Intake Oral 240 ml 1000 ml 240 ml IV Total 0 ml Output Urine Total 2000 ml 1900 ml 2900 ml Physical Exam GENERAL: In NAD. SKIN: Warm and dry. HEAD: Normocephalic. EYES: No scleral icterus. No injection or drainage. NECK: Supple, trachea midline. No JVD or lymphadenopathy. CARDIOVASCULAR: Regular rate and rhythm without murmurs, gallops, or rubs. RESPIRATORY: Breath sounds equal bilaterally. No accessory muscle use. GASTROINTESTINAL: Abdomen soft, non-tender, nondistended. MUSCULOSKELETAL: No cyanosis, 1+ pretibial edema. Laboratory Laboratory Tests Test 08/28/17 05:44 Blood Urea Nitrogen 20 MG/DL Creatinine 0.82 MG/DL Random Glucose 98 MG/DL Calcium Level 9.3 MG/DL Sodium Level 139 MEQ/L Potassium Level 3.7 MEQ/L Chloride Level 105 MEQ/L Carbon Dioxide Level 25.1 MEQ/L Anion Gap 9 MEQ/L Estimat Glomerular Filtration Rate 96 ML/MIN Assessment and Plan Problem List: (1) SOB (shortness of breath) ICD Codes: R06.02 - Shortness of breath Status: Acute (2) H/O endocarditis ICD Codes: Z86.79 - Personal history of other diseases of the circulatory system (3) CAD (coronary artery disease) ICD Codes: I25.10 - Coronary artery disease Status: Chronic (4) Hx of CABG ICD Codes: Z95.1 - Presence of aortocoronary bypass graft Status: Acute (5) Volume overload ICD Codes: E87.70 - Fluid overload, unspecified Status: Acute (6) HTN (hypertension) ICD Codes: I10 - Hypertension Status: Chronic (7) Dyslipidemia ICD Codes: E78.5 - Dyslipidemia Status: Chronic Assessment and Plan Symptoms improving with diuresis, still with mild edema. Continue furosemide 40 mg daily PO. May benefit from adding spironolactone later if necessary. MARA with no evidence of endocarditis. LV fx preserved. DC home today. Will schedule outpt f/u in our office after discharge. Ap Gutierrez MD Aug 28, 2017 16:18
[2017-08-28] MEDS ORDERED: FURO1TAB60 PO (16:20)
[2017-08-28] MEDS ORDERED: POTA10CA PO (16:20)
== END 2017-08-28 16:51 | disposition home or self-care (01) | DRG 292 ==
LOC: PHED 13:31 → PHEDA 18:13 → HCIS 22:46
PROVIDERS: ADMIT Family Medicine; ATTEND Family Medicine
PROC: B24BZZ4 Ultrasonography of Heart with Aorta, Transesophageal (ICD-10-PCS; principal; 2017-08-26)
DX: I11.0 Hypertensive heart disease with heart failure (principal); I50.33 Acute on chronic diastolic (congestive) heart failure; Z68.41 Body mass index [BMI] 40.0-44.9, adult; I25.10 Atherosclerotic heart disease of native coronary artery without angina pectoris; Z95.1 Presence of aortocoronary bypass graft; Z95.5 Presence of coronary angioplasty implant and graft; K76.0 Fatty (change of) liver, not elsewhere classified; E66.9 Obesity, unspecified; G47.33 Obstructive sleep apnea (adult) (pediatric); I34.0 Nonrheumatic mitral (valve) insufficiency; E78.5 Hyperlipidemia, unspecified; I25.2 Old myocardial infarction
CPT/HCPCS: 71046; 71275; 80048; 80053; 81001; 82550; 82948; 83605; 83735; 83880; 84484; 85025; 85379; 85610; 85730; 87040; 87205; 93005; 93312; 93320; 93325; 96374; 96375; J1940; J2543; J2920; Q9967

== ENCOUNTER → 2017-09-08 | Emergency (ER) | payer OTHER ==
[~2017-09-08] MED LIST changes: -ASPI-516 CHEW; -COLC0.6T PO; +FURO1TAB60 PO; -HYDR-3580 PO; +INDO50CA PO; +LYRI75CA PO; -METO-338 PO; +METO100T PO; +POTA10CA PO; -ROSU1TAB6 PO
--- NOTE | 2017-09-08 12:06 | PD ---
HPI Chief Complaint: Code Blue Time Seen by Provider: 12:00 Travel History International Travel<30 days: No Contact w/Intl Traveler<30days: No History of Present Illness HPI Is a 61-year-old man presents to the emergency department as cardiac arrest. History is obtained from EMS. They report patient was found unresponsive. Unknown downtime. Presenting rhythm was asystole. Treatment on scene occluded ACLS protocol. He converted into a fine V. fib rhythm, and received defibrillation. He also then converted into a wide complex PEA. Combitube was applied. Patient reportedly had a large [place] about a year or so ago. No other medical history was immediately available. History Past Medical History Narrative Medical Heart disease Social History Alcohol Use: Yes (1-2 TIMES WEEKLY ) Tobacco Use: No Allergies-Medications (Allergen,Severity, Reaction): Coded Allergies: atorvastatin (Unverified Allergy, Mild, calf cramping, 01/27/17) Hospitalized as thought having heart attack. Reported Meds & Prescriptions Reported Meds & Active Scripts Active Potassium Chloride ER (Potassium Chloride) 10 Meq Cap 10 Meq PO DAILY Lasix (Furosemide) 40 Mg Tab 40 Mg PO DAILY 30 Days Nifedipine ER 24 HR (Nifedipine) 60 Mg Tab 60 Mg PO DAILY Reported Lyrica (Pregabalin) 75 Mg Cap 75 Mg PO BID Metoprolol Tartrate 100 Mg Tab 100 Mg PO BID Pradaxa (Dabigatran) 150 Mg Cap 150 Mg PO DAILY Indomethacin 50 Mg Cap 50 Mg PO BID Take with food, milk, or antacids to decrease stomach adverse effects. Review of Systems ROS Limitations: Clinical Condition Physical Exam Narrative GENERAL: 61-year-old man, obtunded and comatose, obese. SKIN: Cool and clammy HEAD: No evidence of trauma, be tube in place. ENT: No nasal bleeding or discharge. Mucous membranes pink and moist. NECK: Trachea midline. Obese neck CARDIOVASCULAR: Cool and clammy, no pulse. RESPIRATORY: No spontaneous respiratory effort. GASTROINTESTINAL: Abdomen is obese, rotund. MUSCULOSKELETAL: Pitting edema both lower extremities. Skin is mottled. NEUROLOGICAL: Obtunded. No response to any stimuli. MDM Medical Decision Making Medical Screen Exam Complete: Yes Emergency Medical Condition: Yes Differential Diagnosis Cardiac arrest, V. fib arrest, sudden cardiac , PE, other Narrative Course Medical decision making 61-year-old man, unwitnessed arrest, found asystole, unknown downtime, asystole on presentation to the ED. Very very poor prognosis. ACLS was continued. Given 2 rounds of epi. Bicarb. He had a IO established. Combitube was pulled and patient was intubated without difficulty. Good color change. Patient's rhythm remained asystole. He was pronounced by myself at 11:54 AM. Procedures Procedure Narrative Intubation: Combitube was removed. Using a Gonzalez blade, patient was intubated with an 8.0 ET tube. Visualization was poor however intubation was completed uneventfully. Tube location confirmed with end-tidal capnography, bilateral auscultation. Diagnosis Primary Impression: Cardiac arrest Disposition: 20 Gabriel Grant MD Sep 08, 2017 12:06
== END | disposition expired ==
LOC: PHED 11:47
DX: I46.9 Cardiac arrest, cause unspecified (principal); I25.2 Old myocardial infarction
CPT/HCPCS: 31500; 92950